=== PATIENT | male | born 1980 | race Two or more races ===

== ENCOUNTER 2020-03-31 22:53 | Emergency (ER) | payer MEDICAID, SELFPAY ==
--- NOTE | 2020-04-01 00:16 | XR_ITS ---
EXAMINATION: CHEST 1 VIEW CLINICAL INFORMATION: Concern for pneumonia. Covid. COMPARISON: 08/25/2016. TECHNIQUE: An AP view of the chest is provided. FINDINGS: The cardiac silhouette is not enlarged. The mediastinal and hilar contours are unremarkable. There are neither pleural effusions nor pneumothoraces. There are no consolidations. The osseous structures are unremarkable. IMPRESSION: No evidence for acute disease.
--- NOTE | 2020-04-01 00:21 | ED.URI ---
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 MD elicited complaint: fever, cough, sore throat, rhinorrhea and nasal congestion Onset (ago): day(s) (1) Consistency: constant Severity: moderate Exacerbating factors: nothing Relieving factors: nothing Related Data Allergies Allergy/AdvReac Type Severity Reaction Status Date / Time No Known Allergies Allergy Unverified 02/26/20 18:26 Review of Systems Review of Systems: All other systems are reviewed and are negative Constitutional: Reports as per HPI and Reports no additional constitutional complaints Eyes: Reports as per HPI and Reports no additional eye complaints Reports system reviewed and no additional complaints, except as documented Cardiovascular: Reports as per HPI and Reports no additional cardiovascular complaints Respiratory: Reports as per HPI and Reports no additional respiratory complaints Gastrointestinal: Reports as per HPI and Reports no additional gastrointestinal complaints Genitourinary: Reports no additional female genitourinary complaints Musculoskeletal: Reports no additional musculoskeletal complaints Skin/Breast: Reports system reviewed and no additional complaints, except as docu Psychiatric: Reports no additional psychiatric complaints Endocrine: Reports no additional endocrine complaints Hematologic/Lymphatic: Reports no additional hematologic/lymphatic complaints Allergic/Immunologic: Reports no additional allergic/immunologic complaints Reports system reviewed and no additional complaints, except as documented and Reports Abnormal speech present [facility] Past Medical History Medical History (Updated 04/01/20 @ 00:45 by Charley Strauss) Diabetes mellitus, type 2 Social History Social History Advance Directives: No Advance Directives Information Provided: No Physical Exam Vital Signs: Vital Signs: Vital Signs Temp Pulse Resp BP Pulse Ox 04/01/20 00:43 99.2 F 85 18 122/80 97 Body Mass Index 30.7 Appearance: Alert. Oriented X3. No acute distress. Head: Normal external exam. Normocephalic. Atraumatic. No Jeff signs noted. No raccoon eyes noted Eyes: PERRLA. EOMI. Conjunctiva and sclera normal. Eyelids normal. ENT: EAC normal. TM's Normal. Pharynx normal. Uvula midline. Moist mucous membranes. No trismus noted. No drooling noted. No muffled voice noted. Neck: Normal inspection. Neck supple. FROM. No adenopathy. Thyroid Normal. No meningeal signs. No neck mass noted. CVS: Normal heart rate and rhythm. Heart sound normal. No murmurs noted. Pulses normal throughout. Respiratory: No respiratory distress. Painless inspiration. Breath sounds normal. No wheezes/rales/rhonchi noted. Chest nontender. No accessory muscle usage noted or decreased air movement noted. Abdomen: Soft and nontender. Bowel sounds normal in all 4 quadrants. No distention noted. No organomegaly noted. No visible injury noted. Back: No CVA tenderness. Full range of motion noted. Skin: Skin warm and dry. Normal skin color. Normal skin turgor. No rashes/lesions/lacerations noted. Extremities: No lower extremity edema. Extremities exhibit normal range of motion. Extremities nontender. Neuro: Oriented X 3. No motor deficit. No sensory deficit. Reflexes normal. Course Course Course Narrative: Viral upper respiratory symptoms for 1 day, will test for COVID, check chest x-ray. MDM - URI/Sore Throat MDM Narrative Medical decision making narrative: assessment and plan. 39-year-old male history of diabetes came in with upper respiratory infection. O2 saturation on room air is 99% 1. COVID testing is pending patient was instructed to self-quarantine for the next 2 weeks. Differential Diagnosis Differential diagnosis: Likely upper respiratory infection Imaging Data Chest x-ray: Radiologist's impression: No acute pathology. Discharge Plan Discharge Clinical Impression: Acute upper respiratory infection Patient Disposition: Home, Self-Care Instructions: COVID-19 (Coronavirus Disease 2019) (ED) Additional Instructions: return to the emergency department for difficulty breathing. Referrals: Martha Lock MD [Primary Care Provider] - 2 weeks Stand Alone Forms: Work/School Release
[2020-04-01 00:43] VITALS: BP 122/80; PULSE 85; RESP 18; TEMP 37.3; O2SAT 97; BMI 30.7
[2020-04-01 04:47] LABS: SARS COV2 PCR INHOUSE POSITIVE (Negative)
== END 2020-04-01 01:48 | disposition home or self-care (01) ==
PROVIDERS: Emergency Provider Emergency Medicine; PCP Internal Medicine
DX: J06.9 Acute upper respiratory infection, unspecified (principal); Z20.828 Contact with and (suspected) exposure to other viral communicable diseases
CPT/HCPCS: 71045; 87635; 99283

== ENCOUNTER 2020-04-02 00:08 | Emergency (ER) | payer MEDICAID, SELFPAY ==
--- NOTE | 2020-04-02 01:01 | ED_ITS ---
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 Related Data Home Medications Medication Instructions Recorded Confirmed albuterol sulfate [ProAir HFA] 2 puff INHALATION Q4H PRN 04/07/20 04/07/20 glimepiride 4 mg PO BIDWM 04/07/20 04/07/20 pioglitazone 45 mg PO DAILY 04/07/20 04/07/20 sitagliptin [Januvia] 100 mg PO DAILY 04/07/20 04/07/20 Allergies Allergy/AdvReac Type Severity Reaction Status Date / Time No Known Allergies Allergy Verified 04/08/20 02:10 Review of Systems Review of Systems: Pertinent positives and negatives as stated in the HPI and 10pt ROS is otherwise negative. [facility] Past Medical History Medical History (Updated 04/08/20 @ 09:06 by Brigitte Chávez MD) Asthma Diabetes mellitus, type 2 Social History Social History Household Members: Spouse Housing: House Do you presently have visiting nurse or other home services: No Alcohol intake: never Smoking Status: Never smoker Smoked in Last 30 Days: No Second Hand Smoke Exposure: No Use of substances other than those prescribed or required for medical reasons: No Have you been hit, kicked, punched, or otherwise hurt by someone within the past year? If so, by whom?: No Do you feel safe in your current relationship?: No Is there a partner from a previous relationship who is making you feel unsafe now?: No Are you made to feel afraid or neglected: No Advance Directives: No Advance Directives Information Provided: No Do you have thoughts of harming others: None Do you have a plan to hurt others: No Plan Recently lost weight without trying: No Physical Exam Vital Signs: Vital signs reviewed Constitutional: positive Fever, positive Chills, positive fatigue, positive Malaise ENT/Mouth: positive sore throat, no runny nose Eyes: No Discharge Cardiovascular: No Chest Pain, positive SOB Respiratory: No Cough, No Sputum, No Wheezing, No Smoke Exposure, No Dyspnea Gastrointestinal: No Nausea, No Vomiting, No Diarrhea Genitourinary: no irregular bleeding, No Dysuria, No Urinary Frequency, No Hematuria, No Urinary Incontinence, No Urgency, No Flank Pain, Musculoskeletal: positive Myalgia Skin: No rash Neuro: No Headache Course Course Course Narrative: 39M with persistent viral symptoms and tested for COVID-19. Clinical exam and review of vital signs reassuring and no evidence to suggest asthma exacerbation or pneumonia at present. Will likely get lab work, although did discuss with patient increasing symptomatic treatment with over the counter medication as well as asthma medication. Patient reassured. Nursing informed me that patient eloped. Discharge Plan Discharge Clinical Impression: Acute viral syndrome Patient Disposition: Elopement Prescriptions: No Action pioglitazone 45 mg Tablet 45 mg PO DAILY RF: 0 glimepiride 4 mg Tablet 4 mg PO BIDWM RF: 0 albuterol sulfate [ProAir HFA] 90 mcg/actuation Hfa Aerosol Inhaler 2 puff INHALATION Q4H PRN (Reason: Shortness Of Breath) RF: 0 Januvia 100 mg Tablet 100 mg PO DAILY RF: 0 Discharge Date/Time: 04/02/20 01:35
--- NOTE | 2020-04-02 01:37 | PC.NURSE ---
pt was seen by dr story and staff occupational therapist. art psychotherapist states she went to the bathroom and when she came out the pt left.
== END 2020-04-02 01:35 | disposition left against medical advice (07) ==
PROVIDERS: Emergency Provider Student in an Organized Health Care Education/Training Program
DX: U07.1 COVID-19 (principal); M79.10 Myalgia, unspecified site; Z79.899 Other long term (current) drug therapy

== ENCOUNTER 2020-04-07 14:58 | Inpatient (IN) | payer MEDICAID, SELFPAY ==
[2020-04-07 15:35] VITALS: BP 111/69; BP 119/47; PULSE 77; PULSE 88; RESP 21; TEMP 37.4; O2SAT 90; O2SAT 94; BMI 30.7
--- NOTE | 2020-04-07 16:53 | XR_ITS ---
EXAMINATION: XR CHEST CLINICAL INFORMATION: Shortness of breath. Covid positive. COMPARISON: Chest x-ray 04/01/2020 TECHNIQUE: Frontal view of the chest was obtained. 4:55 PM FINDINGS: Lung volume is low. This causes prominence of the bronchovascular markings. No focal consolidation. There is no pleural effusion or pneumothorax. The heart size is normal. Cardiac and mediastinal contours are normal. XR/XR chest 1V IMPRESSION: Low inspiratory effort. No acute changes of the chest.
--- NOTE | 2020-04-07 17:13 | ED.URI ---
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 Today, he states his shortness of breath is getting worse, he has a home pulse ox and he states it reads at 82%. He states he has been using his nebulizer with some relief. He also states his fevers have gone up to 108 and 109 but come down with Tylenol. This number was confirmed multiple times with the county extension agent. He states he is not on home oxygen, he does not have an albuterol pump and that he only has an inhaler. He states he is still eating but not his normal level all and he has had 4 episodes of diarrhea over the past 2 days. Related Data Allergies Allergy/AdvReac Type Severity Reaction Status Date / Time No Known Allergies Allergy Unverified 02/26/20 18:26 Review of Systems Review of Systems: Constitutional: + f, chills, fatigue ENT/Mouth: no sore throat, +runny nose Eyes: No Discharge Cardiovascular: No Chest Pain, + SOB Respiratory: + Cough, + Sputum, No Wheezing,+Dyspnea Gastrointestinal: No Nausea, No Vomiting, + Diarrhea Genitourinary: no irregular bleeding, No Dysuria, No Urinary Frequency, No Hematuria, No Urinary Incontinence, No Urgency, No Flank Pain, Musculoskeletal: + Myalgia Skin: No rash Neuro: No Headache PMFSH Past Medical History Attestation statement: The following information was validated with the patient. Medical History (Updated 04/07/20 @ 20:51 by JARROD Hawley) Asthma Diabetes mellitus, type 2 Social History Social History Alcohol intake: never Smoked in Last 30 Days: No Use of substances other than those prescribed or required for medical reasons: No Advance Directives: No Advance Directives Information Provided: No Physical Exam Vital Signs: Vital Signs: Vital Signs Temp Pulse Resp BP Pulse Ox 04/07/20 17:36 99.3 F 79 21 H 113/72 94 04/07/20 15:35 99.3 F 77 21 H 111/69 94 Body Mass Index 30.7 Const: General: cooperative, comfortable and no acute distress Orientation/consciousness: patient oriented x3 HENMT: Head: Yes normal to inspection General nose exam: Normal external nose present Face and sinus: Yes normal facial exam Neuro: General: patient oriented x3 Course Course Course Narrative: 39-year-old male with past medical history of asthma and diabetes was diagnosed with COVID 6 days ago, reports fevers chills bodyaches coughing fatigue and worsening shortness of breath. Upon arrival he was 90% on room air, is currently 94% on 4 L, reports high fevers which resolved with Tylenol. Will get labs, cxr and reassess. Pt breathing status worsening, shallow breathing, when oxygen is removed, his O2 sat drops to 89%, counseled patient on trying to take slow deep breaths, lying on his sides and belly as often as he can. Patient states he is also getting a headache. Labs remarkable for Na 133, Ca 8, ferritin 1453, alk-phos 135, LDH 283, liver enzymes slightly elevated, Lactic acid is 1.4 procalcitonin 0.12, D-dimer 251. Will get chest CT, VBG, give Tylenol. Speak to hospitalist about admission. CT chest showed GGO with atypical pneumonia as seen an COVID-19. VBG 7.37/52/25/30 with a base excess of 3.1 Hospitalist to admit pt. MDM - URI/Sore Throat MDM Narrative Medical decision making narrative: not likely sepsis but flagging as such, will do lactic acid and BCx2 Lab Data Attestation: I reviewed the patient's lab results. Result diagrams: 04/07/20 17:55 04/07/20 20:04 Labs: Lab Results 04/07/20 04/07/20 04/07/20 Range/Units 17:55 17:55 17:55 WBC 6.3 (4.8-10.8) X10*3/uL RBC 5.00 (4.60-5.80) X10*6/uL Hgb 14.3 (14.0-18.0) g/dl Hct 41.6 L (42-52) % MCV 83.2 (80-98) fL MCH 28.6 (27.0-33.0) pg MCHC 34.4 (31.0-36.0) g/dl RDW 12.7 (11.0-16.0) % Plt Count 111 L (160-400) X10*3/uL MPV 11.8 (9.4-12.4) fL Immature Gran % (Auto) 0.2 (0.0-0.4) % Neut % (Auto) 74.0 H (45-73) % Lymph % (Auto) 22.1 (20-40) % Mcnairy % (Auto) 3.5 (2-11) % Eos % (Auto) 0.0 (0-4) % Baso % (Auto) 0.2 (0-2) % Lymph # (Auto) 1.4 (1.2-4.9) X10*3/uL Mcnairy # (Auto) 0.2 (0.1-1.2) X10*3/uL Eos # (Auto) 0.0 (0.0-0.4) X10*3/uL Baso # (Auto) 0.0 (0.0-0.2) X10*3/uL Abs Immat Gran (auto) 0.01 (0.00-0.03) X10*3/uL Absolute Neuts (auto) 4.7 (2.0-8.3) X10*3/uL Absolute Nucleated RBC 0.000 (0.0-0.012) X10*3/uL Nucleated RBC % (auto) 0.0 (0.0-0.2) /100WBC D-Dimer 251 NG/ML VBG pH (7.32-7.43) VBG pCO2 mmhg VBG Oxygen Liters/Min VBG pO2 mmhg VBG HCO3 mmol/L VBG O2 Saturation % VBG Base Excess mmol/L Sodium (135-145) mmol/L Potassium (3.3-5.1) mmol/l Chloride (96-108) mmol/L Carbon Dioxide (22-29) mmol/L Anion Gap (12-20) BUN (9-16) mg/dL Creatinine (0.5-1.4) mg/dL Estim Creat Clear Calc Estimated GFR Random Glucose (60-115) mg/dL Lactic Acid (0.5-2.0) mmol/L Calcium (8.4-10.2) mg/dL Phosphorus 3.4 (2.7-4.5) mg/dL Magnesium 1.9 (1.6-2.6) mg/dL Ferritin 1453 H (20-250) ng/mL Total Bilirubin 0.6 (0.0-1.0) mg/dL Direct Bilirubin 0.3 (0.0-0.5) mg/dL AST 54 H (5-37) U/L ALT 53 H (0-40) U/L Alkaline Phosphatase 135 H (39-117) U/L Lactate Dehydrogenase 283 H (118-273) U/L Total Creatine Kinase 42 (38-174) U/L C-Reactive Protein 5.78 H (< or = 0.50) mg/dL Total Protein 6.7 (6.5-8.0) g/dL Albumin 3.7 (3.5-5.0) g/dL Procalcitonin ng/mL 04/07/20 04/07/20 04/07/20 Range/Units 17:55 19:14 20:04 WBC (4.8-10.8) X10*3/uL RBC (4.60-5.80) X10*6/uL Hgb (14.0-18.0) g/dl Hct (42-52) % MCV (80-98) fL MCH (27.0-33.0) pg MCHC (31.0-36.0) g/dl RDW (11.0-16.0) % Plt Count (160-400) X10*3/uL MPV (9.4-12.4) fL Immature Gran % (Auto) (0.0-0.4) % Neut % (Auto) (45-73) % Lymph % (Auto) (20-40) % Mcnairy % (Auto) (2-11) % Eos % (Auto) (0-4) % Baso % (Auto) (0-2) % Lymph # (Auto) (1.2-4.9) X10*3/uL Mcnairy # (Auto) (0.1-1.2) X10*3/uL Eos # (Auto) (0.0-0.4) X10*3/uL Baso # (Auto) (0.0-0.2) X10*3/uL Abs Immat Gran (auto) (0.00-0.03) X10*3/uL Absolute Neuts (auto) (2.0-8.3) X10*3/uL Absolute Nucleated RBC (0.0-0.012) X10*3/uL Nucleated RBC % (auto) (0.0-0.2) /100WBC D-Dimer NG/ML VBG pH (7.32-7.43) VBG pCO2 mmhg VBG Oxygen Liters/Min VBG pO2 mmhg VBG HCO3 mmol/L VBG O2 Saturation % VBG Base Excess mmol/L Sodium 133 L (135-145) mmol/L Potassium 4.1 (3.3-5.1) mmol/l Chloride 95 L (96-108) mmol/L Carbon Dioxide 29 (22-29) mmol/L Anion Gap 13 (12-20) BUN 8 L (9-16) mg/dL Creatinine 0.95 (0.5-1.4) mg/dL Estim Creat Clear Calc 124.4 Estimated GFR > 60 Random Glucose 277 H (60-115) mg/dL Lactic Acid 1.4 (0.5-2.0) mmol/L Calcium 8.0 L (8.4-10.2) mg/dL Phosphorus (2.7-4.5) mg/dL Magnesium (1.6-2.6) mg/dL Ferritin (20-250) ng/mL Total Bilirubin (0.0-1.0) mg/dL Direct Bilirubin (0.0-0.5) mg/dL AST (5-37) U/L ALT (0-40) U/L Alkaline Phosphatase (39-117) U/L Lactate Dehydrogenase (118-273) U/L Total Creatine Kinase (38-174) U/L C-Reactive Protein (< or = 0.50) mg/dL Total Protein (6.5-8.0) g/dL Albumin (3.5-5.0) g/dL Procalcitonin 0.12 ng/mL 04/07/20 Range/Units 20:30 WBC (4.8-10.8) X10*3/uL RBC (4.60-5.80) X10*6/uL Hgb (14.0-18.0) g/dl Hct (42-52) % MCV (80-98) fL MCH (27.0-33.0) pg MCHC (31.0-36.0) g/dl RDW (11.0-16.0) % Plt Count (160-400) X10*3/uL MPV (9.4-12.4) fL Immature Gran % (Auto) (0.0-0.4) % Neut % (Auto) (45-73) % Lymph % (Auto) (20-40) % Mcnairy % (Auto) (2-11) % Eos % (Auto) (0-4) % Baso % (Auto) (0-2) % Lymph # (Auto) (1.2-4.9) X10*3/uL Mcnairy # (Auto) (0.1-1.2) X10*3/uL Eos # (Auto) (0.0-0.4) X10*3/uL Baso # (Auto) (0.0-0.2) X10*3/uL Abs Immat Gran (auto) (0.00-0.03) X10*3/uL Absolute Neuts (auto) (2.0-8.3) X10*3/uL Absolute Nucleated RBC (0.0-0.012) X10*3/uL Nucleated RBC % (auto) (0.0-0.2) /100WBC D-Dimer NG/ML VBG pH 7.37 (7.32-7.43) VBG pCO2 52 mmhg VBG Oxygen Liters/Min TNP VBG pO2 25 mmhg VBG HCO3 30 mmol/L VBG O2 Saturation 46.7 % VBG Base Excess 3.1 mmol/L Sodium (135-145) mmol/L Potassium (3.3-5.1) mmol/l Chloride (96-108) mmol/L Carbon Dioxide (22-29) mmol/L Anion Gap (12-20) BUN (9-16) mg/dL Creatinine (0.5-1.4) mg/dL Estim Creat Clear Calc Estimated GFR Random Glucose (60-115) mg/dL Lactic Acid (0.5-2.0) mmol/L Calcium (8.4-10.2) mg/dL Phosphorus (2.7-4.5) mg/dL Magnesium (1.6-2.6) mg/dL Ferritin (20-250) ng/mL Total Bilirubin (0.0-1.0) mg/dL Direct Bilirubin (0.0-0.5) mg/dL AST (5-37) U/L ALT (0-40) U/L Alkaline Phosphatase (39-117) U/L Lactate Dehydrogenase (118-273) U/L Total Creatine Kinase (38-174) U/L C-Reactive Protein (< or = 0.50) mg/dL Total Protein (6.5-8.0) g/dL Albumin (3.5-5.0) g/dL Procalcitonin ng/mL Imaging Data Chest x-ray: Attestation: I personally reviewed and interpreted this imaging study as follows: My impression: no acute changes Radiologist's impression: [address] [address] XRay Report Signed Patient: Vinayak HernandezMR#: [id number] : 1980Acct:[id number] Age/Sex: 39 / MADM Date: 04/07/20 Loc: HO.ED Attending Dr: Ordering Physician: JAIR HUMPHREY Date of Service: 04/07/20 Procedure(s): XR chest 1V Accession Number(s): [id number] cc: JAIR HUMPHREY~ EXAMINATION: XR CHEST CLINICAL INFORMATION: Shortness of breath. Covid positive. COMPARISON: Chest x-ray 04/01/2020 TECHNIQUE: Frontal view of the chest was obtained. 4:55 PM FINDINGS: Lung volume is low. This causes prominence of the bronchovascular markings. No focal consolidation. There is no pleural effusion or pneumothorax. The heart size is normal. Cardiac and mediastinal contours are normal. XR/XR chest 1V IMPRESSION: Low inspiratory effort. No acute changes of the chest. Dictated By:CALOS CASTAÑEDA MD Signed By:<Electronically signed by CALOS CASTAÑEDA MD in OV>04/07/20 1710 DD/ 1653 TD/TT: Customer Operations Intern: CASH CT scan - chest: Attestation: I personally reviewed and interpreted this imaging study as follows: My impression: GGO, atypical PNA 2/2 COVID-19 Radiologist's impression: Vinayak Hernandez 39 M [address] [address] [address] Scan Report Signed Patient: Vinayak HernandezMR#: [id number] : 1980Acct:[id number] Age/Sex: 39 / MADM Date: 04/07/20 Loc: HO.ED Attending Dr: Ordering Physician: JAIR HUMPHREY Date of Service: 04/07/20 Procedure(s): CT chest wo con Accession Number(s): [id number] cc: JAIR HUMPHREY~ EXAMINATION: CT CHEST WITHOUT CONTRAST CLINICAL INFORMATION: Shortness of breath. Covid positive. COMPARISON: Chest x-ray today, 04/01/2020 TECHNIQUE: Multidetector volumetric CT imaging of the chest was done. Axial MIP volume rendering provided. Sagittal and coronal reformatted images were obtained. This CT examination was performed using dose optimization techniques as appropriate, variously including the following: *Automated exposure control *Adjustment of mA and/or kV according to patient size (this includes techniques or standardized protocols for targeted exams where dose is matched to indication/reason for exam; i.e. extremities or head) *Use of iterative reconstruction technique DLP: 346 mGy-cm FINDINGS: LUNGS: There is low inspiratory effort. There is diffuse multifocal scattered groundglass opacities throughout the lungs bilateral. This is consistent with Covid positive pneumonia. No dense consolidation. Central bronchial airways are open. No bronchiectasis or interstitial changes of lung. MEDIASTINUM: There are borderline enlarged lymph nodes in the pretracheal retrovascular space, AP window and subcarina. There is no pericardial effusion. The heart size is normal. PLEURA: There is no pleural effusion. No pleural mass or thickening. AXILLA: No lymphadenopathy. UPPER ABDOMEN: Mild low-attenuation of the liver parenchyma due to fatty change. The spleen is mildly enlarged measuring 15.6 cm AP. OSSEOUS STRUCTURES: Unremarkable. CT/CT chest wo con IMPRESSION: 1. Diffuse multifocal groundglass opacities throughout the lungs consistent with atypical pneumonia related to Covid. 2. Mild diffuse fatty change of liver. 3. Mild enlargement of spleen. Discharge Plan Discharge Clinical Impression: COVID-19 determined by clinical diagnostic criteria, Acute respiratory failure with hypoxia Patient Disposition: Admitted As Inpatient
[2020-04-07 17:36] VITALS: BP 113/72; PULSE 79; RESP 21; TEMP 37.4; O2SAT 94
[2020-04-07 18:02] LABS: MANUAL DIFF FLAG NO
[2020-04-07 18:05] LABS: Basophils Percent Auto 0.2 % (0-2); Hematocrit 41.6 % (42-52); Hemoglobin 14.3 g/dl (14.0-18.0); Imm Gran Abs Auto 0.01 X10*3/uL (0.00-0.03); Imm Gran Pct Auto 0.2 % (0.0-0.4); Lymphocytes Absolute Auto 1.4 X10*3/uL (1.2-4.9); Lymphocytes Percent Auto 22.1 % (20-40); Mean Corpuscular HGB Conc 34.4 g/dl (31.0-36.0); Mean Corpuscular Hemoglobin 28.6 pg (27.0-33.0); Mean Corpuscular Volume 83.2 fL (80-98); Mean Platelet Volume 11.8 fL (9.4-12.4); Monocytes Absolute Auto 0.2 X10*3/uL (0.1-1.2); Monocytes Percent Auto 3.5 % (2-11); Neutrophils Absolute Auto 4.7 X10*3/uL (2.0-8.3); Platelet Count 111 X10*3/uL (160-400); Red Cell Distribution Width 12.7 % (11.0-16.0); White Blood Count 6.3 X10*3/uL (4.8-10.8)
[2020-04-07 18:23] LABS: D Dimer 251 NG/ML
[2020-04-07 18:39] LABS: Alanine Aminotransferase 53 U/L (0-40); Albumin Level 3.7 g/dL (3.5-5.0); Alkaline Phosphatase 135 U/L (39-117); Aspartate Amino Transferase 54 U/L (5-37); Bilirubin Direct 0.3 mg/dL (0.0-0.5); Bilirubin Total 0.6 mg/dL (0.0-1.0); C Reactive Protein 5.78 mg/dL (< or = 0.50); Lactate Dehydrogenase 283 U/L (118-273); Magnesium 1.9 mg/dL (1.6-2.6); Phosphorus 3.4 mg/dL (2.7-4.5); Total Protein 6.7 g/dL (6.5-8.0)
[2020-04-07 18:58] LABS: Ferritin 1453 ng/mL (20-250)
[2020-04-07 19:03] LABS: Procalcitonin 0.12 ng/mL
--- NOTE | 2020-04-07 19:13 | CT_ITS ---
EXAMINATION: CT CHEST WITHOUT CONTRAST CLINICAL INFORMATION: Shortness of breath. Covid positive. COMPARISON: Chest x-ray today, 04/01/2020 TECHNIQUE: Multidetector volumetric CT imaging of the chest was done. Axial MIP volume rendering provided. Sagittal and coronal reformatted images were obtained. This CT examination was performed using dose optimization techniques as appropriate, variously including the following: *Automated exposure control *Adjustment of mA and/or kV according to patient size (this includes techniques or standardized protocols for targeted exams where dose is matched to indication/reason for exam; i.e. extremities or head) *Use of iterative reconstruction technique DLP: 346 mGy-cm FINDINGS: LUNGS: There is low inspiratory effort. There is diffuse multifocal scattered groundglass opacities throughout the lungs bilateral. This is consistent with Covid positive pneumonia. No dense consolidation. Central bronchial airways are open. No bronchiectasis or interstitial changes of lung. MEDIASTINUM: There are borderline enlarged lymph nodes in the pretracheal retrovascular space, AP window and subcarina. There is no pericardial effusion. The heart size is normal. PLEURA: There is no pleural effusion. No pleural mass or thickening. AXILLA: No lymphadenopathy. UPPER ABDOMEN: Mild low-attenuation of the liver parenchyma due to fatty change. The spleen is mildly enlarged measuring 15.6 cm AP. OSSEOUS STRUCTURES: Unremarkable. CT/CT chest wo con IMPRESSION: 1. Diffuse multifocal groundglass opacities throughout the lungs consistent with atypical pneumonia related to Covid. 2. Mild diffuse fatty change of liver. 3. Mild enlargement of spleen.
[2020-04-07 19:55] LABS: Lactic Acid 1.4 mmol/L (0.5-2.0)
[2020-04-07] MEDS: Acetaminophen 325 MG TABLET 650 MG PO ×2 (20:14→23:18)
--- NOTE | 2020-04-07 20:14 | PC.NURSE ---
THIS RN WORKING FLOAT NURSE, PT MEDICATED WITH PO TYLENOL AT THIS TIME. HOSPITALIST AT BEDSIDE PT 96%
[2020-04-07 20:33] LABS: Anion Gap 13 (12-20); Blood Urea Nitrogen 8 mg/dL (9-16); Carbon Dioxide 29 mmol/L (22-29); Chloride 95 mmol/L (96-108); Creatinine Clr Calc Pharmacy 124.4; Estimated Glomerular Filt Rate > 60; Glucose Random 277 mg/dL (60-115); Potassium 4.1 mmol/l (3.3-5.1); Sodium 133 mmol/L (135-145)
--- NOTE | 2020-04-07 20:36 | PM.IMHP ---
History of Present Illness Date of Service: 04/07/20 <JARROD Hawley - Last Filed: 04/07/20 20:58> Chief Complaint: shortness of breath <JARROD Hawley Last Filed: 04/07/20 20:58> this is a 39-year-old Marshallese-speaking male who presents to the emergency department with shortness of breath. Patient was seen in the emergency department on April 01 and diagnosed with coronavirus. Since then he has had increasing shortness of breath with associated cough productive of clear phlegm, fever, body aches. Today his oxygen saturation at home was 86 % and this prompted him to come to the emergency department for further evaluation. While in the emergency department his oxygen saturation was noted to dip below 90% on room air. He was started on supplemental oxygen but his shortness of breath persisted. Chest x-ray showed no evidence of pneumonia however cat scan of the chest showed ground-glass opacities. Inflammatory markers including ferritin, CRP and LDH were somewhat elevated. given hypoxia the decision was made to admit him to the hospital for further management. <JARROD Hawley - Last Filed: 04/07/20 20:58> Review of Systems Review of Systems: Yes all other systems are reviewed and are negative <JARROD Hawley Last Filed: 04/07/20 20:58> Constitutional: Constitutional: Reports body ache(s) and Reports fever(s) <JARROD Hawley Last Filed: 04/07/20 20:58> Cardiovascular: Cardiovascular: Reports dyspnea <JARROD Hawley Last Filed: 04/07/20 20:58> Respiratory: Respiratory: Reports dyspnea <JARROD Hawley Last Filed: 04/07/20 20:58> [facility] Medical History: Medical History (Updated 04/09/20 @ 16:32 by Giulia Coburn MD) Asthma Diabetes mellitus, type 2 <JARROD Hawley Last Filed: 04/07/20 20:58> Functional capacity: independent ambulation <JARROD Hawley Last Filed: 04/07/20 20:58> Pertinent family history: significant for diabetes in both his mother and brother <JARROD Hawley - Last Filed: 04/07/20 20:58> Social History: Social History Household Members: Spouse Housing: House Do you presently have visiting nurse or other home services: No Alcohol intake: never Smoking Status: Never smoker Smoked in Last 30 Days: No Second Hand Smoke Exposure: No Use of substances other than those prescribed or required for medical reasons: No Currently Displaying Signs/Symptoms of Drug Intoxication Withdrawal: No Have you been hit, kicked, punched, or otherwise hurt by someone within the past year? If so, by whom?: No Do you feel safe in your current relationship?: No Is there a partner from a previous relationship who is making you feel unsafe now?: No Are you made to feel afraid or neglected: No Advance Directives: No Advance Directives Information Provided: No Do you have thoughts of harming others: None Do you have a plan to hurt others: No Plan Recently lost weight without trying: No service: No Current occupational status: employed <JARROD Hawley - Last Filed: 04/07/20 20:58> Meds Allergies/Adverse reactions: Allergies Allergy/AdvReac Type Severity Reaction Status Date / Time No Known Allergies Allergy Verified 04/08/20 02:10 <JARROD Hawley - Last Filed: 04/07/20 20:58> Home medications: Home Medications Medication Instructions Recorded Confirmed Type albuterol sulfate [ProAir HFA] 2 puff INHALATION Q4H PRN 04/07/20 04/07/20 History glimepiride 4 mg PO BIDWM 04/07/20 04/07/20 History pioglitazone 45 mg PO DAILY 04/07/20 04/07/20 History sitagliptin [Januvia] 100 mg PO DAILY 04/07/20 04/07/20 History <JARROD Hawley - Last Filed: 04/07/20 20:58> Physical Exam Vital Signs and Narrative: Vital Signs: Last Vital Signs Temp 99.3 F 04/07/20 17:36 Pulse 79 04/07/20 17:36 Resp 21 H 04/07/20 17:36 BP 113/72 04/07/20 17:36 Pulse Ox 94 04/07/20 17:36 Body Mass Index 30.7 <JARROD Hawley - Last Filed: 04/07/20 20:58> Const: Nutritional Appearance: well nourished <JARROD Hawley - Last Filed: 04/07/20 20:58> Orientation/consciousness: patient oriented x3 <JARROD Hawley - Last Filed: 04/07/20 20:58> HENMT: Head: Yes normocephalic and Yes atraumatic <JARROD Hawley - Last Filed: 04/07/20 20:58> Eyes: Sclerae: sclerae normal <JARROD Hawley - Last Filed: 04/07/20 20:58> Chest: Chest palpation & inspection: normal inspection of the chest <JARROD Hawley - Last Filed: 04/07/20 20:58> Resp: Effort & Inspection: able to speak in complete sentences and labored <JARROD Hawley - Last Filed: 04/07/20 20:58> Cardio: Rate: regular rate <JARROD Hawley - Last Filed: 04/07/20 20:58> Rhythm: regular rhythm <JARROD Hawley - Last Filed: 04/07/20 20:58> Skin: General skin exam: no rashes or lesions noted <JARROD Hawley Last Filed: 04/07/20 20:58> Neuro: General: patient oriented x3 <JARROD Hawley - Last Filed: 04/07/20 20:58> Cranial nerves: Yes CN's II-XII intact bilaterally and Yes Bilaterally intact EOM present <JARROD Hawley - Last Filed: 04/07/20 20:58> Extrem: General: Yes normal to inspection <JARROD Hawley - Last Filed: 04/07/20 20:58> Results Labs Labs: Laboratory Tests 04/07/20 04/07/20 04/07/20 17:55 17:55 17:55 WBC 6.3 RBC 5.00 Hgb 14.3 Hct 41.6 L MCV 83.2 MCH 28.6 MCHC 34.4 RDW 12.7 Plt Count 111 L MPV 11.8 Immature Gran % (Auto) 0.2 Neut % (Auto) 74.0 H Lymph % (Auto) 22.1 [place] % (Auto) 3.5 Eos % (Auto) 0.0 Baso % (Auto) 0.2 Lymph # (Auto) 1.4 [place] # (Auto) 0.2 Eos # (Auto) 0.0 Baso # (Auto) 0.0 Abs Immat Gran (auto) 0.01 Absolute Neuts (auto) 4.7 Absolute Nucleated RBC 0.000 Nucleated RBC % (auto) 0.0 D-Dimer 251 Sodium Potassium Chloride Carbon Dioxide Anion Gap BUN Creatinine Estim Creat Clear Calc Estimated GFR Random Glucose Lactic Acid Calcium Phosphorus 3.4 Magnesium 1.9 Ferritin 1453 H Total Bilirubin 0.6 Direct Bilirubin 0.3 AST 54 H ALT 53 H Alkaline Phosphatase 135 H Lactate Dehydrogenase 283 H Total Creatine Kinase 42 C-Reactive Protein 5.78 H Total Protein 6.7 Albumin 3.7 Procalcitonin 04/07/20 04/07/20 04/07/20 17:55 19:14 20:04 WBC RBC Hgb Hct MCV MCH MCHC RDW Plt Count MPV Immature Gran % (Auto) Neut % (Auto) Lymph % (Auto) [place] % (Auto) Eos % (Auto) Baso % (Auto) Lymph # (Auto) [place] # (Auto) Eos # (Auto) Baso # (Auto) Abs Immat Gran (auto) Absolute Neuts (auto) Absolute Nucleated RBC Nucleated RBC % (auto) D-Dimer Sodium 133 L Potassium 4.1 Chloride 95 L Carbon Dioxide 29 Anion Gap 13 BUN 8 L Creatinine 0.95 Estim Creat Clear Calc 124.4 Estimated GFR > 60 Random Glucose 277 H Lactic Acid 1.4 Calcium 8.0 L Phosphorus Magnesium Ferritin Total Bilirubin Direct Bilirubin AST ALT Alkaline Phosphatase Lactate Dehydrogenase Total Creatine Kinase C-Reactive Protein Total Protein Albumin Procalcitonin 0.12 <JARROD Hawley - Last Filed: 04/07/20 20:58> Assessment and Plan (1) Pneumonia due to COVID-19 virus: Problem details: He has still active COVID likely He has diabetes and asthma risk He is feeling better today,but still hypoxic overnight, he is day 2/5 Remdesivir and Dexamethasone <JARROD Hawley - Last Filed: 04/07/20 20:58> Status: Acute <JARROD Hawley - Last Filed: 04/07/20 20:58> This is a 39-year-old Marshallese-speaking male with history of diabetes and asthma who presents to the emergency department with shortness of breath after being diagnosed with coronavirus on April 01. COVID-19 pneumonia requiring supplemental oxygen - IV Decadron - ID consult - continue supportive care diabetes hold PO meds - SSI, POCs Elevated LFTs CT shows fatty liver dz -trend LFTs DVT ppx - lovenox Code status - full code This case was discussed with Dr. Gibson <JARROD Hawley - Last Filed: 04/07/20 20:58>
[2020-04-07 20:42] LABS: pH VBG 7.37 (7.32-7.43)
[2020-04-07 20:43] LABS: Base Excess VBG 3.1 mmol/L; HCO3 VBG 30 mmol/L; PCO2 VBG 52 mmhg; PO2 VBG 25 mmhg
[2020-04-07 20:45] LABS: Blood Gas Serial # 5396; Oxygen Saturation VBG 46.7 %
[2020-04-07 21:32] VITALS: BP 113/69; PULSE 102; RESP 22; TEMP 39.4; O2SAT 90
[2020-04-07] MEDS: dexAMETHasone sod phosphate 4 MG/ML VIAL 6 MG IVPUSH (21:41)
[2020-04-07 22:33] VITALS: BP 122/80; PULSE 98; RESP 22; TEMP 38.4; O2SAT 93
[2020-04-07 23:12] VITALS: O2SAT 88
[2020-04-07] MEDS: Enoxaparin Sodium 40 MG/0.4 ML SYRINGE SUBCUT (23:18)
[2020-04-07] MEDS: 0.9 % Sodium Chloride Flush 3 ML SYRINGE IVFLUSH (23:19)
[2020-04-07 23:29] LABS: Glucose, Whole Blood 274 mg/dL (60-115)
[2020-04-07] MEDS: Insulin Lispro 100 UNIT/ML 3 ML VIAL SUBCUT (23:39)
[2020-04-08] VITALS (8 sets, daily range): BP systolic 107–146; BP diastolic 68–80; PULSE 72–93; RESP 18–20; TEMP 36.9–38; O2SAT 90–94; BMI 31.0
[2020-04-08 06:27] LABS: MANUAL DIFF FLAG SCAN; SCAN SMEAR FLAG 1
[2020-04-08 06:30] LABS: Hematocrit 44.2 % (42-52); Hemoglobin 14.7 g/dl (14.0-18.0); Imm Gran Abs Auto 0.03 X10*3/uL (0.00-0.03); Imm Gran Pct Auto 0.4 % (0.0-0.4); Lymphocytes Absolute Auto 0.7 X10*3/uL (1.2-4.9); Lymphocytes Percent Auto 9.2 % (20-40); Mean Corpuscular HGB Conc 33.3 g/dl (31.0-36.0); Mean Corpuscular Hemoglobin 28.4 pg (27.0-33.0); Mean Corpuscular Volume 85.3 fL (80-98); Mean Platelet Volume 12.9 fL (9.4-12.4); Monocytes Absolute Auto 0.2 X10*3/uL (0.1-1.2); Neutrophils Absolute Auto 6.7 X10*3/uL (2.0-8.3); Neutrophils Percent Auto 87.4 % (45-73); Platelet Count 132 X10*3/uL (160-400); Red Blood Count 5.18 X10*6/uL (4.60-5.80); Red Cell Distribution Width 12.7 % (11.0-16.0); White Blood Count 7.6 X10*3/uL (4.8-10.8)
[2020-04-08 07:03] LABS: PLT ABN DIST 1
[2020-04-08 07:05] LABS: SLIDE REVIEW VERIFIED
[2020-04-08 07:07] LABS: Alanine Aminotransferase 71 U/L (0-40); Albumin Level 3.8 g/dL (3.5-5.0); Alkaline Phosphatase 173 U/L (39-117); Anion Gap 17 (12-20); Aspartate Amino Transferase 87 U/L (5-37); Bilirubin Direct 0.4 mg/dL (0.0-0.5); Bilirubin Total 0.9 mg/dL (0.0-1.0); Blood Urea Nitrogen 11 mg/dL (9-16); Calcium 8.3 mg/dL (8.4-10.2); Carbon Dioxide 26 mmol/L (22-29); Chloride 98 mmol/L (96-108); Creatinine Clr Calc Pharmacy 150.4; Estimated Glomerular Filt Rate > 60; Glucose Random 292 mg/dL (60-115); Potassium 4.6 mmol/l (3.3-5.1); Sodium 136 mmol/L (135-145); Total Protein 7.1 g/dL (6.5-8.0)
[2020-04-08 08:24] LABS: Glucose, Whole Blood 255 mg/dL (60-115)
[2020-04-08] MEDS: dexAMETHasone sod phosphate 4 MG/ML VIAL 6 MG IVPUSH (08:34)
[2020-04-08] MEDS: 0.9 % Sodium Chloride Flush 3 ML SYRINGE IVFLUSH ×3 (08:35→20:40)
[2020-04-08] MEDS: Insulin Lispro 100 UNIT/ML 3 ML VIAL SUBCUT ×4 (08:35→20:43)
--- NOTE | 2020-04-08 09:31 | MHC.CM.PN ---
pt lives c his life partner in their home. 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 pt's life partner is able to help c his care if he needs it. this will include a ride home at dc. pt denies the need for vna at dc. dc plan is home no svcs. cm to cont. to follow.
--- NOTE | 2020-04-08 10:17 | P.CDIC_ITS ---
CDI Concurrent Query Service Date: 04/08/20 Documentation Clarification: Please clarify if you are treating a proba ble/suspected/likely or confirmed: Consistency: Acute respiratory failure with hypoxia, poa, txt: yes Please specify if known or other Jenny chest and wanting foamy had we had done yes Provider Response: Other Other Diagnosis: Acute respiratory failure probably related to covid infection. PLEASE DO NOT DELETE/MODIFY EXISTING CONTENT Additional information is needed in order to code to the highest accuracy and appropriate Severity of Illness (SOI). Please clarify the information noted below in your progress notes and discharge summary. Risk Factors/Clinical Indicators/Treatments ED: Clinical impression - Acute respiratory failure w hypoxia. SOB, pulse ox at home 82%, Temp 108, 3 liters nc, shallow breathing. RR 22 Temp 101.1 using accessory muscles. CDS: Violet Velasquez CCS, CDIS Contact Number: [phone] Please Review the information above and exercise your independent professional judgment in responding to the query. If you concur, pleas document in the PROGRESS NOTES and DISCHARGE SUMMARY. If you do not agree with the query, please document in the query above. THIS QUERY IS PART OF THE PERMANENT MEDICAL RECORD
[2020-04-08] MEDS: Acetaminophen 325 MG TABLET 650 MG PO ×2 (10:19→20:45)
--- NOTE | 2020-04-08 11:59 | W.PM.IDCN ---
History of Present Illness Data of Consult Service Date: 04/08/20 Requesting physician: Flakito Mejía Primary Care Provider: Unknown Physician HPI Reason for consult: shortness of breath He presents with shortness of breath Rhinorrhea started about 8 days ago and seen in ER COVID positive 04/01 Now worse fevers daily at home and cough PMFSH Past Medical History Medical History (Updated 04/10/20 @ 11:02 by Evon Canela MD) Asthma Diabetes mellitus, type 2 Functional capacity: independent ambulation Social History Social History Household Members: Spouse Housing: House Do you presently have visiting nurse or other home services: No Alcohol intake: never Smoking Status: Never smoker Smoked in Last 30 Days: No Second Hand Smoke Exposure: No Use of substances other than those prescribed or required for medical reasons: No Currently Displaying Signs/Symptoms of Drug Intoxication Withdrawal: No Have you been hit, kicked, punched, or otherwise hurt by someone within the past year? If so, by whom?: No Do you feel safe in your current relationship?: No Is there a partner from a previous relationship who is making you feel unsafe now?: No Are you made to feel afraid or neglected: No Advance Directives: No Advance Directives Information Provided: No Do you have thoughts of harming others: None Do you have a plan to hurt others: No Plan Recently lost weight without trying: No service: No Current occupational status: employed Meds Allergies Allergy/AdvReac Type Severity Reaction Status Date / Time No Known Allergies Allergy Verified 04/08/20 02:10 Home Medications Medication Instructions Recorded Confirmed Type albuterol sulfate [ProAir HFA] 2 puff INHALATION Q4H PRN 04/07/20 04/07/20 History glimepiride 4 mg PO BIDWM 04/07/20 04/07/20 History pioglitazone 45 mg PO DAILY 04/07/20 04/07/20 History sitagliptin [Januvia] 100 mg PO DAILY 04/07/20 04/07/20 History Physical Exam Vital Signs: Vital Signs: Vital Signs Temp Pulse Resp BP Pulse Ox 04/08/20 08:00 99.7 F 78 18 112/78 92 04/08/20 04:23 98.4 F 79 20 123/79 94 04/08/20 01:29 99.4 F 04/08/20 00:00 100.4 F 93 20 118/80 91 L 04/07/20 23:12 88 L 04/07/20 22:33 101.1 F H 98 22 H 122/80 93 04/07/20 21:32 102.9 F H 102 H 22 H 113/69 90 L 04/07/20 17:36 99.3 F 79 21 H 113/72 94 04/07/20 15:35 99.3 F 77 21 H 111/69 94 Body Mass Index 31.0 Const: General: cooperative Orientation/consciousness: oriented to person, oriented to place and oriented to time HENMT: Head: Yes normal to inspection Resp: Effort & Inspection: able to speak in complete sentences and abnormal respiratory pattern Cardio: Rate: regular rate Rhythm: regular rhythm GI: Inspection: Yes normal to inspection Skin: General skin exam: no rashes or lesions noted Neuro: General: oriented to person, oriented to place and oriented to time Extrem: General: Yes normal to inspection Assessment and Plan (1) Pneumonia due to COVID-19 virus: Status: Acute Decadron Remdesvir Convalescent plasma consider if not improved by tomorrow (2) Asthma: Problem details: ALBUTEROL HFA 2 PUFFS Q 4-6 HRS PRN Status: Acute (3) Diabetes mellitus, type 2: Status: Acute Results Labs CBC & Chem 7: 04/09/20 05:51 04/11/20 06:24 Labs: Short CBC 04/07/20 04/08/20 Range/Units 17:55 05:47 WBC 6.3 7.6 (4.8-10.8) X10*3/uL Hgb 14.3 14.7 (14.0-18.0) g/dl Hct 41.6 L 44.2 (42-52) % Plt Count 111 L 132 L (160-400) X10*3/uL BMP 04/07/20 04/08/20 20:04 05:47 Sodium 133 L 136 Potassium 4.1 4.6 Chloride 95 L 98 Carbon Dioxide 29 26 BUN 8 L 11 Creatinine 0.95 0.79 Calcium 8.0 L 8.3 L Cardiac Enzymes 04/07/20 Range/Units 17:55 Total Creatine Kinase 42 (38-174) U/L Liver Function 04/07/20 04/08/20 Range/Units 17:55 05:47 Total Bilirubin 0.6 0.9 (0.0-1.0) mg/dL Direct Bilirubin 0.3 0.4 (0.0-0.5) mg/dL AST 54 H 87 H (5-37) U/L ALT 53 H 71 H (0-40) U/L Alkaline Phosphatase 135 H 173 H D (39-117) U/L Albumin 3.7 3.8 (3.5-5.0) g/dL
[2020-04-08 12:04] LABS: Glucose, Whole Blood 282 mg/dL (60-115)
[2020-04-08 12:57] LABS: MANUAL DIFF FLAG NO
[2020-04-08 12:58] LABS: Basophils Percent Auto 0.1 % (0-2); Hematocrit 46.6 % (42-52); Hemoglobin 15.5 g/dl (14.0-18.0); Imm Gran Abs Auto 0.03 X10*3/uL (0.00-0.03); Imm Gran Pct Auto 0.3 % (0.0-0.4); Lymphocytes Absolute Auto 0.8 X10*3/uL (1.2-4.9); Lymphocytes Percent Auto 8.4 % (20-40); Mean Corpuscular HGB Conc 33.3 g/dl (31.0-36.0); Mean Corpuscular Hemoglobin 28.2 pg (27.0-33.0); Mean Corpuscular Volume 84.7 fL (80-98); Mean Platelet Volume 12.5 fL (9.4-12.4); Monocytes Absolute Auto 0.3 X10*3/uL (0.1-1.2); Monocytes Percent Auto 3.2 % (2-11); Neutrophils Absolute Auto 7.9 X10*3/uL (2.0-8.3); Platelet Count 157 X10*3/uL (160-400); Red Cell Distribution Width 12.9 % (11.0-16.0)
[2020-04-08 13:13] LABS: INTERNATIONAL NORM RATIO 1.1 (0.9-1.1); Prothrombin Time 12.8 SEC (10.8-13.0)
[2020-04-08 13:15] LABS: Partial Thromboplastin Time 35.5 SEC (24.1-38.0)
[2020-04-08 13:31] LABS: Alanine Aminotransferase 75 U/L (0-40); Albumin Level 4.1 g/dL (3.5-5.0); Alkaline Phosphatase 187 U/L (39-117); Anion Gap 16 (12-20); Aspartate Amino Transferase 74 U/L (5-37); Bilirubin Direct 0.4 mg/dL (0.0-0.5); Bilirubin Total 0.9 mg/dL (0.0-1.0); Blood Urea Nitrogen 13 mg/dL (9-16); Carbon Dioxide 30 mmol/L (22-29); Chloride 95 mmol/L (96-108); Creatinine Clr Calc Pharmacy 117.6; Estimated Glomerular Filt Rate > 60; Potassium 4.6 mmol/l (3.3-5.1); Sodium 136 mmol/L (135-145); Total Protein 7.6 g/dL (6.5-8.0)
[2020-04-08 16:24] LABS: Glucose, Whole Blood 287 mg/dL (60-115)
--- NOTE | 2020-04-08 17:58 | P.PNIM_ITS ---
Subjective Subjective Date of Service: 04/08/20 Interval History: Acute respiratory failure hypoxemic probably secondary to COVID infection. Review of Systems Patient still short of breath but seems slightly better than yesterday as per the patient, denies any chest pain. Physical Exam Vital Signs: Vital Signs: Vital Signs Temp Pulse Resp BP Pulse Ox 04/08/20 15:52 99.5 F 82 18 130/80 94 04/08/20 12:00 99.5 F 72 18 146/80 H 93 04/08/20 08:00 99.7 F 78 18 112/78 92 04/08/20 04:23 98.4 F 79 20 123/79 94 04/08/20 01:29 99.4 F 04/08/20 00:00 100.4 F 93 20 118/80 91 L 04/07/20 23:12 88 L 04/07/20 22:33 101.1 F H 98 22 H 122/80 93 04/07/20 21:32 102.9 F H 102 H 22 H 113/69 90 L Body Mass Index 31.0 Physical exam Cvs: rrr, [id number] , no murmur res: clear to auscultation ,no rhonchii or wheezing abd: no rebound or guarding ,nt, bs present. ext pulses present , no cyanosis neuro: axo3 , nonfocal. Objective Data Current Medications Generic Name Dose Route Start Last Admin Trade Name Freq PRN Reason Stop Dose Admin Acetaminophen 650 mg 04/07/20 22:31 04/08/20 10:19 Acetaminophen 325 Mg Tablet PO 650 mg Q6H PRN Administration Pain, Mild (Pain Scale 1-3) Albuterol Sulfate 2 puff 04/07/20 22:31 Albuterol Sulfate 90 Mcg 8 Gm Inhaler INHALE Q4H PRN Shortness Of Breath Dexamethasone Sodium Phosphate 6 mg 04/07/20 20:45 04/08/20 08:34 Dexamethasone Sod Phosphate 4 Mg/Ml Vial IVPUSH 6 mg DAILY DAMIAN Administration Docusate Sodium 100 mg 04/07/20 22:31 Docusate Sodium 100 Mg Capsule PO DAILY PRN Constipation Enoxaparin Sodium 40 mg 04/07/20 23:00 04/07/20 23:18 Enoxaparin Sodium 40 Mg/0.4 Ml Syringe SUBCUT 40 mg Q24H DAMIAN Administration Insulin Human Lispro 0 unit 04/07/20 22:31 04/08/20 16:24 Insulin Lispro 100 Unit/Ml 3 Ml Vial SUBCUT 04/08/20 22:31 6 unit QIDACHS [facility] Administration Protocol Ondansetron HCl 4 mg 04/07/20 22:31 Ondansetron Hcl 4 Mg/2 Ml Vial IVPUSH Q8H PRN Nausea and Vomiting Pharmacy Consult 1 each 04/07/20 20:36 Consult Rx Perform Med Rec MISCELLANE ONCE PRN Consult order Sodium Chloride 3 ml 04/08/20 00:00 04/08/20 16:18 0.9 % Sodium Chloride Flush 3 Ml Syringe IVFLUSH 3 ml QSHIFT [facility] Administration Labs CBC & Chem 7: 04/09/20 05:51 04/09/20 05:51 Assessment and Plan (1) Pneumonia due to COVID-19 virus: Problem details: He has still active COVID likely He has diabetes and asthma risk Status: Acute (2) Asthma: Status: Acute (3) Diabetes mellitus, type 2: Status: Acute Assessment and Plan: 39-year-old Hebrew-speaking male with history of diabetes and asthma who presents to the emergency department with shortness of breath after being diagnosed with coronavirus on April 01. COVID-19 pneumonia requiring supplemental oxygen - IV Decadron, add remdesvir - ID consult - continue supportive care diabetes hold PO meds - SSI, POCs Elevated LFTs CT shows fatty liver dz -trend LFTs
[2020-04-08] MEDS: Enoxaparin Sodium 40 MG/0.4 ML SYRINGE SUBCUT (20:39)
[2020-04-08] MEDS: Remdesivir 200 MG in 0.9 % Sodium Chloride 210 ML 105 MG IV (20:39)
[2020-04-08 20:48] LABS: Glucose, Whole Blood 289 mg/dL (60-115)
[2020-04-09 03:39] VITALS: BP 111/74; PULSE 79; RESP 20; TEMP 37.2; O2SAT 91
[2020-04-09] MEDS: Acetaminophen 325 MG TABLET 650 MG PO (03:48)
[2020-04-09 06:17] LABS: MANUAL DIFF FLAG NO
[2020-04-09 06:38] LABS: Basophils Percent Auto 0.1 % (0-2); Hematocrit 43.4 % (42-52); Hemoglobin 14.4 g/dl (14.0-18.0); Imm Gran Abs Auto 0.04 X10*3/uL (0.00-0.03); Imm Gran Pct Auto 0.4 % (0.0-0.4); Lymphocytes Absolute Auto 1.3 X10*3/uL (1.2-4.9); Lymphocytes Percent Auto 12.7 % (20-40); Mean Corpuscular HGB Conc 33.2 g/dl (31.0-36.0); Mean Corpuscular Hemoglobin 28.2 pg (27.0-33.0); Mean Corpuscular Volume 85.1 fL (80-98); Mean Platelet Volume 12.4 fL (9.4-12.4); Monocytes Absolute Auto 0.6 X10*3/uL (0.1-1.2); Monocytes Percent Auto 5.4 % (2-11); Neutrophils Absolute Auto 8.4 X10*3/uL (2.0-8.3); Neutrophils Percent Auto 81.4 % (45-73); Platelet Count 148 X10*3/uL (160-400); Red Cell Distribution Width 12.7 % (11.0-16.0); White Blood Count 10.3 X10*3/uL (4.8-10.8)
[2020-04-09 06:46] LABS: Partial Thromboplastin Time 27.7 SEC (24.1-38.0); Prothrombin Time 12.1 SEC (10.8-13.0)
[2020-04-09 06:51] LABS: Alanine Aminotransferase 57 U/L (0-40); Albumin Level 3.7 g/dL (3.5-5.0); Alkaline Phosphatase 153 U/L (39-117); Anion Gap 16 (12-20); Aspartate Amino Transferase 43 U/L (5-37); Bilirubin Direct 0.3 mg/dL (0.0-0.5); Bilirubin Total 0.7 mg/dL (0.0-1.0); Blood Urea Nitrogen 16 mg/dL (9-16); Carbon Dioxide 26 mmol/L (22-29); Chloride 98 mmol/L (96-108); Creatinine Clr Calc Pharmacy 148.5; Estimated Glomerular Filt Rate > 60; Potassium 4.2 mmol/l (3.3-5.1); Sodium 136 mmol/L (135-145); Total Protein 6.9 g/dL (6.5-8.0)
[2020-04-09 06:53] LABS: Anion Gap 18 (12-20); Blood Urea Nitrogen 16 mg/dL (9-16); Calcium 8.1 mg/dL (8.4-10.2); Carbon Dioxide 25 mmol/L (22-29); Chloride 98 mmol/L (96-108); Creatinine Clr Calc Pharmacy 144.9; Estimated Glomerular Filt Rate > 60; Glucose Random 273 mg/dL (60-115); Potassium 4.2 mmol/l (3.3-5.1); Sodium 137 mmol/L (135-145)
[2020-04-09] MEDS: dexAMETHasone sod phosphate 4 MG/ML VIAL 6 MG IVPUSH (07:49)
[2020-04-09] MEDS: 0.9 % Sodium Chloride Flush 3 ML SYRINGE IVFLUSH ×2 (07:49→14:33)
[2020-04-09 08:00] VITALS: BP 115/73; PULSE 73; RESP 22; TEMP 36.6; O2SAT 93
[2020-04-09 08:27] LABS: Glucose, Whole Blood 261 mg/dL (60-115)
--- NOTE | 2020-04-09 10:02 | PC.NURSE ---
CONVALESCENT PLASMA ORDERED. MD AND RN AT BEDSIDE, ADVISED PATIENT ON BENEFITS AND RISK RELATED WITH TREATMENT. PATIENT STATES WANTS TO HOLD OFF ON PLASMA AT THIS TIME BUT IS OPEN TO FUTURE ADMINISTRATION IF HIS SX WORSEN. PATIENT REFUSED SIGNING TRANSFUSION CONSENT AT THIS TIME.
--- NOTE | 2020-04-09 10:17 | PM.EVENT ---
Event Note Event Note: I saw this gentleman , for Pulm . consult . Full note is dictated . A: Acute Covid-19 related Pneumonitis . H/o Br. Asthma, stable . Ac Resp. distress /Hypoxemia , modertae , P; O2 by NC , 8 L/mt , adjust the fio2 as needed Albuterol MDI 2 puffs q 4 hrs PRN . Dexamethasone 6 mg IV daily Remsedvir 100 mg IV daily . May need Convalescent Plasma if gets any worse . control DM . Famotidine 40 mg podaily
--- NOTE | 2020-04-09 11:47 | CONS_ITS ---
DATE OF SERVICE: 04/09/2020 REFERRING PHYSICIAN: Flakito Mejía MD HISTORY OF PRESENT ILLNESS: This 39-year-old gentleman has been sick for the last 10 days or so, earlier seen on 04/01 in the emergency room with nonspecific respiratory symptoms such as cough and some shortness of breath. He did have COVID test on 04/01, which was reported to be positive. The patient was initially sent home to continue quarantine at home and supportive care. He presented to the emergency room on 04/07 with increased shortness of breath with continued mild intermittent cough, just borderline low-grade fever, and body aches. The patient was noted to be hypoxemic and required oxygen supplementation, so admitted to the [facility]. He continues to have increased shortness of breath and is requiring oxygen currently at 8 L/minute. PAST MEDICAL HISTORY: Does not have any chronic obstructive pulmonary disease, but has history of mild intermittent bronchial asthma. Diabetes mellitus type 2. REVIEW OF SYSTEMS: Mainly, he has cough and shortness of breath. Denies any nausea, vomiting, or abdominal pain. Denies any urinary symptoms. Has generalized body aches and general weakness. The patient reports to be nonsmoker. PHYSICAL EXAMINATION: GENERAL: 39-year-old gentleman, is alert and orientated and conversing well. He claims to be feeling fairly well. He is currently on oxygen 8 L/minute and does not seem to be in distress. EAR, NOSE, THROAT: No acute pharyngitis. Nose is clear. NECK: No JVD. Trachea midline. No lymphadenopathy. CHEST: Chest wall is somewhat obese. Percussion note is resonant. Breath sounds are equal on both sides, however, seem to be decreased over the bases. No wheezes or crepitations are heard. CARDIAC: PMI not palpable. Heart sounds are distant. Rhythm regular. No murmurs. ABDOMEN: Moderately obese, but soft and nontender. EXTREMITIES: No edema or varicosities. Peripheral pulses faintly palpable. DIAGNOSTIC DATA: Chest x-ray shows cardiomegaly with small lung volumes and haziness on both sides. CT scan shows extensive ground-glass opacification of multifocal opacification of both lungs. Current O2 saturation is 93% on 8 L/minute. COVID test as of 04/01 reported positive. CLINICAL IMPRESSION: 1. The patient has baseline diagnosis of bronchial asthma, which seems to be under control. 2. Acute COVID pneumonitis. 3. Respiratory distress with hypoxemia secondary to above. 4. Diabetes mellitus. RECOMMENDATIONS: I think at this point, he is fairly stable and can be managed on IMC. Oxygen 8 L/minute by nasal cannula and if he has increasing amount of respiratory distress, he may require or high-flow oxygen. Start on remdesivir 100 mg IV daily. Dexamethasone 6 mg IV daily. Albuterol sulfate by 2 puffs q.4 hours p.r.n., not the nebulizer. Continue DVT prevention with Lovenox. Thank you very much for asking me to see this patient. MD HERMILA Parson/LAMONT / [phone]
[2020-04-09 11:57] LABS: Glucose, Whole Blood 408 mg/dL (60-115)
[2020-04-09 12:00] VITALS: BP 136/88; PULSE 86; RESP 22; TEMP 36.2; O2SAT 93
[2020-04-09] MEDS: Insulin Lispro 100 UNIT/ML 3 ML VIAL SUBCUT ×3 (12:08→21:37)
--- NOTE | 2020-04-09 14:37 | P.PNIM_ITS ---
Subjective Subjective Date of Service: 04/09/20 Interval History: Probable COVID pneumonia Review of Systems Still has shortness of breath says it is little bit better than last night, we could able to put him back on nasal cannula 4-5 L. Physical Exam Vital Signs: Vital Signs: Vital Signs Temp Pulse Resp BP Pulse Ox 04/09/20 12:00 97.2 F 86 22 H 136/88 93 04/09/20 08:00 97.9 F 73 22 H 115/73 93 04/09/20 03:39 99.0 F 79 20 111/74 91 L 04/08/20 23:34 98.9 F 79 20 107/68 94 04/08/20 20:00 98.5 F 78 20 118/77 90 L 04/08/20 15:52 99.5 F 82 18 130/80 94 Body Mass Index 31.0 Physical exam: Cvs: rrr, [id number] , no murmur res: fair air entry , diminshed at bases. abd: no rebound or guarding ,nt, bs present. ext pulses present , no cyanosis neuro: axo3 , nonfocal. Objective Data Current Medications Generic Name Dose Route Start Last Admin Trade Name Freq PRN Reason Stop Dose Admin Acetaminophen 650 mg 04/07/20 22:31 04/09/20 03:48 Acetaminophen 325 Mg Tablet PO 650 mg Q6H PRN Administration Pain, Mild (Pain Scale 1-3) Albuterol Sulfate 2 puff 04/07/20 22:31 Albuterol Sulfate 90 Mcg 8 Gm Inhaler INHALE Q4H PRN Shortness Of Breath Dexamethasone Sodium Phosphate 6 mg 04/07/20 20:45 04/09/20 07:49 Dexamethasone Sod Phosphate 4 Mg/Ml Vial IVPUSH 6 mg DAILY DAMIAN Administration Docusate Sodium 100 mg 04/07/20 22:31 Docusate Sodium 100 Mg Capsule PO DAILY PRN Constipation Enoxaparin Sodium 40 mg 04/07/20 23:00 04/08/20 20:39 Enoxaparin Sodium 40 Mg/0.4 Ml Syringe SUBCUT 40 mg Q24H DAMIAN Administration Famotidine 20 mg 04/09/20 21:00 Famotidine 20 Mg Tablet PO BID DAMIAN Remdesivir 100 mg/ Sodium 250 mls @ 125 mls/hr 04/09/20 19:00 Chloride IV 04/12/20 20:59 Q24H [facility] Insulin Human Lispro 0 unit 04/09/20 11:30 04/09/20 12:08 Insulin Lispro 100 Unit/Ml 3 Ml Vial SUBCUT 14 unit QIDACHS [facility] Administration Protocol Ondansetron HCl 4 mg 04/07/20 22:31 Ondansetron Hcl 4 Mg/2 Ml Vial IVPUSH Q8H PRN Nausea and Vomiting Pharmacy Consult 1 each 04/07/20 20:36 Consult Rx Perform Med Rec MISCELLANE ONCE PRN Consult order Sodium Chloride 3 ml 04/08/20 00:00 04/09/20 14:33 0.9 % Sodium Chloride Flush 3 Ml Syringe IVFLUSH 3 ml QSHIFT [facility] Administration Labs CBC & Chem 7: 04/09/20 05:51 04/09/20 05:51 Microbiology Microbiology Results: Microbiology 04/07/20 19:14 Blood - Venous Blood Culture - Preliminary No growth after 24 hours. 04/07/20 19:06 Blood - Venous Blood Culture - Preliminary No growth after 24 hours. Assessment and Plan (1) Pneumonia due to COVID-19 virus: Problem details: He has still active COVID likely He has diabetes and asthma risk Status: Acute (2) Asthma: Status: Acute (3) Diabetes mellitus, type 2: Status: Acute Assessment and Plan: 39-year-old Croatian-speaking male with history of diabetes and asthma who presents to the emergency department with shortness of breath after being diagnosed with coronavirus on April 01. COVID-19 pneumonia requiring supplemental oxygen continue IV Decadron, add remdesvir, patient currently is not considering for conversant plasma he said if condition worsen he will think about it. Discussed with ID about above, pulmonary evaluation if needed. diabetes hold PO meds - SSI, POCs Elevated LFTs CT shows fatty liver dz -trend LFTs
[2020-04-09 16:00] VITALS: BP 106/71; PULSE 67; RESP 18; TEMP 36.3; O2SAT 94
--- NOTE | 2020-04-09 16:29 | PM.IDPN ---
Subjective Subjective Date of Service: 04/09/20 Interval History: He is doing well on 2 l this am and sat over 94% However he had 45% oxygen needs overnight He has no complaints and feels better Objective Data Labs CBC & Chem 7: 04/09/20 05:51 04/09/20 05:51 Labs: Laboratory Results - last 24 hr 04/08/20 04/09/20 04/09/20 20:42 05:51 05:51 WBC 10.3 RBC 5.10 Hgb 14.4 Hct 43.4 MCV 85.1 MCH 28.2 MCHC 33.2 RDW 12.7 Plt Count 148 L MPV 12.4 Immature Gran % (Auto) 0.4 Neut % (Auto) 81.4 H Lymph % (Auto) 12.7 L [place] % (Auto) 5.4 Eos % (Auto) 0.0 Baso % (Auto) 0.1 Lymph # (Auto) 1.3 [place] # (Auto) 0.6 Eos # (Auto) 0.0 Baso # (Auto) 0.0 Abs Immat Gran (auto) 0.04 H Absolute Neuts (auto) 8.4 H Absolute Nucleated RBC 0.000 Nucleated RBC % (auto) 0.0 PT 12.1 INR 1.0 APTT 27.7 D Sodium Potassium Chloride Carbon Dioxide Anion Gap BUN Creatinine Estim Creat Clear Calc Estimated GFR POC Glucose 289 H Random Glucose Calcium Total Bilirubin Direct Bilirubin AST ALT Alkaline Phosphatase Total Protein Albumin Blood Type Antibody Screen 04/09/20 04/09/20 04/09/20 05:51 05:51 07:48 WBC RBC Hgb Hct MCV MCH MCHC RDW Plt Count MPV Immature Gran % (Auto) Neut % (Auto) Lymph % (Auto) [place] % (Auto) Eos % (Auto) Baso % (Auto) Lymph # (Auto) [place] # (Auto) Eos # (Auto) Baso # (Auto) Abs Immat Gran (auto) Absolute Neuts (auto) Absolute Nucleated RBC Nucleated RBC % (auto) PT INR APTT Sodium 136 137 Potassium 4.2 4.2 Chloride 98 98 Carbon Dioxide 26 25 Anion Gap 16 18 BUN 16 16 Creatinine 0.80 0.82 Estim Creat Clear Calc 148.5 144.9 Estimated GFR > 60 > 60 POC Glucose 261 H Random Glucose 273 H Calcium 8.1 L Total Bilirubin 0.7 Direct Bilirubin 0.3 AST 43 H D ALT 57 H Alkaline Phosphatase 153 H Total Protein 6.9 Albumin 3.7 Blood Type Antibody Screen 04/09/20 04/09/20 08:32 11:49 WBC RBC Hgb Hct MCV MCH MCHC RDW Plt Count MPV Immature Gran % (Auto) Neut % (Auto) Lymph % (Auto) [place] % (Auto) Eos % (Auto) Baso % (Auto) Lymph # (Auto) [place] # (Auto) Eos # (Auto) Baso # (Auto) Abs Immat Gran (auto) Absolute Neuts (auto) Absolute Nucleated RBC Nucleated RBC % (auto) PT INR APTT Sodium Potassium Chloride Carbon Dioxide Anion Gap BUN Creatinine Estim Creat Clear Calc Estimated GFR POC Glucose 408 H* Random Glucose Calcium Total Bilirubin Direct Bilirubin AST ALT Alkaline Phosphatase Total Protein Albumin Blood Type O Positive Antibody Screen NEGATIVE Microbiology Microbiology Results: Microbiology 04/07/20 19:14 Blood - Venous Blood Culture - Preliminary No growth after 24 hours. 04/07/20 19:06 Blood - Venous Blood Culture - Preliminary No growth after 24 hours. Physical Exam Vital Signs: Vital Signs: Vital Signs Temp Pulse Resp BP Pulse Ox 04/09/20 16:00 97.3 F 67 18 106/71 94 04/09/20 12:00 97.2 F 86 22 H 136/88 93 04/09/20 08:00 97.9 F 73 22 H 115/73 93 04/09/20 03:39 99.0 F 79 20 111/74 91 L 04/08/20 23:34 98.9 F 79 20 107/68 94 04/08/20 20:00 98.5 F 78 20 118/77 90 L Body Mass Index 31.0 Const: General: cooperative, comfortable and no acute distress Eyes: General: appearance normal, both eyes and all related structures Resp: Effort & Inspection: normal respiratory effort Cardio: Rate: regular rate Rhythm: regular rhythm GI: Palpation (GI): nontender Extrem: General: Yes normal to inspection Assessment and Plan Assessment and plan (1) Pneumonia due to COVID-19 virus: Problem details: He has still active COVID likely He has diabetes and asthma risk He is feeling better today,but still hypoxic overnight, he is day 2/5 Remdesivir and Dexamethasone Status: Acute Assessment and Plan: Finish meds,10 d total Dexamethasone (2) Asthma: Status: Acute (3) Diabetes mellitus, type 2: Status: Acute Time Spent With Patient Time: Total time spent is greater than 50% in coordination of care (as documented) at patient's floor/unit and/or counseling patient: Time with patient: less than 15 minutes
[2020-04-09 16:48] LABS: Glucose, Whole Blood 319 mg/dL (60-115)
[2020-04-09] MEDS: Remdesivir 100 MG in 0.9 % Sodium Chloride 230 ML 125 MG IV (18:28)
[2020-04-09 19:57] VITALS: BP 114/70; PULSE 73; RESP 16; TEMP 35.9; O2SAT 94
[2020-04-09 20:58] LABS: Glucose, Whole Blood 379 mg/dL (60-115)
[2020-04-09] MEDS: Enoxaparin Sodium 40 MG/0.4 ML SYRINGE SUBCUT (21:36)
[2020-04-09] MEDS: Famotidine 20 MG TABLET PO (21:37)
[2020-04-09 23:49] VITALS: BP 120/83; PULSE 75; RESP 18; TEMP 36.9; O2SAT 90
[2020-04-10] VITALS (7 sets, daily range): BP systolic 104–124; BP diastolic 73–85; PULSE 61–79; RESP 18–98; TEMP 36–37.1; O2SAT 93–98
[2020-04-10] MEDS: 0.9 % Sodium Chloride Flush 3 ML SYRINGE IVFLUSH ×3 (00:31→12:23)
[2020-04-10 07:44] LABS: Glucose, Whole Blood 257 mg/dL (60-115)
[2020-04-10] MEDS: Famotidine 20 MG TABLET PO ×2 (09:13→20:41)
[2020-04-10] MEDS: glipiZIDE 5 MG TABLET PO (09:13)
[2020-04-10] MEDS: dexAMETHasone sod phosphate 4 MG/ML VIAL 6 MG IVPUSH (09:13)
[2020-04-10] MEDS: Insulin Lispro 100 UNIT/ML 3 ML VIAL SUBCUT ×4 (09:14→20:41)
--- NOTE | 2020-04-10 10:54 | PM.PNPUL ---
Subjective Subjective Interval history: He is doing well without much distress. Has been afebrile. His oxygenation requirement is still little high, 8 L/minute with Oxymizer. denies any chest pain or respiratory distress. denies cough or expectoration. Objective Data Labs CBC & Chem 7: 04/09/20 05:51 04/09/20 05:51 Labs: Laboratory Results - last 24 hr 04/09/20 04/09/20 04/09/20 08:32 11:49 16:38 POC Glucose 408 H* 319 H Blood Type O Positive Antibody Screen NEGATIVE 04/09/20 04/10/20 20:49 07:37 POC Glucose 379 H* 257 H Blood Type Antibody Screen Microbiology Microbiology Results: Microbiology 04/07/20 19:14 Blood - Venous Blood Culture - Preliminary No growth after 48 hours. 04/07/20 19:06 Blood - Venous Blood Culture - Preliminary No growth after 48 hours. Review of Systems Constitutional: Denies body ache(s), Denies chills, Reports fatigue, Denies fever(s) and Denies headache(s) Eyes: Denies blurry vision, Denies irritation, Denies itchy eyes and Denies loss of vision Denies dysphagia, Denies vertigo, Denies headache(s), Denies epistaxis, Denies nasal congestion, Denies nasal discharge, Denies nasal obstruction and Denies sinus pain Cardiovascular: Denies chest pain, Denies rapid heart rate, Denies irregular heart rhythm, Reports dyspnea on exertion and Denies slow heart rate Respiratory: Reports as per HPI and Reports dyspnea on exertion Gastrointestinal: Denies bloating, Denies change in bowel habits, Denies change in stool character, Denies dysphagia, Denies heartburn, Denies nausea and Denies vomiting Genitourinary: Denies urinary frequency and Denies urinary incontinence Musculoskeletal: Denies abnormal gait, Denies back pain, Denies myalgias, Denies arthralgias, Denies muscle weakness and Denies stiffness Denies abnormal gait, Denies vertigo, Denies headache(s), Denies loss of vision, Denies restless legs and Denies tremor(s) Psychiatric: Denies anxiety, Denies depression, Denies difficulty concentrating, Denies irritability and Denies mood swings Endocrine: Reports no additional endocrine complaints and Reports fatigue Hematologic/Lymphatic: Reports no additional hematologic/lymphatic complaints Allergic/Immunologic: Reports no additional allergic/immunologic complaints and Denies itchy eyes Physical Exam Vital Signs: Vital Signs: Vital Signs Temp Pulse Resp BP Pulse Ox 04/10/20 10:31 93 04/10/20 08:00 97.1 F 63 18 104/73 95 04/10/20 03:31 98.8 F 79 18 115/73 93 04/09/20 23:49 98.4 F 75 18 120/83 90 L 04/09/20 19:57 96.7 F L 73 16 114/70 94 04/09/20 16:00 97.3 F 67 18 106/71 94 04/09/20 12:00 97.2 F 86 22 H 136/88 93 Body Mass Index 31.0 Const: General: cooperative, comfortable, no acute distress, alert and awake Orientation/consciousness: patient oriented x3 HENMT: Head: Yes normal to inspection General nose exam: No nasal polyps present and No nasal discharge present Face and sinus: Yes sinuses nontender Mouth: oropharynx normal Throat: Yes posterior oropharynx normal Eyes: General: appearance normal, both eyes and all related structures Neck: Neck: Yes normal visual inspection, Yes no lymphadenopathy, Yes trachea midline and Yes no JVD Thyroid: Thyroid normal Chest: Chest palpation & inspection: normal inspection of the chest Resp: Other: breath sounds are distant but equal on both sides, no wheezes or rhonchi are heard, , no crepitation. Cardio: Palpation: normal PMI Rate: regular rate Rhythm: regular rhythm Heart sounds: Gallop heart sound present and Murmur heart sound present Peripheral pulses: Peripheral pulses 2+ throughout GI: Palpation (GI): Soft to palpation, nontender, No hepatosplenomegaly present and no masses Auscultation: normal bowel sounds Back/Spine/Pelvis: Thoracic/Lumbar Spine: thoracic and lumbar spine normal to inspection Skin: General skin exam: no rashes or lesions noted Neuro: General: patient oriented x3 and no focal motor deficits Cranial nerves: Yes CN's II-XII intact bilaterally Extrem: General: Yes normal to inspection, Yes no clubbing, cyanosis or edema, Yes no calf tenderness and No venous stasis dermatitis Psych: Appearance: grossly normal Speech and movement: Normal speech and movement present Assessment and Plan Assessment and plan (1) Pneumonia due to COVID-19 virus: Status: Acute Assessment and Plan: HAS ACTIVE COVID PNEUMONITIS. BUT STABLE, STILL REQUIRING O2 AT 8 L/MT . CONT. THE CURRENT T/X WITH DEXAMETHASONE AND REMDESVIR , FAMOTIDINE 02 MG BID (2) Asthma: Problem details: ALBUTEROL HFA 2 PUFFS Q 4-6 HRS PRN Status: Acute (3) Diabetes mellitus, type 2: Status: Acute Time Spent With Patient Time: Total time spent is greater than 50% in coordination of care (as documented) at patient's floor/unit and/or counseling patient: Time with patient: 15 - 24 minutes
[2020-04-10 11:02] LABS: Glucose, Whole Blood 292 mg/dL (60-115)
--- NOTE | 2020-04-10 13:36 | P.PNIM_ITS ---
Subjective Subjective Date of Service: 04/10/20 Interval History: covid Review of Systems And still has shortness of breath but slightly better than yesterday., denies any chest pain or abdominal pain or fever or chills. Physical Exam Vital Signs: Vital Signs: Vital Signs Temp Pulse Resp BP Pulse Ox 04/10/20 11:17 98.6 F 68 98 H 124/83 98 04/10/20 10:31 93 04/10/20 08:00 97.1 F 63 18 104/73 95 04/10/20 03:31 98.8 F 79 18 115/73 93 04/09/20 23:49 98.4 F 75 18 120/83 90 L 04/09/20 19:57 96.7 F L 73 16 114/70 94 04/09/20 16:00 97.3 F 67 18 106/71 94 Body Mass Index 31.0 Physical exam: Constitutional: Average built male, short of breath. HEENT: Eyes anicteric, no neck pain Cvs: rrr, [id number] , no murmur res: Fair air entry, slightly diminished at bases. abd: no rebound or guarding ,nt, bs present. ext pulses present , no cyanosis neuro: axo3 , nonfocal. Objective Data Current Medications Generic Name Dose Route Start Last Admin Trade Name Irwniq PRN Reason Stop Dose Admin Acetaminophen 650 mg 04/07/20 22:31 04/09/20 03:48 Acetaminophen 325 Mg Tablet PO 650 mg Q6H PRN Administration Pain, Mild (Pain Scale 1-3) Albuterol Sulfate 2 puff 04/07/20 22:31 Albuterol Sulfate 90 Mcg 8 Gm Inhaler INHALE Q4H PRN Shortness Of Breath Dexamethasone Sodium Phosphate 6 mg 04/07/20 20:45 04/10/20 09:13 Dexamethasone Sod Phosphate 4 Mg/Ml Vial IVPUSH 6 mg DAILY DAMIAN Administration Docusate Sodium 100 mg 04/07/20 22:31 Docusate Sodium 100 Mg Capsule PO DAILY PRN Constipation Enoxaparin Sodium 40 mg 04/07/20 23:00 04/09/20 21:36 Enoxaparin Sodium 40 Mg/0.4 Ml Syringe SUBCUT 40 mg Q24H DAMIAN Administration Famotidine 20 mg 04/09/20 21:00 04/10/20 09:13 Famotidine 20 Mg Tablet PO 20 mg BID DAMIAN Administration Glipizide 5 mg 04/10/20 08:00 04/10/20 09:13 Glipizide 5 Mg Tablet PO 5 mg BIDWM DAMIAN Administration Remdesivir 100 mg/ Sodium 250 mls @ 125 mls/hr 04/09/20 19:00 04/09/20 21:32 Chloride IV 04/12/20 20:59 Infused Q24H DAMIAN Infusion Insulin Human Lispro 0 unit 04/09/20 11:30 04/10/20 12:17 Insulin Lispro 100 Unit/Ml 3 Ml Vial SUBCUT 6 unit QIDACHS DAMIAN Administration Protocol Ondansetron HCl 4 mg 04/07/20 22:31 Ondansetron Hcl 4 Mg/2 Ml Vial IVPUSH Q8H PRN Nausea and Vomiting Pharmacy Consult 1 each 04/07/20 20:36 Consult Rx Perform Med Rec MISCELLANE ONCE PRN Consult order Sodium Chloride 3 ml 04/08/20 00:00 04/10/20 12:23 0.9 % Sodium Chloride Flush 3 Ml Syringe IVFLUSH 3 ml QSHIFT [facility] Administration Labs CBC & Chem 7: 04/09/20 05:51 04/09/20 05:51 Microbiology Microbiology Results: Microbiology 04/07/20 19:14 Blood - Venous Blood Culture - Preliminary No growth after 48 hours. 04/07/20 19:06 Blood - Venous Blood Culture - Preliminary No growth after 48 hours. Assessment and Plan (1) Pneumonia due to COVID-19 virus: Status: Acute (2) Asthma: Problem details: ALBUTEROL HFA 2 PUFFS Q 4-6 HRS PRN Status: Acute (3) Diabetes mellitus, type 2: Status: Acute Assessment and Plan: 39-year-old Thai-speaking male with history of diabetes and asthma who presents to the emergency department with shortness of breath after being diagnosed with coronavirus on April 01. 1. COVID-19 pneumonia requiring supplemental oxygen continue IV Decadron, add remdesvir, patient currently is not considering for conversant plasma he said if condition worsen he will think about it. Discussed with ID about above, pulmonary evaluation if needed. 2. diabetes hold PO meds - SSI, POCs 3.Elevated LFTs: LFTs improving CT shows fatty liver dz -trend LFTs
[2020-04-10 14:37] LABS: Alanine Aminotransferase 66 U/L (0-40); Albumin Level 3.7 g/dL (3.5-5.0); Alkaline Phosphatase 149 U/L (39-117); Aspartate Amino Transferase 49 U/L (5-37); Bilirubin Direct 0.3 mg/dL (0.0-0.5); Bilirubin Total 0.6 mg/dL (0.0-1.0); Total Protein 7.2 g/dL (6.5-8.0)
[2020-04-10 16:20] LABS: Glucose, Whole Blood 260 mg/dL (60-115)
[2020-04-10] MEDS: glipiZIDE 5 MG TABLET 10 MG PO (17:40)
[2020-04-10] MEDS: Remdesivir 100 MG in 0.9 % Sodium Chloride 230 ML 125 MG IV (17:46)
[2020-04-10 20:42] LABS: Glucose, Whole Blood 292 mg/dL (60-115)
[2020-04-10] MEDS: Enoxaparin Sodium 40 MG/0.4 ML SYRINGE SUBCUT (22:00)
[2020-04-11] MEDS: 0.9 % Sodium Chloride Flush 3 ML SYRINGE IVFLUSH ×3 (00:11→12:41)
[2020-04-11 04:00] VITALS: BP 118/76; PULSE 94; RESP 18; TEMP 35.6; O2SAT 95
[2020-04-11 07:23] LABS: Anion Gap 12 (12-20); Blood Urea Nitrogen 18 mg/dL (9-16); Calcium 7.9 mg/dL (8.4-10.2); Carbon Dioxide 31 mmol/L (22-29); Chloride 100 mmol/L (96-108); Creatinine Clr Calc Pharmacy 144.9; Estimated Glomerular Filt Rate > 60; Glucose Random 284 mg/dL (60-115); Potassium 4.7 mmol/l (3.3-5.1); Sodium 138 mmol/L (135-145)
[2020-04-11 08:00] VITALS: BP 120/82; PULSE 86; RESP 20; TEMP 37.2; O2SAT 94
[2020-04-11 08:07] LABS: Alanine Aminotransferase 64 U/L (0-40); Albumin Level 3.7 g/dL (3.5-5.0); Alkaline Phosphatase 132 U/L (39-117); Aspartate Amino Transferase 42 U/L (5-37); Bilirubin Direct 0.2 mg/dL (0.0-0.5); Bilirubin Total 0.2 mg/dL (0.0-1.0); Total Protein 6.9 g/dL (6.5-8.0)
[2020-04-11] MEDS: dexAMETHasone sod phosphate 4 MG/ML VIAL 6 MG IVPUSH (08:39)
[2020-04-11] MEDS: Famotidine 20 MG TABLET PO ×2 (08:40→20:57)
[2020-04-11] MEDS: glipiZIDE 5 MG TABLET 10 MG PO ×2 (08:40→17:50)
[2020-04-11] MEDS: Insulin Lispro 100 UNIT/ML 3 ML VIAL SUBCUT ×4 (08:42→20:57)
[2020-04-11 08:46] LABS: Glucose, Whole Blood 268 mg/dL (60-115)
[2020-04-11 11:08] VITALS: BP 110/68; PULSE 70; RESP 18; TEMP 36.4; O2SAT 93
[2020-04-11 11:24] LABS: Glucose, Whole Blood 325 mg/dL (60-115)
--- NOTE | 2020-04-11 12:39 | P.PNIM_ITS ---
Subjective Subjective Date of Service: 04/11/20 Interval History: covid pneumonia Review of Systems Dose of breath improving slowly. Denies any chest pain or abdominal pain or fever chills Physical Exam Vital Signs: Vital Signs: Vital Signs Temp Pulse Resp BP Pulse Ox 04/11/20 11:08 97.6 F 70 18 110/68 93 04/11/20 08:00 98.9 F 86 20 120/82 94 04/11/20 04:00 96.1 F L 94 18 118/76 95 04/10/20 23:36 96.8 F 66 18 119/85 95 04/10/20 19:11 97.7 F 63 18 118/80 96 04/10/20 15:26 98.0 F 61 20 116/75 96 Body Mass Index 31.0 Physical exam: Objective Data Current Medications Generic Name Dose Route Start Last Admin Trade Name Freq PRN Reason Stop Dose Admin Acetaminophen 650 mg 04/07/20 22:31 04/09/20 03:48 Acetaminophen 325 Mg Tablet PO 650 mg Q6H PRN Administration Pain, Mild (Pain Scale 1-3) Albuterol Sulfate 2 puff 04/07/20 22:31 Albuterol Sulfate 90 Mcg 8 Gm Inhaler INHALE Q4H PRN Shortness Of Breath Dexamethasone Sodium Phosphate 6 mg 04/07/20 20:45 04/11/20 08:39 Dexamethasone Sod Phosphate 4 Mg/Ml Vial IVPUSH 6 mg DAILY DAMIAN Administration Docusate Sodium 100 mg 04/07/20 22:31 Docusate Sodium 100 Mg Capsule PO DAILY PRN Constipation Enoxaparin Sodium 40 mg 04/07/20 23:00 04/10/20 22:00 Enoxaparin Sodium 40 Mg/0.4 Ml Syringe SUBCUT 40 mg Q24H DAMIAN Administration Famotidine 20 mg 04/09/20 21:00 04/11/20 08:40 Famotidine 20 Mg Tablet PO 20 mg BID DAMIAN Administration Glipizide 10 mg 04/10/20 17:00 04/11/20 08:40 Glipizide 5 Mg Tablet PO 10 mg BIDWM DAMIAN Administration Remdesivir 100 mg/ Sodium 250 mls @ 125 mls/hr 04/09/20 19:00 04/10/20 19:50 Chloride IV 04/12/20 20:59 Infused Q24H DAMIAN Infusion Insulin Human Lispro 0 unit 04/09/20 11:30 04/11/20 08:42 Insulin Lispro 100 Unit/Ml 3 Ml Vial SUBCUT 6 unit QIDACHS [facility] Administration Protocol Ondansetron HCl 4 mg 04/07/20 22:31 Ondansetron Hcl 4 Mg/2 Ml Vial IVPUSH Q8H PRN Nausea and Vomiting Pharmacy Consult 1 each 04/07/20 20:36 Consult Rx Perform Med Rec MISCELLANE ONCE PRN Consult order Sodium Chloride 3 ml 04/08/20 00:00 04/11/20 08:40 0.9 % Sodium Chloride Flush 3 Ml Syringe IVFLUSH 3 ml QSHIFT [facility] Administration Labs CBC & Chem 7: 04/09/20 05:51 04/11/20 06:24 Microbiology Microbiology Results: Microbiology 04/07/20 19:14 Blood - Venous Blood Culture - Preliminary No growth after 48 hours. 04/07/20 19:06 Blood - Venous Blood Culture - Preliminary No growth after 48 hours. Assessment and Plan (1) Pneumonia due to COVID-19 virus: Status: Acute (2) Asthma: Problem details: ALBUTEROL HFA 2 PUFFS Q 4-6 HRS PRN Status: Acute (3) Diabetes mellitus, type 2: Status: Acute Assessment and Plan: 39-year-old Vietnamese-speaking male with history of diabetes and asthma who presents to the emergency department with shortness of breath after being diagnosed with coronavirus on April 01. 1. COVID-19 pneumonia requiring supplemental oxygen continue IV Decadron, add remdesvir, patient currently is not considering for conversant plasma he said if condition worsen he will think about it. Seen by ID and pulmonary: Will continue above management. Shortness of breath slowly improving. 2. diabetes: Hyperglycemia elizondo uncontrolled Diabetic diet, Will add small dose of Lantus Adjusted fingerstick with coverage, continue glipizide. 3.Elevated LFTs: LFTs improving, seems similar to yesterday CT shows fatty liver dz -trend LFTs
[2020-04-11] MEDS: Insulin Glargine,Hum.rec.anlog 100 UNIT/ML 10 ML VIAL 8 UNIT SUBCUT (13:33)
[2020-04-11 15:26] VITALS: BP 117/81; PULSE 66; RESP 18; TEMP 36.9; O2SAT 94
[2020-04-11 16:21] LABS: Glucose, Whole Blood 317 mg/dL (60-115)
[2020-04-11] MEDS: Remdesivir 100 MG in 0.9 % Sodium Chloride 230 ML 125 MG IV (17:50)
[2020-04-11 19:31] VITALS: BP 119/68; PULSE 62; RESP 20; TEMP 36.7; O2SAT 94
[2020-04-11 20:50] LABS: Glucose, Whole Blood 291 mg/dL (60-115)
[2020-04-11] MEDS: Enoxaparin Sodium 40 MG/0.4 ML SYRINGE SUBCUT (20:56)
[2020-04-11] MEDS: guaiFENesin 100 MG/5 ML LIQUID PO (22:51)
[2020-04-11 23:38] VITALS: BP 135/70; PULSE 61; RESP 20; TEMP 37; O2SAT 96
[2020-04-12 03:24] VITALS: BP 115/71; PULSE 52; RESP 18; TEMP 37; O2SAT 98
[2020-04-12 07:00] LABS: Alanine Aminotransferase 61 U/L (0-40); Albumin Level 3.5 g/dL (3.5-5.0); Alkaline Phosphatase 115 U/L (39-117); Aspartate Amino Transferase 29 U/L (5-37); Bilirubin Direct 0.3 mg/dL (0.0-0.5); Bilirubin Total 0.5 mg/dL (0.0-1.0); Total Protein 6.7 g/dL (6.5-8.0)
[2020-04-12 08:00] VITALS: BP 116/58; PULSE 50; RESP 19; TEMP 36.6; O2SAT 95
[2020-04-12 08:40] LABS: Glucose, Whole Blood 176 mg/dL (60-115)
--- NOTE | 2020-04-12 08:45 | MHC.CM.PN ---
dc plan is home no svcs at this time. cm to cont to follow patient for changes and dc planning needs.
[2020-04-12] MEDS: 0.9 % Sodium Chloride Flush 3 ML SYRINGE IVFLUSH ×3 (08:52→20:26)
[2020-04-12] MEDS: Famotidine 20 MG TABLET PO ×2 (08:52→20:25)
[2020-04-12] MEDS: glipiZIDE 5 MG TABLET 10 MG PO ×2 (08:52→16:23)
[2020-04-12] MEDS: dexAMETHasone sod phosphate 4 MG/ML VIAL 6 MG IVPUSH (08:52)
[2020-04-12] MEDS: Insulin Lispro 100 UNIT/ML 3 ML VIAL SUBCUT ×4 (08:52→20:25)
[2020-04-12 11:26] LABS: Glucose, Whole Blood 389 mg/dL (60-115)
[2020-04-12 12:00] VITALS: BP 98/56; PULSE 69; RESP 18; TEMP 36.4; O2SAT 92
--- NOTE | 2020-04-12 13:35 | HO.PM.IMPN ---
Subjective Subjective Date of Service: 04/12/20 Interval History: covid pneumonia Review of Systems Patient shortness of breath seems similar as yesterday, denies any chest pain or abdominal pain or fever or chills or any urinary complaints. Denies any weakness or numbness. Physical Exam Vital Signs: Vital Signs: Vital Signs Temp Pulse Resp BP Pulse Ox 04/12/20 12:00 97.5 F 69 18 98/56 L 92 04/12/20 08:00 97.8 F 50 19 116/58 L 95 04/12/20 03:24 98.6 F 52 18 115/71 98 04/11/20 23:38 98.6 F 61 20 135/70 96 04/11/20 19:31 98.1 F 62 20 119/68 94 04/11/20 15:26 98.4 F 66 18 117/81 94 Body Mass Index 31.0 Physical exam: Cvs: rrr, [id number] , no murmur res: grossly fair air entry ,diminshed at bases. abd: no rebound or guarding ,nt, bs present. ext pulses present , no cyanosis neuro: axo3 , nonfocal. Objective Data Current Medications Generic Name Dose Route Start Last Admin Trade Name Freq PRN Reason Stop Dose Admin Acetaminophen 650 mg 04/07/20 22:31 04/09/20 03:48 Acetaminophen 325 Mg Tablet PO 650 mg Q6H PRN Administration Pain, Mild (Pain Scale 1-3) Albuterol Sulfate 2 puff 04/07/20 22:31 Albuterol Sulfate 90 Mcg 8 Gm Inhaler INHALE Q4H PRN Shortness Of Breath Dexamethasone Sodium Phosphate 6 mg 04/07/20 20:45 04/12/20 08:52 Dexamethasone Sod Phosphate 4 Mg/Ml Vial IVPUSH 6 mg DAILY DAMIAN Administration Docusate Sodium 100 mg 04/07/20 22:31 Docusate Sodium 100 Mg Capsule PO DAILY PRN Constipation Enoxaparin Sodium 40 mg 04/07/20 23:00 04/11/20 20:56 Enoxaparin Sodium 40 Mg/0.4 Ml Syringe SUBCUT 40 mg Q24H DAMIAN Administration Famotidine 20 mg 04/09/20 21:00 04/12/20 08:52 Famotidine 20 Mg Tablet PO 20 mg BID DAMIAN Administration Glipizide 10 mg 04/10/20 17:00 04/12/20 08:52 Glipizide 5 Mg Tablet PO 10 mg BIDWM DAMIAN Administration Remdesivir 100 mg/ Sodium 250 mls @ 125 mls/hr 04/09/20 19:00 04/11/20 20:50 Chloride IV 04/12/20 20:59 Infused Q24H DAMIAN Infusion Insulin Human Lispro 0 unit 04/09/20 11:30 04/12/20 12:22 Insulin Lispro 100 Unit/Ml 3 Ml Vial SUBCUT 14 unit QIDACHS DAMIAN Administration Protocol Ondansetron HCl 4 mg 04/07/20 22:31 Ondansetron Hcl 4 Mg/2 Ml Vial IVPUSH Q8H PRN Nausea and Vomiting Pharmacy Consult 1 each 04/07/20 20:36 Consult Rx Perform Med Rec MISCELLANE ONCE PRN Consult order Sodium Chloride 3 ml 04/08/20 00:00 04/12/20 08:52 0.9 % Sodium Chloride Flush 3 Ml Syringe IVFLUSH 3 ml QSHIFT DAMIAN Administration Labs CBC & Chem 7: 04/09/20 05:51 04/13/20 05:29 Microbiology Microbiology Results: Microbiology 04/07/20 19:14 Blood - Venous Blood Culture - Preliminary No growth after 48 hours. 04/07/20 19:06 Blood - Venous Blood Culture - Preliminary No growth after 48 hours. Assessment and Plan (1) Pneumonia due to COVID-19 virus: Status: Acute (2) Asthma: Problem details: ALBUTEROL HFA 2 PUFFS Q 4-6 HRS PRN Status: Acute (3) Diabetes mellitus, type 2: Status: Acute Assessment and Plan: 39-year-old Croatian-speaking male with history of diabetes and asthma who presents to the emergency department with shortness of breath after being diagnosed with coronavirus on April 01. 1. COVID-19 pneumonia requiring supplemental oxygen continue IV Decadron, add remdesvir, patient currently is not considering for conversant plasma he said if condition worsen he will think about it. Seen by ID and pulmonary: Will continue above management. Shortness of breath slowly improving. 2. diabetes: Hyperglycemia elizondo uncontrolled Diabetic diet, Will add small dose of Lantus Adjusted fingerstick with coverage, continue glipizide. 3.Elevated LFTs: LFTs improving CT shows fatty liver dz -trend LFTs
[2020-04-12] MEDS: Insulin Glargine,Hum.rec.anlog 100 UNIT/ML 10 ML VIAL 8 UNIT SUBCUT (14:02)
[2020-04-12 15:30] VITALS: BP 103/67; PULSE 62; RESP 18; TEMP 36.9; O2SAT 95
[2020-04-12 16:12] LABS: Glucose, Whole Blood 338 mg/dL (60-115)
[2020-04-12] MEDS: Remdesivir 100 MG in 0.9 % Sodium Chloride 230 ML 125 MG IV (19:27)
[2020-04-12 19:29] VITALS: BP 103/66; PULSE 59; RESP 18; TEMP 36.6; O2SAT 95
[2020-04-12 20:22] LABS: Glucose, Whole Blood 377 mg/dL (60-115)
[2020-04-12] MEDS: Enoxaparin Sodium 40 MG/0.4 ML SYRINGE SUBCUT (20:26)
[2020-04-12 21:03] LABS: Glucose, Whole Blood 364 mg/dL (60-115)
[2020-04-12] MEDS: Insulin Lispro 100 UNIT/ML 3 ML VIAL 6 UNIT SUBCUT (21:18)
[2020-04-12 23:22] VITALS: BP 109/73; PULSE 55; RESP 19; TEMP 35.9; O2SAT 97
[2020-04-12 23:27] LABS: Glucose, Whole Blood 265 mg/dL (60-115)
--- NOTE | 2020-04-13 | XR_ITS ---
EXAMINATION: XR CHEST CLINICAL INFORMATION: Hypoxia COMPARISON: Previous chest x-ray most recent 04/07/[address] 04/07/2020 TECHNIQUE: Frontal view of the chest was obtained. FINDINGS: The lung volumes are low. The cardiac and mediastinal contours are stable. There are patchy parenchymal opacities seen throughout the lungs. This does not appear appreciably changed from previous exams. There is no pleural effusion or pneumothorax. Bony structures are unremarkable. XR/XR chest 1V IMPRESSION: Low lung volumes and bilateral parenchymal opacities similar to 04/07/2020 exam.
[2020-04-13 03:10] VITALS: BP 100/63; PULSE 59; RESP 19; TEMP 36.2; O2SAT 97
[2020-04-13 07:00] LABS: Alanine Aminotransferase 59 U/L (0-40); Albumin Level 3.6 g/dL (3.5-5.0); Alkaline Phosphatase 107 U/L (39-117); Anion Gap 13 (12-20); Aspartate Amino Transferase 23 U/L (5-37); Bilirubin Direct 0.2 mg/dL (0.0-0.5); Bilirubin Total 0.4 mg/dL (0.0-1.0); Blood Urea Nitrogen 16 mg/dL (9-16); Carbon Dioxide 27 mmol/L (22-29); Chloride 102 mmol/L (96-108); Creatinine Clr Calc Pharmacy 158.4; Estimated Glomerular Filt Rate > 60; Glucose Random 186 mg/dL (60-115); Potassium 3.8 mmol/l (3.3-5.1); Sodium 138 mmol/L (135-145); Total Protein 6.6 g/dL (6.5-8.0)
[2020-04-13 07:41] VITALS: BP 108/72; PULSE 63; RESP 18; TEMP 36.4; O2SAT 97
[2020-04-13 07:47] LABS: Glucose, Whole Blood 150 mg/dL (60-115)
[2020-04-13] MEDS: glipiZIDE 5 MG TABLET 10 MG PO ×2 (08:00→16:29)
[2020-04-13] MEDS: 0.9 % Sodium Chloride Flush 3 ML SYRINGE IVFLUSH ×2 (08:00→16:29)
[2020-04-13] MEDS: Famotidine 20 MG TABLET PO ×2 (08:00→21:35)
[2020-04-13] MEDS: dexAMETHasone sod phosphate 4 MG/ML VIAL 6 MG IVPUSH (08:01)
--- NOTE | 2020-04-13 10:45 | PM.PNPUL ---
Subjective Subjective Interval history: The patient was seen on exam. Still on 4 L oxygen. Desaturated very quickly on room air to the 70s. He does have some pleuritic pain when he takes a deep breath in. Primarily on the left side. On examination he is very diminished primarily on the left side. Objective Data Labs CBC & Chem 7: 04/09/20 05:51 04/13/20 05:29 Labs: Laboratory Results - last 24 hr 04/12/20 04/12/20 04/12/20 11:13 16:06 20:18 Sodium Potassium Chloride Carbon Dioxide Anion Gap BUN Creatinine Estim Creat Clear Calc Estimated GFR POC Glucose 389 H* 338 H 377 H* Random Glucose Calcium Total Bilirubin Direct Bilirubin AST ALT Alkaline Phosphatase Total Protein Albumin 04/12/20 04/12/20 04/13/20 20:58 23:21 05:29 Sodium 138 Potassium 3.8 Chloride 102 Carbon Dioxide 27 Anion Gap 13 BUN 16 Creatinine 0.75 Estim Creat Clear Calc 158.4 Estimated GFR > 60 POC Glucose 364 H* 265 H Random Glucose 186 H Calcium 8.0 L Total Bilirubin 0.4 Direct Bilirubin 0.2 AST 23 ALT 59 H Alkaline Phosphatase 107 Total Protein 6.6 Albumin 3.6 04/13/20 07:43 Sodium Potassium Chloride Carbon Dioxide Anion Gap BUN Creatinine Estim Creat Clear Calc Estimated GFR POC Glucose 150 H Random Glucose Calcium Total Bilirubin Direct Bilirubin AST ALT Alkaline Phosphatase Total Protein Albumin Microbiology Microbiology Results: Microbiology 04/07/20 19:14 Blood - Venous Blood Culture - Final No growth after 5 days. 04/07/20 19:06 Blood - Venous Blood Culture - Final No growth after 5 days. Review of Systems Constitutional: Denies headache(s) Eyes: Denies loss of vision Denies vertigo and Denies headache(s) Respiratory: Reports cough and Reports pain on inspiration Musculoskeletal: Denies abnormal gait Denies abnormal gait, Denies vertigo, Denies headache(s), Denies loss of vision, Denies restless legs and Denies tremor(s) Physical Exam Vital Signs: Vital Signs: Vital Signs Temp Pulse Resp BP Pulse Ox 04/13/20 07:41 97.6 F 63 18 108/72 97 04/13/20 03:10 97.2 F 59 19 100/63 97 04/12/20 23:22 96.6 F L 55 19 109/73 97 04/12/20 19:29 98 F 59 18 103/66 95 04/12/20 15:30 98.5 F 62 18 103/67 95 04/12/20 12:00 97.5 F 69 18 98/56 L 92 Body Mass Index 31.0 Const: General: alert HENMT: General nose exam: Abnormal external nose present and Nasal discharge present Eyes: Pupils: Equal, round and reactive pupils present Neck: Neck: Yes normal visual inspection, Yes full ROM and Yes no lymphadenopathy Chest: Chest palpation & inspection: normal inspection of the chest Resp: Auscultation: breath sounds absent on th left (base) and diminished lung sounds Cardio: Rate: regular rate Rhythm: regular rhythm Heart sounds: S1 normal heart sound present and S2 normal heart sound present GI: Palpation (GI): Soft to palpation and nontender Auscultation: normal bowel sounds : General: Yes no CVA tenderness Back/Spine/Pelvis: Back: no CVA tenderness Skin: General skin exam: rashes and/or lesions noted Neuro: Cranial nerves: Yes Equal, round and reactive pupils present Assessment and Plan Assessment and plan (1) Pneumonia due to COVID-19 virus: Status: Acute (2) Asthma: Problem details: ALBUTEROL HFA 2 PUFFS Q 4-6 HRS PRN Status: Acute (3) Acute respiratory failure: Status: Acute Assessment and Plan: continue oxygen 4 L to keep pox>90% (4) Pleuritic chest pain: Status: Acute Assessment and Plan: check ddimer CXR Time Spent With Patient Time: Total time spent is greater than 50% in coordination of care (as documented) at patient's floor/unit and/or counseling patient: Time with patient: 15 - 24 minutes
[2020-04-13 11:43] VITALS: BP 95/65; PULSE 68; RESP 18; TEMP 36.1; O2SAT 95
[2020-04-13 11:43] LABS: D Dimer 235 NG/ML
[2020-04-13 11:53] LABS: Glucose, Whole Blood 368 mg/dL (60-115)
--- NOTE | 2020-04-13 11:57 | P.PNIM_ITS ---
Subjective Subjective Date of Service: 04/13/20 Interval History: Acute hypoxemic respiratory failure, COVID pneumonia. Review of Systems Shortness of breath slowly improving but still hypoxic Denies any chest pain or abdominal pain or nausea or vomiting or for fever or chills Physical Exam Vital Signs: Vital Signs: Vital Signs Temp Pulse Resp BP Pulse Ox 04/13/20 11:43 97.0 F 68 18 95/65 95 04/13/20 07:41 97.6 F 63 18 108/72 97 04/13/20 03:10 97.2 F 59 19 100/63 97 04/12/20 23:22 96.6 F L 55 19 109/73 97 04/12/20 19:29 98 F 59 18 103/66 95 04/12/20 15:30 98.5 F 62 18 103/67 95 04/12/20 12:00 97.5 F 69 18 98/56 L 92 Body Mass Index 31.0 Physical exam: Constitutional: Average built Turkish obese male, says she seems comfortable shortness of breath elizondo. HEENT: Anicteric, more rinnorrhae. Cvs: rrr, [id number] , no murmur res: clear to auscultation ,no rhonchii or wheezing abd: no rebound or guarding ,nt, bs present. ext pulses present , no cyanosis neuro: axo3 , nonfocal. Objective Data Current Medications Generic Name Dose Route Start Last Admin Trade Name Freq PRN Reason Stop Dose Admin Acetaminophen 650 mg 04/07/20 22:31 04/09/20 03:48 Acetaminophen 325 Mg Tablet PO 650 mg Q6H PRN Administration Pain, Mild (Pain Scale 1-3) Albuterol Sulfate 2 puff 04/07/20 22:31 Albuterol Sulfate 90 Mcg 8 Gm Inhaler INHALE Q4H PRN Shortness Of Breath Dexamethasone Sodium Phosphate 6 mg 04/07/20 20:45 04/13/20 08:01 Dexamethasone Sod Phosphate 4 Mg/Ml Vial IVPUSH 6 mg DAILY DAMIAN Administration Docusate Sodium 100 mg 04/07/20 22:31 Docusate Sodium 100 Mg Capsule PO DAILY PRN Constipation Enoxaparin Sodium 40 mg 04/07/20 23:00 04/12/20 20:26 Enoxaparin Sodium 40 Mg/0.4 Ml Syringe SUBCUT 40 mg Q24H DAMIAN Administration Famotidine 20 mg 04/09/20 21:00 04/13/20 08:00 Famotidine 20 Mg Tablet PO 20 mg BID DAMIAN Administration Glipizide 10 mg 04/10/20 17:00 04/13/20 08:00 Glipizide 5 Mg Tablet PO 10 mg BIDWM DAMIAN Administration Insulin Human Lispro 0 unit 04/09/20 11:30 04/13/20 08:00 Insulin Lispro 100 Unit/Ml 3 Ml Vial SUBCUT Not Given QIDACHS [facility] Protocol Ondansetron HCl 4 mg 04/07/20 22:31 Ondansetron Hcl 4 Mg/2 Ml Vial IVPUSH Q8H PRN Nausea and Vomiting Pharmacy Consult 1 each 04/07/20 20:36 Consult Rx Perform Med Rec MISCELLANE ONCE PRN Consult order Sodium Chloride 3 ml 04/08/20 00:00 04/13/20 08:00 0.9 % Sodium Chloride Flush 3 Ml Syringe IVFLUSH 3 ml QSHIFT DAMIAN Administration Labs CBC & Chem 7: 04/09/20 05:51 04/13/20 05:29 Microbiology Microbiology Results: Microbiology 04/07/20 19:14 Blood - Venous Blood Culture - Final No growth after 5 days. 04/07/20 19:06 Blood - Venous Blood Culture - Final No growth after 5 days. Assessment and Plan (1) Pneumonia due to COVID-19 virus: Status: Acute (2) Acute respiratory failure: Status: Acute (3) Asthma: Problem details: ALBUTEROL HFA 2 PUFFS Q 4-6 HRS PRN Status: Acute (4) Diabetes mellitus, type 2: Status: Acute Assessment and Plan: 39-year-old Turkish-speaking male with history of diabetes and asthma who presents to the emergency department with shortness of breath after being diagnosed with coronavirus on April 01. 1. COVID-19 pneumonia requiring supplemental oxygen continue IV Decadron, received remdesvir, patient currently is not considering for conversant plasma he said if condition worsen he will think about it. Seen by ID and pulmonary: Will continue above management. Shortness of breath slowly improving. Will repeat chest x-ray 2. diabetes: Hyperglycemia elizondo uncontrolled, steroid use might be contributing. Diabetic diet,Hba1c mostly fs 150-260 since yesterday , we will add metformin Adjusted fingerstick with coverage, continue glipizide. Depending upon hemoglobin A1c we may need to add at this 3.Elevated LFTs: LFTs improving CT shows fatty liver dz -trend LFTs
[2020-04-13] MEDS: Insulin Lispro 100 UNIT/ML 3 ML VIAL SUBCUT ×3 (12:16→21:35)
[2020-04-13 12:26] LABS: Estimated Average Glucose 249 mg/dL; Hemoglobin A1c % 10.3 %
[2020-04-13] MEDS: metFORMIN HCl ER 750 MG TAB.ER.24H PO (13:32)
[2020-04-13 15:12] VITALS: BP 106/76; PULSE 67; RESP 18; TEMP 36.8; O2SAT 97
[2020-04-13 16:23] LABS: Glucose, Whole Blood 283 mg/dL (60-115)
--- NOTE | 2020-04-13 19:05 | P.EN_ITS ---
Event Note Event Note: Called to see patient because he is upset that his linen hasn't been changed in 7 days and it took 2 hours to get his dinner. He had taken off his oxygen and monitor and threatened to leave if not trated right. While i was there with telephone instrument supervisor with oxygen off for more that half hour, oxygen level was 94% on room air. He is alert oriented to self place and time and stated he is in hospital because of covid. risk of leaving ama explained including possibility of getting worse and even dying for now he's agreable to stay. Certified Neurodiagnostic Technologist was used. Film Reproducer was present
--- NOTE | 2020-04-13 19:19 | PC.NURSE ---
1814: PT UPSET, RIPPED MONITOR OFF. SPOKE WITH WANTING TO GO HOME. PRIMARY COUNSELOR IN ROOM TO TRANSLATE. UPSET OVER LINENS NOT CHANGED ON BED AND DINNER NOT HE REQUESTED. STATING HE DOESNT CARE ANYMORE, HE JUST WANTS TO GO HOME. DR GUZMÁN NOTIFIED, NURSING SUPERVISER NOTIFIED PT ROOM AIR SAT EARLIER TODAY 76% ON ROOM AIR. BOTH SPOKE WITH HIM. ROOM AIR SAT RECHECKED AT THIS TIME AND IS 93-94%. BED LINENS CHANGED, FOOD PER PT LIKING. WILL AGREE TO STAY AT THIS MOMENT.
[2020-04-13 19:29] VITALS: PULSE 118; O2SAT 94
[2020-04-13 21:33] LABS: Glucose, Whole Blood 310 mg/dL (60-115)
[2020-04-13] MEDS: Enoxaparin Sodium 40 MG/0.4 ML SYRINGE SUBCUT (22:54)
[2020-04-13 23:29] VITALS: BP 118/70; PULSE 83; RESP 22; TEMP 37; O2SAT 95
[2020-04-14] MEDS: 0.9 % Sodium Chloride Flush 3 ML SYRINGE IVFLUSH ×2 (00:30→08:06)
[2020-04-14 03:23] VITALS: BP 110/70; PULSE 65; RESP 20; TEMP 37; O2SAT 96
[2020-04-14 07:02] LABS: Hematocrit 41.6 % (42-52); Mean Corpuscular HGB Conc 33.7 g/dl (31.0-36.0); Mean Corpuscular Hemoglobin 28.3 pg (27.0-33.0); Mean Corpuscular Volume 84.2 fL (80-98); Mean Platelet Volume 11.7 fL (9.4-12.4); Platelet Count 294 X10*3/uL (160-400); Red Blood Count 4.94 X10*6/uL (4.60-5.80); Red Cell Distribution Width 12.3 % (11.0-16.0); White Blood Count 10.9 X10*3/uL (4.8-10.8)
[2020-04-14 07:11] LABS: Anion Gap 12 (12-20); Blood Urea Nitrogen 17 mg/dL (9-16); Calcium 7.8 mg/dL (8.4-10.2); Carbon Dioxide 27 mmol/L (22-29); Chloride 100 mmol/L (96-108); Creatinine Clr Calc Pharmacy 144.9; Estimated Glomerular Filt Rate > 60; Glucose Random 305 mg/dL (60-115); Potassium 4.2 mmol/l (3.3-5.1); Sodium 135 mmol/L (135-145)
[2020-04-14 07:36] VITALS: BP 101/68; PULSE 67; RESP 18; TEMP 36.5; O2SAT 95
[2020-04-14 07:39] LABS: Glucose, Whole Blood 296 mg/dL (60-115)
[2020-04-14] MEDS: Famotidine 20 MG TABLET PO (08:05)
[2020-04-14] MEDS: Insulin Lispro 100 UNIT/ML 3 ML VIAL SUBCUT (08:05)
[2020-04-14] MEDS: glipiZIDE 5 MG TABLET 10 MG PO (08:05)
[2020-04-14] MEDS: dexAMETHasone sod phosphate 4 MG/ML VIAL 6 MG IVPUSH (08:06)
--- NOTE | 2020-04-14 10:17 | MHC.CM.PN ---
Patient has been medically cleared for dc to home today, no services.Patient is aware of and in agreement with the dc plan.
--- NOTE | 2020-04-14 10:20 | P.DS_ITS ---
DS: Providers Provider Date of admission: 04/07/20 20:35 Primary care physician: Unknown Physician Consults: 04/07/20 22:31 Consult to Physician Routine Consulting Provider: Giulia Coburn Reason for consultation: covid+ Has provider been notified: No 04/09/20 08:21 Consult to Pulmonology Routine Consulting Provider: Evon Canela Reason for consultation: Acute respirtory failure /covid pneumonia Has provider been notified: Yes DS: Diagnosis Discharge Diagnosis (1) Pneumonia due to COVID-19 virus: Status: Acute (2) Asthma: Status: Acute Problem details: ALBUTEROL HFA 2 PUFFS Q 4-6 HRS PRN (3) Diabetes mellitus, type 2: Status: Acute (4) Acute respiratory failure with hypoxia: Status: Acute DS: Summary Hospital Course Hospital Course: HPI from the admission H&P: This is a 39-year-old Macanese-speaking male who presents to the emergency department with shortness of breath. Patient was seen in the emergency department on April 01 and diagnosed with coronavirus. Since then he has had increasing shortness of breath with associated cough productive of clear phlegm, fever, body aches. Today his oxygen saturation at home was 86 % and this prompted him to come to the emergency department for further eval uation. While in the emergency department his oxygen saturation was noted to dip below 90% on room air. He was started on supplemental oxygen but his shortness of breath persisted. Chest x-ray showed no evidence of pneumonia however cat scan of the chest showed ground-glass opacities. Inflammatory markers including ferritin, CRP and LDH were somewhat elevated. given hypoxia the decision was made to admit him to the hospital for further management Hospital Course: Patient was started on supplemental oxygen and both Infectious Disease as well as Pulmonary consultations were sought. He was initiated on IV Decadron as well as remdesivir. He completed his course of remdesivir and fortunately over the course of 7 days in the hospital he was able to be weaned down to room air. He will be discharged home with 2 more days of oral dexamethasone. He has been advised to maintain self isolation per CDC guidelines. Time Spent with Patient Time attestation: Total time spent providing and/or coordinating discharge services: Physical Exam Vital Signs: Vital Signs: Vital Signs Temp Pulse Resp BP Pulse Ox 04/14/20 07:36 97.7 F 67 18 101/68 95 04/14/20 03:23 98.6 F 65 20 110/70 96 04/13/20 23:29 98.6 F 83 22 H 118/70 95 04/13/20 19:29 118 H 94 04/13/20 15:12 98.2 F 67 18 106/76 97 04/13/20 11:43 97.0 F 68 18 95/65 95 Body Mass Index 31.0 General - no acute distress, appears comfortable Cardiovascular - regular rate and rhythm, S1-S2 Lungs - normal respiratory effort, clear to auscultation bilaterally, no wheezing Abdomen - soft, nontender, no rebound regarding Extremities - no edema bilaterally Neuro - awake and alert, no focal deficits DS: Data Data Completed and Pending Labs on day of discharge: Labs from last 24 hours 04/14/20 04/14/20 04/14/20 07:33 05:39 05:39 WBC 10.9 H RBC 4.94 Hgb 14.0 Hct 41.6 L MCV 84.2 MCH 28.3 MCHC 33.7 RDW 12.3 Plt Count 294 D MPV 11.7 Absolute Nucleated RBC 0.000 Nucleated RBC % (auto) 0.0 D-Dimer Sodium 135 Potassium 4.2 Chloride 100 Carbon Dioxide 27 Anion Gap 12 BUN 17 H Creatinine 0.82 Estim Creat Clear Calc 144.9 Estimated GFR > 60 POC Glucose 296 H Random Glucose 305 H D Estimat Average Glucose Hemoglobin A1c % Calcium 7.8 L 04/13/20 04/13/20 04/13/20 21:16 16:13 11:46 WBC RBC Hgb Hct MCV MCH MCHC RDW Plt Count MPV Absolute Nucleated RBC Nucleated RBC % (auto) D-Dimer Sodium Potassium Chloride Carbon Dioxide Anion Gap BUN Creatinine Estim Creat Clear Calc Estimated GFR POC Glucose 310 H 283 H 368 H* Random Glucose Estimat Average Glucose Hemoglobin A1c % Calcium 04/13/20 04/13/20 11:01 05:29 WBC RBC Hgb Hct MCV MCH MCHC RDW Plt Count MPV Absolute Nucleated RBC Nucleated RBC % (auto) D-Dimer 235 Sodium Potassium Chloride Carbon Dioxide Anion Gap BUN Creatinine Estim Creat Clear Calc Estimated GFR POC Glucose Random Glucose Estimat Average Glucose 249 Hemoglobin A1c % 10.3 Calcium Discharge Plan Discharge Patient Disposition: Home, Self-Care Referrals: Physician,Unknown [Primary Care Provider] - Discharge Medications: New dexamethasone [Decadron] 4 mg tablet 8 mg PO DAILY 2 Days Qty: 4 RF: 0 Continued pioglitazone 45 mg Tablet 45 mg PO DAILY RF: 0 glimepiride 4 mg Tablet 4 mg PO BIDWM RF: 0 albuterol sulfate [ProAir HFA] 90 mcg/actuation Hfa Aerosol Inhaler 2 puff INHALATION Q4H PRN (Reason: Shortness Of Breath) RF: 0 Januvia 100 mg Tablet 100 mg PO DAILY RF: 0 Discharge Orders: Discharge Order (Routine); Ordered 04/14/20 Ordered By: William Moser Diet: advance to your usual diet Activity on Discharge: As tolerated Visit Report Forms: Patient Portal Discharge page Care Plan Goals: To recover from COVID 19 pneumonia. Health Concerns: COVID 19 pneumonia. Plan of Treatment: Please complete 2 more days of dexamethasone 8mg daily. If you have fevers or worsening of cough / shortness of breath -- please return to the emergency room. Maintain isolate per CDC guidelines.
== END 2020-04-14 12:22 | disposition home or self-care (01) | DRG 137 ==
LOC: HO.ED 20:52 → HO.IMC 20:57
PROVIDERS: Hospitalist; Internal Medicine; Physician Assistant; Admitting Provider Physician Assistant Medical; Emergency Provider Emergency Medicine; Visit Provider Family Medicine
DX: U07.1 COVID-19 (principal); J96.01 Acute respiratory failure with hypoxia; E11.65 Type 2 diabetes mellitus with hyperglycemia; J12.89 Other viral pneumonia; Z79.84 Long term (current) use of oral hypoglycemic drugs; Z79.899 Other long term (current) drug therapy
CPT/HCPCS: 36415; 71045; 71250; 80048; 80051; 80076; 82550; 82565; 82728; 82803; 82947; 83036; 83605; 83615; 83735; 84100; 84145; 84520; 85025; 85027; 85379; 85610; 85730; 86140; 86850; 86900; 86901; 87040; 99285; J1100; J1650; J3490

== ENCOUNTER 2020-09-16 13:56 | Outpatient (REF) | payer MEDICAID, SELFPAY ==
[2020-09-16 14:25] LABS: COVID-19 Test Negative (Negative); IDNOW Serial# 55D5AD1C
== END 2020-09-16 13:57 | disposition home or self-care (01) ==
LOC: HO.LAB 13:56
PROVIDERS: Visit Provider Internal Medicine
DX: Z20.822 Contact with and (suspected) exposure to COVID-19 (principal)
CPT/HCPCS: 36415; 87635; C9803

== ENCOUNTER 2021-03-14 18:00 | Emergency (ER) | payer MEDICAID, SELFPAY ==
[2021-03-14 20:30] VITALS: BP 128/80; PULSE 72; RESP 18; TEMP 36.4; O2SAT 98; BMI 32.1
--- NOTE | 2021-03-14 21:58 | ED_ITS ---
HPI - Eye Problem General Chief complaint: Eye Problems Stated complaint: eye pain Time Seen by Provider: 03/14/21 20:41 Source: patient Mode of arrival: ambulatory History of Present Illness HPI Narrative: 40-year-old male who comes in with history of diabetes and planes of waking up approximately 5 days ago with pain to the upper, medial corner of the right eye without fevers, chills, pain on eye movement, blurry vision and denies being a contact lens user. Related Data Home Medications Medication Instructions Recorded Confirmed albuterol sulfate 90 mcg/actuation 2 puff INHALATION Q4H PRN 04/07/20 04/07/20 aerosol inhaler (ProAir HFA) glimepiride 4 mg tablet 4 mg PO BIDWM 04/07/20 04/07/20 pioglitazone 45 mg tablet 45 mg PO DAILY 04/07/20 04/07/20 sitagliptin 100 mg tablet (Januvia) 100 mg PO DAILY 04/07/20 04/07/20 Previous Rx's Medication Instructions Recorded dexamethasone 4 mg tablet 8 mg PO DAILY 2 Days #4 tab 04/14/20 (Decadron) amoxicillin 875 mg-potassium 1 tab PO Q12H 5 Days #10 tab 03/14/21 clavulanate 125 mg tablet (Augmentin) Allergies Allergy/AdvReac Type Severity Reaction Status Date / Time No Known Allergies Allergy Verified 04/08/20 02:10 Review of Systems Review of Systems: And negatives as stated in HPI and 10 point review of systems is otherwise negative. PMFSH Past Medical History Source: nursing notes reviewed Medical History Asthma Diabetes mellitus, type 2 Social History Social History Household Members: Spouse Housing: House Do you presently have visiting nurse or other home services: No Alcohol intake: never Second Hand Smoke Exposure: No Advance Directives: No Advance Directives Information Provided: No service: No Current occupational status: employed Physical Exam Vital Signs: Vital Signs: Last Vital Signs Temp 97.5 F 03/14/21 20:30 Pulse 72 03/14/21 20:30 Resp 18 03/14/21 20:30 BP 128/80 03/14/21 20:30 Pulse Ox 98 03/14/21 20:30 Body Mass Index 32.1 VITAL SIGNS: Reviewed. GENERAL: Well developed, well nourished, in no acute distress. HEAD: Normocephalic/atraumatic EYES: PERRLA, EOMI without conjunctival injection, minimal erythema/swelling at the upper right medial canthus without purulence drainage, visual acuity 20/40 bilaterally NOSE: Nares patent bilateraly LUNGS: Normal breath sounds. No adventitious sounds or accessory muscle use. SpO2<98> CARDIOVASCULAR: Regular rate and rhythm without noted murmurs ABDOMEN: Soft, non-tender, non-distended with bowel sounds. SKIN: Inspection of the skin reveals no rashes NEUROLOGIC: Alert and oriented x 4. Course Course Course Narrative: 40-year-old male with history and clinical presentation consistent with minimal right upper lid cellulitis possibly secondary to blocked tear duct as there is no evidence to suggest stye, calcium own and not consistent with conjunctivitis or corneal abrasion. Given the fact that patient has been dealing with this for 5 days and is a diabetic I will place him on oral antibiotics and he has been instructed to follow-up with his primary care provider as well as an email production specialist. Discharge Plan Discharge Clinical Impression: Diabetes, Infection of eyelid Patient Disposition: Home, Self-Care Instructions: Blepharitis (ED), Warm Compress or Soak (ED) Additional Instructions: 1. Recomiende compresas h?medas y tibias para los ojos, de 3 a 4 veces al d?a. 2. Complete todo el ciclo de antibi?ticos. 3. Llame a dc proveedor de atenci?n primaria por la ma?martha para programar viviana tai para la reevaluaci?n y el manejo ambulatorio adicional. 4. Recomendar viviana evaluaci?n por parte de un oculista. Regrese a la abi de emergencias por un empeoramiento mary de los s?ntomas. Prescriptions: New amoxicillin-pot clavulanate [Augmentin] 875-125 mg tablet 1 tab PO Q12H 5 Days Qty: 10 RF: 0 No Action pioglitazone 45 mg Tablet 45 mg PO DAILY RF: 0 glimepiride 4 mg Tablet 4 mg PO BIDWM RF: 0 albuterol sulfate [ProAir HFA] 90 mcg/actuation Hfa Aerosol Inhaler 2 puff INHALATION Q4H PRN (Reason: Shortness Of Breath) RF: 0 Januvia 100 mg Tablet 100 mg PO DAILY RF: 0 dexamethasone [Decadron] 4 mg tablet 8 mg PO DAILY 2 Days Qty: 4 RF: 0 Referrals: Martha Lock MD [Primary Care Provider] - 2 days Derrick Salas [Physician] - 2 days (40-year-old male, diabetic, right medial blepharitis without pain on extraocular movement, no history consistent with corneal abrasion, no visual abnormality, but started on oral antibiotics due to diabetes and ongoing condition for 5 days.)
[2021-03-14] MEDS: Amoxicillin/Potassium Clav 875 MG TABLET PO (22:24)
== END 2021-03-14 22:28 | disposition home or self-care (01) ==
PROVIDERS: Emergency Provider Student in an Organized Health Care Education/Training Program; PCP Internal Medicine
DX: H01.001 Unspecified blepharitis right upper eyelid (principal); E11.9 Type 2 diabetes mellitus without complications; Z79.899 Other long term (current) drug therapy
CPT/HCPCS: 99283

== ENCOUNTER 2021-09-17 12:36 | Emergency (ER) | payer MEDICAID, SELFPAY ==
--- NOTE | ~2021-09-17 | XR_ITS ---
EXAMINATION: CHEST 2 VIEWS CLINICAL INFORMATION: SOB . COMPARISON: No recent pertinent prior studies are available for comparison. TECHNIQUE: PA and lateral views of the chest obtained. FINDINGS: The lungs are mildly hypoexpanded. No focal infiltrate, effusion, edema, or pneumothorax. Cardiac and mediastinal silhouettes are within normal limits for technique. No acute bony abnormality seen XR/XR chest 2V IMPRESSION: No evidence of acute disease
[2021-09-17 12:55] VITALS: BP 113/74; PULSE 95; RESP 18; TEMP 36.5; O2SAT 96; BMI 32.1
--- NOTE | 2021-09-17 13:04 | ED_ITS ---
HPI - General Adult General Chief complaint: General Medical Stated complaint: SOB Time Seen by Provider: 09/17/21 13:04 Source: patient Mode of arrival: ambulatory Limitations: no limitations History of Present Illness HPI narrative: Patient is a 41 year old male presenting to the emergency department today with a cough and feeling generally unwell. Patient states that he has a headache and cough starting yesterday. Patient denies any current dizziness, lightheadedness, abdominal pain, nausea, vomiting, fever, chills, blurry vision, double vision, loss of vision, chest pain, difficulty breathing, shortness of breath, back pain, night sweats, pain with urination, increased urinary frequency, increased urinary urgency, blood in his urine or stool, syncope or a near syncopal episode, recent trauma or falls, bowel incontinence, bladder incontinence, bowel retention, bladder retention, or any other complaints at this time. Onset (ago): day(s) Relieving factors: none Exacerbating factors: none Treatments prior to arrival: none Related Data Home Medications Medication Instructions Recorded Confirmed albuterol sulfate 90 mcg/actuation 2 puff INHALATION Q4H PRN 04/07/20 04/07/20 aerosol inhaler (ProAir HFA) glimepiride 4 mg tablet 4 mg PO BIDWM 04/07/20 04/07/20 pioglitazone 45 mg tablet 45 mg PO DAILY 04/07/20 04/07/20 sitagliptin 100 mg tablet (Januvia) 100 mg PO DAILY 04/07/20 04/07/20 Previous Rx's Medication Instructions Recorded dexamethasone 4 mg tablet 8 mg PO DAILY 2 Days #4 tab 04/14/20 (Decadron) amoxicillin 875 mg-potassium 1 tab PO Q12H 5 Days #10 tab 03/14/21 clavulanate 125 mg tablet (Augmentin) Allergies Allergy/AdvReac Type Severity Reaction Status Date / Time No Known Allergies Allergy Verified 04/08/20 02:10 Review of Systems Constitutional: Constitutional: Reports no additional constitutional complaint s, Denies chills, Denies fever(s), Reports headache(s) and Denies night sweats Eyes: Eyes: Reports no additional eye complaints, Denies blurry vision, Denies change in vision, Denies diplopia, Denies eye discharge, Denies loss of vision and Denies eye pain ENT: Denies dizziness and Reports headache(s) Cardiovascular: Cardiovascular: Reports no additional cardiovascular complaints, Denies chest pain, Denies lightheadedness, Denies Loss of Consciousness and Denies dyspnea Respiratory: Respiratory: Reports no additional respiratory complaints, Reports cough and Denies dyspnea Gastrointestinal: Gastrointestinal: Reports no additional gastrointestinal complaints, Denies abdominal pain, Denies melena, Denies hematochezia, Denies change in bowel habits and Denies change in stool character Genitourinary: Genitourinary: Reports no additional male genitourinary complaints, Denies hematuria, Denies oliguria, Denies difficulty urinating, Denies dysuria, Denies urinary frequency, Denies urinary hesitancy, Denies urinary incontinence and Denies urinary urgency Musculoskeletal: Musculoskeletal: Reports no additional musculoskeletal complaints, Denies numbness and Denies tingling Neurologic: Denies dizziness, Reports headache(s), Denies loss of vision, Denies numbness and Denies tingling Psychiatric: Psychiatric: Reports no additional psychiatric complaints Endocrine: Endocrine: Reports no additional endocrine complaints Hematologic/Lymphatic: Hematologic/Lymphatic: Reports no additional hematologic/lymphatic complaints Allergic/Immunologic: Allergic/Immunologic: Reports no additional cesar rgic/immunologic complaints [facility] Past Medical History Attestation statement: The following information was validated with the patient. Source: old records reviewed Medical History Asthma Diabetes mellitus, type 2 Social History Social History Household Members: Spouse Housing: House Do you presently have visiting nurse or other home services: No Alcohol intake: never Second Hand Smoke Exposure: No Advance Directives: No Advance Directives Information Provided: No service: No Current occupational status: employed Physical Exam ED Vital Signs: Vital Signs - 24 hr 09/17/21 12:55 Temperature 97.7 F Pulse Rate 95 Respiratory Rate 18 Blood Pressure 113/74 Pulse Oximetry 96 BMI result Body Mass Index 32.1 Const General: cooperative, no acute distress, alert and awake Nutritional Appearance: well nourished Orientation/consciousness: patient oriented x3 Limitations: no limitations HENMT Head: Yes normal to inspection and Yes atraumatic Ears: hearing grossly normal bilaterally and external ears normal General nose exam: Normal external nose present, no nasal discharge noted and no epistaxis Face and sinus: Yes normal facial exam, No abrasion and No laceration Mouth: Normal oral and palatal mucosa present, no drooling and no muffled voice Eyes General: appearance normal, both eyes and all related structures Periorbital: periorbital findings normal Eyelids: Yes eyelids normal Conjunctivae: conjunctivae normal Pupils: Equal, round and reactive pupils present EOM: EOMs intact bilaterally Neck Neck: Yes normal visual inspection, Yes full ROM and Yes no lymphadenopathy Chest Chest palpation & inspection: normal inspection of the chest Resp Effort & Inspection: normal respiratory effort and able to speak in complete sentences Auscultation: clear to auscultation bilaterally Cardio Rate: regular rate Rhythm: regular rhythm GI Inspection: Yes normal to inspection Neuro General: patient oriented x3 and moves all extremities Cranial nerves: Yes Equal, round and reactive pupils present Cognition (Neuro): normal cognition Motor exam (neuro): 5/5 motor strength present throughout Sensory Exam: Normal double simultaneous stimulation for sensation Coordination: [id number] test normal Extrem General: Yes normal to inspection, Yes full ROM and Yes capillary refill normal Psych Appearance: grossly normal Mental Status: mental status grossly normal Affect: normal affect Attitude: cooperative Thought process: Normal thought process present Thought content: Normal thought content present Insight: Good insight present (Psych) Medical Decision Making MDM Narrative Medical decision making narrative: Patient is a 41 year old male presenting to the emergency department today with a cough and a headache. Patient's physical exam was unremarkable. Patient's rapid COVID-19 test was negative however his rapid influenza was positive. Patient's chest x-ray showed no acute process. I explained my physical exam findings as well as all test results to the patient. I answered all questions asked by the patient. I stressed the importance of the patient taking his medication as prescribed. I stressed the importance of the patient following up with his primary care provider. I stressed the importance of the patient returning to the emergency department immediately if his symptoms were to worsen or if he were to develop any dizziness, shortness of breath, difficulty breathing, chest pain, blurry vision, loss of vision, nausea, vomiting, abdominal pain, fever, chills, back pain, or any other complaints. Patient verbalized agreement and understanding with this treatment plan and discharge. Differential Diagnosis Differential Diagnosis: COVID-19, influenza, URI Medical Records Medical records reviewed: Yes I reviewed the patient's medical records. Lab Data Lab results reviewed: Yes I reviewed the patient's lab results. Labs: Lab Results 09/17/21 09/17/21 Range/Units 13:10 13:10 COVID-19 (JUNIOR) Negative (Negative) COVID-19 Clin Com See Note Influenza Type A (TOMASA) Positive A (Negative) Influenza Type B (TOMASA) Negative (Negative) Influenza A & B Note See Note Imaging Data Chest x-ray: Attestation: I personally reviewed and interpreted this imaging study as follows: My impression: No acute process. Radiologist's impression: EXAMINATION: CHEST 2 VIEWS CLINICAL INFORMATION: SOB COMPARISON: No recent pertinent prior studies are available for comparison. TECHNIQUE: PA and lateral views of the chest obtained.? FINDINGS: The lungs are mildly hypoexpanded. No focal infiltrate, effusion, edema, or pneumothorax. Cardiac and mediastinal silhouettes are within normal limits for technique. No acute bony abnormality seen XR/XR chest 2V IMPRESSION: No evidence of acute disease Dictated By: Deven Stephen MD Signed By: Electronically signed by Deven Stephen MD 09/17/21 1332 Discharge Plan Discharge Clinical Impression: Influenza Patient Disposition: Home, Self-Care Instructions: Influenza (DC) Additional Instructions: Follow up with your primary care provider. Return to the emergency department immediately if your symptoms worsen or if you develop any dizziness, shortness of breath, difficulty breathing, chest pain, blurry vision, loss of vision, nausea, vomiting, abdominal pain, fever, chills, back pain, or any other complaints. Prescriptions: No Action pioglitazone 45 mg Tablet 45 mg PO DAILY 0RF glimepiride 4 mg Tablet 4 mg PO BIDWM 0RF albuterol sulfate [ProAir HFA] 90 mcg/actuation Hfa Aerosol Inhaler 2 puff INHALATION Q4H PRN (Reason: Shortness Of Breath) 0RF Januvia 100 mg Tablet 100 mg PO DAILY 0RF dexamethasone [Decadron] 4 mg tablet 8 mg PO DAILY 2 Days Qty: 4 0RF amoxicillin-pot clavulanate [Augmentin] 875-125 mg tablet 1 tab PO Q12H 5 Days Qty: 10 0RF Referrals: Martha Lock MD [Primary Care Provider] - (Follow up with your PCP as needed. ) Interventions: ED Discharge Assessment Last Done: 09/17/21 13:53 Discharge Date/Time: 09/17/21 13:54 Print Language: Bolivian
[2021-09-17 13:32] LABS: COVID-19 Test Negative (Negative)
[2021-09-17 13:40] LABS: IDNOW Serial# 16C4AD1C; Influenza A Positive (Negative); Influenza B2 Negative (Negative)
== END 2021-09-17 13:54 | disposition home or self-care (01) ==
PROVIDERS: Physician Assistant Medical; Emergency Provider Emergency Medicine; PCP Internal Medicine
DX: J11.1 Influenza due to unidentified influenza virus with other respiratory manifestations (principal); Z20.822 Contact with and (suspected) exposure to COVID-19
CPT/HCPCS: 71046; 87502; 87635; 99283

== ENCOUNTER 2021-10-11 16:21 | Emergency (ER) | payer MEDICAID, SELFPAY ==
--- NOTE | 2021-10-11 | ECG_ITS ---
Test Reason : ches pain Blood Pressure : / mmHG Vent. Rate : 077 BPM Atrial Rate : 077 BPM P-R Int : 156 ms QRS Dur : 098 ms QT Int : 382 ms P-R-T Axes : 051 052 039 degrees QTc Int : 432 ms Normal sinus rhythm Lateral infarct (cited on or before 25-AUG-2016) Possible Inferior infarct (cited on or before 25-AUG-2016) Abnormal ECG When compared with ECG of 19-APR-2019 22:52, Vent. rate has decreased BY 48 BPM Referred By: Generic ED Physician Electronically Signed By:Silvio Dueñas
[2021-10-11 17:08] VITALS: BP 122/70; PULSE 81; RESP 18; TEMP 36.9; O2SAT 97; BMI 30.7
[2021-10-11 17:29] LABS: Mean Corpuscular Hemoglobin 28.3 pg (27.0-33.0); SCAN SMEAR FLAG 1
[2021-10-11 17:31] LABS: Basophils Percent Auto 0.3 % (0-2); Eosinophils Absolute Auto 0.1 X10*3/uL (0.0-0.4); Eosinophils Percent Auto 1.9 % (0-4); Hematocrit 45.6 % (42.0-52.0); Hemoglobin 15.6 g/dl (14.0-18.0); Imm Gran Abs Auto 0.01 X10*3/uL (0.00-0.03); Imm Gran Pct Auto 0.1 % (0.0-0.4); Lymphocytes Absolute Auto 3.1 X10*3/uL (1.2-4.9); Lymphocytes Percent Auto 40.7 % (20-40); Mean Corpuscular HGB Conc 34.2 g/dl (31.0-36.0); Mean Corpuscular Volume 82.6 fL (80.0-98.0); Mean Platelet Volume 13.3 fL (9.4-12.4); Monocytes Absolute Auto 0.5 X10*3/uL (0.1-1.2); Monocytes Percent Auto 6.1 % (2-11); Neutrophils Absolute Auto 3.9 x10*3/uL (2.0-8.3); Neutrophils Percent Auto 50.9 % (45-73); Platelet Count 190 X10*3/uL (160-400); Red Blood Count 5.52 X10*6/uL (4.60-5.80); White Blood Count 7.6 X10*3/uL (4.8-10.8)
[2021-10-11 17:42] LABS: PLT ABN DIST 1
[2021-10-11 17:43] LABS: MANUAL DIFF FLAG NO
[2021-10-11 17:46] LABS: Anion Gap 17 (12-20); Blood Urea Nitrogen 17 mg/dL (9-16); Calcium 9.8 mg/dL (8.4-10.2); Carbon Dioxide 25 mmol/L (22-29); Chloride 97 mmol/L (96-108); Estimated Glomerular Filt Rate > 60; Glucose Random 424 mg/dL (60-115); Sodium 135 mmol/L (135-145)
[2021-10-11 17:48] LABS: Troponin-I High Sensitivity < 3.5 ng/L (<3.5-35.0)
[2021-10-11 23:49] LABS: Acetone, serum QL Negative (Negative)
[2021-10-11] MEDS: 0.9 % Sodium Chloride 2,000 ML 999 ML IV (23:52)
--- NOTE | 2021-10-12 00:17 | ED_ITS ---
HPI - Chest Pain General Chief Complaint: Chest Pain Stated Complaint: neck pain Time Seen by Provider: 10/11/21 23:42 Source: patient, family and personal loan specialist Mode of arrival: ambulatory History of Present Illness HPI narrative: This is a 41-year-old male with history of asthma, diabetes, and uses cocaine daily for approximately 2 years and presents for evaluation of 2 week of sharp left-sided chest pain that radiates down into the left abdomen as well as up into the left side of his neck. Patient states that he feels that ?pretty much all the time? and that the pain seems to improve minimally with the use of cocaine. He denies any other drug use and states that he has not been drinking any alcohol. Patient denies any unexplained weight loss and states that when he does experience this pain maximally he feels short of breath and feels tingling into his left arm. Otherwise, he is eating and drinking without difficulty. Patient states that the pain becomes maximal with physical exertion. Related Data Home Medications Medication Instructions Recorded Confirmed albuterol sulfate 90 mcg/actuation 2 puff INHALATION Q4H PRN 04/07/20 04/07/20 aerosol inhaler (ProAir HFA) glimepiride 4 mg tablet 4 mg PO BIDWM 04/07/20 04/07/20 pioglitazone 45 mg tablet 45 mg PO DAILY 04/07/20 04/07/20 sitagliptin 100 mg tablet (Januvia) 100 mg PO DAILY 04/07/20 04/07/20 Previous Rx's Medication Instructions Recorded dexamethasone 4 mg tablet 8 mg PO DAILY 2 Days #4 tab 04/14/20 (Decadron) amoxicillin 875 mg-potassium 1 tab PO Q12H 5 Days #10 tab 03/14/21 clavulanate 125 mg tablet (Augmentin) omeprazole 20 mg capsule,delayed 20 mg PO DAILY 30 Days #30 cap 10/12/21 release Allergies Allergy/AdvReac Type Severity Reaction Status Date / Time No Known Allergies Allergy Verified 10/11/21 17:08 Review of Systems Review of Systems: Pertinent positives and negatives as stated in HPI 10 point review of systems is otherwise negative. PMFSH Past Medical History Source: nursing notes reviewed Medical History Asthma Diabetes mellitus, type 2 Social History Social History Household Members: Spouse Housing: House Do you presently have visiting nurse or other home services: No Alcohol intake: never Second Hand Smoke Exposure: No Advance Directives: No Advance Directives Information Provided: Yes service: No Current occupational status: employed Physical Exam Vital Signs: Vital Signs: Last Vital Signs Temp 98.5 F 10/11/21 17:08 Pulse 91 10/12/21 00:18 Resp 14 10/12/21 00:18 BP 150/76 H 10/12/21 00:18 Pulse Ox 97 10/12/21 00:18 BMI result Body Mass Index 30.7 VITAL SIGNS: Reviewed. GENERAL: Well developed, well nourished, in no acute distress. HEAD: Normocephalic/atraumatic EYES: PERRLA, EOMI EARS: Ext canals without abnormality OROPHARYNX: no oral lesions noted, posterior pharynx clear and non-erythematous without noted tonsillar enlargement/erythema/exudates NECK: Supple, no adenopathy LUNGS: Normal breath sounds. No adventitious sounds or accessory muscle use. SpO2<97> CARDIOVASCULAR: Regular rate and rhythm without noted murmurs, no JVD or lower extremity edema, no carotid bruits appreciated, symmetrical pulses throughout ABDOMEN: Soft, non-tender, non-distended with bowel sounds, no palpable mass MUSCULOSKELETAL: No tenderness, deformities, or effusions noted on gross inspection. EXTREMITIES: No cyanosis, clubbing or edema. SKIN: Inspection of the skin reveals no rashes NEUROLOGIC: Alert and oriented x 4. Strength and sensation to light touch were grossly intact x 4. Course Course Course Narrative: 41-year-old male with history and clinical presentation after review of all investigations somewhat concerning gastritis, ulcer, pancreatitis, dissection given the distribution of pain as well as association with exertion and his chronic use of cocaine. He is otherwise hemodynamically stable and is currently receiving IV fluids for hyperglycemia without evidence to demonstrate DKA or HHS. Will obtain a D-dimer and on re-evaluation of all investigations there are no acute findings in the D-dimer is negative and patient is feeling much better after the GI cocktail. I discussed all results with him at bedside in strongly encouraged him to stop using cocaine and at this time he will be empirically treated for gastritis and the possibility of an ulcer. MDM - Chest Pain Lab Data Result diagrams: 10/11/21 17:23 10/11/21 17:23 Labs: Lab Results 10/11/21 10/11/21 10/11/21 Range/Units 17:23 17:23 17:23 WBC 7.6 (4.8-10.8) X10*3/uL RBC 5.52 (4.60-5.80) X10*6/uL Hgb 15.6 (14.0-18.0) g/dl Hct 45.6 (42.0-52.0) % MCV 82.6 (80.0-98.0) fL MCH 28.3 (27.0-33.0) pg MCHC 34.2 (31.0-36.0) g/dl RDW 12.0 (11.0-16.0) % Plt Count 190 (160-400) X10*3/uL MPV 13.3 H (9.4-12.4) fL Immature Gran % (Auto) 0.1 (0.0-0.4) % Neut % (Auto) 50.9 (45-73) % Lymph % (Auto) 40.7 H (20-40) % [place] % (Auto) 6.1 (2-11) % Eos % (Auto) 1.9 (0-4) % Baso % (Auto) 0.3 (0-2) % Lymph # (Auto) 3.1 (1.2-4.9) X10*3/uL [place] # (Auto) 0.5 (0.1-1.2) X10*3/uL Eos # (Auto) 0.1 (0.0-0.4) X10*3/uL Baso # (Auto) 0.0 (0.0-0.2) X10*3/uL Abs Immat Gran (auto) 0.01 (0.00-0.03) X10*3/uL Absolute Neuts (auto) 3.9 (2.0-8.3) x10*3/uL Absolute Nucleated RBC 0.000 (0.0-0.012) X10*3/uL Nucleated RBC % (auto) 0.0 (0.0-0.2) /100WBC D-Dimer High Sensitivty NG/ML Sodium 135 (135-145) mmol/L Potassium 4.0 (3.3-5.1) mmol/L Chloride 97 (96-108) mmol/L Carbon Dioxide 25 (22-29) mmol/L Anion Gap 17 (12-20) BUN 17 H (9-16) mg/dL Creatinine 1.30 (0.5-1.4) mg/dL Estim Creat Clear Calc 89.0 Estimated GFR > 60 Random Glucose 424 H* (60-115) mg/dL Calcium 9.8 D (8.4-10.2) mg/dL Troponin I High Sens < 3.5 (<3.5-35.0) ng/L Lipase 39 (8-78) U/L Acetone, Qual Negative (Negative) 10/12/21 Range/Units 00:32 WBC (4.8-10.8) X10*3/uL RBC (4.60-5.80) X10*6/uL Hgb (14.0-18.0) g/dl Hct (42.0-52.0) % MCV (80.0-98.0) fL MCH (27.0-33.0) pg MCHC (31.0-36.0) g/dl RDW (11.0-16.0) % Plt Count (160-400) X10*3/uL MPV (9.4-12.4) fL Immature Gran % (Auto) (0.0-0.4) % Neut % (Auto) (45-73) % Lymph % (Auto) (20-40) % [place] % (Auto) (2-11) % Eos % (Auto) (0-4) % Baso % (Auto) (0-2) % Lymph # (Auto) (1.2-4.9) X10*3/uL [place] # (Auto) (0.1-1.2) X10*3/uL Eos # (Auto) (0.0-0.4) X10*3/uL Baso # (Auto) (0.0-0.2) X10*3/uL Abs Immat Gran (auto) (0.00-0.03) X10*3/uL Absolute Neuts (auto) (2.0-8.3) x10*3/uL Absolute Nucleated RBC (0.0-0.012) X10*3/uL Nucleated RBC % (auto) (0.0-0.2) /100WBC D-Dimer High Sensitivty < 150 NG/ML Sodium (135-145) mmol/L Potassium (3.3-5.1) mmol/L Chloride (96-108) mmol/L Carbon Dioxide (22-29) mmol/L Anion Gap (12-20) BUN (9-16) mg/dL Creatinine (0.5-1.4) mg/dL Estim Creat Clear Calc Estimated GFR Random Glucose (60-115) mg/dL Calcium (8.4-10.2) mg/dL Troponin I High Sens (<3.5-35.0) ng/L Lipase (8-78) U/L Acetone, Qual (Negative) ECG Data ECG #1: Attestation: I personally reviewed and interpreted this ECG as follows: Interpretation: NSR, HR-77, no STEMI, [place]/QRS/QTC are within normal limits. Discharge Plan Discharge Clinical Impression: Gastritis, Asthma, Hyperglycemia due to diabetes mellitus Patient Disposition: Home, Self-Care Instructions: Gastritis (ED), Diet for Stomach Ulcers and Gastritis (ED) Additional Instructions: 1. Reanudar todos los medicamentos caseros seg?n lo prescrito. 2. Comenzar? con un medicamento para ayudar a controlar el ?cido en el est?tello. 3. Emperatriz un seguimiento con dc proveedor de atenci?n primaria en los pr?ximos 1 a 2 d?as para volver a evaluar arlen s?ntomas. Regrese a la abi de emergencias si los s?ntomas empeoran. Prescriptions: New omeprazole 20 mg capsule,delayed release(DR/EC) 20 mg PO DAILY 30 Days Qty: 30 0RF No Action pioglitazone 45 mg Tablet 45 mg PO DAILY 0RF glimepiride 4 mg Tablet 4 mg PO BIDWM 0RF albuterol sulfate [ProAir HFA] 90 mcg/actuation Hfa Aerosol Inhaler 2 puff INHALATION Q4H PRN (Reason: Shortness Of Breath) 0RF Januvia 100 mg Tablet 100 mg PO DAILY 0RF dexamethasone [Decadron] 4 mg tablet 8 mg PO DAILY 2 Days Qty: 4 0RF amoxicillin-pot clavulanate [Augmentin] 875-125 mg tablet 1 tab PO Q12H 5 Days Qty: 10 0RF Referrals: Martha Lock MD [Primary Care Provider] - Print Language: German
[2021-10-12 00:18] VITALS: BP 150/76; PULSE 91; RESP 14; O2SAT 97
[2021-10-12] MEDS: Magnesium Hydrox/Alum Hydrox 30 ML ORAL.SUSP PO (00:20)
[2021-10-12] MEDS: Lidocaine HCl Viscous 2 % 15 ML SOLUTION 10 ML MUCOUS MEM (00:20)
[2021-10-12 00:37] LABS: Lipase 39 U/L (8-78)
[2021-10-12 00:51] LABS: D Dimer High Sensitivity < 150 NG/ML
== END 2021-10-12 02:15 | disposition home or self-care (01) ==
PROVIDERS: Emergency Provider Student in an Organized Health Care Education/Training Program; PCP Internal Medicine
DX: K29.70 Gastritis, unspecified, without bleeding (principal); R07.89 Other chest pain; E11.65 Type 2 diabetes mellitus with hyperglycemia; M54.2 Cervicalgia; J45.909 Unspecified asthma, uncomplicated; Z79.899 Other long term (current) drug therapy
CPT/HCPCS: 36415; 80048; 82009; 83690; 84484; 85025; 85379; 93005; 96360; 96361; 99283; 99284

== ENCOUNTER 2022-06-12 13:53 | Emergency (ER) | payer MEDICAID, SELFPAY ==
--- NOTE | ~2022-06-12 | XR_ITS ---
EXAMINATION: XR chest 1V CLINICAL INFORMATION: Reason for Exam High blood sugar dizziness/chest pain COMPARISON: None TECHNIQUE: XR chest 1V Tubes and lines: None Lungs and pleura: Both lungs are clear. Heart and mediastinum: The mediastinum is within normal limits.. Bones/soft tissue: Skeletal structures included are normal for patient's age. XR/XR chest 1V IMPRESSION: No radiographic evidence of acute cardiopulmonary disease.
--- NOTE | 2022-06-12 14:04 | ED.GENADULT ---
HPI - General Adult General Chief complaint: General Medical <JARROD Downs - Last Filed: 06/12/22 14:06> Stated complaint: high bs no medication <JARROD Downs - Last Filed: 06/12/22 14:06> Time Seen by Provider: 06/12/22 15:23 <JARROD Downs - Last Filed: 06/12/22 14:06> Source: patient <Brigitte Chávez MD - Last Filed: 06/12/22 17:34> Mode of arrival: ambulatory <Brigitte Chávez MD - Last Filed: 06/12/22 17:34> History of Present Illness HPI narrative: 41-year-old male who is a known diabetic presents to the ED with complaints of being out of insulin for 2 months and noticed that his blood glucose levels are increasing over the last few days. He denies any nausea, vomiting, fever, chills but has reported polyuria and polydipsia. <Brigitte Chávez MD - Last Filed: 06/12/22 17:34> Related Data Home medications: Home Medications Medication Instructions Recorded Confirmed albuterol sulfate 90 mcg/actuation 2 puff inhalation Q4H PRN 04/07/20 04/07/20 aerosol inhaler (ProAir HFA) Shortness Of Breath glimepiride 4 mg tablet 4 mg PO BIDWM 04/07/20 04/07/20 pioglitazone 45 mg tablet 45 mg PO DAILY 04/07/20 04/07/20 sitagliptin phosphate 100 mg 100 mg PO DAILY 04/07/20 04/07/20 tablet (Januvia) Previous Rx's Medication Instructions Recorded dexamethasone 4 mg tablet 8 mg PO DAILY 2 days #4 tabs 04/14/20 (Decadron) amoxicillin 875 mg-potassium 1 tab PO Q12H 5 days #10 tabs 03/14/21 clavulanate 125 mg tablet (Augmentin) omeprazole 20 mg capsule,delayed 20 mg PO DAILY 30 days #30 caps 10/12/21 release <JARROD Downs - Last Filed: 06/12/22 14:06> Allergies/adverse reactions: Allergies Allergy/AdvReac Type Severity Reaction Status Date / Time No Known Allergies Allergy Verified 10/11/21 17:08 <JARROD Downs - Last Filed: 06/12/22 14:06> Review of Systems Review of Systems: Pertinent positives and negatives as stated in HPI <Brigitte Chávez MD - Last Filed: 06/12/22 17:34> PMFSH Past Medical History Source: nursing notes reviewed <Brigitte Chávez MD - Last Filed: 06/12/22 17:34> Medical History: Medical History Asthma Diabetes mellitus, type 2 <JARROD Downs - Last Filed: 06/12/22 14:06> Social History Social History: Social History Household Members: Spouse Housing: House Do you presently have visiting nurse or other home services: No Alcohol intake: former Smoked in Last 30 Days: No Second Hand Smoke Exposure: No Advance Directives: No Advance Directives Information Provided: No service: No Current occupational status: employed <JARROD Downs - Last Filed: 06/12/22 14:06> Physical Exam ED Vital Signs: Vital Signs - 24 hr 06/12/22 14:19 06/12/22 16:30 Temperature 98.3 F 98.2 F Pulse Rate 87 74 Respiratory Rate 16 14 Blood Pressure 124/77 115/62 Pulse Oximetry 97 98 Oxygen Delivery Method Room Air Room Air BMI result Body Mass Index 28.8 <JARROD Downs - Last Filed: 06/12/22 14:06> Vital Signs - 24 hr 06/12/22 14:19 06/12/22 16:30 Temperature 98.3 F 98.2 F Pulse Rate 87 74 Respiratory Rate 16 14 Blood Pressure 124/77 115/62 Pulse Oximetry 97 98 Oxygen Delivery Method Room Air Room Air BMI result Body Mass Index 28.8 VITAL SIGNS: Reviewed. GENERAL: Well developed, well nourished, in no acute distress. HEAD: Normocephalic/atraumatic EYES: PERRLA, EOMI EARS: Ext canals without abnormality OROPHARYNX: no oral lesions noted, posterior pharynx clear NECK: Supple, no adenopathy LUNGS: Normal breath sounds. No adventitious sounds or accessory muscle use. SpO2<98> CARDIOVASCULAR: Regular rate and rhythm without noted murmurs ABDOMEN: Soft, non-tender, non-distended with bowel sounds. MUSCULOSKELETAL: No tenderness, deformities, or effusions noted on gross inspection. EXTREMITIES: No cyanosis, clubbing or edema. SKIN: Inspection of the skin reveals no rashes NEUROLOGIC: Alert and oriented x 4. Strength and sensation to light touch were grossly intact x 4. <Brigitte Chávez MD - Last Filed: 06/12/22 17:34> Course Course Course Narrative: RME-14PM - 41yoF c PMHx of insulin-dependent diabetes presenting to the ED with complaints of elevated blood glucose level since yesterday worse today. They reported they did up point of care at home and read 600. He took his metformin. He is possibly on insulin although he has tried to call his primary care provider and she has not sent the prescription for 2 months. They have even tried to pick it up themselves and they keep getting told that the prescription was not ordered. He reports dizziness, change in vision, chest pain and body aches. Plan: Patient blood sugar read high in triage therefore he went straight to the ER for further evaluation treatment. Labs including acetone, chest x-ray, EKG and COVID/RSV/flu swab ordered. <JARROD Downs - Last Filed: 06/12/22 14:06> Medications Administered Discontinued Medications Generic Name Dose Route Start Last Admin Trade Name Freq PRN Reason Stop Dose Admin Sodium Chloride 1,000 mls @ 999 mls/hr 06/12/22 14:15 06/12/22 15:35 Ns IVCONT 06/12/22 15:15 Infused .Q1H1M DAMIAN Infusion Sodium Chloride 2,000 mls @ 999 mls/hr 06/12/22 15:30 06/12/22 15:29 Ns IV 06/12/22 17:30 999 mls/hr .Q2H1M DAMIAN Administration Insulin Human Lispro 5 unit 06/12/22 15:26 06/12/22 15:35 Insulin Lispro 100 Unit/Ml 3 Ml Vial SUBCUT 06/12/22 15:27 5 unit ONCE ONE Administration <JARROD Downs - Last Filed: 06/12/22 14:06> Medications Administered Discontinued Medications Generic Name Dose Route Start Last Admin Trade Name Freq PRN Reason Stop Dose Admin Sodium Chloride 1,000 mls @ 999 mls/hr 06/12/22 14:15 06/12/22 15:35 Ns IVCONT 06/12/22 15:15 Infused .Q1H1M DAMIAN Infusion Sodium Chloride 2,000 mls @ 999 mls/hr 06/12/22 15:30 06/12/22 15:29 Ns IV 06/12/22 17:30 999 mls/hr .Q2H1M DAMIAN Administration Insulin Human Lispro 5 unit 06/12/22 15:26 06/12/22 15:35 Insulin Lispro 100 Unit/Ml 3 Ml Vial SUBCUT 06/12/22 15:27 5 unit ONCE ONE Administration <Brigitte Chávez MD - Last Filed: 06/12/22 17:34> Medical Decision Making Medical Decision Making MDM Narrative: 41-year-old male who presents with hyperglycemia. 1718: On in initial arrival patient noted to be hyperglycemic no clinical evidence of DKA, has received 3 L of IV fluids as well as 8 units subcutaneous Lispro for glucose levels greater than 600. There is no evidence of DKA on laboratory studies and no evidence of acute infection or anemia, bicarb is within normal limits and there is no electrolyte or renal dysfunction noted other than a pseudohyponatremia from the hyperglycemia. On re-evaluation patient is feeling much better and on review of patient's medications there is no evidence that patient is being prescribed insulin. He is otherwise discharged home in stable condition with instructions to follow-up with his primary care provider. Viral testing is negative. <Brigitte Chávez MD - Last Filed: 06/12/22 17:34> Differential Diagnosis Differential Diagnoses: The differential diagnosis associated with the presentation includes <Brigitte Chávez MD - Last Filed: 06/12/22 17:34> I will rule out DKA, HHS, infection <Brigitte Chávez MD - Last Filed: 06/12/22 17:34> Lab Data [facility] Lab Attestation statement: I reviewed the patient's lab results. <Brigitte Chávez MD - Last Filed: 06/12/22 17:34> Please see the discussion above <Brigitte Chávez MD - Last Filed: 06/12/22 17:34> Result Diagrams: : 06/12/22 14:37 06/12/22 14:37 <JARROD Downs - Last Filed: 06/12/22 14:06> Labs: Lab Results 06/12/22 06/12/2206/12/23 Range/Units 13:59 14:17 14:26 WBC (4.8-10.8) X10*3/uL RBC (4.60-5.80) X10*6/uL Hgb (14.0-18.0) g/dl Hct (42.0-52.0) % MCV (80.0-98.0) fL MCH (27.0-33.0) pg MCHC (31.0-36.0) g/dl RDW (11.0-16.0) % Plt Count (160-400) X10*3/uL MPV (9.4-12.4) fL Immature Gran % (Auto) (0.0-0.4) % Neut % (Auto) (45-73) % Lymph % (Auto) (20-40) % [place] % (Auto) (2-11) % Eos % (Auto) (0-4) % Baso % (Auto) (0-2) % Lymph # (Auto) (1.2-4.9) X10*3/uL [place] # (Auto) (0.1-1.2) X10*3/uL Eos # (Auto) (0.0-0.4) X10*3/uL Baso # (Auto) (0.0-0.2) X10*3/uL Abs Immat Gran (auto) (0.00-0.03) X10*3/uL Absolute Neuts (auto) (2.0-8.3) x10*3/uL Absolute Nucleated RBC (0.0-0.012) X10*3/uL Nucleated RBC % (auto) (0.0-0.2) /100WBC PT (10.0-13.1) SEC INR (0.9-1.1) Sodium (135-145) mmol/L Potassium (3.3-5.1) mmol/L Chloride (96-108) mmol/L Carbon Dioxide (22-29) mmol/L Anion Gap (12-20) BUN (9-16) mg/dL Creatinine (0.5-1.4) mg/dL Estim Creat Clear Calc Estimated GFR POC Glucose > 600 H* > 600 H* (60-115) mg/dL Random Glucose (60-115) mg/dL Calcium (8.4-10.2) mg/dL Magnesium (1.6-2.6) mg/dL Total Bilirubin (0.0-1.0) mg/dL AST (5-37) U/L ALT (0-40) U/L Alkaline Phosphatase (39-117) U/L Troponin I High Sens (<3.5-35.0) ng/L Total Protein (6.5-8.0) g/dL Albumin (3.5-5.0) g/dL Urine Color Yellow Urine Appearance Clear Urine pH 5.5 (5.0-9.0) Ur Specific [place] >= 1.030 H (1.005-1.025) Urine Protein Negative (Neg-Trace) mg/dL Urine Glucose (UA) >=1000 H (Negative) mg/dL Urine Ketones Negative (Negative) mg/dL Urine Blood Negative (Negative) Urine Nitrite Negative (Negative) Ur Leukocyte Esterase Negative (Negative) Urine RBC 0-2 (0-2) /HPF Urine WBC 0-5 (0-5) /HPF Ur Squamous Epith Cells 0-2 (0-2) /HPF Urine Bacteria None Seen (None Seen) Hyaline Casts 0-2 (0-2) /LPF Acetone, Qual (Negative) Influenza Type A (PCR) (Negative) Influenza Type B (PCR) (Negative) RSV RNA Qual (PCR) (Negative) SARS-CoV-2 RNA (RT-PCR) (Negative) 06/12/22 06/12/22 06/12/22 Range/Units 14:37 14:37 14:37 WBC 7.6 (4.8-10.8) X10*3/uL RBC 5.36 (4.60-5.80) X10*6/uL Hgb 14.9 (14.0-18.0) g/dl Hct 44.0 (42.0-52.0) % MCV 82.1 (80.0-98.0) fL MCH 27.8 (27.0-33.0) pg MCHC 33.9 (31.0-36.0) g/dl RDW 12.1 (11.0-16.0) % Plt Count 148 L (160-400) X10*3/uL MPV 13.6 H (9.4-12.4) fL Immature Gran % (Auto) 0.5 H (0.0-0.4) % Neut % (Auto) 54.8 (45-73) % Lymph % (Auto) 36.1 (20-40) % [place] % (Auto) 6.6 (2-11) % Eos % (Auto) 1.6 (0-4) % Baso % (Auto) 0.4 (0-2) % Lymph # (Auto) 2.7 (1.2-4.9) X10*3/uL [place] # (Auto) 0.5 (0.1-1.2) X10*3/uL Eos # (Auto) 0.1 (0.0-0.4) X10*3/uL Baso # (Auto) 0.0 (0.0-0.2) X10*3/uL Abs Immat Gran (auto) 0.04 H (0.00-0.03) X10*3/uL Absolute Neuts (auto) 4.2 (2.0-8.3) x10*3/uL Absolute Nucleated RBC 0.000 (0.0-0.012) X10*3/uL Nucleated RBC % (auto) 0.0 (0.0-0.2) /100WBC PT 9.6 L (10.0-13.1) SEC INR 0.8 L (0.9-1.1) Sodium 131 L (135-145) mmol/L Potassium 4.4 (3.3-5.1) mmol/L Chloride 96 (96-108) mmol/L Carbon Dioxide 26 (22-29) mmol/L Anion Gap 13 (12-20) BUN 16 (9-16) mg/dL Creatinine 1.29 (0.5-1.4) mg/dL Estim Creat Clear Calc 84.6 Estimated GFR > 60 POC Glucose (60-115) mg/dL Random Glucose 667 H* (60-115) mg/dL Calcium 9.3 (8.4-10.2) mg/dL Magnesium 1.9 (1.6-2.6) mg/dL Total Bilirubin 0.5 (0.0-1.0) mg/dL AST 8 (5-37) U/L ALT 17 (0-40) U/L Alkaline Phosphatase 175 H (39-117) U/L Troponin I High Sens (<3.5-35.0) ng/L Total Protein 7.2 (6.5-8.0) g/dL Albumin 4.2 (3.5-5.0) g/dL Urine Color Urine Appearance Urine pH (5.0-9.0) Ur Specific [place] (1.005-1.025) Urine Protein (Neg-Trace) mg/dL Urine Glucose (UA) (Negative) mg/dL Urine Ketones (Negative) mg/dL Urine Blood (Negative) Urine Nitrite (Negative) Ur Leukocyte Esterase (Negative) Urine RBC (0-2) /HPF Urine WBC (0-5) /HPF Ur Squamous Epith Cells (0-2) /HPF Urine Bacteria (None Seen) Hyaline Casts (0-2) /LPF Acetone, Qual Negative (Negative) Influenza Type A (PCR) (Negative) Influenza Type B (PCR) (Negative) RSV RNA Qual (PCR) (Negative) SARS-CoV-2 RNA (RT-PCR) (Negative) 06/12/22 06/12/22 06/12/22 Range/Units 14:37 14:37 16:40 WBC (4.8-10.8) X10*3/uL RBC (4.60-5.80) X10*6/uL Hgb (14.0-18.0) g/dl Hct (42.0-52.0) % MCV (80.0-98.0) fL MCH (27.0-33.0) pg MCHC (31.0-36.0) g/dl RDW (11.0-16.0) % Plt Count (160-400) X10*3/uL MPV (9.4-12.4) fL Immature Gran % (Auto) (0.0-0.4) % Neut % (Auto) (45-73) % Lymph % (Auto) (20-40) % [place] % (Auto) (2-11) % Eos % (Auto) (0-4) % Baso % (Auto) (0-2) % Lymph # (Auto) (1.2-4.9) X10*3/uL [place] # (Auto) (0.1-1.2) X10*3/uL Eos # (Auto) (0.0-0.4) X10*3/uL Baso # (Auto) (0.0-0.2) X10*3/uL Abs Immat Gran (auto) (0.00-0.03) X10*3/uL Absolute Neuts (auto) (2.0-8.3) x10*3/uL Absolute Nucleated RBC (0.0-0.012) X10*3/uL Nucleated RBC % (auto) (0.0-0.2) /100WBC PT (10.0-13.1) SEC INR (0.9-1.1) Sodium (135-145) mmol/L Potassium (3.3-5.1) mmol/L Chloride (96-108) mmol/L Carbon Dioxide (22-29) mmol/L Anion Gap (12-20) BUN (9-16) mg/dL Creatinine (0.5-1.4) mg/dL Estim Creat Clear Calc Estimated GFR POC Glucose 421 H* (60-115) mg/dL Random Glucose (60-115) mg/dL Calcium (8.4-10.2) mg/dL Magnesium (1.6-2.6) mg/dL Total Bilirubin (0.0-1.0) mg/dL AST (5-37) U/L ALT (0-40) U/L Alkaline Phosphatase (39-117) U/L Troponin I High Sens < 3.5 (<3.5-35.0) ng/L Total Protein (6.5-8.0) g/dL Albumin (3.5-5.0) g/dL Urine Color Urine Appearance Urine pH (5.0-9.0) Ur Specific [place] (1.005-1.025) Urine Protein (Neg-Trace) mg/dL Urine Glucose (UA) (Negative) mg/dL Urine Ketones (Negative) mg/dL Urine Blood (Negative) Urine Nitrite (Negative) Ur Leukocyte Esterase (Negative) Urine RBC (0-2) /HPF Urine WBC (0-5) /HPF Ur Squamous Epith Cells (0-2) /HPF Urine Bacteria (None Seen) Hyaline Casts (0-2) /LPF Acetone, Qual (Negative) Influenza Type A (PCR) NEGATIVE (Negative) Influenza Type B (PCR) NEGATIVE (Negative) RSV RNA Qual (PCR) NEGATIVE (Negative) SARS-CoV-2 RNA (RT-PCR) NEGATIVE (Negative) <JARROD Downs - Last Filed: 06/12/22 14:06> Lab Results 06/12/22 06/12/22 06/12/22 Range/Units 13:59 14:17 14:26 WBC (4.8-10.8) X10*3/uL RBC (4.60-5.80) X10*6/uL Hgb (14.0-18.0) g/dl Hct (42.0-52.0) % MCV (80.0-98.0) fL MCH (27.0-33.0) pg MCHC (31.0-36.0) g/dl RDW (11.0-16.0) % Plt Count (160-400) X10*3/uL MPV (9.4-12.4) fL Immature Gran % (Auto) (0.0-0.4) % Neut % (Auto) (45-73) % Lymph % (Auto) (20-40) % [place] % (Auto) (2-11) % Eos % (Auto) (0-4) % Baso % (Auto) (0-2) % Lymph # (Auto) (1.2-4.9) X10*3/uL [place] # (Auto) (0.1-1.2) X10*3/uL Eos # (Auto) (0.0-0.4) X10*3/uL Baso # (Auto) (0.0-0.2) X10*3/uL Abs Immat Gran (auto) (0.00-0.03) X10*3/uL Absolute Neuts (auto) (2.0-8.3) x10*3/uL Absolute Nucleated RBC (0.0-0.012) X10*3/uL Nucleated RBC % (auto) (0.0-0.2) /100WBC PT (10.0-13.1) SEC INR (0.9-1.1) Sodium (135-145) mmol/L Potassium (3.3-5.1) mmol/L Chloride (96-108) mmol/L Carbon Dioxide (22-29) mmol/L Anion Gap (12-20) BUN (9-16) mg/dL Creatinine (0.5-1.4) mg/dL Estim Creat Clear Calc Estimated GFR POC Glucose > 600 H* > 600 H* (60-115) mg/dL Random Glucose (60-115) mg/dL Calcium (8.4-10.2) mg/dL Magnesium (1.6-2.6) mg/dL Total Bilirubin (0.0-1.0) mg/dL AST (5-37) U/L ALT (0-40) U/L Alkaline Phosphatase (39-117) U/L Troponin I High Sens (<3.5-35.0) ng/L Total Protein (6.5-8.0) g/dL Albumin (3.5-5.0) g/dL Urine Color Yellow Urine Appearance Clear Urine pH 5.5 (5.0-9.0) Ur Specific [place] >= 1.030 H (1.005-1.025) Urine Protein Negative (Neg-Trace) mg/dL Urine Glucose (UA) >=1000 H (Negative) mg/dL Urine Ketones Negative (Negative) mg/dL Urine Blood Negative (Negative) Urine Nitrite Negative (Negative) Ur Leukocyte Esterase Negative (Negative) Urine RBC 0-2 (0-2) /HPF Urine WBC 0-5 (0-5) /HPF Ur Squamous Epith Cells 0-2 (0-2) /HPF Urine Bacteria None Seen (None Seen) Hyaline Casts 0-2 (0-2) /LPF Acetone, Qual (Negative) Influenza Type A (PCR) (Negative) Influenza Type B (PCR) (Negative) RSV RNA Qual (PCR) (Negative) SARS-CoV-2 RNA (RT-PCR) (Negative) 06/12/22 06/12/22 06/12/22 Range/Units 14:37 14:37 14:37 WBC 7.6 (4.8-10.8) X10*3/uL RBC 5.36 (4.60-5.80) X10*6/uL Hgb 14.9 (14.0-18.0) g/dl Hct 44.0 (42.0-52.0) % MCV 82.1 (80.0-98.0) fL MCH 27.8 (27.0-33.0) pg MCHC 33.9 (31.0-36.0) g/dl RDW 12.1 (11.0-16.0) % Plt Count 148 L (160-400) X10*3/uL MPV 13.6 H (9.4-12.4) fL Immature Gran % (Auto) 0.5 H (0.0-0.4) % Neut % (Auto) 54.8 (45-73) % Lymph % (Auto) 36.1 (20-40) % [place] % (Auto) 6.6 (2-11) % Eos % (Auto) 1.6 (0-4) % Baso % (Auto) 0.4 (0-2) % Lymph # (Auto) 2.7 (1.2-4.9) X10*3/uL [place] # (Auto) 0.5 (0.1-1.2) X10*3/uL Eos # (Auto) 0.1 (0.0-0.4) X10*3/uL Baso # (Auto) 0.0 (0.0-0.2) X10*3/uL Abs Immat Gran (auto) 0.04 H (0.00-0.03) X10*3/uL Absolute Neuts (auto) 4.2 (2.0-8.3) x10*3/uL Absolute Nucleated RBC 0.000 (0.0-0.012) X10*3/uL Nucleated RBC % (auto) 0.0 (0.0-0.2) /100WBC PT 9.6 L (10.0-13.1) SEC INR 0.8 L (0.9-1.1) Sodium 131 L (135-145) mmol/L Potassium 4.4 (3.3-5.1) mmol/L Chloride 96 (96-108) mmol/L Carbon Dioxide 26 (22-29) mmol/L Anion Gap 13 (12-20) BUN 16 (9-16) mg/dL Creatinine 1.29 (0.5-1.4) mg/dL Estim Creat Clear Calc 84.6 Estimated GFR > 60 POC Glucose (60-115) mg/dL Random Glucose 667 H* (60-115) mg/dL Calcium 9.3 (8.4-10.2) mg/dL Magnesium 1.9 (1.6-2.6) mg/dL Total Bilirubin 0.5 (0.0-1.0) mg/dL AST 8 (5-37) U/L ALT 17 (0-40) U/L Alkaline Phosphatase 175 H (39-117) U/L Troponin I High Sens (<3.5-35.0) ng/L Total Protein 7.2 (6.5-8.0) g/dL Albumin 4.2 (3.5-5.0) g/dL Urine Color Urine Appearance Urine pH (5.0-9.0) Ur Specific [place] (1.005-1.025) Urine Protein (Neg-Trace) mg/dL Urine Glucose (UA) (Negative) mg/dL Urine Ketones (Negative) mg/dL Urine Blood (Negative) Urine Nitrite (Negative) Ur Leukocyte Esterase (Negative) Urine RBC (0-2) /HPF Urine WBC (0-5) /HPF Ur Squamous Epith Cells (0-2) /HPF Urine Bacteria (None Seen) Hyaline Casts (0-2) /LPF Acetone, Qual Negative (Negative) Influenza Type A (PCR) (Negative) Influenza Type B (PCR) (Negative) RSV RNA Qual (PCR) (Negative) SARS-CoV-2 RNA (RT-PCR) (Negative) 06/12/22 06/12/22 06/12/22 Range/Units 14:37 14:37 16:40 WBC (4.8-10.8) X10*3/uL RBC (4.60-5.80) X10*6/uL Hgb (14.0-18.0) g/dl Hct (42.0-52.0) % MCV (80.0-98.0) fL MCH (27.0-33.0) pg MCHC (31.0-36.0) g/dl RDW (11.0-16.0) % Plt Count (160-400) X10*3/uL MPV (9.4-12.4) fL Immature Gran % (Auto) (0.0-0.4) % Neut % (Auto) (45-73) % Lymph % (Auto) (20-40) % [place] % (Auto) (2-11) % Eos % (Auto) (0-4) % Baso % (Auto) (0-2) % Lymph # (Auto) (1.2-4.9) X10*3/uL [place] # (Auto) (0.1-1.2) X10*3/uL Eos # (Auto) (0.0-0.4) X10*3/uL Baso # (Auto) (0.0-0.2) X10*3/uL Abs Immat Gran (auto) (0.00-0.03) X10*3/uL Absolute Neuts (auto) (2.0-8.3) x10*3/uL Absolute Nucleated RBC (0.0-0.012) X10*3/uL Nucleated RBC % (auto) (0.0-0.2) /100WBC PT (10.0-13.1) SEC INR (0.9-1.1) Sodium (135-145) mmol/L Potassium (3.3-5.1) mmol/L Chloride (96-108) mmol/L Carbon Dioxide (22-29) mmol/L Anion Gap (12-20) BUN (9-16) mg/dL Creatinine (0.5-1.4) mg/dL Estim Creat Clear Calc Estimated GFR POC Glucose 421 H* (60-115) mg/dL Random Glucose (60-115) mg/dL Calcium (8.4-10.2) mg/dL Magnesium (1.6-2.6) mg/dL Total Bilirubin (0.0-1.0) mg/dL AST (5-37) U/L ALT (0-40) U/L Alkaline Phosphatase (39-117) U/L Troponin I High Sens < 3.5 (<3.5-35.0) ng/L Total Protein (6.5-8.0) g/dL Albumin (3.5-5.0) g/dL Urine Color Urine Appearance Urine pH (5.0-9.0) Ur Specific [place] (1.005-1.025) Urine Protein (Neg-Trace) mg/dL Urine Glucose (UA) (Negative) mg/dL Urine Ketones (Negative) mg/dL Urine Blood (Negative) Urine Nitrite (Negative) Ur Leukocyte Esterase (Negative) Urine RBC (0-2) /HPF Urine WBC (0-5) /HPF Ur Squamous Epith Cells (0-2) /HPF Urine Bacteria (None Seen) Hyaline Casts (0-2) /LPF Acetone, Qual (Negative) Influenza Type A (PCR) NEGATIVE (Negative) Influenza Type B (PCR) NEGATIVE (Negative) RSV RNA Qual (PCR) NEGATIVE (Negative) SARS-CoV-2 RNA (RT-PCR) NEGATIVE (Negative) <Brigitte Chávez MD - Last Filed: 06/12/22 17:34> Radiology Impression Discussion of test interpretation with radiology: I discussed test interpretation with the radiologist <Brigitte Chávez MD - Last Filed: 06/12/22 17:34> Radiologist Impression: My interpretation is in agreement with radiology's impression of imaging study. <Brigitte Chávez MD - Last Filed: 06/12/22 17:34> External Record Review External record reviewed: Outpatient record and Prior outpatient labs <Brigitte Chávez MD - Last Filed: 06/12/22 17:34> Chronic Conditions Patient?s care impacted by: Diabetes <Brigitte Chávez MD - Last Filed: 06/12/22 17:34> Critical Care Time Critical Care Time Critical Care Time: Yes <Brigitte Chávez MD - Last Filed: 06/12/22 17:34> Total Critical Care Time: 45 <Brigitte Chávez MD - Last Filed: 06/12/22 17:34> Attestation: I personally attest to this time spent taking care of the patient. <Brigitte Chávez MD - Last Filed: 06/12/22 17:34> Discharge Plan Discharge Clinical Impression: Hyperglycemia, Dehydration <JARROD Downs - Last Filed: 06/12/22 14:06> Patient Disposition: Home, Self-Care <JARROD Downs - Last Filed: 06/12/22 14:06> Instructions: Dehydration (ED), Diabetic Hyperglycemia (ED) <JARROD Downs - Last Filed: 06/12/22 14:06> Additional Instructions: 1. Reanudar todos los medicamentos caseros. 2. Debe hacer un seguimiento con dc proveedor de atenci?n primaria ma?martha para abordar arlen medicamentos. Regrese a la abi de emergencias si los s?ntomas empeoran. 1. Resume all home medications. 2. You need to follow-up with your primary care provider tomorrow to address your medications. Return to the ER for any worsening symptoms. <JARROD Downs - Last Filed: 06/12/22 14:06> Prescriptions: No Action pioglitazone 45 mg Tablet 45 mg PO DAILY glimepiride 4 mg Tablet 4 mg PO BIDWM albuterol sulfate [ProAir HFA] 90 mcg/actuation Hfa Aerosol Inhaler 2 puff INHALATION Q4H PRN (Reason: Shortness Of Breath) Januvia 100 mg Tablet 100 mg PO DAILY dexamethasone [Decadron] 4 mg tablet 8 mg PO DAILY 2 Days Qty: 4 0RF amoxicillin-pot clavulanate [Augmentin] 875-125 mg tablet 1 tab PO Q12H 5 Days Qty: 10 0RF omeprazole 20 mg capsule,delayed release(DR/EC) 20 mg PO DAILY 30 Days Qty: 30 0RF <JARROD Downs - Last Filed: 06/12/22 14:06> Referrals: Martha Lock MD [Primary Care Provider] - (Patient really needs his prescription for Trulicity that you discussed with him 2 months ago (as per the patient).) <JARROD Downs - Last Filed: 06/12/22 14:06> Print Language: Indonesian <JARROD Downs - Last Filed: 06/12/22 14:06>
[2022-06-12 14:10] LABS: Glucose, Whole Blood > 600 mg/dL (60-115)
[2022-06-12 14:19] VITALS: BP 124/77; PULSE 87; RESP 16; TEMP 36.8; O2SAT 97; BMI 28.8
[2022-06-12 14:21] LABS: Glucose, Whole Blood > 600 mg/dL (60-115)
[2022-06-12] MEDS: 0.9 % Sodium Chloride 1,000 ML 999 ML IVCONT (14:24)
[2022-06-12 14:40] LABS: Appearance Urine Clear; Color Urine Yellow; Glucose Urine UA >=1000 mg/dL (Negative); Leukocyte Esterase Urine Negative (Negative); Nitrite Urine Negative (Negative); PH 5.5 (5.0-9.0); Specific Gravity - Urine >= 1.030 (1.005-1.025); UMIC TRIGGER UACC YES; Urine Blood Negative (Negative); Urine Ketones Negative (Negative); Urine Protein Negative (Neg-Trace)
[2022-06-12 14:43] LABS: MANUAL DIFF FLAG NO
[2022-06-12 14:44] LABS: Bacteria Urine None Seen (None Seen); Hyaline Casts Urine 0-2 /LPF (0-2); RBC Urine 0-2 /HPF (0-2); Squamous Epithelial Cell Urine 0-2 /HPF (0-2); WBC Urine 0-5 /HPF (0-5)
[2022-06-12 14:46] LABS: Basophils Percent Auto 0.4 % (0-2); Eosinophils Absolute Auto 0.1 X10*3/uL (0.0-0.4); Eosinophils Percent Auto 1.6 % (0-4); Hemoglobin 14.9 g/dl (14.0-18.0); Imm Gran Abs Auto 0.04 X10*3/uL (0.00-0.03); Imm Gran Pct Auto 0.5 % (0.0-0.4); Lymphocytes Absolute Auto 2.7 X10*3/uL (1.2-4.9); Lymphocytes Percent Auto 36.1 % (20-40); Mean Corpuscular HGB Conc 33.9 g/dl (31.0-36.0); Mean Corpuscular Hemoglobin 27.8 pg (27.0-33.0); Mean Corpuscular Volume 82.1 fL (80.0-98.0); Mean Platelet Volume 13.6 fL (9.4-12.4); Monocytes Absolute Auto 0.5 X10*3/uL (0.1-1.2); Monocytes Percent Auto 6.6 % (2-11); Neutrophils Absolute Auto 4.2 x10*3/uL (2.0-8.3); Neutrophils Percent Auto 54.8 % (45-73); Platelet Count 148 X10*3/uL (160-400); Red Blood Count 5.36 X10*6/uL (4.60-5.80); Red Cell Distribution Width 12.1 % (11.0-16.0); White Blood Count 7.6 X10*3/uL (4.8-10.8)
[2022-06-12 14:50] LABS: INTERNATIONAL NORM RATIO 0.8 (0.9-1.1); Prothrombin Time 9.6 SEC (10.0-13.1)
[2022-06-12 14:52] LABS: Acetone, serum QL Negative (Negative)
--- NOTE | 2022-06-12 14:53 | PC.NURSE ---
Patient primary language Kazakh . A/Ox4 . Sherita . heart rate regular at 75 beats per minute . breathing even and unlabored . lungs clear throughout . skin pink warm and dry . abdomen soft , positive bowel sounds in all four quadrants . patient reports being out of insulin for two months and a POC reading of 600 today for presenting to ED also he has had increased thirst and urination in the last few weeks . POC obtained when patient presented to ED read HI . IV placed in left A.C . labs obtained and sent . Normal Saline started as ordered . at bedside both aware of plan of care .
[2022-06-12 15:06] LABS: Alanine Aminotransferase 17 U/L (0-40); Albumin Level 4.2 g/dL (3.5-5.0); Alkaline Phosphatase 175 U/L (39-117); Anion Gap 13 (12-20); Aspartate Amino Transferase 8 U/L (5-37); Bilirubin Total 0.5 mg/dL (0.0-1.0); Blood Urea Nitrogen 16 mg/dL (9-16); Calcium 9.3 mg/dL (8.4-10.2); Carbon Dioxide 26 mmol/L (22-29); Chloride 96 mmol/L (96-108); Creatinine Clr Calc Pharmacy 84.6; Estimated Glomerular Filt Rate > 60; Magnesium 1.9 mg/dL (1.6-2.6); Potassium 4.4 mmol/L (3.3-5.1); Sodium 131 mmol/L (135-145); Total Protein 7.2 g/dL (6.5-8.0)
[2022-06-12 15:12] LABS: Troponin-I High Sensitivity < 3.5 ng/L (<3.5-35.0)
[2022-06-12 15:21] LABS: Glucose Random 667 mg/dL (60-115)
[2022-06-12] MEDS: 0.9 % Sodium Chloride 2,000 ML 999 ML IV (15:29)
[2022-06-12] MEDS: Insulin Lispro 100 UNIT/ML 3 ML VIAL SUBCUT (15:35)
[2022-06-12 15:36] LABS: Influenza A PCR NEGATIVE (Negative); Influenza B PCR NEGATIVE (Negative); Resp Syncy Virus RNA Qual PCR NEGATIVE (Negative); SARS COV2 PCR INHOUSE NEGATIVE (Negative)
[2022-06-12 16:30] VITALS: BP 115/62; PULSE 74; RESP 14; TEMP 36.8; O2SAT 98
[2022-06-12 16:44] LABS: Glucose, Whole Blood 421 mg/dL (60-115)
--- NOTE | 2022-06-12 17:37 | PC.NURSE ---
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 A/Ox4 VSS . Went over discharge instructions as ordered by provider . patient to follow up with primary care . patient to return to ED if symptoms . no questions at that time .
[2022-06-13 07:15] LABS: Glucose, Whole Blood > 600 mg/dL (60-115)
== END 2022-06-12 17:43 | disposition home or self-care (01) ==
PROVIDERS: Physician Assistant Medical; Emergency Provider Student in an Organized Health Care Education/Training Program; PCP Internal Medicine
DX: E11.65 Type 2 diabetes mellitus with hyperglycemia (principal); E86.0 Dehydration; Z91.14 Patient's other noncompliance with medication regimen; Z20.828 Contact with and (suspected) exposure to other viral communicable diseases
CPT/HCPCS: 0241U; 36415; 71045; 80053; 81001; 82009; 82947; 83735; 84484; 85025; 85610; 96360; 96361; 99284

== ENCOUNTER 2022-07-06 14:46 | Outpatient (REF) | payer MEDICAID, SELFPAY ==
--- NOTE | ~2022-07-06 | XR_ITS ---
EXAMINATION: XR SACRUM AND LUMBAR SPINE CLINICAL INFORMATION: Low back pain. COMPARISON: None. TECHNIQUE: Three-view sacroiliac joints and 7 view lumbar sacral spine. FINDINGS: There is partial sacralization at the right side of L5. No fusion or widening of the sacroiliac joints is appreciated. No sacral or coccygeal fracture is seen. Visualized portions of the hip joints appear maintained. No destructive bony lesions are identified. Views of the lumbar spine again demonstrate partial sacralization at the right side of L5. No significant disc space narrowing is appreciated. There is a grade 1 spondylolisthesis at L3-L4. There is some increased sclerosis consistent with some degree of facet arthropathy noted at the L4-L5 and L5-S1 levels. No acute fractures appreciated. Pedicles appear intact. There is some anterior spurring seen at the L3-L4 level. No instability is appreciated on flexion-extension views. There appears to be a right-sided pars defect involving L3. XR/XR sacrum coccyx min 2V IMPRESSION: 1. Partial sacralization at the right side of L5. 2. Facet arthropathy at L4-L5 and L5-S1 levels. 3. Grade 1 spondylolisthesis at L3-L4. 4. Apparent right-sided L3 pars defect. 5. No instability identified on flexion-extension views.
--- NOTE | ~2022-07-06 | XR_ITS ---
EXAMINATION: XR SACRUM AND LUMBAR SPINE CLINICAL INFORMATION: Low back pain. COMPARISON: None. TECHNIQUE: Three-view sacroiliac joints and 7 view lumbar sacral spine. FINDINGS: There is partial sacralization at the right side of L5. No fusion or widening of the sacroiliac joints is appreciated. No sacral or coccygeal fracture is seen. Visualized portions of the hip joints appear maintained. No destructive bony lesions are identified. Views of the lumbar spine again demonstrate partial sacralization at the right side of L5. No significant disc space narrowing is appreciated. There is a grade 1 spondylolisthesis at L3-L4. There is some increased sclerosis consistent with some degree of facet arthropathy noted at the L4-L5 and L5-S1 levels. No acute fractures appreciated. Pedicles appear intact. There is some anterior spurring seen at the L3-L4 level. No instability is appreciated on flexion-extension views. There appears to be a right-sided pars defect involving L3. XR/XR lumbar spine 6V w bending IMPRESSION: 1. Partial sacralization at the right side of L5. 2. Facet arthropathy at L4-L5 and L5-S1 levels. 3. Grade 1 spondylolisthesis at L3-L4. 4. Apparent right-sided L3 pars defect. 5. No instability identified on flexion-extension views.
== END 2022-07-06 14:47 | disposition home or self-care (01) ==
LOC: HO.XRAY 14:46
PROVIDERS: PCP Internal Medicine; Visit Provider Internal Medicine
DX: M54.50 Low back pain, unspecified (principal)
CPT/HCPCS: 72114; 72220

== ENCOUNTER 2022-07-13 15:43 | Outpatient (REF) | payer MEDICAID, SELFPAY ==
--- NOTE | 2022-07-13 | PFT_ITS ---
FLOWS: FEV1 85% of predicted at 3.56 L. FVC 78% of predicted at 4.07 L FEV1 to FVC ratio 0.88. No bronchodilator response except small to medium airways. LUNG VOLUMES: Total lung capacity 88% of predicted at 6.16 L. Residual volume 103% of predicted at 1.95 L. Slow vital capacity 83% of predicted at 4.21 L. Expiratory reserve volume 54% of predicted at 0.86 L. Diffusion capacity is normal. IMPRESSION: No obstructive or restrictive ventilatory defect. No bronchodilator response except small to medium airways. This test results can be consistent with underlying clinical diagnosis of asthma. Clinical correlation is advised. MD ALFRED Nicole/MODL / [id number]
== END 2022-07-13 15:44 | disposition home or self-care (01) ==
LOC: HO.RESP 15:43
PROVIDERS: PCP Internal Medicine; Visit Provider Internal Medicine
DX: J45.20 Mild intermittent asthma, uncomplicated (principal)
CPT/HCPCS: 94060; 94727; 94729

== ENCOUNTER 2024-07-02 06:23 | Emergency (ER) | payer MEDICAID, SELFPAY ==
--- NOTE | ~2024-07-02 | XR_ITS ---
EXAMINATION: XR CHEST CLINICAL INFORMATION: left sided chest pain COMPARISON: 06/12/2022, 09/17/2021. TECHNIQUE: 2 views of the chest were obtained. FINDINGS: The cardiac, hilar, and mediastinal contours are normal. Lungs demonstrate subtle patchy opacity in the left base, only seen on the PA projection. Lungs otherwise clear. There is no pneumothorax or pleural effusion. There is no focal osseous or soft tissue abnormality. XR/XR chest 2V IMPRESSION: 1. Patchy opacity left base only seen on the PA projection. A subtle pneumonia not excluded in the appropriate clinical context. 2. Otherwise normal exam. Electronically signed by: Robin Goldstein MD 07/02/2024 08:21 AM [facility]
[2024-07-02 06:54] VITALS: BP 141/84; PULSE 82; RESP 16; O2SAT 98
--- NOTE | 2024-07-02 06:57 | ECG_ITS ---
Test Reason : cp Blood Pressure : */* mmHG Vent. Rate : 95 BPM Atrial Rate : 95 BPM P-R Int : 154 ms QRS Dur : 102 ms QT Int : 368 ms P-R-T Axes : 62 61 46 degrees QTcB Int : 462 ms Normal sinus rhythm Possible Lateral infarct (cited on or before 25-Aug-2016) Abnormal ECG When compared with ECG of 11-Oct-2021 17:12, No significant change was found Referred By: Sharron Julio Electronically Signed By: NIYAH ADAMS MD
[2024-07-02 06:58] VITALS: BP 180/82; PULSE 97; O2SAT 95
[2024-07-02 07:04] VITALS: BP 141/84; PULSE 82; RESP 16; TEMP 36.6; O2SAT 98; BMI 23.7
--- NOTE | 2024-07-02 07:14 | ED_ITS ---
HPI - General Adult General Chief complaint: Psychiatric Symptoms Stated complaint: Chest pain Time Seen by Provider: 07/02/24 06:58 Source: patient, EMS and certified medical transcriptionist (paraguayan) Mode of arrival: EMS Limitations: language barrier (paraguayan) History of Present Illness ED Provider: YUMI PANCHAL PA-C HPI narrative: 43 year old Trinidadian speaking male with pmhx significant for T2DM and asthma presents to the ED this morning via EMS from [facility] for evaluation of intermittent chest pain x2 weeks. Reports chest pain is localized to his left chest without radiation. Describes it as a sharp/ stabbing sensation. He states the pain lasts for about 6 hours at a time before completely resolving. Pain is not exertional. Denies history of similar. He admits to daily cocaine use. States he uses about 18 grams of cocaine a day. Last used yesterday. He is seeking detox. Reports consuming 6 nips 4 days ago. This is the last time he consumed etoh. Denies daily etoh consumption. Denies history of etoh withdrawal or withdrawal seizures. Denies SI/HI. Denies AH/TH. He reports concern that the fed are following him and believes someone may have implanted something in him that is causing his chest pain. Related Data Home Medications ?Medication ?Instructions ?Recorded ?Confirmed albuterol sulfate 90 mcg/actuation 2 puff inhalation Q4H PRN 04/07/20 04/07/20 aerosol inhaler (ProAir HFA) Shortness Of Breath glimepiride 4 mg tablet 4 mg PO BIDWM 04/07/20 04/07/20 pioglitazone 45 mg tablet 45 mg PO DAILY 04/07/20 04/07/20 sitagliptin phosphate 100 mg 100 mg PO DAILY 04/07/20 04/07/20 tablet (Januvia) Previous Rx's ?Medication ?Instructions ?Recorded dexamethasone 4 mg tablet 8 mg (2 x 4 mg) PO DAILY 2 days #4 04/14/20 (Decadron) tabs amoxicillin 875 mg-potassium 1 tab PO Q12H 5 days #10 tabs 03/14/21 clavulanate 125 mg tablet (Augmentin) omeprazole 20 mg capsule,delayed 20 mg PO DAILY 30 days #30 caps 10/12/21 release azithromycin 250 mg tablet 250 mg PO DAILY 4 days #4 tabs 07/02/24 doxycycline monohydrate 100 mg 100 mg PO BID 7 days #14 tabs 07/02/24 tablet Allergies Allergy/AdvReac Type Severity Reaction Status Date / Time No Known Allergies Allergy Verified 07/02/24 07:12 Review of Systems 2 Review of Systems: Constitutional: No fever, chills, fatigue, night sweats, weight changes ENT/Mouth: No ear pain, hearing loss, nasal congestion, sinus pain, rhinorrhea, sore throat Eyes: No eye pain, swelling, redness, vision changes, discharge Cardio: No palpitations, BARBA, orthopnea, peripheral edema, +chest pain Pulm: No SOB, cough, sputum, wheezing, dyspnea, hemoptysis GI: No nausea, vomiting, hematemesis, abdominal pain, diarrhea, constipation, hematochezia, melena : No irregular bleeding, dysuria, frequency, urgency, hesitancy, hematuria, flank pain, urinary flow changes, urinary incontinence or retention MSK: No back pain, neck pain, joint pain, myalgias Skin: No lesions, rashes Neuro: No weakness, numbness, paresthesias, LOC, dizziness, headache Psych: No anxiety/panic, depression, SI/HI, AH/VH All other systems reviewed and are negative. [facility] Past Medical History Attestation statement: The following information was validated with the patient. Source: old records reviewed and nursing notes reviewed Medical History Asthma Diabetes mellitus, type 2 Social History Social History Household Members: Spouse Housing: House Do you presently have visiting nurse or other home services: No Alcohol intake: former Smoked in Last 30 Days: Yes Second Hand Smoke Exposure: No Use of substances other than those prescribed or required for medical reasons: Yes Substance Use Type: Crack/Cocaine Advance Directives: No Advance Directives Information Provided: Yes service: No Current occupational status: employed Physical Exam ED Vital Signs: Vital Signs - 24 hr 07/02/24 06:54 07/02/24 07:04 07/02/24 11:25 Temperature 97.8 F 97.8 F Pulse Rate 82 82 74 Respiratory Rate 16 16 16 Blood Pressure 141/84 H 141/84 H 141/78 H Pulse Oximetry 98 98 99 Oxygen Delivery Method Room Air Room Air Room Air 07/02/24 11:27 Temperature 97.8 F Pulse Rate 74 Respiratory Rate 16 Blood Pressure 141/78 H Pulse Oximetry 99 Oxygen Delivery Method Room Air BMI result Body Mass Index 23.7 hypertensive. General: Well appearing, in no acute distress. Skin: Warm, dry, intact. No rashes or lesions. Head: Normocephalic, atraumatic. EENT: Hearing is intact b/l. Conjunctiva clear. PERRLA. EOM intact. Moist mucous membranes.? Neck: Supple without LAD Cardiac: Chest wall symmetric. RRR. +reproducible tenderness w/ palpation of left anterior chest wall w/o deformity or crepitus. Lungs: Normal respiratory effort without accessory muscle use. CTA bilaterally. No rales, rhonchi, or wheezes.? Abdomen: Soft, non-tender, non-distended. No rebound tenderness or guarding Back: No midline spinous or paraspinal tenderness. No step off deformity. Ext: Upper and lower extremities atraumatic, without tenderness, deformity, swelling or erythema. no peripheral edema. no calf tenderness b/l. Neuro: AOx3. Normal speech. CN 2-12 grossly intact. Ambulating with steady gait. Psych: Appropriate mood and affect. Responds appropriately to questions. Course Course Course Narrative: 905 -- you without leukocytosis or left shift. No anemia. H&H stable. Chemistry without acute electrolyte abnormality requiring intervention. No MAHIN. Random glucose 322. No anion gap. Patient currently on Trulicity for type 2 diabetes. Fluids ordered. Will re-evaluate. Undetectable. ACS unlikely. EKG showing normal sinus rhythm with a rate of 95 beats per minute, QT 368, QTC 462, no acute ischemic changes or ST elevations. negative covid/ flu/ rsv. CXR showing patchy opacity to the left lung base, only visualized on PA film. Given this is the area of patient's discomfort, will treat for pneumonia. discussed w/ patient. Azithromycin and doxycycline ordered. Urinalysis without infection. Urine toxicology positive for cocaine, otherwise negative. Ethanol undetectable. Acetaminophen and salicylates undetectable. > patient medically cleared for care team silvana 1130 -- Dary from care team has evaluated patient and has been cleared from care team standpoint. paranoia likely secondary to regular cocaine use. continues to deny si/hi. he does not pose a threat to himself/ others. there are no detox beds available and he does not meet criteria for inpatient treatment. after discussion, patient has opted to follow up at [facility]. Dary has provided him with the appropriate resources and the shuttle will be transporting patient to [facility] from our ED. patient is agreeable. i informed patien that I will be providing him with written scripts for azithro and doxy for treatment of pneumonia. he verbalizes understanding. 1200 -- Patient left the ED without his written prescriptions > rx sent to pharmacy. Medications Administered Discontinued Medications Generic Name Dose Route Start Last Admin Trade Name Freq PRN Reason Stop Dose Admin Doxycycline Monohydrate 100 mg 07/02/24 09:16 07/02/24 09:32 Doxycycline Monohydrate 100 Mg Capsule PO 07/02/24 09:17 100 mg ONCE ONE Administration Sodium Chloride 1,000 mls @ 999 mls/hr 07/02/24 08:30 07/02/24 09:38 Ns IV 07/02/24 09:30 Infused .Q1H1M DAMIAN Infusion Azithromycin 500 mg/ Sodium 250 mls @ 125 mls/hr 07/02/24 09:16 07/02/24 11:33 Chloride IV 07/02/24 11:15 Infused ONCE ONE Infusion Medical Decision Making Medical Decision Making MDM Narrative: 43 year old Trinidadian speaking male with pmhx significant for T2DM and asthma presents to the ED this morning via EMS from [facility] for evaluation of intermittent chest pain x2 weeks. He is hypertensive, vitals are otherwise wnl. He is nontoxic appearing and in NAD. exam significant for rrr. there is reproducible tenderness w/ palpation of left anterior chest wall w/o deformity or crepitus. lungs are cta b/l. no respiratory distress. no peripheral edema, jvd, or calf tenderness. History without high risk features (not substernal, no exertional component, not relieved with rest).? Minimal CAD risk factors (including age). Exam without evidence of volume overload. EKG without signs of active ischemia. Given the timing of pain to ED presentation, plan to send single troponin to evaluate for NSTEMI. Differential diagnosis includes polysubstance use, cocaine abuse, anemia, electrolyte abnormality, psychosis, drug induced delirium, anxiety, paronoia, UTI, pneumonia Presentation not consistent with acute PE (PERC negative), pneumothorax, thoracic aortic dissection, cardiac effusion or tamponade. Plan: labs, troponin, EKG, CXR, medical clearance for care team. Differential Diagnosis Differential Diagnoses: The differential diagnosis associated with the presentation includes as above. Admission/Observation Consideration of admission/observation: Escalation of care including admission/observation considered admisison considered. Lab Data MDM Lab Attestation statement: I reviewed the patient's lab results. as above. 07/02/24 07:40 07/02/24 07:41 Labs: Lab Results 07/02/24 07/02/24 07/02/24 Range/Units 07:40 07:41 07:53 WBC 9.0 (4.8-10.8) X10*3/uL RBC 6.09 H (4.60-5.80) X10*6/uL Hgb 17.4 (14.0-18.0) g/dl Hct 48.8 (42.0-52.0) % MCV 80.1 (80.0-98.0) fL MCH 28.6 (27.0-33.0) pg MCHC 35.7 (31.0-36.0) g/dl RDW 12.0 (11.0-16.0) % Plt Count 157 L (160-400) X10*3/uL MPV 12.9 H (9.4-12.4) fL Immature Gran % (Auto) 0.1 (0.0-0.4) % Neut % (Auto) 47.2 (45-73) % Lymph % (Auto) 45.2 H (20-40) % [place] % (Auto) 6.5 (2-11) % Eos % (Auto) 0.6 (0-4) % Baso % (Auto) 0.4 (0-2) % Lymph # (Auto) 4.1 (1.2-4.9) X10*3/uL [place] # (Auto) 0.6 (0.1-1.2) X10*3/uL Eos # (Auto) 0.1 (0.0-0.4) X10*3/uL Baso # (Auto) 0.0 (0.0-0.2) X10*3/uL Abs Immat Gran (auto) 0.01 (0.00-0.03) X10*3/uL Absolute Neuts (auto) 4.3 (2.0-8.3) x10*3/uL Absolute Nucleated RBC 0.000 (0.0-0.012) X10*3/uL Nucleated RBC % (auto) 0.0 (0.0-0.2) /100WBC Sodium 140 (135-145) mmol/L Potassium 3.8 (3.3-5.1) mmol/L Chloride 101 (96-108) mmol/L Carbon Dioxide 26 (22-29) mmol/L Anion Gap 17 (12-20) BUN 14 (9-16) mg/dL Creatinine 1.05 (0.5-1.4) mg/dL Estim Creat Clear Calc 95.6 Estimated GFR > 60 POC Glucose (60-115) mg/dL Random Glucose 322 H (60-115) mg/dL Calcium 10.1 D (8.4-10.2) mg/dL Total Bilirubin 0.4 (0.0-1.0) mg/dL AST 17 (5-37) U/L ALT 19 (0-40) U/L Alkaline Phosphatase 98 (39-117) U/L Troponin I High Sens < 2.7 (<3.5-35.0) ng/L Total Protein 8.7 H (6.5-8.0) g/dL Albumin 4.8 (3.5-5.0) g/dL Urine Color Yellow Urine Appearance Clear Urine pH 6.5 (5.0-9.0) Ur Specific Outlook >= 1.030 H (1.005-1.025) Urine Protein Negative (Neg-Trace) mg/dL Urine Glucose (UA) >=1000 H (Negative) mg/dL Urine Ketones Trace (Negative) mg/dL Urine Blood Negative (Negative) Urine Nitrite Negative (Negative) Ur Leukocyte Esterase Negative (Negative) Urine RBC 0-2 (0-2) /HPF Urine WBC 0-5 (0-5) /HPF Ur Squamous Epith Cells 0-2 (0-2) /HPF Urine Bacteria None Seen (None Seen) Hyaline Casts 0-2 (0-2) /LPF Salicylates < 5.0 L (15-30) mg/dL Urine Opiates Screen Not Detected (Not Detect) Ur Buprenorphine Scrn Not Detected (Not Detect) ng/mL Ur Oxycodone Screen Not Detected (Not Detect) ng/mL Urine Methadone Screen Not Detected (Not Detect) ng/mL Urine Fentanyl Screen Not Detected (Not Detect) Acetaminophen < 3 (<30) mcg/mL Ur Barbiturates Screen Not Detected (Not Detect) Ur Phencyclidine Scrn Not Detected (Not Detect) Ur Amphetamines Screen Not Detected (Not Detect) U Benzodiazepines Scrn Not Detected (Not Detect) Urine Cocaine Screen POSITIVE H (Not Detect) U Marijuana (THC) Screen Not Detected (Not Detect) Ethyl Alcohol < 10 mg/dL Influenza Type A (PCR) (Negative) Influenza Type B (PCR) (Negative) RSV RNA Qual (PCR) (Negative) SARS-CoV-2 RNA (RT-PCR) (Negative) 07/02/24 07/02/24 Range/Units 09:48 11:15 WBC (4.8-10.8) X10*3/uL RBC (4.60-5.80) X10*6/uL Hgb (14.0-18.0) g/dl Hct (42.0-52.0) % MCV (80.0-98.0) fL MCH (27.0-33.0) pg MCHC (31.0-36.0) g/dl RDW (11.0-16.0) % Plt Count (160-400) X10*3/uL MPV (9.4-12.4) fL Immature Gran % (Auto) (0.0-0.4) % Neut % (Auto) (45-73) % Lymph % (Auto) (20-40) % [place] % (Auto) (2-11) % Eos % (Auto) (0-4) % Baso % (Auto) (0-2) % Lymph # (Auto) (1.2-4.9) X10*3/uL [place] # (Auto) (0.1-1.2) X10*3/uL Eos # (Auto) (0.0-0.4) X10*3/uL Baso # (Auto) (0.0-0.2) X10*3/uL Abs Immat Gran (auto) (0.00-0.03) X10*3/uL Absolute Neuts (auto) (2.0-8.3) x10*3/uL Absolute Nucleated RBC (0.0-0.012) X10*3/uL Nucleated RBC % (auto) (0.0-0.2) /100WBC Sodium (135-145) mmol/L Potassium (3.3-5.1) mmol/L Chloride (96-108) mmol/L Carbon Dioxide (22-29) mmol/L Anion Gap (12-20) BUN (9-16) mg/dL Creatinine (0.5-1.4) mg/dL Estim Creat Clear Calc Estimated GFR POC Glucose 205 H (60-115) mg/dL Random Glucose (60-115) mg/dL Calcium (8.4-10.2) mg/dL Total Bilirubin (0.0-1.0) mg/dL AST (5-37) U/L ALT (0-40) U/L Alkaline Phosphatase (39-117) U/L Troponin I High Sens (<3.5-35.0) ng/L Total Protein (6.5-8.0) g/dL Albumin (3.5-5.0) g/dL Urine Color Urine Appearance Urine pH (5.0-9.0) Ur Specific Outlook (1.005-1.025) Urine Protein (Neg-Trace) mg/dL Urine Glucose (UA) (Negative) mg/dL Urine Ketones (Negative) mg/dL Urine Blood (Negative) Urine Nitrite (Negative) Ur Leukocyte Esterase (Negative) Urine RBC (0-2) /HPF Urine WBC (0-5) /HPF Ur Squamous Epith Cells (0-2) /HPF Urine Bacteria (None Seen) Hyaline Casts (0-2) /LPF Salicylates (15-30) mg/dL Urine Opiates Screen (Not Detect) Ur Buprenorphine Scrn (Not Detect) ng/mL Ur Oxycodone Screen (Not Detect) ng/mL Urine Methadone Screen (Not Detect) ng/mL Urine Fentanyl Screen (Not Detect) Acetaminophen (<30) mcg/mL Ur Barbiturates Screen (Not Detect) Ur Phencyclidine Scrn (Not Detect) Ur Amphetamines Screen (Not Detect) U Benzodiazepines Scrn (Not Detect) Urine Cocaine Screen (Not Detect) U Marijuana (THC) Screen (Not Detect) Ethyl Alcohol mg/dL Influenza Type A (PCR) NEGATIVE (Negative) Influenza Type B (PCR) NEGATIVE (Negative) RSV RNA Qual (PCR) NEGATIVE (Negative) SARS-CoV-2 RNA (RT-PCR) NEGATIVE (Negative) Independent Interpretation I performed an independent interpretation of an: EKG and Plain X-Ray Interpretation: CXR showing opacity to left lung base ekg showing normal sinus rhythm with a rate of 95 beats per minute, QT 368, QTC 462, no acute ischemic changes or ST elevations Radiology Impression Discussion of test interpretation with radiology: I have reviewed the radiologist's reading. Radiologist Impression: EXAMINATION: XR CHEST CLINICAL INFORMATION: left sided chest pain COMPARISON: 06/12/2022, 09/17/2021. TECHNIQUE: 2 views of the chest were obtained. FINDINGS: The cardiac, hilar, and mediastinal contours are normal. Lungs demonstrate subtle patchy opacity in the left base, only seen on the PA projection. Lungs otherwise clear. There is no pneumothorax or pleural effusion. There is no focal osseous or soft tissue abnormality. XR/XR chest 2V IMPRESSION: 1. Patchy opacity left base only seen on the PA projection. A subtle pneumonia not excluded in the appropriate clinical context. 2. Otherwise normal exam. Electronically signed by: Robin Goldstein MD 07/02/2024 08:21 AM [facility] Independent Historian Clinical information obtained from an independent historian. History obtained from or confirmed by: EMS External Record Review External record reviewed: Inpatient record, Office record, Outpatient record, Prior outpatient labs, Prior outpatient radiology, Primary care record and Outside ED record Prescription Management I considered prescription management with: Pain Medication Chronic Conditions Patient?s care impacted by: Other (cocaine abuse) Social Determinants Patient?s care significantly limited by Social Determinants of Health including: Other Social Determinant of Health Critical Care Time Critical Care Time Critical Care Time: No Discharge Plan Discharge Clinical Impression: Cocaine abuse, Community acquired pneumonia Patient Disposition: Home, Self-Care Instructions: Cocaine Abuse (ED), Community Acquired Pneumonia (ED) Additional Instructions: Your blood work today is reassuring. Your EKG is normal. You tested negative for covid, flu, rsv. Your chest xray demonstrates pneumonia within your left lung. Treatment for this is with antibiotics. You were given your first dose in ED today. You have been provided with a physical prescription. Take your next dose of azithromycin tomorrow. Take your next dose of doxycycline tonight. Your spoke with our care team and you were provided with outpatient resources for your cocaine abuse. You will be following up with Dona Briceno. You may also call or walk into our outpatient Addiction Treatment office anytime: [facility] (M-F 9am-5p) [address], [address] [phone] You may have been provided with safer injection?items, please take time to take care of YOU and your health. Use new supplies whenever possible to lessen the chances of infections and other illnesses.? ?If you need more supplies, please go [facility],? [address], [place] you can call or text to coordinate delivery of safer supplies. You were also provided a list of several treatment providers in the area.? If you experience any worsening symptoms you cannot control please return to the ED or call 911. Please follow up at your next appointment. Things to look out for are fevers, chest pain, shortness of breath, severe pain, dizziness, fainting or any other concerns. Prescriptions: New azithromycin 250 mg tablet 250 mg PO DAILY 4 Days Qty: 4 0RF Rx Instructions: start on day 2 of therapy doxycycline monohydrate 100 mg tablet 100 mg PO BID 7 Days Qty: 14 0RF No Action pioglitazone 45 mg Tablet 45 mg PO DAILY glimepiride 4 mg Tablet 4 mg PO BIDWM albuterol sulfate [ProAir HFA] 90 mcg/actuation Hfa Aerosol Inhaler 2 puff INHALATION Q4H PRN (Reason: Shortness Of Breath) Januvia 100 mg Tablet 100 mg PO DAILY dexamethasone [Decadron] 4 mg tablet 8 mg PO DAILY 2 Days Qty: 4 0RF amoxicillin-pot clavulanate [Augmentin] 875-125 mg tablet 1 tab PO Q12H 5 Days Qty: 10 0RF omeprazole 20 mg capsule,delayed release(DR/EC) 20 mg PO DAILY 30 Days Qty: 30 0RF Interventions: [place]-Suicide Risk Severity Scale Last Done: 07/02/24 07:14 ED Discharge Assessment Last Done: 07/02/24 11:27 Discharge Date/Time: 07/02/24 11:33 Print Language: Trinidadian
--- NOTE | 2024-07-02 07:38 | PC.NURSE ---
Pt presents to ED via EMS from [place] [facility] lobby, requesting psych eval at hospital. Also reporting 8/10 left sided sharp CP X2 weeks. Reports he uses cocaine daily, last used yesterday, wants help getting clean/ want detox. Also reporting feeling paranoid, went to PD due to believing thew FEDs are following him. Denies SI or HI adamantly. No alcohol use daily, no hx of withdrawals. Alert and oriented, breathing even and unlabored, skin warm and dry. Ambulating w. steady gait. Pt changed over into safety clothing and belongings secured in [employer] shelf 1
[2024-07-02 07:44] LABS: MANUAL DIFF FLAG NO
--- OUTSIDE RECORDS SUMMARY | 2024-07-02 07:47 | XMS_ITS | Clinical Summary ---
Author Organization [employer] Address [address] [facility] [address] [place] [address] Care Team Providers Care Solar Consultant Name Role Phone Martha Lock MD Primary Care Provider + Allergies No known active allergies Medications * This document contains information received from the source organization and may not represent a complete record from that organization. albuterol 108 (90 Base) MCG/ACT inhaler Inhale 2 puffs every 4 (four) hours. inhale 2 puff by inhalation route every 4 - 6 hours as needed 06/21/19 Active Diclofenac Sodium 1 % gel apply (2G) by topical route 3 times every day to the affected area(s) 01/27/20 22 Active atorvastatin (Lipitor) 40 MG tabletIndications :Hyperlipidemia, unspecified hyperlipidemia type TAKE 1 TABLET BY MOUTH EVERY DAY 90 tablet 1 12/01/19 23 Active Dulaglutide 0.75 MG/0.5ML solution auto-injectorIndi cations:Type 2 diabetes mellitus without complication, without long-term current use of insulin (CMS/HCC) Inject 0.75 mg under the skin 1 (one) time per week. 2 mL 3 04/07/20 24 2024 Active sertraline (Zoloft) 50 MG tabletIndications :Depressive disorder Take 1 tablet by mouth every day 90 tablet 1 04/07/20 24 Active topiramate (Topamax) 50 MG tabletIndications :Recurrent mild major depressive disorder with anxiety (CMS/HCC) Take 50 mg by mouth at bedtime. 180 tablet 04/07/20 24 2024 Active naproxen (Naprosyn) 500 MG tabletIndications :Numbness of hand TAKE 1 TABLET BY MOUTH TWICE A DAY WITH FOOD 60 tablet 10/28/20 24 Active Jardiance 10 MG TAKE 1 TABLET (10 MG) BY MOUTH ONCE PER DAY. 90 tablet 06/12/19 25 Active Jardiance 10 MG TAKE 1 TABLET (10 MG) BY MOUTH ONCE PER DAY. 30 tablet 05/12/20 24 2024 Discontinued Active Problems Problem Noted Date Diagnosed Date Encounter for preventive health examination 03/12 Assessment & Plan (06/13/2024 4:07 PM EST): Discussed with patient re increase fresh fruit and vegetable intake. Counseled re moderate exercise as tolerated, up to 20min/d Patient feels safe at home. Eye exam overdue, will refer. CRC screen: Not due yet, fu on 2026 Lipids/FBS: UTD, will order next set of labs/lipids/STD screen Vaccinations: Agreed to PCV 20 + flu vax, declined covid vax. Dental visit: Overdue, advised to make an appt at our dental clinic. Weight loss 04/07/2024 Assessment & Plan (06/13/2024 3:51 PM EST): It could be related to chronic ETOH and drug use +uncontrolled DM within the past year + depression.. However it is important to ro other conditions, malignancy? Order labs, he agreed to referral to treat depression and will continue to stress the importance of ETOH/drug sobriety. Will fu weight at next appt, will do further fu if he continues to loose weight despite nl labs and better controlled DM. Alcohol abuse 04/10/2023 Assessment & Plan (06/13/2024 3:52 PM EST): Advised to quit ETOH, declined AUD referral (never went last year) but agreed to evaluation. 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 Sent to pulmonary on 01/2022 Assessment & Plan (06/22/2022 11:04 AM EST): Most likely related to bronchiectasis, CT scan done on 03/2022. He missed appt with pulmonary last year. Copy of the referral given today so he can rs appt. No recent episodes of bronchitis or hemoptysis. Continue albuterol prn, Influenza vax today, counseled r e Covid booster. Influenza due to influenza A virus 05/18/2022 Numbness of hand 05/18/2022 Assessment & Plan (06/13/2024 3:47 PM EST): Has known DDD spine + uncontrolled DM Advised re stretching exercises fro c-spine, better control of DM, declined OT referral Pneumonia due to 2019 novel coronavirus 05/18/20 22 Primary insomnia 05/18/2022 Recurrent major depression in full remission 01/2022 Family disruption 05/18/2022 Infrapatellar bursitis of left knee 05/18/2022 Mixed hyperlipidemia 02/27/2018 Erectile dysfunction due to diseases classified elsewhere 01/01/2018 Gastroesophageal reflux disease 07/03/2017 Knee pain 03/22/2017 Chronic low back pain 09/26/2016 Assessment & Plan (06/22/2022 10:56 AM EST): Order for Xrays from last year given again today , he needs to get it done at hospital, no appt needed. Continue Naproxen, avoid heavy lifting,bending Refr to pT Mild intermittent asthma 09/26/2016 Assessment & Plan (04/07/2024 6:14 PM EDT): Controlled Continue albuterol prn only Influenza IZ today. Assessment & Plan (04/10/2023 3:11 PM EDT): No recent exacerbation Cont Flovent BID + albuterol PRN Received Flu IZ today Recurrent mild major depressive disorder with an xiety 09/26/2016 Assessment & Plan (04/07/2024 6:11 PM EDT): >>ASSESSMENT AND PLAN FOR RECURRENT MILD MAJOR DEPRESSIVE DISORDER WITH ANXIETY (CMS/HCC) WRITTEN ON 04/07/2024 6:11 PM BY MARTHA LOCK MD RO bipolar disorder? Will refer to for addtl evaluation/psychopharmacology referral. Continue sertraline for now Restart Topamax as he had tolerated and helps with sleep issues. Advised to quit drugs, agreed to be referred to recovery coaches. >>ASSESSMENT AND PLAN FOR DEPRESSIVE DISORDER WRITTEN ON 04/07/2024 6:09 PM BY MARTHA LOCK MD PHQ9 is 17, refer to for psychotherapy and counseling. He will restart Topamax as he tolerated it in the past, fu in 4-6w Continue Sertraline 50mg. He will be referred to [facility] for support with housing due to safety concerns, he is been followed with legal services and court and has a current restriction order against a neighbor. He's able to reach out ofr safety. Assessment & Plan (04/10/2023 3:24 PM EDT): Pt has Hx of divorce within the past 3 yrs, coping with alcohol and drugs Agreed to referral to team Start Topamax, r/o bipolar disorder due to compulsive use of drugs He feels safe at home and able to reach out for safety Assessment & Plan (06/22/2022 9:42 PM EST): Taking sertraline, doing better. Not seeing therapist, fu prn Type 2 diabetes mellitus without complication Assessment & Plan (04/07/2024 6:13 PM EDT): Not seen since 03/2023. DM is uncontrolled due ot non compliance with meds. Restart Trulicity only + Jardiance, will adjust dose once we have GFR. Humalog 10u today Go to ED or Walk In Center if BS is above 400 Influenza IZ today Assessment & Plan (04/10/2023 3:16 PM EDT): Uncontrolled, most likely due to noncompliance of Rx Restart Trulicity 1.5 mg/0.5 mL + Amaryl 4 mg BID + Actos 45 mg /daily FU 6 wks with me Order labs Encounters * This document contains information received from the source organization and may not represent a complete record from that organization. Date Type Department Care Team Description 06/11/2024 Refill [facility] [address] [place] [phone] Martha Lock MD 06/09/2024 Telephone [facility] [address] [place] [phone] Martha Lock MD No Show 05/08/2024 Refill [facility] [address] [place] [address] Martha Lock MD 05/05/2024 Travel 04/08/2024 Patient Outreach [address] [phone] Martha Lock MD Care Coordination ([facility] outreach for [facility] housing search-referral completed ) 04/07/2024 1:30 PM EDT Office Visit [facility] [address] [place] [address] Martha Lock MD Encounter for preventive health examination (Primary Dx); Type 2 diabetes mellitus without complication, without long-term current use of insulin ([facility]); Weight loss; Alcohol abuse; Mild intermittent asthma, unspecified whether complicated; Recurrent mild major depressive disorder with anxiety ([facility]); Encounter for immunization; Numbness of hand; Depressive disorder 04/07/2024 Travel from Last 3 Months Immunizations Name Administration Dates Next Due Influenza injectable quadriv alent IIV4 with preservative 02/27/2018,03/22/2017 Influenza injectable quadrivalent preservative f ree 04/10/2023,06/22/2022 Influenza, intradermal, quad rivalent, preservative free 03/14/2011 Influenza, seasonal, injectable, preservative fr ee 04/07/2024 Pfizer Covid-19 Vaccine 12+ 06/22/2022 Pneumococcal Conjugate PCV 20 04/07/2024 Pneumococcal Polysaccharide PPSV23 06/05/2017 Tdap 06/05/2017,03/14/2011 Social History Tobacco Use Types Packs/Day Years Used Date Smoking Tobacco: Every Day Cigarettes 0.3 0.6 Started: 12/2023 Smokeless Tobacco: Never Tobacco Cessation:Ready to Q uit: No; Counseling Given: Yes Alcohol Use Standard Drinks/Week Comments Not Currently 0 (1 standard drink = 0.6 oz pur e alcohol) weekends Alcohol Answer Date Recorded How often do you have a drink containing alcohol ? 1 04/07/2024 How many drinks containing a lcohol do you have on a typical day when you are drinking? 1 04/07/2024 How often do you have six or more drinks on one occasion? 1 04/07/2024 Depression Answer Date Recorded Patient Health Questionnaire-9 Score 17 04/07/2024 Patient Health Questionnaire-9 Score 17 04/07/2024 Last PHQ-9: Questionnaire Data Not on file 1 Housing Stability Answer Date Recorded What is your housing situation today? I have saul holly 04/03/[address] you li ve. Do you have problems with any of the following? None of the above 04/03/2023 Food Insecurity Answer Date Recorded Within the past 12 months, y ou worried that your food would run out before you got money to buy more: Never True 04/03/2023 Within the past 12 months,th e food you bought just didn't last and you didn't have enough money to get more: Never True Transportation Answer Date Recorded In the past 12 months, has l ack of transportation kept you from medical appts, meetings, work or from getting things needed for daily living? Yes, it has kept me from medical appointments or getting medications. 03/19/2023 Utilities Answer Date Recorded In the past 12 months, has t he [employer] gas, oil or water company threatened to shut off services in your home? No 04/03/2023 Depression Answer Date Recorded Patient Health Questionnaire-2 Score 6 04/07/2024 Sex and Gender Information Value Date Recorded Sex Assigned at Male 04/10/2022 10:31 AM EDT Legal Sex Male 10:31 AM EDT Gender Identity Male 04/10/2022 10:31 AM EDT Sexual Orientation Don't know 04/10/2022 10 :31 AM EDT Last Filed Vital Signs Vital Sign Reading Time Taken Comments Blood Pressure 113/75 04/07/2024 1:25 PM EDT Pulse 80 04/07/2024 1:25 PM EDT Temperature 36.4 ??C (97.6 ??F) 04/07/2024 1:25 PM ED T Respiratory Rate 20 04/10/2023 2:15 PM EDT Oxygen Saturation 99% 04/07/2024 1:25 PM EDT Inhaled Oxygen Concentration - - Weight 77.6 kg (171 lb) 04/07/2024 1:25 PM EDT Height 177.8 cm (5' 10 ) 04/10/2023 2:15 PM EDT Body Mass Index 24.54 04/10/2023 2:15 PM EDT Plan of Treatment Upcoming Encounters Date Type Department Care Team (Late st Contact Info) Description 09/11/2024 1:30 PM EDT Office Visit [facility] [address] [place], [place] [phone] Ac, Cristy, OD [address] [place] [address] Health Maintenance Due Date Last Done Comments HIV Screening 1980 Diabetes: Foot Exam 09/17/1989 Eye Exam 09/17/1989 Hepatitis C Screening 09/17/1997 Hepatitis A Vaccines (1 of 2 - Risk 2-dose series) 09/17/1998 Hepatitis B Vaccines (1 of 3 - 19+ 3-dose series) 09/17/1998 Lipid Panel 03/18/2022 03/18/2021 Diabetes: Urine Protein Screening 11/03/2022 11/03/2021 SDOH Screening 06/22/2023 06/22/2022 COVID-19 Vaccine ( season) 2024 06/22/2022 Diabetes: Hemoglobin A1C 07/08/2024 024, 04/10/2023, 06/22/2022, Additional history exists Depression Monitoring (PHQ-9) 10/06/2024 04/07/2024, 04/07/2024 Alcohol/Substance Use Screening 04/07/2025 04/07/2024 Depression Screening 04/07/2025 04/07/2024, 04/07/20 24 Tobacco Screening 04/07/2025 04/07/2024 DTaP/Tdap/Td Vaccines (3 - Td or Tdap) 06/05/2027 06/05/2017, 03/14/2011 Zoster Vaccines (1 of 2) 09/17/2029 RSV Patients and Patients Aged 60 years or older (1 - 1-dose 75+ series) 09/17/2054 Influenza Vaccine Completed 04/07/2024, , 06/22/2022, Additional history exists Pneumococcal Vaccine: Pediatrics (0 to 5 Years) and At-Risk Patients (6 to 64 Years) Completed 04/07/2024, 06/05/2017 HIB Vaccines Aged Out No longer eligi ble based on patient's age to complete this topic HPV Vaccines Aged Out No longer eligi ble based on patient's age to complete this topic IPV Vaccines Aged Out No longer eligi ble based on patient's age to complete this topic Meningococcal Vaccine Aged Out No katie abdifatah eligible based on patient's age to complete this topic RSV under 20 months Aged Out No longe r eligible based on patient's age to complete this topic Rotavirus Vaccines Aged Out No longer eligible based on patient's age to complete this topic Procedures Procedure Name Priority Date/Time Associated Diagnosis Comments POCT GLUCOSE Routine 04/07/2024 2:12 PM EDT Type 2 diabetes mellitus without complication, without long-term current use of insulin ([facility]) POCT GLYCATED HEMOGLOBIN, TOTAL Routine 04/07/2024 2:11 PM EDT Type 2 diabetes mellitus without complication, without long-term current use of insulin ([facility]) ALBUMIN, RANDOM URINE W/CREATININE Routine 11/03/2021 10:50 AM EDT LIPID PANEL, STANDARD Routine 03/18/2021 2:00 PM EDT from Last 3 Months or Most Recently Relevant to Health Maintenance Results * (ABNORMAL) POCT Glucose (04/07/2024 2:12 PM EDT) [facility] Glucose Blood, POC 500(A) 60 - 200 mg/dL Comment:[facility] QC Media Lot # [id number] Lot# Expiration Date 5751,[id number] Blood Capillary blood specimen / Unknown 04/07/2024 2:12 PM EDT Martha Lock MD POINT OF CARE TEST ENTER /EDIT ORDERABLES Final Result * (ABNORMAL) POCT HGB A1C (04/07/2024 2:11 PM EDT) Hemoglobin A1C 13.8(A) 4.0 - 6.0 % QC Media Lot # [id number] Lot# Expiration Date 7889,[id number] Blood 04/07/2024 2:11 PM EDT Martha Lock MD POINT OF CARE TEST ENTER /EDIT ORDERABLES Final Result * ALBUMIN, RANDOM URINE W/CREATININE (11/03/2021 10:50 AM EDT) Pathologist [facility] Microalbumin Urine <0.2 See Note: mg/dL [facility] Comment: Reference Range: ?? Reference Range Not established Microalb/Creat Ratio NOTE <30 mcg/mg creat [facility] Comment: NOTE: The urine albumin value is less than ?? 0.2 mg/dL therefore we are unable to calculate ?? excretion and/or creatinine ratio. ?? The ADA defines abnormalities in albumin excretion as follows: ?? Albuminuria Category ?Result (mcg/mg creatinine) ?? Normal to Mildly increased ?? <30 Moderately increased ? 30-299 ?? Severely increased ? > OR = 300 ?? The ADA recommends that at least two of three specimens collected within a 3-6 month period be abnormal before considering a patient to be within a diagnostic category. Creatinine, Urine 38 20 - 320 mg/dL [facility] 11/03/2021 10:5 0 AM EDT Result [facility] Martha Lock MD LAB URINE ORDERABLES Fin al Result [facility] [address] * (ABNORMAL) LIPID PANEL, STANDARD (03/18/2021 2:00 PM EDT) Chol/HDLC Ratio 5.2(H) <5.0 (calc) [facility] Cholesterol, Total 187 <200 mg/dL [facility] HDL Cholesterol 36(L) > OR = 40 mg/dL [facility] LDL Cholesterol 115(H) mg/dL (calc) [facility] Comment: Reference range: <100 ?? Desirable range <100 mg/dL for primary prevention; ?? <70 mg/dL for patients with CHD or diabetic patients ?? with > or = 2 CHD risk factors. ?? LDL-C is now calculated using the Joe ?? calculation, which is a validated novel method providing ?? better accuracy than the Friedewald equation in the ?? estimation of LDL-C. ?? Tk BARAHONA et al. BRIAN. 2013;310(19): 0214-3333 ?? (http://[employer].Tinselvision/faq/TOF330) Non-HDL Cholesterol 151(H) <130 mg/dL (calc) [facility] Comment: For patients with diabetes plus 1 major ASCVD risk ?? factor, treating to a non-HDL-C goal of <100 mg/dL ?? (LDL-C of <70 mg/dL) is considered a therapeutic ?? option. Triglycerides 238(H) <150 mg/dL [facility] Comment: ?? If a non-fasting specimen was collected, consider repeat triglyceride testing on a fasting specimen if clinically indicated. ?? Virgie et al. J. of Clin. Lipidol. 2015;9:129-169. ?? 03/18/2021 2:00 PM EDT us Martha Lock MD LAB BLOOD ORDERABLES Fin al Result [facility] [address] from Last 3 Months or Most Recently Relevant to Health Maintenance Insurance * Guarantor: Vinayak Hernandez Account Type Relation to Patient Date of Phone Billing Address Personal/Family Self [address] [place] Care Teams Solar Consultant Relationship Specialty Start Date End Date Martha Lock MD [address] [place] [address] [place] [address] PCP - General Family Medicine 09/26/16
--- OUTSIDE RECORDS SUMMARY | 2024-07-02 07:47 | XMS_ITS | Encounter Summary ---
Author Organization [employer] Address [address] [facility] [address] [place] [address] Care Team Providers Care Energy Conservation Engineer Name Role Phone Martha Lock MD Primary Care Provider + Reason for Visit * Reason Onset Date Comments No Show 06/09/2024 Encounter Details Date Type Department Care Team ([facility] Contact Info) Description 06/09/2024 Telephone [facility] [address] [place], [place] [phone] Martha Lock MD [address] [place], [place] [phone] No Show Social History Tobacco Use Types Packs/Day Years Used Date Smoking Tobacco: Every Day Cigarettes 0.3 0.6 Started: 12/2023 Smokeless Tobacco: Never Alcohol Use Standard Drinks/Week Comments Not Currently [...] your housing situation today? I have saul barrera 04/03/[address] you li [...] the past 12 months, has t he electric, gas, oil or water company threatened to shut off services in your home? No 04/03/2023 Depression Answer Date Recorded Patient Health Questionnaire-2 Score 6 04/07/2024 Sex and Gender Information Value Date Recorded Sex Assigned at Male 04/10/2022 10:31 AM EDT Legal Sex Male 10:31 AM EDT Gender Identity Male 04/10/2022 10:31 AM EDT Sexual Orientation Don't know 04/10/2022 10 :31 AM EDT documented as of this encounter Miscellaneous Notes * Telephone Encounter - Loretta Andrew - 06/09/2024 2:32 PM EST Pt no showed to appt on 06/09/24 documented in this encounter Plan of Treatment Upcoming Encounters Date Type Department Care Team (Late st Contact Info) Description 09/11/2024 1:30 PM EDT Office Visit [facility] [address] [place] [address] Ac, Cristy, OD [address] [place] [address] documented as of this encounter Visit Diagnoses Not on filedocumented in this encounter Additional Health Concerns Assessment Noted Time PHQ-9 Depression Total Score: 17 024 6:04 PM EDT documented as of this encounter Care Teams Energy Conservation Engineer Relationship Specialty Start Date End Date Martha Lock MD [address] [place] [address] PCP - General Family Medicine 09/26/16 documented as of this encounter
--- OUTSIDE RECORDS SUMMARY | 2024-07-02 07:47 | XMS_ITS | Encounter Summary ---
Author Organization [employer] Address [address] [facility] [address] [place] [address] Care Team Providers Care Boat Master Name Role Phone Martha Lock MD Primary Care Provider + Reason for Visit * Reason Comments Med Refill Encounter Details Date Type Department Care Team ([facility] Contact Info) Description 06/11/2024 Refill [facility] [address] [place], [place] [phone] Martha Lock MD [address] [place], [place] [phone] Social History Tobacco Use Types Packs/Day Years [...] AM EDT documented as of this encounter Plan of Treatment Upcoming Encounters Date Type Department Care Team (Late st Contact Info) Description 09/11/2024 1:30 PM EDT Office Visit [facility] [address] [place] [address] Cristy Shen, OD [address] [place] [address] documented as of this encounter Visit Diagnoses Not on filedocumented in this encounter Additional Health Concerns Assessment Noted Time PHQ-9 Depression Total Score: 17 024 6:04 PM EDT documented as of this encounter Care Teams Boat Master Relationship Specialty Start Date End Date Martha Lock MD [address] [place] [address] PCP - General Family Medicine 09/26/16 documented as of this encounter
[2024-07-02 07:51] LABS: Basophils Percent Auto 0.4 % (0-2); Eosinophils Absolute Auto 0.1 X10*3/uL (0.0-0.4); Eosinophils Percent Auto 0.6 % (0-4); Hematocrit 48.8 % (42.0-52.0); Hemoglobin 17.4 g/dl (14.0-18.0); Imm Gran Abs Auto 0.01 X10*3/uL (0.00-0.03); Imm Gran Pct Auto 0.1 % (0.0-0.4); Lymphocytes Absolute Auto 4.1 X10*3/uL (1.2-4.9); Lymphocytes Percent Auto 45.2 % (20-40); Mean Corpuscular HGB Conc 35.7 g/dl (31.0-36.0); Mean Corpuscular Hemoglobin 28.6 pg (27.0-33.0); Mean Corpuscular Volume 80.1 fL (80.0-98.0); Mean Platelet Volume 12.9 fL (9.4-12.4); Monocytes Absolute Auto 0.6 X10*3/uL (0.1-1.2); Monocytes Percent Auto 6.5 % (2-11); Neutrophils Absolute Auto 4.3 x10*3/uL (2.0-8.3); Neutrophils Percent Auto 47.2 % (45-73); Platelet Count 157 X10*3/uL (160-400); Red Blood Count 6.09 X10*6/uL (4.60-5.80)
[2024-07-02 07:59] LABS: Acetaminophen LAB < 3 mcg/mL (<30); Salicylate < 5.0 mg/dL (15-30)
[2024-07-02 08:02] LABS: Appearance Urine Clear; Color Urine Yellow; Glucose Urine UA >=1000 mg/dL (Negative); Leukocyte Esterase Urine Negative (Negative); Nitrite Urine Negative (Negative); PH 6.5 (5.0-9.0); Specific Gravity - Urine >= 1.030 (1.005-1.025); UMIC TRIGGER UACC YES; Urine Blood Negative (Negative); Urine Ketones Trace mg/dL (Negative); Urine Protein Negative (Neg-Trace)
[2024-07-02 08:05] LABS: Bacteria Urine None Seen (None Seen); Hyaline Casts Urine 0-2 /LPF (0-2); RBC Urine 0-2 /HPF (0-2); Squamous Epithelial Cell Urine 0-2 /HPF (0-2); WBC Urine 0-5 /HPF (0-5)
[2024-07-02 08:07] LABS: Alanine Aminotransferase 19 U/L (0-40); Albumin Level 4.8 g/dL (3.5-5.0); Alkaline Phosphatase 98 U/L (39-117); Anion Gap 17 (12-20); Aspartate Amino Transferase 17 U/L (5-37); Bilirubin Total 0.4 mg/dL (0.0-1.0); Blood Urea Nitrogen 14 mg/dL (9-16); Calcium 10.1 mg/dL (8.4-10.2); Carbon Dioxide 26 mmol/L (22-29); Chloride 101 mmol/L (96-108); Creatinine Clr Calc Pharmacy 95.6; Estimated Glomerular Filt Rate > 60; Ethanol < 10 mg/dL; Glucose Random 322 mg/dL (60-115); Potassium 3.8 mmol/L (3.3-5.1); Sodium 140 mmol/L (135-145); Total Protein 8.7 g/dL (6.5-8.0); Troponin-I High Sensitivity < 2.7 ng/L (<3.5-35.0)
[2024-07-02 08:13] LABS: Amphetamine Screen Urine Not Detected (Not Detect); Barbiturates, Urine Not Detected (Not Detect); Benzodiazepines Screen Urine Not Detected (Not Detect); Buprenorphine Scr Not Detected (Not Detect); Cannabinoid Screen Urine Not Detected (Not Detect); Cocaine Screen Urine POSITIVE (Not Detect); Fentanyl, urine Not Detected (Not Detect); Methadone Screen, Urine Not Detected (Not Detect); Opiate Screen Urine Not Detected (Not Detect); Oxycodone Screen Urine Not Detected (Not Detect); Phencyclidine Screen Urine Not Detected (Not Detect)
[2024-07-02] MEDS: 0.9 % Sodium Chloride 1,000 ML 999 ML IV (08:40)
[2024-07-02] MEDS: Doxycycline Monohydrate 100 MG CAPSULE PO (09:32)
[2024-07-02] MEDS: Azithromycin 500 MG in 0.9 % Sodium Chloride 250 ML 125 MG IV (09:32)
--- NOTE | 2024-07-02 09:38 | PC.NURSE ---
NO BLOOD CULTURES NEEDED PER PROVIDER
[2024-07-02 10:32] LABS: Influenza A PCR NEGATIVE (Negative); Influenza B PCR NEGATIVE (Negative); Resp Syncy Virus RNA Qual PCR NEGATIVE (Negative); SARS COV2 PCR INHOUSE NEGATIVE (Negative)
--- NOTE | 2024-07-02 10:32 | MHC.CARE ---
Pt did not present as requiring a care team evaluation. He was requesting detox only. Pt was SSO so an blast furnace auxiliaries supervisor was utilized to facilitate the interview. Pt did present as slightly paranoid as he thinks black vans are following him however this appears to be in the context of his daily cocaine use. Pt denies SI, HI, and A/V/H. He has never been to a detox or any substance use facility. Recovery team support was not available today. Pt was given a patient resource booklet, information on [facility] and other brochures. He will be transported by hospital transport to [facility] at 11:30am. They will be able to assist him in calling detox facilities and have Amharic speaking peers available. Pt also lives close to [facility] so he is able to make his way home if a detox bed is not secured. Provider in agreement.
[2024-07-02 11:19] LABS: Glucose, Whole Blood 205 mg/dL (60-115)
[2024-07-02 11:25] VITALS: BP 141/78; PULSE 74; RESP 16; TEMP 36.6; O2SAT 99
[2024-07-02 11:27] VITALS: BP 141/78; PULSE 74; RESP 16; TEMP 36.6; O2SAT 99
--- NOTE | 2024-07-02 15:56 | MHC.CM.ED ---
Received telephone call from Nichol of [facility]. Patient is currently at [facility] for detox. Requesting clinical info be faxed to [phone]. Faxed as requested.
== END 2024-07-02 11:33 | disposition home or self-care (01) ==
PROVIDERS: Physician Assistant Medical; Emergency Provider Emergency Medicine; PCP Internal Medicine
DX: J18.9 Pneumonia, unspecified organism (principal); F14.10 Cocaine abuse, uncomplicated; R07.89 Other chest pain; R94.31 Abnormal electrocardiogram [ECG] [EKG]; E11.9 Type 2 diabetes mellitus without complications; Z03.818 Encounter for observation for suspected exposure to other biological agents ruled out; Z79.899 Other long term (current) drug therapy; Z51.81 Encounter for therapeutic drug level monitoring; Z79.85 Long-term (current) use of injectable non-insulin antidiabetic drugs; Z71.51 Drug abuse counseling and surveillance of drug abuser
CPT/HCPCS: 0241U; 36415; 71046; 80053; 80143; 80179; 80307; 81001; 81003; 82947; 84484; 85025; 93005; 96361; 96365; 96366; 99285; J0456

== ENCOUNTER → 2024-07-02 06:57 | Outpatient (BNV) | payer MEDICAID, SELFPAY | PROVIDERS: Emergency Provider Emergency Medicine; PCP Internal Medicine; Visit Provider Internal Medicine Cardiovascular Disease | DX: R94.31 Abnormal electrocardiogram [ECG] [EKG] (principal) | CPT/HCPCS: 93010 ==

== ENCOUNTER → 2024-07-02 07:27 | Outpatient (BNV) | payer MEDICAID, SELFPAY | PROVIDERS: Emergency Provider Emergency Medicine; PCP Internal Medicine; Visit Provider Radiology Diagnostic Radiology | DX: R91.8 Other nonspecific abnormal finding of lung field (principal) | CPT/HCPCS: 71046 ==

== ENCOUNTER 2024-10-21 14:05 | Emergency (ER) | payer MEDICAID, SELFPAY ==
--- NOTE | 2024-10-21 14:11 | ECG_ITS ---
Test Reason : CHEST PAIN Blood Pressure : */* mmHG Vent. Rate : 81 BPM Atrial Rate : 81 BPM P-R Int : 150 ms QRS Dur : 100 ms QT Int : 384 ms P-R-T Axes : 61 63 59 degrees QTcB Int : 446 ms Normal sinus rhythm Normal ECG When compared with ECG of 02-Jul-2024 07:16, No significant change was found Referred By: Generic ED Physician Electronically Signed By: NIYAH ADAMS MD
--- NOTE | 2024-10-21 14:23 | ED.GENADULT ---
HPI - General Adult General Chief complaint: General Medical Stated complaint: Chest pain, back pain, sore throat Time Seen by Provider: 10/21/24 17:02 Source: patient Mode of arrival: ambulatory Limitations: no limitations History of Present Illness ED Provider: Dr. Rodrigez HPI narrative: 44 year old male PMH: DM, HTN, Asthma who presents to [facility] ER with one day of chest pain back pain and sweating. He was seen and had labs sent in triage noted to have a blood sugar of 800. patient states he is very noncompliant with his diabetes he has had repeat blood sugar is 700 handedness lives like this he denies chest pain cough or fever Related Data Home Medications ?Medication ?Instructions ?Recorded ?Confirmed albuterol sulfate 90 mcg/actuation 2 puff inhalation Q4H PRN 04/07/20 04/07/20 aerosol inhaler (ProAir HFA) Shortness Of Breath glimepiride 4 mg tablet 4 mg PO BIDWM 04/07/20 04/07/20 pioglitazone 45 mg tablet 45 mg PO DAILY 04/07/20 04/07/20 sitagliptin phosphate 100 mg 100 mg PO DAILY 04/07/20 04/07/20 tablet (Januvia) Previous Rx's ?Medication ?Instructions ?Recorded dexamethasone 4 mg tablet 8 mg (2 x 4 mg) PO DAILY 2 days #4 04/14/20 (Decadron) tabs amoxicillin 875 mg-potassium 1 tab PO Q12H 5 days #10 tabs 03/14/21 clavulanate 125 mg tablet (Augmentin) omeprazole 20 mg capsule,delayed 20 mg PO DAILY 30 days #30 caps 10/12/21 release azithromycin 250 mg tablet 250 mg PO DAILY 4 days #4 tabs 07/02/24 doxycycline monohydrate 100 mg 100 mg PO BID 7 days #14 tabs 07/02/24 tablet acetaminophen 325 mg tablet 325 mg PO QID PRN pain #90 tabs 10/21/24 (Tylenol) cyclobenzaprine 5 mg tablet 5 mg PO BEDTIME PRN muscle spasm 10/21/24 #20 tabs ibuprofen 400 mg tablet 400 mg PO Q6H PRN Pain #60 tabs 10/21/24 lidocaine 5 % topical patch 1 patch topical DAILY back pain 10/21/24 #30 ea Allergies Allergy/AdvReac Type Severity Reaction Status Date / Time No Known Allergies Allergy Verified 10/21/24 14:26 Review of Systems Review of Systems: Review of systems: General: Patient denies any fever chills recent illness or falls Musculoskeletal: back pain no body aches or other injuries HEENT: denies headache, runny nose, ear pain Respiratory: denies shortness of breath, cough Cardiovascular: no chest pain or palpitations : denies dysuria, frequency Abdomen: no nausea vomiting denies abdominal pain Extremities: no swelling, no pain Skin: no diaphoresis Yes all other systems are reviewed and are negative PMFSH Past Medical History Medical History Asthma Diabetes mellitus, type 2 Social History Social History Household Members: Spouse Housing: House Do you presently have visiting nurse or other home services: No Alcohol intake: former Second Hand Smoke Exposure: No Substance Use Type: Crack/Cocaine Advance Directives: No Advance Directives Information Provided: No service: No Current occupational status: employed Physical Exam ED Vital Signs: Vital Signs - 24 hr 10/21/24 14:24 Temperature 97.8 F Pulse Rate 83 Respiratory Rate 18 Blood Pressure 104/67 Pulse Oximetry 98 Oxygen Delivery Method Room Air BMI result Body Mass Index 24.0 General: Well-appearing well-nourished in no signs of distress HEENT: Normocephalic atraumatic Neck: No signs of JVD, no masses no tenderness or lymphadenopathy Cardiovascular: Regular rate and rhythm Respiratory: Clear to auscultation bilaterally Abdomen: Soft nontender no masses Extremities: Normal pedal pulses no signs of edema Skin: Dry warm no rashes Back: No tenderness full ROM Course Course Course Narrative: This is a rapid medical exam performed by Scott Melendrez NP: Additional HPI, ROS, PE not included below will be deferred to primary provider. Patient is a 44-year-old male with history of asthma, T2DM presenting with complaint of left sided chest pain, back pain radiating down both legs, sore throat since this am. Plan: EGK, viral panel, labs Reevaluation(s) Reevaluation #1: patient has no signs of DKA patient looks otherwise well his main complaint is back pain I will repeat a BMP sent home with medications for his back pain Medications Administered Discontinued Medications Generic Name Dose Route Start Last Admin Trade Name Zaheer PRN Reason Stop Dose Admin Sodium Chloride 1,000 mls @ 999 mls/hr 10/21/24 17:15 10/21/24 18:06 Ns IV 10/21/24 18:15 Infused .Q1H1M DAMIAN Infusion Insulin Human Lispro 10 unit 10/21/24 17:05 10/21/24 17:19 Insulin Lispro 100 Unit/Ml 3 Ml Vial SUBCUT 10/21/24 17:06 10 unit ONCE ONE Administration Medical Decision Making Medical Decision Making [facility] Narrative: concern for back pain but mainly for his blood sugar of 100 patient is very noncompliant I did spend extra time educating him on falling off the concerned this could have with his eyesight as well as his legs and back pain Differential Diagnosis Differential Diagnoses: The differential diagnosis associated with the presentation includes noncompliant diabetic hyperglycemia diabetic ketoacidosis Admission/Observation Consideration of admission/observation: Escalation of care including admission/observation considered Lab Data [facility] Lab Attestation statement: I reviewed the patient's lab results. 10/21/24 14:42 10/21/24 14:42 Labs: Lab Results 10/21/24 10/21/24 Range/Units 14:42 18:26 WBC 5.5 (4.8-10.8) X10*3/uL RBC 4.98 (4.60-5.80) X10*6/uL Hgb 14.3 (14.0-18.0) g/dl Hct 40.9 L (42.0-52.0) % MCV 82.1 (80.0-98.0) fL MCH 28.7 (27.0-33.0) pg MCHC 35.0 (31.0-36.0) g/dl RDW 11.9 (11.0-16.0) % Plt Count 162 (160-400) X10*3/uL MPV 13.3 H (9.4-12.4) fL Immature Gran % (Auto) 0.4 (0.0-0.4) % Neut % (Auto) 61.0 (45-73) % Lymph % (Auto) 29.2 (20-40) % [place] % (Auto) 7.5 (2-11) % Eos % (Auto) 1.3 (0-4) % Baso % (Auto) 0.6 (0-2) % Lymph # (Auto) 1.6 (1.2-4.9) X10*3/uL [place] # (Auto) 0.4 (0.1-1.2) X10*3/uL Eos # (Auto) 0.1 (0.0-0.4) X10*3/uL Baso # (Auto) 0.0 (0.0-0.2) X10*3/uL Abs Immat Gran (auto) 0.02 (0.00-0.03) X10*3/uL Absolute Neuts (auto) 3.3 (2.0-8.3) x10*3/uL Absolute Nucleated RBC 0.000 (0.0-0.012) X10*3/uL Nucleated RBC % (auto) 0.0 (0.0-0.2) /100WBC Sodium 126 L (135-145) mmol/L Potassium 4.8 D (3.3-5.1) mmol/L Chloride 94 L (96-108) mmol/L Carbon Dioxide 24 (22-29) mmol/L Anion Gap 13 (12-20) BUN 13 (9-16) mg/dL Creatinine 1.17 (0.5-1.4) mg/dL Estim Creat Clear Calc 82.3 Estimated GFR > 60 POC Glucose 457 H* (60-115) mg/dL Random Glucose 856 H* (60-115) mg/dL Calcium 8.9 D (8.4-10.2) mg/dL Total Bilirubin 0.4 (0.0-1.0) mg/dL AST 30 (5-37) U/L ALT 23 (0-40) U/L Alkaline Phosphatase 173 H (39-117) U/L Troponin I High Sens < 2.7 (<3.5-35.0) ng/L Total Protein 6.9 (6.5-8.0) g/dL Albumin 3.8 (3.5-5.0) g/dL Beta-Hydroxybutyrate 0.09 (0.02-0.27) mmol/L Influenza Type A (PCR) NEGATIVE (Negative) Influenza Type B (PCR) NEGATIVE (Negative) RSV RNA Qual (PCR) NEGATIVE (Negative) SARS-CoV-2 RNA (RT-PCR) NEGATIVE (Negative) Independent Interpretation I performed an independent interpretation of an: EKG and Plain X-Ray Radiology Impression Discussion of test interpretation with radiology: I have reviewed the radiologist's reading. Independent Historian Clinical information obtained from an independent historian. History obtained from or confirmed by: Spouse External Record Review External record reviewed: Inpatient record Discharge Plan Discharge Clinical Impression: Diabetes mellitus, type 2, Acute hyperglycemia, Back pain Patient Disposition: Home, Self-Care Instructions: Diabetic Hyperglycemia (ED), Acute Low Back Pain (ED) Additional Instructions: you were seen today in the emergency department for back pain as well as L very elevated blood sugar. If you continue to not treat her diabetes this will lead to renal failure blindness inability to have an erection and neuropathy of your legs As far as her back pain is concerned I did start you on some Tylenol ibuprofen as well as a lidocaine patch they can use as needed. If you still pain or trouble sleeping he can use the cyclobenzaprine at night do not mix it with alcohol I do not drive while you are taking cyclobenzaprine Please call follow up with your doctor if you need to start an insulin you were given insulin twice here if you have any other concerns please return to the ER. Prescriptions: New acetaminophen [Tylenol] 325 mg tablet 325 mg PO QID PRN (Reason: pain) Qty: 90 0RF lidocaine 5 % adhesive patch,medicated 1 patch topical DAILY Qty: 30 0RF Rx Instructions: leave on most painful area for up to 12 hrs cyclobenzaprine 5 mg tablet 5 mg PO BEDTIME PRN (Reason: muscle spasm) Qty: 20 0RF ibuprofen 400 mg tablet 400 mg PO Q6H PRN (Reason: Pain) Qty: 60 0RF No Action pioglitazone 45 mg Tablet 45 mg PO DAILY glimepiride 4 mg Tablet 4 mg PO BIDWM albuterol sulfate [ProAir HFA] 90 mcg/actuation Hfa Aerosol Inhaler 2 puff INHALATION Q4H PRN (Reason: Shortness Of Breath) Januvia 100 mg Tablet 100 mg PO DAILY dexamethasone [Decadron] 4 mg tablet 8 mg PO DAILY 2 Days Qty: 4 0RF amoxicillin-pot clavulanate [Augmentin] 875-125 mg tablet 1 tab PO Q12H 5 Days Qty: 10 0RF omeprazole 20 mg capsule,delayed release(DR/EC) 20 mg PO DAILY 30 Days Qty: 30 0RF azithromycin 250 mg tablet 250 mg PO DAILY 4 Days Qty: 4 0RF Rx Instructions: start on day 2 of therapy doxycycline monohydrate 100 mg tablet 100 mg PO BID 7 Days Qty: 14 0RF Print Language: Colombian
[2024-10-21 14:24] VITALS: BP 104/67; PULSE 83; RESP 18; TEMP 36.6; O2SAT 98; BMI 24.0
[2024-10-21 14:46] LABS: MANUAL DIFF FLAG NO
[2024-10-21 14:53] LABS: Basophils Percent Auto 0.6 % (0-2); Eosinophils Absolute Auto 0.1 X10*3/uL (0.0-0.4); Eosinophils Percent Auto 1.3 % (0-4); Hematocrit 40.9 % (42.0-52.0); Hemoglobin 14.3 g/dl (14.0-18.0); Imm Gran Abs Auto 0.02 X10*3/uL (0.00-0.03); Imm Gran Pct Auto 0.4 % (0.0-0.4); Lymphocytes Absolute Auto 1.6 X10*3/uL (1.2-4.9); Lymphocytes Percent Auto 29.2 % (20-40); Mean Corpuscular Hemoglobin 28.7 pg (27.0-33.0); Mean Corpuscular Volume 82.1 fL (80.0-98.0); Mean Platelet Volume 13.3 fL (9.4-12.4); Monocytes Absolute Auto 0.4 X10*3/uL (0.1-1.2); Monocytes Percent Auto 7.5 % (2-11); Neutrophils Absolute Auto 3.3 x10*3/uL (2.0-8.3); Platelet Count 162 X10*3/uL (160-400); Red Blood Count 4.98 X10*6/uL (4.60-5.80); Red Cell Distribution Width 11.9 % (11.0-16.0); White Blood Count 5.5 X10*3/uL (4.8-10.8)
[2024-10-21 15:29] LABS: Influenza A PCR NEGATIVE (Negative); Influenza B PCR NEGATIVE (Negative); Resp Syncy Virus RNA Qual PCR NEGATIVE (Negative); SARS COV2 PCR INHOUSE NEGATIVE (Negative)
[2024-10-21 15:36] LABS: Alanine Aminotransferase 23 U/L (0-40); Albumin Level 3.8 g/dL (3.5-5.0); Alkaline Phosphatase 173 U/L (39-117); Aspartate Amino Transferase 30 U/L (5-37); Total Protein 6.9 g/dL (6.5-8.0)
[2024-10-21 15:37] LABS: Anion Gap 13 (12-20); Bilirubin Total 0.4 mg/dL (0.0-1.0); Blood Urea Nitrogen 13 mg/dL (9-16); Calcium 8.9 mg/dL (8.4-10.2); Carbon Dioxide 24 mmol/L (22-29); Chloride 94 mmol/L (96-108); Creatinine Clr Calc Pharmacy 82.3; Estimated Glomerular Filt Rate > 60; Potassium 4.8 mmol/L (3.3-5.1); Sodium 126 mmol/L (135-145); Troponin-I High Sensitivity < 2.7 ng/L (<3.5-35.0)
[2024-10-21 16:29] LABS: Glucose Random 856 mg/dL (60-115)
[2024-10-21] MEDS: 0.9 % Sodium Chloride 1,000 ML 999 ML IV ×2 (17:17→19:14)
[2024-10-21] MEDS: Insulin Lispro 100 UNIT/ML 3 ML VIAL 10 UNIT SUBCUT (17:19)
[2024-10-21 18:06] LABS: Beta-Hydroxybutyrate 0.09 mmol/L (0.02-0.27)
[2024-10-21 18:30] LABS: Glucose, Whole Blood 457 mg/dL (60-115)
[2024-10-21] MEDS: Acetaminophen 325 MG TABLET 650 MG PO (19:13)
[2024-10-21] MEDS: Ibuprofen 400 MG TABLET PO (19:13)
[2024-10-21] MEDS: Insulin Lispro 100 UNIT/ML 3 ML VIAL SUBCUT (19:14)
[2024-10-21] MEDS: Lidocaine 4 % Patch ADH..PATCH 1 PATCH TRANSDERMA (19:14)
[2024-10-21 19:18] VITALS: BP 113/77; PULSE 72; RESP 18; TEMP 36.5; O2SAT 99
--- NOTE | 2024-10-21 19:27 | PC.NURSE ---
Pt sitting up comfortably on the side of the bed. Administered insulin per MAR and reviewed with pt his blood suger. Callbell within reach.
[2024-10-21 20:26] LABS: Glucose, Whole Blood 118 mg/dL (60-115)
[2024-10-21 20:47] VITALS: BP 113/77; PULSE 72; RESP 18; TEMP 36.5; O2SAT 99
== END 2024-10-21 20:48 | disposition home or self-care (01) ==
PROVIDERS: Registered Nurse Emergency; Emergency Provider Student in an Organized Health Care Education/Training Program; PCP Internal Medicine
DX: E11.65 Type 2 diabetes mellitus with hyperglycemia (principal); M54.50 Low back pain, unspecified; R07.9 Chest pain, unspecified; Z91.148 Patient's other noncompliance with medication regimen for other reason; J45.909 Unspecified asthma, uncomplicated; Z03.818 Encounter for observation for suspected exposure to other biological agents ruled out
CPT/HCPCS: 0241U; 80053; 82010; 82947; 84484; 85025; 93005; 96360; 96361; 99284; 99285

== ENCOUNTER → 2024-10-21 14:11 | Outpatient (BNV) | payer MEDICAID, SELFPAY | PROVIDERS: Emergency Provider Student in an Organized Health Care Education/Training Program; PCP Internal Medicine; Visit Provider Internal Medicine Cardiovascular Disease | DX: R07.9 Chest pain, unspecified (principal) | CPT/HCPCS: 93010 ==

== ENCOUNTER 2024-12-09 14:22 | Emergency (ER) | payer MEDICAID, SELFPAY ==
--- NOTE | 2024-12-09 14:52 | ED.GENADULT ---
HPI - General Adult General Chief complaint: Skin/Abscess/Foreign Body Stated complaint: Amaro on L Arm from cutting Branches Time Seen by Provider: 12/09/24 16:43 History of Present Illness ED Provider: Brandon Pack MD HPI narrative: 44-year-old diabetic comes in for evaluation of abrasions and erythema that is itchy on the lower legs feels he might have had exposure during yd work. Also diabetic been off his meds inadvertently or secondary to insurance issues it is difficult to tell. No fever no respiratory symptoms Related Data Home Medications ?Medication ?Instructions ?Recorded ?Confirmed albuterol sulfate 90 mcg/actuation 2 puff inhalation Q4H PRN 04/07/20 04/07/20 aerosol inhaler (ProAir HFA) Shortness Of Breath glimepiride 4 mg tablet 4 mg PO BIDWM 04/07/20 04/07/20 pioglitazone 45 mg tablet 45 mg PO DAILY 04/07/20 04/07/20 sitagliptin phosphate 100 mg 100 mg PO DAILY 04/07/20 04/07/20 tablet (Januvia) Previous Rx's ?Medication ?Instructions ?Recorded dexamethasone 4 mg tablet 8 mg (2 x 4 mg) PO DAILY 2 days #4 04/14/20 (Decadron) tabs amoxicillin 875 mg-potassium 1 tab PO Q12H 5 days #10 tabs 03/14/21 clavulanate 125 mg tablet (Augmentin) omeprazole 20 mg capsule,delayed 20 mg PO DAILY 30 days #30 caps 10/12/21 release azithromycin 250 mg tablet 250 mg PO DAILY 4 days #4 tabs 07/02/24 doxycycline monohydrate 100 mg 100 mg PO BID 7 days #14 tabs 07/02/24 tablet acetaminophen 325 mg tablet 325 mg PO QID PRN pain #90 tabs 10/21/24 (Tylenol) cyclobenzaprine 5 mg tablet 5 mg PO BEDTIME PRN muscle spasm 10/21/24 #20 tabs ibuprofen 400 mg tablet 400 mg PO Q6H PRN Pain #60 tabs 10/21/24 lidocaine 5 % topical patch 1 patch topical DAILY back pain 10/21/24 #30 ea glimepiride 4 mg tablet 4 mg PO BID 4 days #8 tabs 12/09/24 pioglitazone 45 mg tablet 45 mg PO DAILY 4 days #4 tabs 12/09/24 sitagliptin phosphate 100 mg 100 mg PO DAILY 4 days #4 tabs 12/09/24 tablet (Januvia) Allergies Allergy/AdvReac Type Severity Reaction Status Date / Time No Known Allergies Allergy Verified 12/09/24 14:58 [facility] Past Medical History Medical History Asthma Diabetes mellitus, type 2 Social History Social History Household Members: Spouse Housing: House Do you presently have visiting nurse or other home services: No Unable to assess alcohol history related to: Unknown Alcohol intake: former Second Hand Smoke Exposure: No Use of substances other than those prescribed or required for medical reasons: Unknown Substance Use Type: Marijuana Advance Directives: No Advance Directives Information Provided: No Do you have a plan to hurt others: No Plan service: No Current occupational status: employed Physical Exam ED Vital Signs: Vital Signs - 24 hr 12/09/24 14:54 12/09/24 16:44 Temperature 97.2 F 98.3 F Pulse Rate 93 80 Respiratory Rate 18 15 Blood Pressure 124/77 108/70 Pulse Oximetry 97 99 Oxygen Delivery Method Room Air Room Air BMI result Body Mass Index 24.4 Const Other: EXAM: Gen: Alert, awake, well appearing, well hydrated. Head: Atraumatic Eyes: Anicteric, Normal conjunctiva. ENT: Moist mucosa, no pallor. ? Neck: Supple. Skin: ?Lower legs with abrasions and scattered patchy erythema that is blanching. No swelling. The compartments are soft in his well-perfused distally. No streaking up the legs no warmth Respiratory: Breathing comfortably, No distress.Clear to auscultation bilaterally, symmetric chest expansion, No wheeze, rales, ronchi. Cardiovascular: Regular rate and rhythm. No murmurs or rub. Well perfused periphery, warm extremities. No edema. ? Abdominal: No focal tenderness. Soft, no objective distension. No palpable masses or obvious organomegaly. ?No guarding, no rebound tenderness or other peritoneal findings. : No flank tenderness. Neuro: Alert. Gross movement of all extremities intact. ? Psych: Calm. Cooperative. MSK: No grossly visible deformity. Vital signs: See flowsheet Course Course Course Narrative: This is an RME performed by Denise Ríos CNP: Additional HPI, ROS, PE not included below will be deferred to primary provider. patient is a 44-year-old male who presents emergency department for evaluation. A few days ago he was cutting some branches /bushes and he developed a red itchy rash to the bilateral lower legs and his forearms that were exposed. Initially there was blisters to some but they have since popped. It is very itchy and uncomfortable. I discussed with him course of treatment with prednisone, he reports being a diabetic. When asked, and states that his blood sugars lately has been 800. Upon further clarification it seems he was recently hospitalized 3 weeks ago due to hyperglycemia. He states that with the past 2 weeks he has not been taking his insulin nor has he been checking his blood sugar levels. Evidently his brother due to a diabetic complication 2 weeks ago, he has been sad about this. States he has been sad and distracted, has not picked up his insulin from the pharmacy. Adamantly denies any suicidal ideations, states that he has not adhering to treatment plan as a means to harm himself in any way. Medications Administered Discontinued Medications Generic Name Dose Route Start Last Admin Trade Name Freq PRN Reason Stop Dose Admin Diphenhydramine HCl 50 mg 12/09/24 16:43 12/09/24 17:05 Diphenhydramine Hcl 50 Mg/Ml Vial IVPUSH 12/09/24 16:44 50 mg ONCE ONE Administration Hydrocortisone 1 appl 12/09/24 16:43 12/09/24 17:26 Hydrocortisone 1 % Cream 28.35 Gm Tube TOPICAL 12/09/24 16:44 1 appl ONCE ONE Administration Protocol Sodium Chloride 1,000 mls @ 999 mls/hr 12/09/24 16:45 12/09/24 18:25 Ns IV 12/09/24 17:45 Infused .Q1H1M DAMIAN Infusion Insulin Human Regular 10 unit 12/09/24 17:44 12/09/24 17:56 Insulin Regular, Human 100 Unit/Ml 10 Ml Vial IVPUSH 12/09/24 17:45 10 unit ONCE ONE Administration Prednisone 20 mg 12/09/24 16:43 12/09/24 17:01 Prednisone 20 Mg Tablet PO 12/09/24 16:44 20 mg ONCE ONE Administration Medical Decision Making Medical Decision Making MDM Narrative: 44-year-old male who presents mainly to address itching and rash in the anterior lower bilateral pretibial region. Given the fact that he has multiple abrasions and scratches and reports that he was doing yd work at the time this is likely topical dermatitis possibly poison caitlin. The patient unfortunately also has poorly controlled diabetes. For this reason we wanted to avoid aggressive steroid use however I did think he needed at least some. Low-dose prednisone, IV Benadryl, IV fluids insulin. No DKA present. Patient is awake alert oriented no suggestion of superinfection on the clinical exam. The patient is tells me he does not currently have insulin prescribed but he is supposed to be taking insulin and metformin. I have cc this note to his PCP who is in our health system in order to try to expedite close follow up for better glycemic control. Diet, hydration counseling. Lab Data 12/09/24 16:53 12/09/24 16:53 Labs: Lab Results 12/09/24 12/09/24 12/09/24 Range/Units 15:44 15:47 16:53 WBC 7.1 (4.8-10.8) X10*3/uL RBC 5.30 (4.60-5.80) X10*6/uL Hgb 15.1 (14.0-18.0) g/dl Hct 44.0 (42.0-52.0) % MCV 83.0 (80.0-98.0) fL MCH 28.5 (27.0-33.0) pg MCHC 34.3 (31.0-36.0) g/dl RDW 12.1 (11.0-16.0) % Plt Count 161 (160-400) X10*3/uL MPV 13.2 H (9.4-12.4) fL Immature Gran % (Auto) 0.3 (0.0-0.4) % Neut % (Auto) 59.7 (45-73) % Lymph % (Auto) 26.6 (20-40) % [place] % (Auto) 6.9 (2-11) % Eos % (Auto) 6.2 H (0-4) % Baso % (Auto) 0.3 (0-2) % Lymph # (Auto) 1.9 (1.2-4.9) X10*3/uL [place] # (Auto) 0.5 (0.1-1.2) X10*3/uL Eos # (Auto) 0.4 (0.0-0.4) X10*3/uL Baso # (Auto) 0.0 (0.0-0.2) X10*3/uL Abs Immat Gran (auto) 0.02 (0.00-0.03) X10*3/uL Absolute Neuts (auto) 4.2 (2.0-8.3) x10*3/uL Absolute Nucleated RBC 0.000 (0.0-0.012) X10*3/uL Nucleated RBC % (auto) 0.0 (0.0-0.2) /100WBC VBG pH (7.32-7.43) VBG pCO2 mmHg VBG pO2 mmHg VBG HCO3 (22-26) mmol/L VBG O2 Saturation % VBG Base Excess mmol/L Sodium 131 L (135-145) mmol/L Potassium 4.4 (3.3-5.1) mmol/L Chloride 97 (96-108) mmol/L Carbon Dioxide 27 (22-29) mmol/L Anion Gap 11 L (12-20) BUN 11 (9-16) mg/dL Creatinine 0.94 (0.5-1.4) mg/dL Estim Creat Clear Calc 102.4 Estimated GFR > 60 POC Glucose > 600 H* > 600 H* (60-115) mg/dL Random Glucose 589 H* (60-115) mg/dL Calcium 8.8 (8.4-10.2) mg/dL Total Bilirubin 0.6 (0.0-1.0) mg/dL AST 17 (5-37) U/L ALT 20 (0-40) U/L Alkaline Phosphatase 95 (39-117) U/L Total Protein 6.9 (6.5-8.0) g/dL Albumin 4.2 (3.5-5.0) g/dL Beta-Hydroxybutyrate 0.07 (0.02-0.27) mmol/L 12/09/24 12/09/24 12/09/24 Range/Units 17:04 17:08 18:36 WBC (4.8-10.8) X10*3/uL RBC (4.60-5.80) X10*6/uL Hgb (14.0-18.0) g/dl Hct (42.0-52.0) % MCV (80.0-98.0) fL MCH (27.0-33.0) pg MCHC (31.0-36.0) g/dl RDW (11.0-16.0) % Plt Count (160-400) X10*3/uL MPV (9.4-12.4) fL Immature Gran % (Auto) (0.0-0.4) % Neut % (Auto) (45-73) % Lymph % (Auto) (20-40) % [place] % (Auto) (2-11) % Eos % (Auto) (0-4) % Baso % (Auto) (0-2) % Lymph # (Auto) (1.2-4.9) X10*3/uL [place] # (Auto) (0.1-1.2) X10*3/uL Eos # (Auto) (0.0-0.4) X10*3/uL Baso # (Auto) (0.0-0.2) X10*3/uL Abs Immat Gran (auto) (0.00-0.03) X10*3/uL Absolute Neuts (auto) (2.0-8.3) x10*3/uL Absolute Nucleated RBC (0.0-0.012) X10*3/uL Nucleated RBC % (auto) (0.0-0.2) /100WBC VBG pH 7.37 (7.32-7.43) VBG pCO2 48 mmHg VBG pO2 45 mmHg VBG HCO3 28 H (22-26) mmol/L VBG O2 Saturation 74.0 % VBG Base Excess 2.1 mmol/L Sodium (135-145) mmol/L Potassium (3.3-5.1) mmol/L Chloride (96-108) mmol/L Carbon Dioxide (22-29) mmol/L Anion Gap (12-20) BUN (9-16) mg/dL Creatinine (0.5-1.4) mg/dL Estim Creat Clear Calc Estimated GFR POC Glucose 542 H* 221 H (60-115) mg/dL Random Glucose (60-115) mg/dL Calcium (8.4-10.2) mg/dL Total Bilirubin (0.0-1.0) mg/dL AST (5-37) U/L ALT (0-40) U/L Alkaline Phosphatase (39-117) U/L Total Protein (6.5-8.0) g/dL Albumin (3.5-5.0) g/dL Beta-Hydroxybutyrate (0.02-0.27) mmol/L Discharge Plan Discharge Clinical Impression: Hyperglycemia Patient Disposition: Home, Self-Care Instructions: Contact Dermatitis (DC), Diabetic Hyperglycemia (ED) Additional Instructions: We feel that you have moderate to severe contact dermatitis likely an allergic reaction to exposure of some plant while doing work 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 In the emergency department you were given Benadryl IV fluid insulin and a low-dose of prednisone to decrease the blood glucose and control your itching and rash. We recommend topical and oral allergy medicine as described below. We have also prescribed your diabetes oral medications for 4 more days and sent a copy of our no to your primary doctor to try to expedite follow up. Please call her office to schedule follow up tomorrow morning 1st thing. While here in the pharmacy get Benadryl take 25 mg 3 times a day for itching also get 1% hydrocortisone cream put this on twice per day in the itchy aspect of the lower legs. Prescriptions: New glimepiride 4 mg tablet 4 mg PO BID 4 Days Qty: 8 0RF Januvia 100 mg tablet 100 mg PO DAILY 4 Days Qty: 4 0RF pioglitazone 45 mg tablet 45 mg PO DAILY 4 Days Qty: 4 0RF No Action pioglitazone 45 mg Tablet 45 mg PO DAILY glimepiride 4 mg Tablet 4 mg PO BIDWM albuterol sulfate [ProAir HFA] 90 mcg/actuation Hfa Aerosol Inhaler 2 puff INHALATION Q4H PRN (Reason: Shortness Of Breath) Januvia 100 mg Tablet 100 mg PO DAILY dexamethasone [Decadron] 4 mg tablet 8 mg PO DAILY 2 Days Qty: 4 0RF amoxicillin-pot clavulanate [Augmentin] 875-125 mg tablet 1 tab PO Q12H 5 Days Qty: 10 0RF omeprazole 20 mg capsule,delayed release(DR/EC) 20 mg PO DAILY 30 Days Qty: 30 0RF azithromycin 250 mg tablet 250 mg PO DAILY 4 Days Qty: 4 0RF Rx Instructions: start on day 2 of therapy doxycycline monohydrate 100 mg tablet 100 mg PO BID 7 Days Qty: 14 0RF acetaminophen [Tylenol] 325 mg tablet 325 mg PO QID PRN (Reason: pain) Qty: 90 0RF lidocaine 5 % adhesive patch,medicated 1 patch topical DAILY Qty: 30 0RF Rx Instructions: leave on most painful area for up to 12 hrs cyclobenzaprine 5 mg tablet 5 mg PO BEDTIME PRN (Reason: muscle spasm) Qty: 20 0RF ibuprofen 400 mg tablet 400 mg PO Q6H PRN (Reason: Pain) Qty: 60 0RF Interventions: ED Discharge Assessment Last Done: 12/09/24 18:45 Discharge Date/Time: 12/09/24 18:50 Print Language: Cook Islander
[2024-12-09 14:54] VITALS: BP 124/77; PULSE 93; RESP 18; TEMP 36.2; O2SAT 97; BMI 24.4
[2024-12-09 15:50] LABS: Glucose, Whole Blood > 600 mg/dL (60-115)
[2024-12-09 15:51] LABS: Glucose, Whole Blood > 600 mg/dL (60-115)
[2024-12-09 16:44] VITALS: BP 108/70; PULSE 80; RESP 15; TEMP 36.8; O2SAT 99
--- NOTE | 2024-12-09 17:00 | PC.NURSE ---
This Nurse obtained 20G IV access in Left AC pt medicated per Aug. POC obtained provider notified of POC.
[2024-12-09 17:03] LABS: MANUAL DIFF FLAG NO
[2024-12-09 17:07] LABS: VBG HCO3 28 mmol/L (22-26); VBG O2 % Saturation 74.0 %
--- OUTSIDE RECORDS SUMMARY | 2024-12-09 17:07 | XMS_ITS | Clinical Summary ---
Author Organization [employer] Address [address] [place] [address] [address] [place] [address] Care Team Providers Care Tobacco Stemmer Name Role Phone Martha Lock MD Primary Care Provider + Allergies No known active allergies Medications * This document contains information received from the source organization and may not represent a complete record from that organization. albuterol 108 (90 Base) MCG/ACT inhaler Inhale 2 puffs every 4 (four) hours. inhale 2 puff by inhalation route every 4 - 6 hours as needed 2 Active Diclofenac Sodium 1 % gel apply (2G) by topical route 3 times every day to the affected area(s) 2 Active atorvastatin (Lipitor) 40 MG tabletIndications: Hyperlipidemia, unspecified hyperlipidemia type TAKE 1 TABLET BY MOUTH EVERY DAY 90 tablet 1 3 Active Dulaglutide 0.75 MG/0.5ML solution auto-injectorIndic ations:Type 2 diabetes mellitus without complication, without long-term current use of insulin (CMS/HCC) Inject 0.75 mg under the skin 1 (one) time per week. 2 mL 3 4 025 Active sertraline (Zoloft) 50 MG tabletIndications: Depressive disorder Take 1 tablet by mouth every day 90 tablet 1 4 Active topiramate (Topamax) 50 MG tabletIndications: Recurrent mild major depressive disorder with anxiety (CMS/HCC) Take 50 mg by mouth at bedtime. 180 tablet 4 025 Active naproxen (Naprosyn) 500 MG tabletIndications: Numbness of hand TAKE 1 TABLET BY MOUTH TWICE A DAY WITH FOOD 60 tablet 4 Active Jardiance 10 MG TAKE 1 TABLET (10 MG) BY MOUTH ONCE PER DAY. 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 He will be referred to [facility] for support with housing due [...] 6 wks with me Order labs Encounters Date Type Department Care Team Description 09/11/2024 Telephone [facility] [address] [place] [address] Cristy Shen OD from Last 3 Months Immunizations Immunization Administration Dates Next Due Influenza injectable quadriv [...] Date Smoking Tobacco: Every Day Cigarettes 0.3 1 Started: 12/2023 Smokeless Tobacco: Never Tobacco Cessation:Ready [...] 80 04/07/2024 1:25 PM EDT Temperature 36.4 C (97.6 F) 04/07/2024 1:25 PM EDT Respiratory Rate 20 04/10/2023 2:15 PM EDT Oxygen Saturation 99% 04/07/2024 1:25 PM EDT Inhaled Oxygen Concentration - - Weight 77.6 kg (171 lb) 04/07/2024 1:25 PM EDT Height 177.8 cm (5' 10 ) 04/10/2023 2:15 PM EDT Body Mass Index 24.54 04/10/2023 2:15 PM EDT Plan of Treatment Upcoming Encounters Date Type Department Care Team (Late st Contact Info) Description 01/14/2025 10:15 AM EDT Office Visit [facility] [address] [place] [phone] Martha Lock MD [address] [place] [address] Health Maintenance Due Date Last Done Comments CT Colonography 1979 Colonoscopy 1979 Colorectal Cancer Screening 1979 FIT DNA/Cologuard 1979 FIT 1979 FOBT 1979 HIV Screening 1979 Sigmoidoscopy 1979 Disability Screening 1979 Diabetes: Foot Exam 09/17/1989 Eye Exam 09/17/1989 Family Planning (PISQ) 09/17/1994 Hepatitis C Screening 09/17/1997 Hepatitis B Vaccines (1 of 3 - 19+ 3-dose series) 09/17/1998 Lipid Panel 03/18/2022 03/18/2021 Diabetes: Urine Protein Screening 11/03/2022 11/03/2021 SDOH Screening 06/22/2023 06/22/2022 COVID-19 Vaccine ( season) 2024 06/22/2022 Diabetes: Hemoglobin A1C 07/08/2024 024, 04/10/2023, 06/22/2022, Additional history exists Depression Monitoring 10/06/2024 04/07/2024, 024 Influenza Vaccine (#1) 2025 , 04/10/2023, 06/22/2022, Additional history exists Alcohol/Substance Use Screening 04/07/2025 04/07/2024 Tobacco Screening 04/07/2025 04/07/2024 DTaP/Tdap/Td Vaccines (3 - Td or Tdap) 06/05/2027 06/05/2017, 03/14/2011 Zoster Vaccines (1 of 2) 09/17/2029 RSV Patients and Patients Aged 60 years or older (1 - 1-dose 75+ series) 09/17/2054 Pneumococcal Vaccine: Pediatrics (0 to 5 Years) and At-Risk Patients (6 to 49) Years Completed 04/07/2024, 06/05/2017 HIB Vaccines Aged Out No longer eligi ble based on patient's age to complete this topic HPV Vaccines Aged Out No longer eligi ble based on patient's age to complete this topic Hepatitis A Vaccines Aged Out No long er eligible based on patient's age to complete this topic IPV Vaccines Aged Out No longer eligi ble based on patient's age to complete this topic Meningococcal B Vaccine Aged Out No l onger eligible based on patient's age to complete [...] Procedure Name Priority Date/Time Associated Diagnosis Comments HOLD GREEN GEL Routine 12/09/2024 4:57 PM EDT GLUCOSE, WHOLE BLOOD Routine 12/09/2024 3:47 PM EDT GLUCOSE, WHOLE BLOOD Routine 12/09/2024 3:44 PM EDT GLUCOSE, WHOLE BLOOD Routine 10/21/2024 8:23 PM EDT GLUCOSE, WHOLE BLOOD Routine 10/21/2024 6:26 PM EDT BETA-HYDROXYBUTYRATE Routine 10/21/2024 2:42 PM EDT HIGH SENSITIVITY TROPONIN I Routine 10/21/2024 2:42 PM EDT COMPREHENSIVE METABOLIC PANEL Routine 10/21/2024 2:42 PM EDT CBC WITH AUTO DIFFERENTIAL Routine 10/21/2024 2:42 PM EDT SARS COV2/INFLUENZA A/B AND RSV RNA QL NAAT Routine 10/21/2024 2:42 PM EDT POCT GLYCATED HEMOGLOBIN, TOTAL Routine 04/07/2024 2:11 PM EDT Type 2 diabetes mellitus without complication, without long-term current use of insulin ([facility]) ALBUMIN, RANDOM URINE W/CREATININE Routine 11/03/2021 10:50 AM EDT LIPID PANEL, STANDARD Routine 03/18/2021 2:00 PM EDT from Last 3 Months or Most Recently Relevant to Health Maintenance Results * Hold Green Gel (12/09/2024 4:57 PM EDT) Hold Green Gel See Note [facility] Comment:Specimen held untest ed for 24 hours; Call to requestChemistry testing. 12/09/2024 4:57 PM EDT 12/09/2024 5:02 PM EDT Generic External Data Provider HISTORICAL/NON OR DERABLE LABS Final Result Performing Organization Address [facility]/ZIP Co de Phone Number [facility] [address] [place] [phone] * (ABNORMAL) Glucose, Whole Blood (12/09/2024 3:47 PM EDT) Only the most recent of4 resultswithin the time period is included. Glucose, Whole Blood >600(HH) 60 - 115 mg/dL [facility] Comment:METER #: [id number] 12/09/2024 3:47 PM EDT 12/09/2024 3:50 PM EDT Generic External Data Provider LAB BLOOD ORDERAB LES Final Result Performing Organization Address [facility] Co de Phone Number [facility] [address] [place] [phone] * High Sensitivity Troponin I (10/21/2024 2:42 PM EDT) TROPONIN I HIGH SENSITIVITY <2.7 <3.5 - 35.0 ng/L [facility] Comment:The Allison high sens itivity Troponin-I results should beused in conjunction with other diagnostic information suchas ECG, clinical observations and information, and patientsymptoms to aid in the diagnosis of ND. 10/21/2024 2:42 PM EDT 10/21/2024 2:45 PM EDT Generic External Data Provider LAB BLOOD ORDERAB LES Final Result Performing Organization Address [facility] Co de Phone Number [facility] [address] [place] [phone] [phone] * SARS-CoV-2 RNA, Influenza A/B, and RSV RNA, Ql NAAT (10/21/2024 2:42 PM EDT) Influenza A PCR NEGATIVE Negative [facility] Influenza B PCR NEGATIVE Negative [facility] Resp Syncy Virus RNA Qual PCR NEGATIVE Negative [facility] SARS COV2 PCR NEGATIVE Negative [facility] Comment:All test results mus t be correlated with clinical findings.Negative results do not preclude SARS-CoV2, influenza Avirus, influenza B virus and/or RSV infectionand should not be used as the sole basis for treatment orother patient management decisions. Negative results must becombined with clinical observations, patient history, andepidemiological information.This test has not been evaluated for monitoring treatment ofinfection.This test has been authorized by the FDA under an EmergencyUse Authorization (EUA) for use by authorized laboratories.Testing performed on the [employer] GeneXpert utilizingreal-time RT-PCR.All SARS CoV2 and positive influenza A/B results arereported to [facility]. 10/21/2024 2:42 PM EDT 10/21/2024 2:45 PM EDT Generic External Data Provider LAB MICROBIOLOGY - GENERAL ORDERABLES Final Result Performing Organization Address [facility] Co de Phone Number [facility] [address] [place] [phone] * Beta-Hydroxybutyrate (10/21/2024 2:42 PM EDT) Beta-Hydroxybut yrate 0.09 0.02 - 0.27 mmol/L [facility] 10/21/2024 2:42 PM EDT 10/21/2024 2:45 PM EDT Generic External Data Provider LAB BLOOD ORDERAB LES Final Result Performing Organization Address [facility] Co de Phone Number [facility] [address] [place] [phone] * (ABNORMAL) CBC auto differential (10/21/2024 2:42 PM EDT) White Blood Count 5.5 4.8 - 10.8 X10*3/uL [facility] Red Blood Count 4.98 4.60 - 5.80 X10*6/uL [facility] Hemoglobin 14.3 14.0 - 18.0 g/dl [facility] Hematocrit 40.9(L) 42.0 - 52.0 % [facility] Mean Corpuscular Volume 82.1 80.0 - 98.0 fL [facility] Mean Corpuscular Hemoglobin 28.7 27.0 - 33.0 pg [facility] Mean Corpuscular HGB Conc 35.0 31.0 - 36.0 g/dl [facility] Red Cell Distribution Width 11.9 11.0 - 16.0 % [facility] Platelet Count 162 160 - 400 X10*3/uL [facility] Mean Platelet Volume 13.3(H) 9.4 - 12.4 fL [facility] Neutrophils Percent Auto 61.0 45 - 73 % [facility] Imm Gran Pct Auto 0.4 0.0 - 0.4 % [facility] Lymphocytes Percent Auto 29.2 20 - 40 % [facility] Monocytes Percent Auto 7.5 2 - 11 % [facility] Eosinophils Percent Auto 1.3 0 - 4 % [facility] Basophils Percent Auto 0.6 0 - 2 % [facility] NRBC Pct Auto 0.0 0.0 - 0.2 /100WBC [facility] Neutrophils Absolute Auto 3.3 2.0 - 8.3 x10*3/uL [facility] Imm Gran Abs Auto 0.02 0.00 - 0.03 X10*3/uL [facility] Lymphocytes Absolute Auto 1.6 1.2 - 4.9 X10*3/uL [facility] Monocytes Absolute Auto 0.4 0.1 - 1.2 X10*3/uL [facility] Eosinophils Absolute Auto 0.1 0.0 - 0.4 X10*3/uL [facility] Basophils Absolute Auto 0.0 0.0 - 0.2 X10*3/uL [facility] NRBC Abs Auto 0.000 0.0 - 0.012 X10*3/uL [facility] 10/21/2024 2:42 PM EDT 10/21/2024 2:45 PM EDT us Generic External Data Provider LAB BLOOD ORDERAB LES Final Result [facility] [address] [place] [phone] * (ABNORMAL) Comprehensive Metabolic Panel (10/21/2024 2:42 PM EDT) Sodium 126(L) 135 - 145 mmol/L [facility] Potassium 4.8 3.3 - 5.1 mmol/L [facility] Chloride 94(L) 96 - 108 mmol/L [facility] Carbon Dioxide 24 22 - 29 mmol/L [facility] Anion Gap 13 12 - 20 [facility] Urea Nitrogen (BUN) 13 9 - 16 mg/dL [facility] Creatinine, Serum 1.17 0.5 - 1.4 mg/dL [facility] Creatinine Clr Calc Pharmacy 82.3 [facility] Comment:eGFR (calculated fro m the MDRD study equation) and eCrCl(calculated from the Cockcroft-Gault equation) are based ondifferent parameters and may not yield comparable results.If eCrCl result is absurd, please check patient'sheight/weight. Estimated Glomerular Filt Rate >60 [facility] Comment:Chronic Kidney Disea se: Estimated GFR < 60 mL/min/[id number] Kidney Disease: Estimated GFR < 15 mL/min/1.73m2 Glucose 856(HH) 60 - 115 mg/dL [facility] Comment:Critical value for t est(s): GLUR Results called to and readback by: JENARO Person calling: JACK Date: 10/21/24 Time:1629 Calcium 8.9 8.4 - 10.2 mg/dL [facility] Bilirubin, Total 0.4 0.0 - 1.0 mg/dL [facility] Aspartate Amino Transferase 30 5 - 37 U/L [facility] Alanine Aminotransferase 23 0 - 40 U/L [facility] Total Protein 6.9 6.5 - 8.0 g/dL [facility] Albumin Level 3.8 3.5 - 5.0 g/dL [facility] Alkaline Phosphatase 173(H) 39 - 117 U/L [facility] 10/21/2024 2:42 PM EDT 10/21/2024 2:45 PM EDT us Generic External Data Provider LAB BLOOD ORDERAB LES Final Result [facility] [address] [place] [phone] * (ABNORMAL) POCT HGB A1C (04/07/2024 2:11 PM EDT) Hemoglobin A1C 13.8(A) 4.0 - 6.0 % QC Media Lot # [id number] Lot# Expiration Date 463 Blood 04/07/2024 2:11 PM EDT Martha Lock MD POINT OF CARE TEST ENTER /EDIT ORDERABLES Final Result * ALBUMIN, RANDOM URINE W/CREATININE (11/03/2021 10:50 AM EDT) Microalbumin Urine <0.2 See Note: mg/dL [facility] Comment: Reference Range: Reference Range Not established Microalb/Creat Ratio NOTE <30 mcg/mg creat [facility] Comment: NOTE: The urine albumin value is less than 0.2 mg/dL therefore we are unable to calculate excretion and/or creatinine ratio. The ADA defines abnormalities in albumin excretion as follows: Albuminuria Category Result (mcg/mg creatinine) Normal to Mildly increased <30 Moderately increased 30-299 Severely increased > OR = 300 The ADA recommends that at least two of three specimens collected within a 3-6 month period be abnormal before considering a patient to be within a diagnostic category. Creatinine, Urine 38 20 - 320 mg/dL [facility] 11/03/2021 10:5 0 AM EDT us Martha Lock MD LAB URINE ORDERABLES Fin al Result [facility] [address] * (ABNORMAL) LIPID PANEL, STANDARD (03/18/2021 2:00 PM EDT) Chol/HDLC Ratio 5.2(H) <5.0 (calc) [facility] Cholesterol, Total 187 <200 mg/dL [facility] HDL Cholesterol 36(L) > OR = 40 mg/dL [facility] LDL Cholesterol 115(H) mg/dL (calc) [facility] Comment: Reference range: <100 Desirable range <100 mg/dL for primary prevention; <70 mg/dL for patients with CHD or diabetic patients with > or = 2 CHD risk factors. LDL-C is now calculated using the Tk-Morrison calculation, which is a validated novel method providing better accuracy than the Friedewald equation in the estimation of LDL-C. Tk SS et al. BRIAN. 2013;310(19): 7977-5515 (http://education.[employer]/faq/JXE332) Non-HDL Cholesterol 151(H) <130 mg/dL (calc) [facility] Comment: For patients with diabetes plus 1 major ASCVD risk factor, treating to a non-HDL-C goal of <100 mg/dL (LDL-C of <70 mg/dL) is considered a therapeutic option. Triglycerides 238(H) <150 mg/dL [facility] Comment: If a non-fasting specimen was collected, consider repeat triglyceride testing on a fasting specimen if clinically indicated. Virgie et al. J. of Clin. Lipidol. 2015;9:129-169. 03/18/2021 2:00 PM EDT Martha Lock MD LAB BLOOD ORDERABLES Fin al Result [facility] [address] from Last 3 Months or Most Recently Relevant to Health Maintenance Insurance [facility] C3 Care Teams Tobacco Stemmer Relationship Specialty Start Date End Date Martha Lock MD [address] [place] [address] PCP - General Family Medicine 09/26/16
[2024-12-09 17:08] LABS: Venous Blood Gas Refer to POC result
[2024-12-09 17:08] LABS: Hematocrit 44.0 % (42.0-52.0); Hemoglobin 15.1 g/dl (14.0-18.0); Imm Gran Abs Auto 0.02 X10*3/uL (0.00-0.03); Imm Gran Pct Auto 0.3 % (0.0-0.4); Lymphocytes Absolute Auto 1.9 X10*3/uL (1.2-4.9); Mean Corpuscular HGB Conc 34.3 g/dl (31.0-36.0); Mean Corpuscular Hemoglobin 28.5 pg (27.0-33.0); Mean Corpuscular Volume 83.0 fL (80.0-98.0); NRBC Abs Auto 0.000 X10*3/uL (0.0-0.012); NRBC Pct Auto 0.0 /100WBC (0.0-0.2); Platelet Count 161 X10*3/uL (160-400); Red Blood Count 5.30 X10*6/uL (4.60-5.80); White Blood Count 7.1 X10*3/uL (4.8-10.8)
[2024-12-09 17:14] LABS: Glucose, Whole Blood 542 mg/dL (60-115)
[2024-12-09] MEDS: Hydrocortisone 1 % Cream 28.35 GM TUBE 1 APPL TOPICAL (17:26)
[2024-12-09 17:41] LABS: Alanine Aminotransferase 20 U/L (0-40); Albumin Level 4.2 g/dL (3.5-5.0); Alkaline Phosphatase 95 U/L (39-117); Anion Gap 11 (12-20); Aspartate Amino Transferase 17 U/L (5-37); Blood Urea Nitrogen 11 mg/dL (9-16); Calcium 8.8 mg/dL (8.4-10.2); Carbon Dioxide 27 mmol/L (22-29); Chloride 97 mmol/L (96-108); Creatinine Clr Calc Pharmacy 102.4; Estimated Glomerular Filt Rate > 60; Potassium 4.4 mmol/L (3.3-5.1); Sodium 131 mmol/L (135-145); Total Protein 6.9 g/dL (6.5-8.0)
[2024-12-09 18:34] VITALS: BP 103/68; PULSE 71; RESP 13; TEMP 36.7; O2SAT 99
[2024-12-09 18:41] LABS: Glucose, Whole Blood 221 mg/dL (60-115)
[2024-12-09 18:45] VITALS: BP 103/68; PULSE 71; RESP 13; TEMP 36.7; O2SAT 99
== END 2024-12-09 18:50 | disposition home or self-care (01) ==
PROVIDERS: Nurse Practitioner Family; Emergency Provider Emergency Medicine; PCP Internal Medicine
DX: S80.812A Abrasion, left lower leg, initial encounter (principal); S80.811A Abrasion, right lower leg, initial encounter; S40.812A Abrasion of left upper arm, initial encounter; S40.811A Abrasion of right upper arm, initial encounter; L29.9 Pruritus, unspecified; E11.65 Type 2 diabetes mellitus with hyperglycemia; X58.XXXA Exposure to other specified factors, initial encounter; Y93.9 Activity, unspecified; Y92.9 Unspecified place or not applicable; Y99.8 Other external cause status; Z79.899 Other long term (current) drug therapy; Z91.148 Patient's other noncompliance with medication regimen for other reason
CPT/HCPCS: 36415; 80053; 82010; 82803; 82947; 85025; 96361; 96374; 96375; 99284; J1200

== ENCOUNTER 2025-02-09 06:26 | Inpatient (IN) | payer MEDICAID, OTHER, SELFPAY ==
[2025-02-09 06:33] VITALS: BP 136/96; PULSE 101; RESP 20; TEMP 36.8; O2SAT 99; BMI 25.3
[2025-02-09 06:39] LABS: Glucose, Whole Blood 143 mg/dL (60-115)
--- NOTE | 2025-02-09 06:55 | ECG_ITS ---
Test Reason : ?OD Blood Pressure : */* mmHG Vent. Rate : 95 BPM Atrial Rate : 95 BPM P-R Int : 150 ms QRS Dur : 106 ms QT Int : 364 ms P-R-T Axes : 61 66 35 degrees QTcB Int : 457 ms Normal sinus rhythm Cannot rule out Inferior infarct , age undetermined Abnormal ECG When compared with ECG of 21-Oct-2024 14:07, No significant change was found Referred By: Elier Núñez Electronically Signed By: NIYAH ADAMS MD
--- NOTE | 2025-02-09 06:55 | ED_ITS ---
HPI - Psych General Chief Complaint: Psychiatric Symptoms Stated Complaint: Unknown Time Seen by Provider: 02/09/25 06:46 Source: patient Mode of arrival: ambulatory Limitations: other (Psychotic but alert oriented conversational) History of Present Illness ED Provider: HPI Narrative: Patient is presenting with reports of paranoia of persecution stating that Federal on police know about his case, he endorses using cocaine last night and in the morning, also smokes marijuana, I am going to note that during triage she is took all his medications but I believe you had to really [place] on what he was saying and he states that he took 2 of his medications for back pain he has cyclobenzaprine and he developed back pain last night, and he took his regular diabetic medication, he states he did not take any medications to hurt himself, used an overnight stocker and really make sure he did not overdose on multiple meds. Related Data Home Medications ?Medication ?Instructions ?Recorded ?Confirmed albuterol sulfate 90 mcg/actuation 2 puff inhalation Q 4H PRN 04/07/20 02/09/25 aerosol inhaler (ProAir HFA) Shortness Of Breath acetaminophen 500 mg tablet 500 mg PO Q8H PRN mild nupur n 02/09/25 02/09/25 albuterol sulfate 90 mcg/actuation 2 puff inhalation Q 4-6H PRN 02/09/25 02/09/25 aerosol inhaler (Ventolin HFA) Shortness Of Breath Or Wheezing sertraline 50 mg tablet 50 mg PO DAILY 02/09/2507/05 topiramate 50 mg tablet 50 mg PO BEDTIME 02/09/25 Previous Rx's ?Medication ?Instructions ?Recorded acetaminophen 325 mg tablet 325 mg PO QID PRN pain #90 tabs 10/21/24 (Tylenol) cyclobenzaprine 5 mg tablet 5 mg PO BEDTIME PRN muscle spasm 10/21/24 #20 tabs ibuprofen 400 mg tablet 400 mg PO Q6H PRN Pain #60 t abs 10/21/24 Allergies Allergy/AdvReac Type Severity Reaction Status Date / Time No Known Allergies Allergy Verified 02/09/25 06:40 Review of Systems 2 Constitutional: Constitutional: Reports as per [facility] Past Medical History Medical History Asthma Diabetes mellitus, type 2 Social History Social History Household Members: Spouse Housing: Apartment Do you presently have visiting nurse or other home services: No Unable to assess alcohol history related to: Unknown Alcohol intake: former Patient Tobacco Use Status: Never used Tobacco e-Cigarette/Vaping Use: Never Used Second Hand Smoke Exposure: No Use of substances other than those prescribed or required for medical reasons: Yes Substance Use Type: Crack/Cocaine Currently Displaying Signs/Symptoms of Drug Intoxication Withdrawal: No Have you been hit, kicked, punched, or otherwise hurt by someone within the past year? If so, by whom?: No Do you feel safe in your current relationship?: Yes Is there a partner from a previous relationship who is making you feel unsafe now?: No Are you made to feel afraid or neglected: No Advance Directives: No Advance Directives Information Provided: No Do you have thoughts of harming others: None Do you have a plan to hurt others: No Plan Recently lost weight without trying: No Eating poorly because of decreased appetite: No Nutrition Risks: No Nutritional Risk Poor oral hygiene: No service: No Current occupational status: employed Sexual orientation: Straight/Heterosexual Physical Exam 2 Vital Signs: Vital Signs: Last Vital Signs Temp 97.6 F 02/12/25 20:00 Pulse 76 02/12/25 20:00 Resp 16 02/12/25 20:00 BP 104/68 02/12/25 20:00 Pulse Ox 98 02/12/25 20:00 O2 Del Method Room Air 02/12/25 20:00 BMI result Body Mass Index 25.3 Const: Other: * Gen: ?Overall well-appearing patient, cooperative, examined on the [facility] * HEENT: PERRLA, EOMI, MMM, * Neck: Supple, no LAD * CV: RRR, no obvious murmurs appreciated * Resp: ?No wheezing rales rhonchi no stridor moving air well * Abd: ?Bowel sounds are present, no tenderness no rebound no rigidity * MSK: FROM, strength 5/5 all extremities * Skin: Warm, dry, intact, * Neuro: ?Alert and oriented with delusional remarks, moving upper and lower extremities symmetrically, no obvious facial asymmetry noted * Psych: Paranoid delusional. Non pressured speech, Course Course Course Narrative: Time: 06:25 Date: 02/10/25 Provider: Elida Gottlieb, DO Patient in physician observation for psychiatric evaluation.? No acute events reported overnight. No current complaints. VS stable.? Pending CARE team evaluation for final dispo. Will continue to monitor. Time: 04:36 Date: 02/11/25 Provider: Hema Beaulieu MD Patient in physician observation for psychiatric evaluation. Patient has been in the emergency department for about 46 hours.Patient was evaluated by the care team and he needs inpatient level of care secondary to his current psychiatric presentation, he requires a more secure sending for treatment. therefore he will remain in the emergency department Behavioral Health Unit until an appropriate disposition can be determined. Care team also recommended recovery evaluation since he may benefit from medication assisted treatment and outpatient provider referral. Therefore I ordered a recovery team consult.No acute events reported overnight. No current complaints. VS stable.? Will continue to monitor. Reevaluation(s) Reevaluation #1: 02/11/25 Reynaldo GOTTLIEB physician observation ended admitted inpatient Medications Administered Generic Name Dose Route Start Last Admin Trade Name Freq PRN Reason Stop Dose Admin Cyclobenzaprine HCl 5 mg 02/09/25 22:01 02/09/25 22:32 Cyclobenzaprine Hcl 5 Mg Tablet PO 5 mg BEDTIME PRN Administration Muscle Spasm Metformin HCl 500 mg 02/12/25 17:00 02/12/25 17:10 Metformin Hcl 500 Mg Tablet PO 500 mg BIDWM DAMIAN Administration Sertraline HCl 50 mg 02/10/25 09:00 02/12/25 08:42 Sertraline Hcl 50 Mg Tablet PO 50 mg DAILY DAMIAN Administration Topiramate 50 mg 02/09/25 22:15 02/12/25 21:51 Topiramate 25 Mg Tablet PO 50 mg BEDTIME DAMIAN Administration Discontinued Medications Generic Name Dose Route Start Last Admin Trade Name Freq PRN Reason Stop Dose Admin Acetaminophen 650 mg 02/09/25 22:05 02/09/25 22:32 Acetaminophen 325 Mg Tablet PO 650 mg Q8H PRN Administration mild pain Melatonin 6 mg 02/11/25 00:59 02/11/25 01:03 Melatonin 3 Mg Tablet PO 02/11/25 01:00 6 mg ONCE ONE Administration Medical Decision Making Medical Decision Making [facility] Narrative: Patient is presenting with paranoid delusions likely exacerbated by a cocaine use, he is diabetic, see my HPI regarding whether he took multiple of his medications for SI he denied that and I will continue to monitor that, we will obtain ECG, full blood work, drug screen panel, I offered him oral Valium for anxiety he states he did not want any medications to be poisoned, we will offer again, other considerations for workup as below, unless there is some underlying medical finding I anticipate medical clearance for care team evaluation and likely psychiatric hospital admission 09:40Time: 09:42 Date: 02/09/25 Provider: Elier Núñez, DO Patient in physician observation for psychiatric evaluation.? .? Patient is in bed search status. Differential Diagnosis Differential Diagnoses: The differential diagnosis associated with the presentation includes (Polysubstance use disorder, cocaine induced psychosis, overdose, DKA) Admission/Observation Consideration of admission/observation: Escalation of care including admission/observation considered Consult Healthcare Provider Management of the patient was discussed with: Behavioral Health Provider Lab Data [facility] Lab Attestation statement: I reviewed the patient's lab results. 02/09/25 07:21 02/09/25 07:21 Labs: Lab Results 02/09/25 02/09/25 02/09/25 Range/Units 06:36 07:21 08:40 WBC 6.3 (4.8-10.8) X10*3/uL RBC 5.44 (4.60-5.80) X10*6/uL Hgb 15.6 (14.0-18.0) g/dl Hct 44.1 (42.0-52.0) % MCV 81.1 (80.0-98.0) fL MCH 28.7 (27.0-33.0) pg MCHC 35.4 (31.0-36.0) g/dl RDW 12.1 (11.0-16.0) % Plt Count 134 L (160-400) X10*3/uL MPV 12.5 H (9.4-12.4) fL Immature Gran % (Auto) 0.2 (0.0-0.4) % Neut % (Auto) 50.4 (45-73) % Lymph % (Auto) 41.0 H (20-40) % Dickens % (Auto) 7.6 (2-11) % Eos % (Auto) 0.3 (0-4) % Baso % (Auto) 0.5 (0-2) % Lymph # (Auto) 2.6 (1.2-4.9) X10*3/uL Dickens # (Auto) 0.5 (0.1-1.2) X10*3/uL Eos # (Auto) 0.0 (0.0-0.4) X10*3/uL Baso # (Auto) 0.0 (0.0-0.2) X10*3/uL Abs Immat Gran (auto) 0.01 (0.00-0.03) X10*3/uL Absolute Neuts (auto) 3.2 (2.0-8.3) x10*3/uL Absolute Nucleated RBC 0.000 (0.0-0.012) X10*3/uL Nucleated RBC % (auto) 0.0 (0.0-0.2) /100WBC Sodium 141 (135-145) mmol/L Potassium 3.4 D (3.3-5.1) mmol/L Chloride 108 (96-108) mmol/L Carbon Dioxide 21 L (22-29) mmol/L Anion Gap 15 (12-20) BUN 14 (9-16) mg/dL Creatinine 0.80 (0.5-1.4) mg/dL Estim Creat Clear Calc 120.3 Estimated GFR > 60 POC Glucose 143 H (60-115) mg/dL Random Glucose 143 H (60-115) mg/dL Calcium 9.2 (8.4-10.2) mg/dL Total Bilirubin 0.7 (0.0-1.0) mg/dL AST 26 (5-37) U/L ALT 18 (0-40) U/L Alkaline Phosphatase 58 (39-117) U/L Total Protein 7.2 (6.5-8.0) g/dL Albumin 4.6 (3.5-5.0) g/dL Urine Color Yellow Urine Appearance Clear Urine pH 6.0 (5.0-9.0) Ur Specific [place] >= 1.030 H (1.005-1.025) Urine Protein Negative (Neg-Trace) mg/dL Urine Glucose (UA) >=1000 H (Negative) mg/dL Urine Ketones 15 (Negative) mg/dL Urine Blood Negative (Negative) Urine Nitrite Negative (Negative) Ur Leukocyte Esterase Negative (Negative) Urine RBC 0-2 (0-2) /HPF Urine WBC 0-5 (0-5) /HPF Ur Squamous Epith Cells 0-2 (0-2) /HPF Urine Bacteria None Seen (None Seen) Hyaline Casts 0-2 (0-2) /LPF Salicylates < 5.0 L (15-30) mg/dL Urine Opiates Screen Not Detected (Not Detect) Ur Buprenorphine Scrn Not Detected (Not Detect) ng/mL Ur Oxycodone Screen Not Detected (Not Detect) ng/mL Urine Methadone Screen Not Detected (Not Detect) ng/mL Urine Fentanyl Screen Not Detected (Not Detect) Acetaminophen < 3 (<30) mcg/mL Ur Barbiturates Screen Not Detected (Not Detect) Ur Phencyclidine Scrn Not Detected (Not Detect) Ur Amphetamines Screen Not Detected (Not Detect) U Benzodiazepines Scrn Not Detected (Not Detect) Urine Cocaine Screen POSITIVE H (Not Detect) U Marijuana (THC) Screen POSITIVE H (Not Detect) Ethyl Alcohol < 10 mg/dL 02/09/25 Range/Units 09:01 WBC (4.8-10.8) X10*3/uL RBC (4.60-5.80) X10*6/uL Hgb (14.0-18.0) g/dl Hct (42.0-52.0) % MCV (80.0-98.0) fL MCH (27.0-33.0) pg MCHC (31.0-36.0) g/dl RDW (11.0-16.0) % Plt Count (160-400) X10*3/uL MPV (9.4-12.4) fL Immature Gran % (Auto) (0.0-0.4) % Neut % (Auto) (45-73) % Lymph % (Auto) (20-40) % Dickens % (Auto) (2-11) % Eos % (Auto) (0-4) % Baso % (Auto) (0-2) % Lymph # (Auto) (1.2-4.9) X10*3/uL Dickens # (Auto) (0.1-1.2) X10*3/uL Eos # (Auto) (0.0-0.4) X10*3/uL Baso # (Auto) (0.0-0.2) X10*3/uL Abs Immat Gran (auto) (0.00-0.03) X10*3/uL Absolute Neuts (auto) (2.0-8.3) x10*3/uL Absolute Nucleated RBC (0.0-0.012) X10*3/uL Nucleated RBC % (auto) (0.0-0.2) /100WBC Sodium (135-145) mmol/L Potassium (3.3-5.1) mmol/L Chloride (96-108) mmol/L Carbon Dioxide (22-29) mmol/L Anion Gap (12-20) BUN (9-16) mg/dL Creatinine (0.5-1.4) mg/dL Estim Creat Clear Calc Estimated GFR POC Glucose 126 H (60-115) mg/dL Random Glucose (60-115) mg/dL Calcium (8.4-10.2) mg/dL Total Bilirubin (0.0-1.0) mg/dL AST (5-37) U/L ALT (0-40) U/L Alkaline Phosphatase (39-117) U/L Total Protein (6.5-8.0) g/dL Albumin (3.5-5.0) g/dL Urine Color Urine Appearance Urine pH (5.0-9.0) Ur Specific [place] (1.005-1.025) Urine Protein (Neg-Trace) mg/dL Urine Glucose (UA) (Negative) mg/dL Urine Ketones (Negative) mg/dL Urine Blood (Negative) Urine Nitrite (Negative) Ur Leukocyte Esterase (Negative) Urine RBC (0-2) /HPF Urine WBC (0-5) /HPF Ur Squamous Epith Cells (0-2) /HPF Urine Bacteria (None Seen) Hyaline Casts (0-2) /LPF Salicylates (15-30) mg/dL Urine Opiates Screen (Not Detect) Ur Buprenorphine Scrn (Not Detect) ng/mL Ur Oxycodone Screen (Not Detect) ng/mL Urine Methadone Screen (Not Detect) ng/mL Urine Fentanyl Screen (Not Detect) Acetaminophen (<30) mcg/mL Ur Barbiturates Screen (Not Detect) Ur Phencyclidine Scrn (Not Detect) Ur Amphetamines Screen (Not Detect) U Benzodiazepines Scrn (Not Detect) Urine Cocaine Screen (Not Detect) U Marijuana (THC) Screen (Not Detect) Ethyl Alcohol mg/dL Independent Interpretation I performed an independent interpretation of an: EKG (95 beats per minute, no QTC prolongation, no underlying dysrhythmia) Chronic Conditions Patient?s care impacted by: Diabetes Social Determinants Patient?s care significantly limited by Social Determinants of Health including: Inadequate housing, Low income and Unemployment Discharge Plan Discharge Clinical Impression: Drug-induced psychotic disorder, Diabetes mellitus, type 2 Patient Disposition: Admitted As Inpatient Interventions: Admission Worksheet (ED) Last Done: 02/11/25 16:03 Discharge Date/Time: 02/11/25 16:00
--- NOTE | 2025-02-09 07:15 | PC.NURSE ---
pt changed over with this RN. pt calm and cooperative. belongings given to security. vital of cocaine discharged by security. pt agreeable to labs, EKG and REDMAN. MD at bedside. pt very paranoid of staff. sitter at bedside vague SI. reports taking extra rx meds 1 hr PR MANAGER. cocaine used last night. pt feels unsafe for himself and children there is a varela for my life
--- OUTSIDE RECORDS SUMMARY | 2025-02-09 07:18 | XMS_ITS | Clinical Summary ---
Author Organization [facility] Address [address] [place] [address] Phone Care Team Providers Care Tool/Die Maker Name Role Phone Jose Siu MD Primary Care Provide r Allergies No known active allergies Medications oxyCODONE 5 MG immediate release tablet Take 1 tablet by mouth every 6-8 hours as needed for pain. Patient may request partial fill. 7 tablet 9 Active Additional Information Patient not taking.Reported on 12/30/2019 Social History Tobacco Use Types Packs/Day Years Used Date Smoking Tobacco: Former Smokeless Tobacco: Never Alcohol Use Standard Drinks/Week Comments Yes 0 (1 standard drink = 0.6 oz pur e alcohol) Education Answer Date Recorded Are you interested in more education? Not on mono e 10/06/2022 Are you concerned about learning? Not on file 10/06/2022 No 10/06/2022 No 10/06/2022 Digital Access Answer Date Recorded No 11/07/2022 No 11/07/2022 No 11/07/2022 Reliable internet access at home? Not on file 11/07/2022 Device with a working camera? Not on file Sex and Gender Information Value Date Recorded Sex Assigned at Not on file Legal Sex Male 7:05 PM EDT Gender Identity Not on file Sexual Orientation Not on file Last Filed Vital Signs Vital Sign Reading Time Taken Comments Blood Pressure - - Pulse - - Temperature - - Respiratory Rate - - Oxygen Saturation - - Inhaled Oxygen Concentration - - Weight 90.9 kg (200 lb 4.8 oz) 09/20/2018 2:06 P M EDT Height 177.8 cm (5' 10 ) 09/20/2018 2:06 PM EDT Body Mass Index 28.74 09/20/2018 2:06 PM EDT Plan of Treatment Health Maintenance Due Date Last Done Comments LIPID PANEL 1979 DEPRESSION SCREENING 1991 SMOKING Hx and SMOKELESS TOBACCO SCREENING 09/17/1992 HEPATITIS C SCREENING 09/17/1997 HIV ONE-TIME SCREENING (18-6 5 YEARS) 09/17/1997 COVID-19 VACCINE (2023-2 5 season) 2024 06/22/2022 COLOGUARD 09/17/2024 COLONOSCOPY 09/17/2024 COLORECTAL CANCER SCREENING 09/17/2024 FIT TEST 09/17/2024 FOBT 09/17/2024 SIGMOIDOSCOPY 09/17/2024 VIRTUAL COLONOSCOPY 09/17/2024 Adult Td,Tdap Booster 06/05/2027 06/05/2017 , 03/14/2011 PNEUMOCOCCAL VACCINES (0-49 years) Aged Out 06/05/2017 No longer eligible b ased on patient's age to complete this topic HEPATITIS A VACCINES Aged Out No long er eligible based on patient's age to complete this topic HIB VACCINES Aged Out No longer eligi ble based on patient's age to complete this topic MENINGOCOCCAL VACCINES (ACWY) Aged Out No longer eligible based on patient's age to complete this topic MENINGOCOCCAL VACCINES (B) Aged Out N o longer eligible based on patient's age to complete this topic Medical Devices Not on file Insurance [employer] Care Teams Tool/Die Maker Relationship Specialty Start Date End Date Jose Siu MD [address] [id number] PCP - General General Surgery 12/30/19 Additional Source Comments The information contained in this document represents components of the legal health record. It is not the complete legal health record.[facility]
--- OUTSIDE RECORDS SUMMARY | 2025-02-09 07:18 | XMS_ITS | Encounter Summary ---
Author Organization [facility] Address [address] [place] [address] Phone Care Team Providers Care Program Management Analyst Name Role Phone Unknown, Unknown Primary Care Provider Jose Stern MD Primary Care Provide r Encounter Details Date Type Department Care Team (Late st Contact Info) Description 09/19/2018 Ancillary Orders Main [facility] at [address] [address] Romina Tyson PA-C [address], [address] [place] [address] [email or web address] Pain Social History Tobacco Use Types Packs/Day Years Used Date Smoking Tobacco: Never Assessed Sex and Gender Information Value Date Recorded Sex Assigned at Not on file Legal Sex Male 7:05 PM EDT Gender Identity Not on file Sexual Orientation Not on file documented as of this encounter Plan of Treatment Not on file documented as of this encounter Results * XR FINGER 3RD DIGIT (LEFT) (09/19/2018 7:20 PM EDT) Anatomical Region Laterality Modality Hand Left Radiographic Kacy ging 09/19/2018 7:52 PM EDT Impressions 09/19/2018 7:53 PM EDT Comminuted fracture of the tuft of the 3rd distal phalanx. POS - [id number] Narrative 09/19/2018 7:53 PM EDT EXAM: XR FINGER 3RD DIGIT (LEFT), four views COMPARISON: None FINDINGS: Comminuted fracture of the tuft of the 3rd distal phalanx. No additional fractures identified. Joint spaces are preserved. Soft tissue swelling of the 3rd digit. Procedure Note Olivia Rowland MD - 09/19/2018 EXAM: XR FINGER 3RD DIGIT (LEFT), four views COMPARISON: None FINDINGS: Comminuted fracture of the tuft of the 3rd distal phalanx. No additionalfractures identified. Joint spaces are preserved. Soft tissue swelling ofthe 3rd digit. IMPRESSION: Comminuted fracture of the tuft of the 3rd distal phalanx. POS - [id number] Romina Tyson PA-C IMG XR UPPER EXTREMITY Final Result documented in this encounter Visit Diagnoses Diagnosis Pain Generalized pain Pain Generalized pain documented in this encounter Care Teams Program Management Analyst Relationship Specialty Start Date End Date Unknown, Unknown, MD PCP - General 09/19/18 12/29/19 Jose Siu MD [address] [id number] PCP - [facility] General Surgery 12/30/19 documented as of this encounter Additional Source Comments The information contained in this document represents components of the legal health record. It is not the complete legal health record.[facility]
--- NOTE | 2025-02-09 07:23 | PC.NURSE ---
[facility] 2
[2025-02-09 07:25] LABS: MANUAL DIFF FLAG NO
[2025-02-09 07:28] LABS: Hematocrit 44.1 % (42.0-52.0); Hemoglobin 15.6 g/dl (14.0-18.0); Imm Gran Abs Auto 0.01 X10*3/uL (0.00-0.03); Imm Gran Pct Auto 0.2 % (0.0-0.4); Lymphocytes Absolute Auto 2.6 X10*3/uL (1.2-4.9); Mean Corpuscular HGB Conc 35.4 g/dl (31.0-36.0); Mean Corpuscular Hemoglobin 28.7 pg (27.0-33.0); Mean Corpuscular Volume 81.1 fL (80.0-98.0); NRBC Abs Auto 0.000 X10*3/uL (0.0-0.012); NRBC Pct Auto 0.0 /100WBC (0.0-0.2); Platelet Count 134 X10*3/uL (160-400); Red Blood Count 5.44 X10*6/uL (4.60-5.80); White Blood Count 6.3 X10*3/uL (4.8-10.8)
[2025-02-09 07:52] LABS: Acetaminophen LAB < 3 mcg/mL (<30); Alanine Aminotransferase 18 U/L (0-40); Albumin Level 4.6 g/dL (3.5-5.0); Alkaline Phosphatase 58 U/L (39-117); Anion Gap 15 (12-20); Aspartate Amino Transferase 26 U/L (5-37); Blood Urea Nitrogen 14 mg/dL (9-16); Calcium 9.2 mg/dL (8.4-10.2); Carbon Dioxide 21 mmol/L (22-29); Chloride 108 mmol/L (96-108); Creatinine Clr Calc Pharmacy 120.3; Estimated Glomerular Filt Rate > 60; Potassium 3.4 mmol/L (3.3-5.1); Salicylate < 5.0 mg/dL (15-30); Sodium 141 mmol/L (135-145); Total Protein 7.2 g/dL (6.5-8.0)
--- NOTE | 2025-02-09 08:01 | PC.NURSE ---
patient remains tearful in room, patient observer at bedside for patient safety
[2025-02-09 08:37] VITALS: BP 132/89; PULSE 88; RESP 16; O2SAT 100
[2025-02-09 09:00] LABS: Appearance Urine Clear; Glucose Urine UA >=1000 mg/dL (Negative); PH 6.0 (5.0-9.0); Specific Gravity - Urine >= 1.030 (1.005-1.025); UMIC TRIGGER UA YES
[2025-02-09 09:06] LABS: Glucose, Whole Blood 126 mg/dL (60-115)
[2025-02-09 09:11] LABS: Cannabinoid Screen Urine POSITIVE (Not Detect)
--- NOTE | 2025-02-09 09:12 | PC.NURSE ---
calm and cooperative, 1:1 at bedside, coffee provided per patient request
--- NOTE | 2025-02-09 14:48 | PC.NURSE ---
Calm and cooperative, denies pain or discomfort. 1;[address] for safety
[2025-02-09 16:39] VITALS: BP 122/84; PULSE 84; RESP 13; TEMP 36.8; O2SAT 98
[2025-02-09 19:44] VITALS: BP 110/71; PULSE 79; TEMP 36.9; O2SAT 98
[2025-02-09 23:28] VITALS: BP 108/65; PULSE 74; RESP 16; TEMP 36.5; O2SAT 98
[2025-02-10 07:38] VITALS: BP 109/71; PULSE 90; RESP 16; TEMP 36.6; O2SAT 100
--- NOTE | 2025-02-10 12:01 | PHA.MEDREC ---
Pharmacy Consult ? Medication Reconciliation Pharmacy has completed the medication reconciliation. Reviewed med rec done by nursing overnight, removed old medications which had not been filled for >1 year and 4 day supply of meds prescribed in December 2024 which did not have a claim from [facility] either.
--- NOTE | 2025-02-10 14:59 | PC.NURSE ---
Pt transferred from Main ED to pod. Pt is calm and cooperative and is currently resting in his room.
--- NOTE | 2025-02-10 18:25 | PC.NURSE ---
Pt has remained calm and cooperative since transfer from the Main ED. Pt ate dinner and has talked to his brother on the phone. He currently denies SI and states he feels safe bieng here.
--- NOTE | 2025-02-10 19:45 | PC.NURSE ---
Pt calm and cooperative, resting in bed at this time, respirations even and unlabored, no apparent distress is noted. Continue plan of care for inpatient bedsearch
[2025-02-10 19:49] VITALS: BP 99/69; PULSE 87; RESP 18; TEMP 37.2; O2SAT 99
[2025-02-11 00:55] VITALS: BP 101/66; PULSE 72; RESP 16; TEMP 37.2; O2SAT 99
--- NOTE | 2025-02-11 01:03 | PC.NURSE ---
Pt requesting medication for sleep. Medicated per MAR with melatonin at this time.
[2025-02-11 19:44] VITALS: BP 112/70; PULSE 88; RESP 18; TEMP 37.1; O2SAT 98
--- NOTE | 2025-02-12 00:49 | PC.ADMIT ---
Vinayak was admitted from pod in the ED to M5 room 511-1 at 1800 hours for paranoid delusions, suicidal ideation, Polysubstance use disorder (Tox screen was positive for cocaine and Marijuana). He was admitted on a Section 12A and declined to sign in and is now here on a 12B. Per report from pod, he presented to ED on 02/09/25 after calling EMT and reporting that he had taken Flexerill for back pain and another medication for diabetes. He specified that he did not want to hurt himself. Patient is paranoid about medications, questioning every pill and wanting to know what he is being given and why. He is denying [id number]. In the pod he refused Valium that was offered to help reduce anxiety. Other medical diagnoses include Type 2 Diabetes Mellitus. He was oriented to the unit and has been placed on safety checks q 15 minutes.
[2025-02-12 07:00] VITALS: BMI 23.8
[2025-02-12 08:00] VITALS: BP 113/74; PULSE 66; RESP 16; TEMP 37.1; O2SAT 98
[2025-02-12 08:25] LABS: Hemoglobin A1C 378.1187 umol/L; Total Hemoglobin (HGBA1C) 4180.0525 umol/L
[2025-02-12 08:37] LABS: Cholesterol 166 mg/dL (<200); HDL Cholesterol 46 mg/dL (>40); Triglycerides 151 mg/dL (<150)
[2025-02-12 08:56] LABS: Thyroid Stimulating Hormone 1.15 uIU/mL (0.32-4.0)
--- NOTE | 2025-02-12 09:21 | HO.PSYADMNOT ---
HPI Date of Service: 02/12/25 Chief Complaint: Paranoid delusion Sources of Information: patient interviewed, chart reviewed and crisis/core team assessment reviewed HPI Subjective Notes: Akins Warning and Section 12B Healthcare Proxy: No Guardianship: No Medical Problems Affecting Mental Status: No Narrative: 44-year-old Mongolian-speaking male with history of the patient and type 2 diabetes presents to [facility] for paranoid delusions and suicidal ideation. 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 Last Sunday night, showed up outside of the trailer that he lived. They showed up again on Sunday and Sunday night. On Sunday night, they threatened to kill him. They could see him through the windows of his trailer. Therefore, he took his medications as prescribed, in an attempt to trick them that he had poisoned himself. They immediately left. On 02/09/2025, he rode his bicycle to [facility] for safety. He did not go to the police because the hospital is closer from his trailer. He notes that the police is aware about his situation and that they already have a few individuals in custody. He feels sad about what is going on because the leader of those involved is like a brother to him. He states that for the past 6 months, he was under significant stress the progressively worsened. His ex- ensuring that their children are not connected with him. He mentioned that he was a great provider for his family. Three months ago, he had to return to [place] after relocating to the [place] 15 years ago, to bury his older brother. Before those stressors, he was doing well mentally, although he was homeless for a year. He notes that he has not been consistent with taking his prescription medications. He takes his medications every other day, instead of daily as prescribed. He smokes 1 blunt of cannabis daily and has been smoking for the past 2 months. His last cannabis use was on Sunday. He uses 4 g of cocaine intranasally on Fridays, Saturdays, and Sundays, and has been using cocaine for the past 4 years. He drinks 3 beers once weekly; his last drink was on Sunday. UTox is positive for cocaine and THC, BAL is less than 10. He notes mild depression at this time. He denies anxiety. He denies SI/HI/AH/VH. He signed a CV with this provider this morning. Per collateral from CARE team, patient's son states that patient has no history psychosis or mental illness. Interpretation by professional insurance claims analyst who was present in the room. 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 Uses 4 g of cocaine intranasally on Fridays, Saturdays, and Sundays, has been using x 4 years. Drinks 3 beers once weekly, last use was Sunday. UTox is positive for cocaine and THC. BAL less than 10. Smokes 2 cigarettes daily for the past 8 months Trauma History: Denies Diagnostics Vital Signs (24Hr): Vital Signs - 24 hr 02/11/25 19:44 02/12/25 08:00 Temperature 98.7 F 98.7 F Pulse Rate 88 66 Respiratory Rate 18 16 Blood Pressure 112/70 113/74 Pulse Oximetry 98 98 Oxygen Delivery Method Room Air Room Air BMI result Body Mass Index 23.8 Labs 02/09/25 07:21 02/09/25 07:21 Labs: Laboratory Results - last 48 hr 02/12/25 07:58 Estimat Average Glucose 252 Hemoglobin A1c % 10.4 H Triglycerides 151 H Cholesterol 166 LDL Cholesterol, Calc 90 HDL Cholesterol 46 TSH 1.15 Meds/Allergies Meds Home Medications ?Medication ?Instructions ?Recorded ?Confirmed ?Type albuterol sulfate 90 mcg/actuation 2 puff inhalation Q4H PRN 04/07/20 02/09/25 History aerosol inhaler (ProAir HFA) Shortness Of Breath acetaminophen 500 mg tablet 500 mg PO Q8H PRN mild pain 02/09/25 02/09/25 History albuterol sulfate 90 mcg/actuation 2 puff inhalation Q4-6H PRN 02/09/25 02/09/25 History aerosol inhaler (Ventolin HFA) Shortness Of Breath Or Wheezing sertraline 50 mg tablet 50 mg PO DAILY 02/09/25 02/09/25 History topiramate 50 mg tablet 50 mg PO BEDTIME 02/09/25 02/09/25 History Allergies Allergies Allergy/AdvReac Type Severity Reaction Status Date / Time No Known Allergies Allergy Verified 02/09/25 06:40 Mental Status Exam Mental Status Exam Narrative: Appearance: Casually dressed, adequate hygiene Behavior: Calm and cooperative throughout the interview. Eye contact is appropriate, and there are no signs of psychomotor agitation or retardation Speech: Normal volume and prosody Thought process: Paranoia Thought content: Paranoid delusion Mood: Euthymic Affect: Full, mood-congruent SI:denies HI:denies VH/AH:none Delusions: Paranoia Insight/judgment: Impaired insight and judgment Memory/cog: Alert, oriented x 3. grossly intact to conversational testing Assessment & Plan Assessment & Plan (1) Drug-induced psychotic disorder: Status: Acute Code(s): F19.959 - Other psychoactive substance use, unspecified with psychoactive substance-induced psychotic disorder, unspecified (2) Depression: Status: Acute Code(s): F32.A - Depression, unspecified (3) Diabetes mellitus, type 2: Status: Acute Code(s): E11.9 - Type 2 diabetes mellitus without complications Plan 44-year-old Mongolian-speaking male with history of the patient and type 2 diabetes presents to [facility] on 02/09/2025 for paranoid delusions and suicidal ideation. 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 Last Sunday night, showed up outside of the trailer that he lived. They showed up again on Sunday and Sunday night. On Sunday night, they threatened to kill him. They could see him through the windows of his trailer. Therefore, he took his medications as prescribed, in an attempt to trick them that he had poisoned himself. They immediately left. On 02/09/2025, he rode his bicycle to [facility] for safety. He did not go to the police because the hospital is closer from his trailer. He notes that the police is aware about his situation and that they already have a few individuals in custody. He feels sad about what is going on because the leader of those involved is like a brother to him. He states that for the past 6 months, he was under significant stress the progressively worsened. His ex- ensuring that their children are not connected with him. He mentioned that he was a great provider for his family. Three months ago, he had to return to [place] after relocating to the [facility] 15 years ago, to bury his older brother. Before those stressors, he was doing well mentally, although he was homeless for a year. He notes that he has not been consistent with taking his prescription medications. He takes his medications every other day, instead of daily as prescribed. He smokes 1 blunt of cannabis daily and has been smoking for the past 2 months. His last cannabis use was on Sunday. He uses 4 g of cocaine intranasally on Fridays, Saturdays, and Sundays, and has been using cocaine for the past 4 years. He drinks 3 beers once weekly; his last drink was on Sunday. UTox is positive for cocaine and THC, BAL is less than 10. He notes mild depression at this time. He denies anxiety. He denies SI/HI/AH/VH. He signed a CV with this provider this morning. Per collateral from CARE team, patient's son states that patient has no history psychosis or mental illness. Formulation/clinical reasoning: Depression, drug-induced psychosis: Worsening depressive and likely due to psychosocial stressors, cannabis and cocaine use, and medication noncompliance. Continue current treatment regimen. Regarding his diabetes medications, nursing verified Amelia seen a those increased to 1.5 mg on 01/28/2025 but never picked up and 4 days supply of Januvia 100 mg daily on 01/23/2025. His A1c is 10.4% today, above goal of less than 7.0%. Will start metformin 500 mg twice daily and Trulicity 1.5 mg weekly. ADA diet and routine exercise encouraged. Continue current treatment regimen. Instructed on the risks, benefits, and potential adverse reactions of his medications. Verbalized understanding agreed with the plan. Plan Admit to M5. CV 15 minutes check. Diagnostics as needed. Collateral contact. Continue remainder of regime. Encouraged full milieu. Discharge planning. Meds: Sertraline 50 mg daily, topiramate 50 mg at bedtime. Patient educated on: diagnosis, medication risk/benefits and therapeutic strategies Reason for continued inpatient stay Substantial Risk for: rapid decompensation Statement Statement: I have reviewed the history and physical and performed a pertinent examination on my patient. No changes have occurred unless specified. If the History and Physical was not performed prior to admission, the Hospitalist's service will be consulted for completing the admission physical. Time Spent With Patient Time: Total time managing care of this patient today ____ minutes.
[2025-02-12 20:00] VITALS: BP 104/68; PULSE 76; RESP 16; TEMP 36.4; O2SAT 98
[2025-02-13 09:12] VITALS: BP 129/58; PULSE 75; RESP 16; TEMP 36.4; O2SAT 98
--- NOTE | 2025-02-13 10:34 | HO.PSYCHPN ---
Subjective Subjective Date of Service: 02/13/25 Reason For Visit: Paranoid delusion Interim History: Met with pt and team who interpreted as our research project coordinator was working with other patients at that time. He reports feeling improved. He hopes to discharge on 02/16. Team report paranoia, fear- that others are following him and that others will kill him. One interpretation of this fear is that since admitting for treatment he is behind at work and this may be his expression of this concern. Today, pt denies issues of concern, denies fear, denies worry. He plans to continue out pt care. Denies SI,HI, AH,VH. Denies current concerns. Medication Compliance: Yes Side effects from medications: No Attending Groups: Yes Review of Systems Acute medical concerns: No Medical Review of Systems: unchanged Review of Systems Review of Systems Denies Mental Status Exam Mental Status Exam Patient Appearance: Appropriate Patient Orientation: Person, Place, Time and Situation Level of Consciousness: Alert Patient Behavior: Talkative and Good Eye Contact Mood Description: Apprehensive Affect Description: Constricted Patient Cognition Impaired: No Ability to Follow Directions: Good Speech Pattern: Spontaneous Speech Memory Description: Intact Hallucinations: None Delusions: Not Present Thought Process: Goal Oriented Thought Content: positive for Goal Oriented Judgement: Fair Diagnostics Vital Signs (24Hr): Vital Signs - 24 hr 02/12/25 20:00 02/13/25 09:12 Temperature 97.6 F 97.6 F Pulse Rate 76 75 Respiratory Rate 16 16 Blood Pressure 104/68 129/58 L Pulse Oximetry 98 98 Oxygen Delivery Method Room Air Room Air BMI result Body Mass Index 23.8 Labs 02/09/25 07:21 02/09/25 07:21 Labs: Laboratory Results - last 48 hr 02/12/25 07:58 Estimat Average Glucose 252 Hemoglobin A1c % 10.4 H Triglycerides 151 H Cholesterol 166 LDL Cholesterol, Calc 90 HDL Cholesterol 46 TSH 1.15 Medications Medications Current Medications Acetaminophen (Acetaminophen 325 Mg Tablet) 650 mg PO Q6H PRN PRN Reason: Headache/Pain, Scale 1-10 Al Hydroxide/Mg Hydroxide (Magnesium Hydrox/Alum Hydrox 30 Ml Oral.Susp) 30 ml PO Q6H PRN PRN Reason: Heartburn/Nausea Albuterol Sulfate (Albuterol Sulfate 90 Mcg 8 Gm Inhaler) 2 puff INHALE Q4H PRN PRN Reason: Shortness of Breath Cyclobenzaprine HCl (Cyclobenzaprine Hcl 5 Mg Tablet) 5 mg PO BEDTIME PRN PRN Reason: Muscle Spasm Last Admin: 02/09/25 22:32 Dose: 5 mg Hydroxyzine HCl (Hydroxyzine Hcl 25 Mg Tablet) 25 mg PO Q6H PRN PRN Reason: mild anxiety Magnesium Hydroxide (Milk Of Magnesia 30 Ml Oral.Susp) 30 ml PO DAILY PRN PRN Reason: Constipation Metformin HCl (Metformin Hcl 500 Mg Tablet) 500 mg PO BIDWM [facility] Last Admin: 02/13/25 09:14 Dose: 500 mg Nicotine Polacrilex (Nicotine Polacrilex 2 Mg Gum) 4 mg BUCCAL Q2H PRN PRN Reason: Nicotine Cravings Sertraline HCl (Sertraline Hcl 50 Mg Tablet) 50 mg PO DAILY [facility] Last Admin: 02/13/25 09:14 Dose: 50 mg Topiramate (Topiramate 25 Mg Tablet) 50 mg PO BEDTIME [facility] Last Admin: 02/12/25 21:51 Dose: 50 mg Trazodone HCl (Trazodone Hcl 50 Mg Tablet) 50 mg PO BEDTIME MRX1 PRN PRN Reason: Insomnia Allergies Allergies Allergy/AdvReac Type Severity Reaction Status Date / Time No Known Allergies Allergy Verified 02/09/25 06:40 Assessment & Plan Assessment & Plan (1) Drug-induced psychotic disorder: Status: Acute Code(s): F19.959 - Other psychoactive substance use, unspecified with psychoactive substance-induced psychotic disorder, unspecified (2) Depression: Status: Acute Code(s): F32.A - Depression, unspecified (3) Diabetes mellitus, type 2: Status: Acute Code(s): E11.9 - Type 2 diabetes mellitus without complications Plan 44-year-old Northern Irish-speaking male with history of the patient and type 2 diabetes presents to [facility] on 02/09/2025 for paranoid delusions and suicidal ideation. 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 Last Sunday night, showed up outside of the trailer that he lived. They showed up again on Sunday and Sunday night. On Sunday night, they threatened to kill him. They could see him through the windows of his trailer. Therefore, he took his medications as prescribed, in an attempt to trick them that he had poisoned himself. They immediately left. On 02/09/2025, he rode his bicycle to [facility] for safety. He did not go to the police because the hospital is closer from his trailer. He notes that the police is aware about his situation and that they already have a few individuals in custody. He feels sad about what is going on because the leader of those involved is like a brother to him. He states that for the past 6 months, he was under significant stress the progressively worsened. His ex- ensuring that their children are not connected with him. He mentioned that he was a great provider for his family. Three months ago, he had to return to [place] after relocating to the [place] 15 years ago, to bury his older brother. Before those stressors, he was doing well mentally, although he was homeless for a year. He notes that he has not been consistent with taking his prescription medications. He takes his medications every other day, instead of daily as prescribed. He smokes 1 blunt of cannabis daily and has been smoking for the past 2 months. His last cannabis use was on Sunday. He uses 4 g of cocaine intranasally on Fridays, Saturdays, and Sundays, and has been using cocaine for the past 4 years. He drinks 3 beers once weekly; his last drink was on Sunday. UTox is positive for cocaine and THC, BAL is less than 10. He notes mild depression at this time. He denies anxiety. He denies SI/HI/AH/VH. He signed a CV with this provider this morning. Per collateral from CARE team, patient's son states that patient has no history psychosis or mental illness. Formulation/clinical reasoning: Depression, drug-induced psychosis: Worsening depressive and likely due to psychosocial stressors, cannabis and cocaine use, and medication noncompliance. Continue current treatment regimen. Regarding his diabetes medications, nursing verified Amelia seen a those increased to 1.5 mg on 01/28/2025 but never picked up and 4 days supply of Januvia 100 mg daily on 01/23/2025. His A1c is 10.4% today, above goal of less than 7.0%. Will start metformin 500 mg twice daily and Trulicity 1.5 mg weekly. ADA diet and routine exercise encouraged. Continue current treatment regimen. Instructed on the risks, benefits, and potential adverse reactions of his medications. Verbalized understanding agreed with the plan. 02/13: Denies paranoia today. Continue to monitor as pt may need medication adjustments if sx persist. Plan Admit to M5. CV 15 minutes check. Diagnostics as needed. Collateral contact. Continue remainder of regime. Encouraged full milieu. Discharge planning. Meds: Sertraline 50 mg daily, topiramate 50 mg at bedtime. Reason for continued inpatient stay Substantial Risk for: rapid decompensation Time Spent With Patient Time: Total time managing care of this patient today ____ minutes.
[2025-02-13 20:00] VITALS: BP 114/60; PULSE 90; RESP 16; TEMP 36.7; O2SAT 97
[2025-02-14 08:00] VITALS: BP 108/66; PULSE 67; RESP 14; TEMP 37.2; O2SAT 99
--- NOTE | 2025-02-14 08:30 | HO.PSYCHPN ---
Subjective Subjective Date of Service: 02/14/25 Reason For Visit: Paranoid delusion Interim History: Met With patient; discussed with team; reviewed chart; seen with Gucci Perry Duy Did not explained to mortgage or loan underwriter why he came to the hospital, that people said they wanted to kill him because he was supposed to paint their cars... Patient said he came to the hospital instead of the police because the hospitalist closer and could offer him protection. Mental Status Exam Mental Status Exam Narrative: Pt is alert and oriented; behavior is cooperative, friendly and calm; patient is not in distress; dressed in casual attire with adequate hygiene and grooming; mood is described as good and affect congruent, though incongruent with situation (expresses fear that he is going to be attacked); eye contact appropriate; Speech is normal rate, volume and prosody and not pressured; no psychomotor agitation/retardation present; thought process is organized and goal directed; Thought content is on people who are planning to kill him; denies any SI/HI. Denies AVH Patients insight and judgment impaired. Diagnostics Vital Signs (24Hr): Vital Signs - 24 hr 02/13/25 09:12 02/13/25 20:00 02/14/25 08:00 Temperature 97.6 F 98.1 F 98.9 F Pulse Rate 75 90 67 Respiratory Rate 16 16 14 Blood Pressure 129/58 L 114/60 108/66 Pulse Oximetry 98 97 99 Oxygen Delivery Method Room Air Room Air Room Air BMI result Body Mass Index 23.8 Labs 02/09/25 07:21 02/09/25 07:21 Labs: Laboratory Results - last 48 hr 02/12/25 07:58 Triglycerides 151 H Cholesterol 166 LDL Cholesterol, Calc 90 HDL Cholesterol 46 TSH 1.15 Medications Medications Current Medications Acetaminophen (Acetaminophen 325 Mg Tablet) 650 mg PO Q6H PRN PRN Reason: Headache/Pain, Scale 1-10 Al Hydroxide/Mg Hydroxide (Magnesium Hydrox/Alum Hydrox 30 Ml Oral.Susp) 30 ml PO Q6H PRN PRN Reason: Heartburn/Nausea Albuterol Sulfate (Albuterol Sulfate 90 Mcg 8 Gm Inhaler) 2 puff INHALE Q4H PRN PRN Reason: Shortness of Breath Cyclobenzaprine HCl (Cyclobenzaprine Hcl 5 Mg Tablet) 5 mg PO BEDTIME PRN PRN Reason: Muscle Spasm Last Admin: 02/09/25 22:32 Dose: 5 mg Hydroxyzine HCl (Hydroxyzine Hcl 25 Mg Tablet) 25 mg PO Q6H PRN PRN Reason: mild anxiety Magnesium Hydroxide (Milk Of Magnesia 30 Ml Oral.Susp) 30 ml PO DAILY PRN PRN Reason: Constipation Metformin HCl (Metformin Hcl 500 Mg Tablet) 500 mg PO BIDWM [facility] Last Admin: 02/13/25 17:46 Dose: 500 mg Nicotine Polacrilex (Nicotine Polacrilex 2 Mg Gum) 4 mg BUCCAL Q2H PRN PRN Reason: Nicotine Cravings Sertraline HCl (Sertraline Hcl 50 Mg Tablet) 50 mg PO DAILY [facility] Last Admin: 02/13/25 09:14 Dose: 50 mg Topiramate (Topiramate 25 Mg Tablet) 50 mg PO BEDTIME [facility] Last Admin: 02/13/25 20:47 Dose: 50 mg Trazodone HCl (Trazodone Hcl 50 Mg Tablet) 50 mg PO BEDTIME MRX1 PRN PRN Reason: Insomnia Last Admin: 02/13/25 21:06 Dose: 50 mg Allergies Allergies Allergy/AdvReac Type Severity Reaction Status Date / Time No Known Allergies Allergy Verified 02/09/25 06:40 Assessment & Plan Assessment & Plan (1) Drug-induced psychotic disorder: Status: Acute Code(s): F19.959 - Other psychoactive substance use, unspecified with psychoactive substance-induced psychotic disorder, unspecified (2) Depression: Status: Acute Code(s): F32.A - Depression, unspecified (3) Diabetes mellitus, type 2: Status: Acute Code(s): E11.9 - Type 2 diabetes mellitus without complications Plan 44-year-old Cameroonian-speaking male with history of the patient and type 2 diabetes presents to [facility] on 02/09/2025 for paranoid delusions and suicidal ideation. 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 Last Sunday night, showed up outside of the trailer that he lived. They showed up again on Sunday and Sunday night. On Sunday night, they threatened to kill him. They could see him through the windows of his trailer. Therefore, he took his medications as prescribed, in an attempt to trick them that he had poisoned himself. They immediately left. On 02/09/2025, he rode his bicycle to [facility] for safety. He did not go to the police because the hospital is closer from his trailer. He notes that the police is aware about his situation and that they already have a few individuals in custody. He feels sad about what is going on because the leader of those involved is like a brother to him. He states that for the past 6 months, he was under significant stress the progressively worsened. His ex- ensuring that their children are not connected with him. He mentioned that he was a great provider for his family. Three months ago, he had to return to [place] after relocating to [place] 15 years ago, to bury his older brother. Before those stressors, he was doing well mentally, although he was homeless for a year. He notes that he has not been consistent with taking his prescription medications. He takes his medications every other day, instead of daily as prescribed. He smokes 1 blunt of cannabis daily and has been smoking for the past 2 months. His last cannabis use was on Sunday. He uses 4 g of cocaine intranasally on Fridays, Saturdays, and Sundays, and has been using cocaine for the past 4 years. He drinks 3 beers once weekly; his last drink was on Sunday. UTox is positive for cocaine and THC, BAL is less than 10. He notes mild depression at this time. He denies anxiety. He denies SI/HI/AH/VH. He signed a CV with this provider this morning. Per collateral from CARE team, patient's son states that patient has no history psychosis or mental illness. Formulation/clinical reasoning: Depression, drug-induced psychosis: Worsening depressive and likely due to psychosocial stressors, cannabis and cocaine use, and medication noncompliance. Continue current treatment regimen. Regarding his diabetes medications, nursing verified Amelia seen a those increased to 1.5 mg on 01/28/2025 but never picked up and 4 days supply of Januvia 100 mg daily on 01/23/2025. His A1c is 10.4% today, above goal of less than 7.0%. Will start metformin 500 mg twice daily and Trulicity 1.5 mg weekly. ADA diet and routine exercise encouraged. Continue current treatment regimen. Instructed on the risks, benefits, and potential adverse reactions of his medications. Verbalized understanding agreed with the plan. Hospital course: 02/14 Did not explained to mortgage or loan underwriter why he came to the hospital, that people said they wanted to kill him because he was supposed to paint their cars... Patient said he came to the hospital instead of the police because the hospitalist closer and could offer him protection. Impression: -difficult to discern what is actual and what his paranoid ideations. Possibly drug-induced however intoxication/withdrawal has resolved and patient remains paranoid. Looking at HPI, there are some very odd aspects patient's story, such as saying that he took his medications so that the people spying on him would think he poison himself... Patient talks about worrying that they are outside the building now and wanting to make sure that he safe on the unit that they can not come up here. Also affect is incongruent as patient says he is fearful that people are coming to attack him however he presents as calm, smiling. -Will consider antipsychotic medication Plan Admit to M5. CV 15 minutes check. Diagnostics as needed. Collateral contact. Continue remainder of regime. Encouraged full milieu. Discharge planning. Meds: Sertraline 50 mg daily, topiramate 50 mg at bedtime. Patient educated on: diagnosis Informed Consent: understands, does not understand and further education needed Reason for continued inpatient stay Substantial Risk for: rapid decompensation Time Spent With Patient Time: Total time managing care of this patient today ____ minutes.
[2025-02-14 20:00] VITALS: BP 113/70; PULSE 78; RESP 16; TEMP 37.2; O2SAT 98
--- NOTE | 2025-02-15 | ECG_ITS ---
Test Reason : chest pain Blood Pressure : */* mmHG Vent. Rate : 78 BPM Atrial Rate : 78 BPM P-R Int : 166 ms QRS Dur : 96 ms QT Int : 382 ms P-R-T Axes : 63 77 46 degrees QTcB Int : 435 ms Normal sinus rhythm Normal ECG When compared with ECG of 09-Feb-2025 07:08, No significant change was found Referred By: Marin Omalley Electronically Signed By: NIYAH ADAMS MD
[2025-02-15 07:55] VITALS: BP 112/71; PULSE 76; TEMP 36.3; O2SAT 100
--- NOTE | 2025-02-15 14:29 | HO.PSYCHPN ---
Subjective Subjective Date of Service: 02/15/25 Reason For Visit: Paranoid delusion Interim History: Met with patient; discussed with team; seen with lobby attendant Duy Patient expressing paranoid ideations that there are people outside the building waiting to kill him. Patient said that he saw a car from the window that he recognized and is convinced that it is someone he knows who is waiting to kill him; he said it was driving around in circles in a weird way so he knew that was unusual and therefore it must be people stalking him. Patient showed business writer an extensive sketch of the parking lot and they route the car was driving. Electroneurodiagnostic Technician discussed the possibility of this being paranoia patient does not think so but he agrees that he is very fearful about it and agreed to try risperidone; business writer offered to discuss the risks/side effects however patient said did not want to know at this time. Diagnostics Vital Signs (24Hr): Vital Signs - 24 hr 02/14/25 20:00 02/15/25 07:55 Temperature 98.9 F 97.3 F Pulse Rate 78 76 Respiratory Rate 16 Blood Pressure 113/70 112/71 Pulse Oximetry 98 100 Oxygen Delivery Method Room Air Room Air BMI result Body Mass Index 23.8 Labs 02/09/25 07:21 02/09/25 07:21 Medications Medications Current Medications Acetaminophen (Acetaminophen 325 Mg Tablet) 650 mg PO Q6H PRN PRN Reason: Headache/Pain, Scale 1-10 Al Hydroxide/Mg Hydroxide (Magnesium Hydrox/Alum Hydrox 30 Ml Oral.Susp) 30 ml PO Q6H PRN PRN Reason: Heartburn/Nausea Albuterol Sulfate (Albuterol Sulfate 90 Mcg 8 Gm Inhaler) 2 puff INHALE Q4H PRN PRN Reason: Shortness of Breath Cyclobenzaprine HCl (Cyclobenzaprine Hcl 5 Mg Tablet) 5 mg PO BEDTIME PRN PRN Reason: Muscle Spasm Last Admin: 02/09/25 22:32 Dose: 5 mg Hydroxyzine HCl (Hydroxyzine Hcl 25 Mg Tablet) 25 mg PO Q6H PRN PRN Reason: mild anxiety Magnesium Hydroxide (Milk Of Magnesia 30 Ml Oral.Susp) 30 ml PO DAILY PRN PRN Reason: Constipation Metformin HCl (Metformin Hcl 500 Mg Tablet) 500 mg PO BIDWM [facility] Last Admin: 02/15/25 08:42 Dose: 500 mg Nicotine Polacrilex (Nicotine Polacrilex 2 Mg Gum) 4 mg BUCCAL Q2H PRN PRN Reason: Nicotine Cravings Risperidone (Risperidone 0.5 Mg Tablet) 0.5 mg PO BID [facility] Sertraline HCl (Sertraline Hcl 50 Mg Tablet) 50 mg PO DAILY [facility] Last Admin: 02/15/25 08:42 Dose: 50 mg Topiramate (Topiramate 25 Mg Tablet) 50 mg PO BEDTIME [facility] Last Admin: 02/14/25 20:06 Dose: 50 mg Trazodone HCl (Trazodone Hcl 50 Mg Tablet) 50 mg PO BEDTIME MRX1 PRN PRN Reason: Insomnia Last Admin: 02/13/25 21:06 Dose: 50 mg Allergies Allergies Allergy/AdvReac Type Severity Reaction Status Date / Time No Known Allergies Allergy Verified 02/09/25 06:40 Assessment & Plan Assessment & Plan (1) Drug-induced psychotic disorder: Status: Acute Code(s): F19.959 - Other psychoactive substance use, unspecified with psychoactive substance-induced psychotic disorder, unspecified (2) Depression: Status: Acute Code(s): F32.A - Depression, unspecified (3) Diabetes mellitus, type 2: Status: Acute Code(s): E11.9 - Type 2 diabetes mellitus without complications Plan 44-year-old Burkinan-speaking male with history of the patient and type 2 diabetes presents to [facility] on 02/09/2025 for paranoid delusions and suicidal ideation. 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 Last Sunday night, showed up outside of the trailer that he lived. They showed up again on Sunday and Sunday night. On Sunday night, they threatened to kill him. They could see him through the windows of his trailer. Therefore, he took his medications as prescribed, in an attempt to trick them that he had poisoned himself. They immediately left. On 02/09/2025, he rode his bicycle to [facility] for safety. He did not go to the police because the hospital is closer from his trailer. He notes that the police is aware about his situation and that they already have a few individuals in custody. He feels sad about what is going on because the leader of those involved is like a brother to him. He states that for the past 6 months, he was under significant stress the progressively worsened. His ex- ensuring that their children are not connected with him. He mentioned that he was a great provider for his family. Three months ago, he had to return to [place] after relocating to the [facility] 15 years ago, to bury his older brother. Before those stressors, he was doing well mentally, although he was homeless for a year. He notes that he has not been consistent with taking his prescription medications. He takes his medications every other day, instead of daily as prescribed. He smokes 1 blunt of cannabis daily and has been smoking for the past 2 months. His last cannabis use was on Sunday. He uses 4 g of cocaine intranasally on Fridays, Saturdays, and Sundays, and has been using cocaine for the past 4 years. He drinks 3 beers once weekly; his last drink was on Sunday. UTox is positive for cocaine and THC, BAL is less than 10. He notes mild depression at this time. He denies anxiety. He denies SI/HI/AH/VH. He signed a CV with this provider this morning. Per collateral from CARE team, patient's son states that patient has no history psychosis or mental illness. Formulation/clinical reasoning: Depression, drug-induced psychosis: Worsening depressive and likely due to psychosocial stressors, cannabis and cocaine use, and medication noncompliance. Continue current treatment regimen. Regarding his diabetes medications, nursing verified Trulicity seen a those increased to 1.5 mg on 01/28/2025 but never picked up and 4 days supply of Januvia 100 mg daily on 01/23/2025. His A1c is 10.4% today, above goal of less than 7.0%. Will start metformin 500 mg twice daily and Trulicity 1.5 mg weekly. ADA diet and routine exercise encouraged. Continue current treatment regimen. Instructed on the risks, benefits, and potential adverse reactions of his medications. Verbalized understanding agreed with the plan. Hospital course: 02/14 Did not explained to business writer why he came to the hospital, that people said they wanted to kill him because he was supposed to paint their cars... Patient said he came to the hospital instead of the police because the hospitalist closer and could offer him protection. Impression: -difficult to discern what is actual and what his paranoid ideations. Possibly drug-induced however intoxication/withdrawal has resolved and patient remains paranoid. Looking at HPI, there are some very odd aspects patient's story, such as saying that he took his medications so that the people spying on him would think he poison himself... Patient talks about worrying that they are outside the building now and wanting to make sure that he safe on the unit that they can not come up here. Also affect is incongruent as patient says he is fearful that people are coming to attack him however he presents as calm, smiling. -Will consider antipsychotic medication 02/15 Patient expressing paranoid ideations that there are people outside the building waiting to kill him. Patient said that he saw a car from the window that he recognized and is convinced that it is someone he knows who is waiting to kill him; he said it was driving around in circles in a weird way so he knew that was unusual and therefore it must be people stalking him. Patient showed business writer an extensive sketch of the parking lot and they route the car was driving. Electroneurodiagnostic Technician discussed the possibility of this being paranoia patient does not think so but he agrees that he is very fearful about it and agreed to try risperidone; business writer offered to discuss the risks/side effects however patient said did not want to know at this time. Plan Admit to M5. CV 15 minutes check. Start risperidone 0.5 mg b.i.d. Diagnostics as needed. Collateral contact. Continue remainder of regime. Encouraged full milieu. Discharge planning. Meds: Sertraline 50 mg daily, topiramate 50 mg at bedtime. Patient educated on: diagnosis and medication risk/benefits Informed Consent: understands, does not understand and further education needed Reason for continued inpatient stay Substantial Risk for: rapid decompensation Time Spent With Patient Time: Total time managing care of this patient today ____ minutes.
[2025-02-15 20:00] VITALS: BP 117/71; PULSE 86; RESP 15; TEMP 38.2; O2SAT 95
[2025-02-15 20:51] VITALS: TEMP 37.4
[2025-02-16 08:00] VITALS: BP 122/79; PULSE 80; RESP 16; TEMP 36.4; O2SAT 98
[2025-02-16 08:06] LABS: Creatinine Clr Calc Pharmacy 97.2; Estimated Glomerular Filt Rate > 60
--- NOTE | 2025-02-16 09:38 | HO.PSYCHPN ---
Subjective Subjective Date of Service: 02/16/25 Reason For Visit: Paranoid delusion Subjective Notes: Conditional Voluntary Healthcare Proxy: No Guardianship: No Medical Problems Affecting Mental Status: No Interim History: Met with pt, team, [facility] interpreters. Expressed concern that someone is looking for him to harm him. 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 Anxious. Denies SI,HI,VH,AH. Reports medications are tolerated with some efficacy. Medication Compliance: Yes Side effects from medications: No Attending Groups: Intermittent Review of Systems Acute medical concerns: No Medical Review of Systems: unchanged Review of Systems Review of Systems Denies Mental Status Exam Mental Status Exam Patient Appearance: Appropriate Patient Orientation: Person, Place, Time and Situation Level of Consciousness: Alert Patient Behavior: Talkative and Good Eye Contact Mood Description: Apprehensive Affect Description: Constricted Patient Cognition Impaired: No Ability to Follow Directions: Good Speech Pattern: Spontaneous Speech Memory Description: Intact Hallucinations: None Delusions: Not Present Thought Process: Goal Oriented Thought Content: positive for Goal Oriented Judgement: Fair Diagnostics Vital Signs (24Hr): Vital Signs - 24 hr 02/15/25 20:00 02/15/25 20:51 02/16/25 08:00 Temperature 100.7 F H 99.3 F 97.6 F Pulse Rate 86 80 Respiratory Rate 15 16 Blood Pressure 117/71 122/79 Pulse Oximetry 95 98 BMI result Body Mass Index 23.8 Labs 02/09/25 07:21 02/16/25 07:49 Labs: Laboratory Results - last 48 hr 02/16/25 07:49 Creatinine 0.99 Estim Creat Clear Calc 97.2 Estimated GFR > 60 Medications Medications Current Medications Acetaminophen (Acetaminophen 325 Mg Tablet) 650 mg PO Q6H PRN PRN Reason: Headache/Pain, Scale 1-10 Al Hydroxide/Mg Hydroxide (Magnesium Hydrox/Alum Hydrox 30 Ml Oral.Susp) 30 ml PO Q6H PRN PRN Reason: Heartburn/Nausea Albuterol Sulfate (Albuterol Sulfate 90 Mcg 8 Gm Inhaler) 2 puff INHALE Q4H PRN PRN Reason: Shortness of Breath Cyclobenzaprine HCl (Cyclobenzaprine Hcl 5 Mg Tablet) 5 mg PO BEDTIME PRN PRN Reason: Muscle Spasm Last Admin: 02/09/25 22:32 Dose: 5 mg Hydroxyzine HCl (Hydroxyzine Hcl 25 Mg Tablet) 25 mg PO Q6H PRN PRN Reason: mild anxiety Magnesium Hydroxide (Milk Of Magnesia 30 Ml Oral.Susp) 30 ml PO DAILY PRN PRN Reason: Constipation Metformin HCl (Metformin Hcl 500 Mg Tablet) 500 mg PO BIDWM [facility] Last Admin: 02/16/25 08:59 Dose: 500 mg Nicotine Polacrilex (Nicotine Polacrilex 2 Mg Gum) 4 mg BUCCAL Q2H PRN PRN Reason: Nicotine Cravings Risperidone (Risperidone 0.5 Mg Tablet) 0.5 mg PO BID [facility] Last Admin: 02/16/25 08:59 Dose: 0.5 mg Sertraline HCl (Sertraline Hcl 50 Mg Tablet) 50 mg PO DAILY [facility] Last Admin: 02/16/25 08:59 Dose: 50 mg Topiramate (Topiramate 25 Mg Tablet) 50 mg PO BEDTIME [facility] Last Admin: 02/15/25 20:52 Dose: 50 mg Trazodone HCl (Trazodone Hcl 50 Mg Tablet) 50 mg PO BEDTIME MRX1 PRN PRN Reason: Insomnia Last Admin: 02/13/25 21:06 Dose: 50 mg Allergies Allergies Allergy/AdvReac Type Severity Reaction Status Date / Time No Known Allergies Allergy Verified 02/09/25 06:40 Assessment & Plan Assessment & Plan (1) Drug-induced psychotic disorder: Status: Acute Code(s): F19.959 - Other psychoactive substance use, unspecified with psychoactive substance-induced psychotic disorder, unspecified (2) Depression: Status: Acute Code(s): F32.A - Depression, unspecified (3) Diabetes mellitus, type 2: Status: Acute Code(s): E11.9 - Type 2 diabetes mellitus without complications Plan 44-year-old Slovenian-speaking male with history of the patient and type 2 diabetes presents to [facility] on 02/09/2025 for paranoid delusions and suicidal ideation. 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 Last Sunday night, showed up outside of the trailer that he lived. They showed up again on Sunday and Sunday night. On Sunday night, they threatened to kill him. They could see him through the windows of his trailer. Therefore, he took his medications as prescribed, in an attempt to trick them that he had poisoned himself. They immediately left. On 02/09/2025, he rode his bicycle to [facility] ED for safety. He did not go to the police because the hospital is closer from his trailer. He notes that the police is aware about his situation and that they already have a few individuals in custody. He feels sad about what is going on because the leader of those involved is like a brother to him. He states that for the past 6 months, he was under significant stress the progressively worsened. His ex- ensuring that their children are not connected with him. He mentioned that he was a great provider for his family. Three months ago, he had to return to [place] after relocating to the [facility] 15 years ago, to bury his older brother. Before those stressors, he was doing well mentally, although he was homeless for a year. He notes that he has not been consistent with taking his prescription medications. He takes his medications every other day, instead of daily as prescribed. He smokes 1 blunt of cannabis daily and has been smoking for the past 2 months. His last cannabis use was on Sunday. He uses 4 g of cocaine intranasally on Fridays, Saturdays, and Sundays, and has been using cocaine for the past 4 years. He drinks 3 beers once weekly; his last drink was on Sunday. UTox is positive for cocaine and THC, BAL is less than 10. He notes mild depression at this time. He denies anxiety. He denies SI/HI/AH/VH. He signed a CV with this provider this morning. Per collateral from CARE team, patient's son states that patient has no history psychosis or mental illness. Formulation/clinical reasoning: Depression, drug-induced psychosis: Worsening depressive and likely due to psychosocial stressors, cannabis and cocaine use, and medication noncompliance. Continue current treatment regimen. Regarding his diabetes medications, nursing verified Amelia seen a those increased to 1.5 mg on 01/28/2025 but never picked up and 4 days supply of Januvia 100 mg daily on 01/23/2025. His A1c is 10.4% today, above goal of less than 7.0%. Will start metformin 500 mg twice daily and Trulicity 1.5 mg weekly. ADA diet and routine exercise encouraged. Continue current treatment regimen. Instructed on the risks, benefits, and potential adverse reactions of his medications. Verbalized understanding agreed with the plan. Hospital course: 02/14 Did not explained to automobile service writer why he came to the hospital, that people said they wanted to kill him because he was supposed to paint their cars... Patient said he came to the hospital instead of the police because the hospitalist closer and could offer him protection. Impression: -difficult to discern what is actual and what his paranoid ideations. Possibly drug-induced however intoxication/withdrawal has resolved and patient remains paranoid. Looking at HPI, there are some very odd aspects patient's story, such as saying that he took his medications so that the people spying on him would think he poison himself... Patient talks about worrying that they are outside the building now and wanting to make sure that he safe on the unit that they can not come up here. Also affect is incongruent as patient says he is fearful that people are coming to attack him however he presents as calm, smiling. -Will consider antipsychotic medication 02/15 Patient expressing paranoid ideations that there are people outside the building waiting to kill him. Patient said that he saw a car from the window that he recognized and is convinced that it is someone he knows who is waiting to kill him; he said it was driving around in circles in a weird way so he knew that was unusual and therefore it must be people stalking him. Patient showed automobile service writer an extensive sketch of the parking lot and they route the car was driving. Traffic Circuit Engineer discussed the possibility of this being paranoia patient does not think so but he agrees that he is very fearful about it and agreed to try risperidone; automobile service writer offered to discuss the risks/side effects however patient said did not want to know at this time. 02/16: Discussed the group that he fears in the community he has work to do on their car and the wait has been prolonged. Reports they have been threatening to him. Tolerating medications, denies SI,HI,AH,VH, feeling safe on the unit. Plan Admit to M5. CV 15 minutes check. Start risperidone 0.5 mg b.i.d. Diagnostics as needed. Collateral contact. Continue remainder of regime. Encouraged full milieu. Discharge planning. Meds: Sertraline 50 mg daily, topiramate 50 mg at bedtime. Reason for continued inpatient stay Substantial Risk for: rapid decompensation Time Spent With Patient Time: Total time managing care of this patient today ____ minutes.
[2025-02-16 20:00] VITALS: BP 121/74; PULSE 99; RESP 18; TEMP 36.6; O2SAT 98
[2025-02-17 07:58] VITALS: BP 118/66; PULSE 77; TEMP 37.2; O2SAT 98
--- NOTE | 2025-02-17 09:59 | HO.PSYCHPN ---
Subjective Subjective Date of Service: 02/17/25 Reason For Visit: Paranoid delusion Subjective Notes: Conditional Voluntary Healthcare Proxy: No Guardianship: No Medical Problems Affecting Mental Status: No Interim History: Denies SI,HI,AH,VH. Visable and social on the unit with team and peers. Denies issues of concern today. Team reports son visited last evening. Pt tearful when this was discussed. Planning discharge for 02/19/25. Denies medication SE. Medication Compliance: Yes Side effects from medications: No Attending Groups: Intermittent Review of Systems Acute medical concerns: No Medical Review of Systems: unchanged Review of Systems Review of Systems denies Mental Status Exam Mental Status Exam Patient Appearance: Appropriate Patient Orientation: Person, Place, Time and Situation Level of Consciousness: Alert Patient Behavior: Talkative, Good Eye Contact and Crying (when he spoke of sons visit) Mood Description: Apprehensive Affect Description: Constricted Patient Cognition Impaired: No Ability to Follow Directions: Good Speech Pattern: Spontaneous Speech Memory Description: Intact Hallucinations: None Delusions: Not Present Thought Process: Goal Oriented Thought Content: positive for Goal Oriented Judgement: Fair Diagnostics Vital Signs (24Hr): Vital Signs - 24 hr 02/16/25 20:00 02/17/25 07:58 Temperature 97.9 F 98.9 F Pulse Rate 99 77 Respiratory Rate 18 Blood Pressure 121/74 118/66 Pulse Oximetry 98 98 Oxygen Delivery Method Room Air Room Air BMI result Body Mass Index 23.8 Labs 02/09/25 07:21 02/16/25 07:49 Labs: Laboratory Results - last 48 hr 02/16/25 07:49 Creatinine 0.99 Estim Creat Clear Calc 97.2 Estimated GFR > 60 Medications Medications Current Medications Acetaminophen (Acetaminophen 325 Mg Tablet) 650 mg PO Q6H PRN PRN Reason: Headache/Pain, Scale 1-10 Al Hydroxide/Mg Hydroxide (Magnesium Hydrox/Alum Hydrox 30 Ml Oral.Susp) 30 ml PO Q6H PRN PRN Reason: Heartburn/Nausea Albuterol Sulfate (Albuterol Sulfate 90 Mcg 8 Gm Inhaler) 2 puff INHALE Q4H PRN PRN Reason: Shortness of Breath Cyclobenzaprine HCl (Cyclobenzaprine Hcl 5 Mg Tablet) 5 mg PO BEDTIME PRN PRN Reason: Muscle Spasm Last Admin: 02/16/25 23:01 Dose: 5 mg Hydroxyzine HCl (Hydroxyzine Hcl 25 Mg Tablet) 25 mg PO Q6H PRN PRN Reason: mild anxiety Magnesium Hydroxide (Milk Of Magnesia 30 Ml Oral.Susp) 30 ml PO DAILY PRN PRN Reason: Constipation Metformin HCl (Metformin Hcl 500 Mg Tablet) 500 mg PO BIDWM [facility] Last Admin: 02/17/25 08:38 Dose: 500 mg Nicotine Polacrilex (Nicotine Polacrilex 2 Mg Gum) 4 mg BUCCAL Q2H PRN PRN Reason: Nicotine Cravings Risperidone (Risperidone 0.5 Mg Tablet) 0.5 mg PO BID [facility] Last Admin: 02/17/25 08:38 Dose: 0.5 mg Sertraline HCl (Sertraline Hcl 50 Mg Tablet) 50 mg PO DAILY [facility] Last Admin: 02/17/25 08:38 Dose: 50 mg Topiramate (Topiramate 25 Mg Tablet) 50 mg PO BEDTIME [facility] Last Admin: 02/16/25 21:11 Dose: 50 mg Trazodone HCl (Trazodone Hcl 50 Mg Tablet) 50 mg PO BEDTIME MRX1 PRN PRN Reason: Insomnia Last Admin: 02/13/25 21:06 Dose: 50 mg Allergies Allergies Allergy/AdvReac Type Severity Reaction Status Date / Time No Known Allergies Allergy Verified 02/09/25 06:40 Assessment & Plan Assessment & Plan (1) Drug-induced psychotic disorder: Status: Acute Code(s): F19.959 - Other psychoactive substance use, unspecified with psychoactive substance-induced psychotic disorder, unspecified (2) Depression: Status: Acute Code(s): F32.A - Depression, unspecified (3) Diabetes mellitus, type 2: Status: Acute Code(s): E11.9 - Type 2 diabetes mellitus without complications Plan 44-year-old Albanian-speaking male with history of the patient and type 2 diabetes presents to [facility] on 02/09/2025 for paranoid delusions and suicidal ideation. 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 Last Sunday night, showed up outside of the trailer that he lived. They showed up again on Sunday and Sunday night. On Sunday night, they threatened to kill him. They could see him through the windows of his trailer. Therefore, he took his medications as prescribed, in an attempt to trick them that he had poisoned himself. They immediately left. On 02/09/2025, he rode his bicycle to [facility] ED for safety. He did not go to the police because the hospital is closer from his trailer. He notes that the police is aware about his situation and that they already have a few individuals in custody. He feels sad about what is going on because the leader of those involved is like a brother to him. He states that for the past 6 months, he was under significant stress the progressively worsened. His ex- ensuring that their children are not connected with him. He mentioned that he was a great provider for his family. Three months ago, he had to return to [place] after relocating to the [place] states 15 years ago, to bury his older brother. Before those stressors, he was doing well mentally, although he was homeless for a year. He notes that he has not been consistent with taking his prescription medications. He takes his medications every other day, instead of daily as prescribed. He smokes 1 blunt of cannabis daily and has been smoking for the past 2 months. His last cannabis use was on Sunday. He uses 4 g of cocaine intranasally on Fridays, Saturdays, and Sundays, and has been using cocaine for the past 4 years. He drinks 3 beers once weekly; his last drink was on Sunday. UTox is positive for cocaine and THC, BAL is less than 10. He notes mild depression at this time. He denies anxiety. He denies SI/HI/AH/VH. He signed a CV with this provider this morning. Per collateral from CARE team, patient's son states that patient has no history psychosis or mental illness. Formulation/clinical reasoning: Depression, drug-induced psychosis: Worsening depressive and likely due to psychosocial stressors, cannabis and cocaine use, and medication noncompliance. Continue current treatment regimen. Regarding his diabetes medications, nursing verified Amelia seen a those increased to 1.5 mg on 01/28/2025 but never picked up and 4 days supply of Januvia 100 mg daily on 01/23/2025. His A1c is 10.4% today, above goal of less than 7.0%. Will start metformin 500 mg twice daily and Trulicity 1.5 mg weekly. ADA diet and routine exercise encouraged. Continue current treatment regimen. Instructed on the risks, benefits, and potential adverse reactions of his medications. Verbalized understanding agreed with the plan. Hospital course: 02/14 Did not explained to service writer advisor why he came to the hospital, that people said they wanted to kill him because he was supposed to paint their cars... Patient said he came to the hospital instead of the police because the hospitalist closer and could offer him protection. Impression: -difficult to discern what is actual and what his paranoid ideations. Possibly drug-induced however intoxication/withdrawal has resolved and patient remains paranoid. Looking at HPI, there are some very odd aspects patient's story, such as saying that he took his medications so that the people spying on him would think he poison himself... Patient talks about worrying that they are outside the building now and wanting to make sure that he safe on the unit that they can not come up here. Also affect is incongruent as patient says he is fearful that people are coming to attack him however he presents as calm, smiling. -Will consider antipsychotic medication 02/15 Patient expressing paranoid ideations that there are people outside the building waiting to kill him. Patient said that he saw a car from the window that he recognized and is convinced that it is someone he knows who is waiting to kill him; he said it was driving around in circles in a weird way so he knew that was unusual and therefore it must be people stalking him. Patient showed service writer advisor an extensive sketch of the parking lot and they route the car was driving. Geophysical Laboratory Supervisor discussed the possibility of this being paranoia patient does not think so but he agrees that he is very fearful about it and agreed to try risperidone; service writer advisor offered to discuss the risks/side effects however patient said did not want to know at this time. 02/17: Continue tx. DC 02/19 Plan Admit to M5. CV 15 minutes check. Start risperidone 0.5 mg b.i.d. Diagnostics as needed. Collateral contact. Continue remainder of regime. Encouraged full milieu. Discharge planning. Meds: Sertraline 50 mg daily, topiramate 50 mg at bedtime. Reason for continued inpatient stay Substantial Risk for: rapid decompensation Time Spent With Patient Time: Total time managing care of this patient today ____ minutes.
--- NOTE | 2025-02-17 18:33 | PC.NURSE ---
PER FEMALE PEER REPORT, PT AND PEER HAD A PHYSICAL ENCOUNTER OF KISSING YESTERDAY 02/16/25 WHICH PEER REPORTS THAT PT INITIATED. PT GOT INTO A VERBAL ALTERCATION WITH MALE PEER IN THE HALLWAY. PT AND PEER WERE AGGRESSIVELY HOLDING EACH OTHER WHEN STAFF INTERVENED TO SEPARATE THE TWO MEN. PT WAS ABLE TO BE REDIRECTED AWAY FROM THE SITUATION. NO FURTHER OUTBURST.
[2025-02-17 20:00] VITALS: BP 133/79; PULSE 100; RESP 16; TEMP 37.7; O2SAT 97
[2025-02-18 07:55] VITALS: BP 118/56; PULSE 82; RESP 14; TEMP 36.4; O2SAT 97
--- NOTE | 2025-02-18 11:29 | PM.PSYDC ---
DS: Providers Provider Date of Service: 02/18/25 Date of admission: 02/11/25 14:50 Date of discharge: 02/18/25 Primary care physician: Martha Lock MD Admitting clinician: Leeann Lin Attending physician on admission: Armond Bosch Attending physician on discharge: Armond Bosch Discharging clinician: Kavita Mauricio DS: Diagnosis Discharge Diagnosis (1) Drug-induced psychotic disorder: Status: Acute (2) Depression: Status: Acute (3) Diabetes mellitus, type 2: Status: Acute DS: Medications Discharge Medications Home Medications: Home Medications ?Medication ?Instructions ?Recorded ?Confirmed albuterol sulfate 90 mcg/actuation 2 puff inhalation Q4H PRN 04/07/20 02/09/25 aerosol inhaler (ProAir HFA) Shortness Of Breath acetaminophen 500 mg tablet 500 mg PO Q8H PRN mild pain 02/09/25 02/09/25 albuterol sulfate 90 mcg/actuation 2 puff inhalation Q4-6H PRN 02/09/25 02/09/25 aerosol inhaler (Ventolin HFA) Shortness Of Breath Or Wheezing Previous Rx's ?Medication ?Instructions ?Recorded acetaminophen 325 mg tablet 325 mg PO QID PRN pain #90 tabs 10/21/24 (Tylenol) cyclobenzaprine 5 mg tablet 5 mg PO BEDTIME PRN muscle spasm 10/21/24 #20 tabs ibuprofen 400 mg tablet 400 mg PO Q6H PRN Pain #60 tabs 10/21/24 dulaglutide 1.5 mg/0.5 mL 1.5 mg (0.5 mL) subcut QWEEK #2 mL 02/12/25 subcutaneous pen injector (Trulicity) metformin 500 mg tablet 500 mg PO BIDWM #60 tabs 02/18/25 risperidone 0.5 mg tablet 0.5 mg PO BID #60 tabs 02/18/25 sertraline 50 mg tablet 50 mg PO DAILY #30 tabs 02/18/25 topiramate 50 mg tablet 50 mg PO BEDTIME #30 tabs 02/18/25 trazodone 50 mg tablet 50 mg PO BEDTIME MRX1 PRN Insomnia 02/18/25 #60 tabs Mental Status Exam Mental Status Exam Patient Appearance: Appropriate Patient Orientation: Person, Place, Time and Situation Level of Consciousness: Alert Patient Behavior: Talkative and Good Eye Contact Mood Description: Constricted Affect Description: Constricted Patient Cognition Impaired: No Ability to Follow Directions: Good Speech Pattern: Spontaneous Speech Memory Description: Intact Hallucinations: None Delusions: Not Present Thought Process: Goal Oriented Thought Content: positive for Goal Oriented Judgement: Good Data Data Completed and Pending Completed studies during hospitalization [Text1]: 02/12/25 02/16/25 07:58 07:49 Creatinine 0.99 Estim Creat Clear Calc 97.2 Estimated GFR > 60 Estimat Average Glucose 252 Hemoglobin A1c % 10.4 H Triglycerides 151 H Cholesterol 166 LDL Cholesterol, Calc 90 HDL Cholesterol 46 TSH 1.15 DS: Summary Hospital Course Hospital Course: Admission to adult psychiatry for exacerbation of recurrent major depression with psychosis and polysubstance use disorder. 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 Pt reports he was threatened to be killed. Medications were evaluated and adjusted. Pt was offered full milieu therapy to strengthen coping skills. Pt was able to stabilize, will continue with [facility] for out pt care and will continue to catch up on his required work upon discharge. Status at Discharge Functional status at discharge: independent ambulation Overall status at discharge: patient is progressing back to baseline Time Spent with Patient Time attestation: Total time managing care of this patient today ____ minutes. Time spent: Less than 30 minutes Discharge Plan Discharge Anticipated Discharge Date/Time: 02/18/25 10:28 Patient Disposition: Home, Self-Care Discharge Diagnosis: Major Depression with psychotic features Substance abuse Referrals: [facility]: Kirill Deluna (therapy) [Other] - 02/22/25 8:30 am Referral Note: Hospital discharge appointment Appointment for initial diagnostic evaluation for therapy. Appointment will be in person at [facility] and then you will be assigned to a clinic closer to your are where you live [facility]: Carlos Oscar (psychiatry) [Other] - 04/17/25 9:00 am Referral Note: Hospital discharge appointment Appointment for initial diagnostic evaluation for psychiatric medication management. Appointment will be in person at [facility] and then you will be assigned to a clinic closer to your are where you live. Martha Lock MD [Primary Care Provider, Internal Medicine] - 1 Week Discharge Medications: New Trulicity 1.5 mg/0.5 mL pen injector 1.5 mg subcut QWEEK Qty: 2 1RF risperidone 0.5 mg Tablet 0.5 mg PO BID Qty: 60 0RF metformin 500 mg Tablet 500 mg PO BIDWM Qty: 60 0RF trazodone 50 mg Tablet 50 mg PO BEDTIME MRX1 PRN (Reason: Insomnia) Qty: 60 0RF Continued acetaminophen [Tylenol] 325 mg tablet 325 mg PO QID PRN (Reason: pain) Qty: 90 0RF cyclobenzaprine 5 mg tablet 5 mg PO BEDTIME PRN (Reason: muscle spasm) Qty: 20 0RF ibuprofen 400 mg tablet 400 mg PO Q6H PRN (Reason: Pain) Qty: 60 0RF albuterol sulfate [Ventolin HFA] 90 mcg/actuation HFA aerosol inhaler 2 puff inhalation Q4-6H PRN (Reason: Shortness Of Breath Or Wheezing) sertraline 50 mg tablet 50 mg PO DAILY Qty: 30 0RF topiramate 50 mg tablet 50 mg PO BEDTIME Qty: 30 0RF Discharge Orders: Discharge Order (Routine); Ordered 02/18/25 Ordered By: Kavita Mauricio Diet: Advance to usual diet Activity on Discharge: As tolerated Stand Alone Forms: Patient Portal Discharge page, Community Support Print Language: German Care Plan Goals: Mood and Behavioral Stabilization Health Concerns: Mood and Behavioral Stabilization Plan of Treatment: Take medications as directed Attend scheduled appointments Assessment: No SI,HI,AH,VH Discharge Date/Time: 02/18/25 11:07
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
== END 2025-02-18 11:07 | disposition home or self-care (01) | DRG 751 ==
LOC: HO.ED 02-10 14:16 → HO.PM5 02-11 15:02
PROVIDERS: Admitting Provider Nurse Practitioner Family; Emergency Provider Emergency Medicine; PCP Internal Medicine; Visit Provider Nurse Practitioner Family
DX: F32.3 Major depressive disorder, single episode, severe with psychotic features (principal); E11.9 Type 2 diabetes mellitus without complications; F19.10 Other psychoactive substance abuse, uncomplicated; Z79.85 Long-term (current) use of injectable non-insulin antidiabetic drugs; Z79.899 Other long term (current) drug therapy
CPT/HCPCS: 36415; 80053; 80061; 80143; 80179; 80307; 81001; 81003; 82565; 82947; 83036; 84443; 85025; 93005; 99285; S9485

== ENCOUNTER → 2025-02-09 06:55 | Outpatient (BNV) | payer MEDICAID, SELFPAY | PROVIDERS: Emergency Provider Emergency Medicine; PCP Internal Medicine; Visit Provider Internal Medicine Cardiovascular Disease | DX: R94.31 Abnormal electrocardiogram [ECG] [EKG] (principal) | CPT/HCPCS: 93010 ==

== ENCOUNTER 2025-02-11 14:50 | Outpatient (BNV) | payer MEDICAID, SELFPAY | END 2025-02-15 11:11 | PROVIDERS: Admitting Provider Nurse Practitioner Family; Emergency Provider Emergency Medicine; PCP Internal Medicine; Visit Provider Internal Medicine Cardiovascular Disease | DX: R07.9 Chest pain, unspecified (principal) | CPT/HCPCS: 93010 ==

== ENCOUNTER → 2025-02-11 14:50 | Outpatient (BNV) | payer OTHER, SELFPAY | PROVIDERS: Admitting Provider Nurse Practitioner Family; Emergency Provider Emergency Medicine; PCP Internal Medicine; Visit Provider Nurse Practitioner Family | DX: F32.2 Major depressive disorder, single episode, severe without psychotic features (principal); F19.959 Other psychoactive substance use, unspecified with psychoactive substance-induced psychotic disorder, unspecified; E11.9 Type 2 diabetes mellitus without complications | CPT/HCPCS: 99232 ==

== ENCOUNTER 2025-02-19 09:27 | Outpatient (REF) | payer MEDICAID, SELFPAY ==
--- NOTE | ~2025-02-19 | XR_ITS ---
EXAMINATION: XR LUMBOSACRAL SPINE WITH OBLIQUES CLINICAL INFORMATION: worsening LBP COMPARISON: July 06, 2022 TECHNIQUE: AP oblique and lateral views FINDINGS: Marginal osteophyte formation and endplate sclerosis and decreased intervertebral disc height at L4-5. Grade 1 anterolisthesis L4-5 secondary to spondylolysis pars interarticularis. Castellvi II-IIIsacralization labeled S1. 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 Sacralized vertebra labeled S1. Electronically signed by: Eduardo Brizuela MD 02/19/2025 10:54 AM EDT
--- OUTSIDE RECORDS SUMMARY | 2025-02-19 11:00 | XMS_ITS | Clinical Summary ---
Author Organization [employer] Address [address] [facility] [address] [place] [address] Care Team Providers Care Family Law Paralegal Name Role Phone Hanny Lopez MD Primary Care Provider + Allergies No known active allergies Medications * This document contains information received from the source organization and may not represent a complete record from that organization. Diclofenac Sodium 1 % gel apply (2G) by topical route 3 times every day to the affected area(s) 022 Active atorvastatin (Lipitor) 40 MG tabletIndications :Hyperlipidemia, unspecified hyperlipidemia type TAKE 1 TABLET BY MOUTH EVERY DAY 90 tablet 1 023 Active empagliflozin (Jardiance) 25 MG Take 1 tablet (25 mg) by mouth Once per day. 90 tablet 3 025 Active Dulaglutide (Trulicity) 1.5 MG/0.5ML solution auto-injector Inject 1.5 mg under the skin 1 (one) time per week. 2 mL 3 025 Active cyclobenzaprine (Flexeril) 10 MG tablet Take 1 tablet (10 mg) by mouth at bedtime for 10 days. 10 tablet 025 Active acetaminophen (Tylenol Extra Strength) 500 MG tablet Take 1 tablet (500 mg) by mouth every 8 (eight) hours if needed for mild pain. 90 tablet 025 2024 Active albuterol 108 (90 Base) MCG/ACT inhaler Inhale 2 puffs every 4 (four) hours. inhale 2 puff by inhalation route every 4 - 6 hours as needed 18 g 025 Active sertraline (Zoloft) 50 MG tabletIndications :Depressive disorder TAKE 1 TABLET BY MOUTH EVERY DAY 90 tablet 1 025 Active topiramate (Topamax) 50 MG tabletIndications :Recurrent mild major depressive disorder with anxiety (CMS/HCC) TAKE 1 TABLET BY MOUTH AT BEDTIME 180 tablet 025 Active albuterol 108 (90 Base) MCG/ACT inhaler Inhale 2 puffs every 4 (four) hours. inhale 2 puff by inhalation route every 4 - 6 hours as needed 022 2024 Discontinued(R eorder (will not trigger notification to Pharmacy)) sertraline (Zoloft) 50 MG tabletIndications :Depressive disorder Take 1 tablet by mouth every day 90 tablet 1 024 2024 Discontinued(R eorder (will not trigger notification to Pharmacy)) topiramate (Topamax) 50 MG tabletIndications :Recurrent mild major depressive disorder with anxiety (CMS/HCC) Take 50 mg by mouth at bedtime. 180 tablet 024 2024 Discontinued(R eorder (will not trigger notification to Pharmacy)) naproxen (Naprosyn) 500 MG tabletIndications :Numbness of hand TAKE 1 TABLET BY MOUTH TWICE A DAY WITH FOOD 60 tablet 024 2024 Discontinued(I neffective) Jardiance 10 MG TAKE 1 TABLET (10 MG) BY MOUTH ONCE PER DAY. 90 tablet 025 2024 Discontinued(R eorder (will not trigger notification to Pharmacy)) Trulicity 0.75 MG/0.5ML solution auto-injectorIndi cations:Type 2 diabetes mellitus without complication, without long-term current use of insulin ([facility]) INJECT 0.75 MG UNDER THE SKIN 1 (ONE) TIME PER WEEK. 2 mL 3 025 2024 Discontinued(D ose adjustment) sertraline (Zoloft) 50 MG tabletIndications :Depressive disorder Take 1 tablet by mouth every day 90 tablet 1 025 2024 Discontinued(R eorder (will not trigger notification to Pharmacy)) topiramate (Topamax) 50 MG tabletIndications :Recurrent mild major depressive disorder with anxiety (CMS/HCC) Take 1 tablet (50 mg) by mouth at bedtime. 180 tablet 025 2024 Discontinued(R eorder (will not trigger notification to Pharmacy)) sertraline (Zoloft) 50 MG tabletIndications :Depressive disorder Take 1 tablet by mouth every day 90 tablet 1 025 2024 Discontinued topiramate (Topamax) 50 MG tabletIndications :Recurrent mild major depressive disorder with anxiety (CMS/HCC) Take 1 tablet (50 mg) by mouth at bedtime. 180 tablet 025 2024 Discontinued sertraline (Zoloft) 50 MG tabletIndications :Depressive disorder Take 1 tablet by mouth every day 90 tablet 1 025 2024 Discontinued(R eorder (will not trigger notification to Pharmacy)) topiramate (Topamax) 50 MG tabletIndications :Recurrent mild major depressive disorder with anxiety (CMS/HCC) Take 1 tablet (50 mg) by mouth at bedtime. 180 tablet 025 2024 Discontinued(R eorder (will not trigger notification to Pharmacy)) sertraline (Zoloft) 50 MG tabletIndications :Depressive disorder Take 1 tablet by mouth every day 90 tablet 1 025 2024 Discontinued(D uplicate order (will not trigger notification to Pharmacy)) Active Problems Problem Noted Date Diagnosed Date Anxiety 01/29/2025 Cocaine use 01/29/2025 Cannabis use disorder 01/29/2025 Encounter for preventive health examination 03/12 Assessment [...] clinic. Weight loss 04/07/2024 Assessment & Plan (01/28/2025 5:30 PM EDT): He has somewhat stabilized this year, it could be related to alcohol and drug use, uncontrolled diabetes, depression or malignancy. Order labs, he agreed to referral to a swimming coach or instructor, he does not think he needs AUD evaluation. Will restart Rx for depression (sertraline and Topamax) and will continue to stress the importance of ETOH/drug sobriety. Referred to GI for colonoscopy Assessment & Plan (06/13/2024 3:51 PM EST): [...] DM. Alcohol abuse 04/10/2023 Assessment & Plan (01/28/2025 5:38 PM EDT): Advised to quit ETOH, declined AUD referral but agreed to evaluation and to speak with the swimming coach or instructor, will do referral. Assessment & Plan (06/13/2024 3:52 PM EST): Advised to quit ETOH, declined AUD referral (never went last year) but agreed to evaluation. 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 Influenza due to influenza A virus 05/18/2022 Numbness of hand 05/18/2022 Assessment & Plan (06/13/2024 3:47 PM EST): Has known DDD spine + uncontrolled DM Advised re stretching exercises fro c-spine, better control of DM, declined OT referral Primary insomnia 05/18/2022 Severe episode of recurrent major depressive disorder, with psychotic features 05/18/2022 Family disruption 05/18/2022 Infrapatellar bursitis of left knee 05/18/2022 Mixed hyperlipidemia 02/27/2018 Erectile dysfunction due to diseases classified elsewhere 01/01/2018 Gastroesophageal reflux disease 07/03/2017 Knee pain 03/22/2017 Chronic low back pain 09/26/2016 Assessment & Plan (01/28/2025 5:39 PM EDT): Most likely related to advanced DJD of the lumbar spine seen on previous x-rays. I am concerned about malignancy, will order new x-rays this time. Use Tylenol and Flexeril nightly, advised against using Tylenol more than 3 times per day due to chronic alcohol use and potential for liver disease. Follow-up with me in 6 weeks, may need physical therapy or epidural injections. Assessment & Plan (06/22/2022 10:56 AM EST): Order for Xrays from last year given again today , he needs to get it done at hospital, no appt needed. Continue Naproxen, avoid heavy lifting,bending Refr to pT Mild intermittent asthma 09/26/2016 Assessment & Plan (01/28/2025 5:39 PM EDT): Apparently controlled, unclear about significantly decreased exercise tolerance, I will order PFTs. Continue albuterol as needed for now Assessment & Plan (04/07/2024 6:14 PM EDT): Controlled Continue albuterol prn only Influenza IZ today. Assessment & Plan (04/10/2023 3:11 PM EDT): No recent exacerbation Cont Flovent BID + albuterol PRN Received Flu IZ today Type 2 diabetes mellitus without complication Assessment & Plan (01/28/2025 5:33 PM EDT): DM is uncontrolled due ot non compliance with Rx, meds restarted 3 to 4 weeks ago. Increase Trulicity to 1.5 and Jardiance to 25 mg/day, follow-up with me in 6 weeks. Patient has not eaten since this morning, unable to inject Humalog today. I advised him to come to walk-in center tomorrow if FBS is above 200 or if he happens to have sxs of dizziness, severe headache, CP Assessment & Plan (04/07/2024 6:13 PM EDT): [...] FU 6 wks with me Order labs Resolved Problems Problem Noted Date Diagnosed Date Resolved Date Pneumonia due to 2019 novel coronavirus 05/18/2022 01/28/2025 Recurrent mild major depress morelia disorder with anxiety 09/26/2016 01/29/2025 Assessment & Plan (01/28/2025 5:36 PM EDT): PHQ9 is 12, I will refer to team, I will follow-up with him at next visit. We discussed importance of avoiding recreational substances or alcohol, he agreed to be referred to the swimming coach or instructor, not ready for AUD program. He will restart Topamax as he tolerated it in the past, and sertraline 50mg, follow-up with me in 6 weeks. Patient has crisis number. He's able to reach out ofr safety. Assessment & Plan (04/07/2024 6:11 PM EDT): >>ASSESSMENT AND PLAN FOR RECURRENT MILD MAJOR DEPRESSIVE DISORDER WITH ANXIETY (CMS/HCC) WRITTEN ON 04/07/2024 6:11 PM BY HANNY LOPEZ MD RO bipolar disorder? Will refer to for addtl evaluation/psychopharmacology referral. Continue sertraline for now Restart Topamax as he had tolerated and helps with sleep issues. Advised to quit drugs, agreed to be referred to recovery coaches. >>ASSESSMENT AND PLAN FOR DEPRESSIVE DISORDER WRITTEN ON 04/07/2024 6:09 PM BY HANNY LOPEZ MD PHQ9 is 17, refer to for psychotherapy and counseling. He will restart Topamax as he tolerated it in the past, fu in 4-6w Continue Sertraline 50mg. He will be referred to [facility] for support with housing due to safety [...] doing better. Not seeing therapist, fu prn Encounters * This document contains information received from the source organization and may not represent a complete record from that organization. Date Type Department Care Team Description 01/29/2025 Patient Outreach [facility] [address] [place] [phone] Hua Allen Recovery Supports 01/29/2025 Telephone [facility] [address] [place] [address] Hanny Lopez MD Prior Authorization ( PA: Trulicity) 01/29/2025 Refill [facility] [address] [place] [address] Hanny Lopez MD Depressive disorder; Recurrent mild major depressive disorder with anxiety (CMS/HCC) 01/28/2025 4:00 PM EDT Office Visit [facility] [address] [place] [phone] Hanny Lopez MD Type 2 diabetes mellitus without complication, without long-term current use of insulin (CMS/HCC) (Primary Dx); Recurrent mild major depressive disorder with anxiety (CMS/HCC); Mild intermittent asthma, unspecified whether complicated; Chronic bilateral low back pain without sciatica; Alcohol abuse; Weight loss; Depressive disorder; Encounter for colorectal cancer screening 01/28/2025 Travel 01/27/2025 Telephone [facility] [address] [place] [address] Hanny Lopez MD Chart Prep 01/21/2025 Patient Outreach [facility] [address] [place] [address] Hanny Lopez MD 01/21/2025 Patient Outreach [facility] [address] [place] [address] Hanny Lopez MD Pre-visit Planning ([facility] unable to reach, disconnected) 01/14/2025 Telephone [facility] [address] [place] [phone] Hanny Lopez MD No Show 01/13/2025 Telephone [facility] [address] [place] [phone] Hanny Lopez MD chart prep 01/06/2025 Patient Outreach [facility] [address] [place] [phone] Hanny Lopez MD Pre-visit Planning ((Unable to reach for PVP screening and or LVM) to be completed in office) 12/11/2024 Refill [facility] [address] [place] [address] Hanny Lopez MD Type 2 diabetes mellitus without complication, without long-term current use of insulin (CMS/[facility]) from Last 3 Months Immunizations Immunization Administration Dates Next Due Influenza injectable quadriv alent IIV4 with preservative 02/27/2018,03/22/2017 Influenza injectable quadrivalent preservative f ree 04/10/2023,06/22/2022 Influenza, IIV3, injectable 03/14/2011 Influenza, intradermal, quad rivalent, preservative free 03/14/2011 Influenza, seasonal, injectable, preservative fr ee 04/07/2024 Pfizer Covid-19 Vaccine 12+ 06/22/2022 Pneumococcal Conjugate PCV 20 04/07/2024 Pneumococcal Polysaccharide PPSV23 06/05/2017 Tdap 06/05/2017,03/14/2011 Social History Tobacco Use Types Packs/Day Years Used Date Smoking Tobacco: Every Day Cigarettes 0.3 1.2 Started: 12/2023 Passive Smoke Exposure: Current Smokeless Tobacco: Never Tobacco Cessation:Ready to Q uit: Not Asked; Counseling Given: Not Answered Alcohol Use Standard Drinks/Week Comments Not Currently 0 (1 standard drink = 0.6 oz pur e alcohol) weekends Alcohol Answer Date Recorded How often do you have a drink containing alcohol ? 1 01/28/2025 How many drinks containing a lcohol do you have on a typical day when you are drinking? 2 01/28/2025 How often do you have six or more drinks on one occasion? 2 01/28/2025 Depression Answer Date Recorded Patient Health Questionnaire-9 Score 01/29/2025 Patient Health Questionnaire-9 Score 20 01/29/2025 Last PHQ-9: Questionnaire Data Not on file 0 01/29/2025 Housing Stability Answer Date Recorded What is [...] Answer Date Recorded Patient Health Questionnaire-2 Score 4 01/29/2025 Sex and Gender Information Value Date Recorded Sex Assigned at Male 04/10/2022 10:31 AM EDT Legal Sex Male 10:31 AM EDT Gender Identity Male 04/10/2022 10:31 AM EDT Sexual Orientation Don't know 04/10/2022 10 :31 AM EDT Last Filed Vital Signs Vital Sign Reading Time Taken Comments Blood Pressure 112/68 01/28/2025 4:28 PM EDT Pulse 71 01/28/2025 4:28 PM EDT Temperature 36.5 C (97.7 F) 01/28/2025 4:28 PM EDT Respiratory Rate 16 01/28/2025 4:28 PM EDT Oxygen Saturation 98% 01/28/2025 4:28 PM EDT Inhaled Oxygen Concentration - - Weight 75.8 kg (167 lb 2 oz) 01/28/2025 4:28 PM EDT Height 178.5 cm (5' 10.28 ) 01/28/2025 4:28 PM E DT Body Mass Index 23.79 01/28/2025 4:28 PM EDT Plan of Treatment Upcoming Encounters Date Type Department Care Team (Late st Contact Info) Description 03/19/2025 11:30 AM EDT Office Visit [facility] [address] [place] [address] Hanny Lopez MD [address] [place] [address] 05/04/2025 9:30 AM EST Office Visit [facility] [address] [place] [address] Christianne Purdy, OD [address] [place] [address] Health Maintenance Due Date Last Done Comments CT Colonography 1979 Colonoscopy 1979 Colorectal Cancer Screening 1979 FIT DNA/Cologuard 1979 FIT 1979 FOBT 1979 HIV Screening 1979 Sigmoidoscopy 1979 Disability Screening 1979 Diabetes: Foot Exam 09/17/1989 Eye Exam 09/17/1989 Family Planning (PISQ) 09/17/1994 HPV Vaccines (1 - Male 3-dose series) 09/17/1994 Hepatitis C Screening 09/17/1997 Hepatitis B Vaccines (1 of 3 - 19+ 3-dose series) 09/17/1998 Lipid Panel 03/18/2022 03/18/2021 Diabetes: Urine Protein Screening 11/03/2022 11/03/2021 SDOH Screening 06/22/2023 06/22/2022 COVID-19 Vaccine (2 - season) 2025 06/22/2022 Influenza Vaccine (#1) 2025 , 04/10/2023, 06/22/2022, Additional history exists Alcohol/Substance Use Screening 04/07/2025 04/07/2024 Diabetes: Hemoglobin A1C 04/30/2025 025, 04/07/2024, 04/10/2023, Additional history exists Depression Monitoring 08/01/2025 01/29/2025, 025 Tobacco Screening 01/28/2026 01/28/2025 DTaP/Tdap/Td Vaccines (3 - Td or Tdap) [...] Procedure Name Priority Date/Time Associated Diagnosis Comments XR LUMBAR SPINE COMPLETE 4+ VIEWS Routine 02/19/2025 10:42 AM EDT Chronic bilateral low back pain without sciatica GLUCOSE, WHOLE BLOOD Routine 02/09/2025 9:01 AM EDT DRUG MONITOR, PANEL 1, SCREEN, URINE Routine 02/09/2025 8:40 AM EDT URINALYSIS, COMPLETE Routine 02/09/2025 8:40 AM EDT POCT GLYCATED HEMOGLOBIN, TOTAL Routine 01/28/2025 4:30 PM EDT Type 2 diabetes mellitus without complication, without long-term current use of insulin ([facility]) POCT GLUCOSE Routine 01/28/2025 4:29 PM EDT Type 2 diabetes mellitus without complication, without long-term current use of insulin ([facility]) GLUCOSE, WHOLE BLOOD Routine 12/09/2024 6:36 PM EDT GLUCOSE, WHOLE BLOOD Routine 12/09/2024 5:08 PM EDT VENOUS BLOOD GAS Routine 12/09/2024 5:04 PM EDT HOLD GREEN GEL Routine 12/09/2024 4:57 PM EDT COMPREHENSIVE METABOLIC PANEL Routine 12/09/2024 4:53 PM EDT BETA-HYDROXYBUTYRATE Routine 12/09/2024 4:53 PM EDT CBC WITH AUTO DIFFERENTIAL Routine 12/09/2024 4:53 PM EDT GLUCOSE, WHOLE BLOOD Routine 12/09/2024 3:47 PM EDT GLUCOSE, WHOLE BLOOD Routine 12/09/2024 3:44 PM EDT ALBUMIN, RANDOM URINE W/CREATININE Routine 11/03/2021 10:50 AM EDT LIPID PANEL, STANDARD Routine 03/18/2021 2:00 PM EDT from Last 3 Months or Most Recently Relevant to Health Maintenance Results * XR Lumbar Spine Complete 4+ Views (02/19/2025 10:42 AM EDT) Anatomical Region Laterality Modality Spine, L-spine Radiographic Kacy ging 02/19/2025 10:4 2 AM EDT Narrative 02/19/2025 10:57 AM EDT [place] [address] XRay Report Signed Patient: Vinayak Hernandez MR#: [id number] 7 : 1980 Acct:[id number] Age/Sex: 44 / M ADM Date: 02/19/25 Loc: .[facility] Attending Dr: Hanny Lopez MD Ordering Physician: Hanny Lopez MD Date of Service: 02/19/25 Procedure(s): XR lumbar spine 4V min Accession Number(s): [id number] cc: Hanny Lopez MD Reason for Exam: worsening LBP EXAMINATION: XR LUMBOSACRAL SPINE WITH OBLIQUES CLINICAL INFORMATION: worsening LBP COMPARISON: July 06, 2022 TECHNIQUE: AP oblique and lateral views FINDINGS: Marginal osteophyte formation and endplate sclerosis and decreased intervertebral disc height at L4-5. Grade 1 anterolisthesis L4-5 secondary to spondylolysis pars interarticularis. Castellvi II-IIIsacralization labeled S1. 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 Sacralized vertebra labeled S1. Electronically signed by: Eduardo Brizuela MD 02/19/2025 10:54 AM EDT RP Dictated By: Eduardo Conway MD Signed By: <Electronically signed by Eduardo Isidro MD in [place]> 02/19/25 1054 DD/ 1042 TD/TT: 02/19/25 1043 Director Of State: Procedure Note Donotuseinterpreter, Image - 02/19/2025 [place] [address] XRay Report Signed Patient: Vinayak Hernandez#: [id number] 7 : 1980Acct:[id number] Age/Sex: 44 / MADM Date: 02/19/25 Loc: [facility] Attending Dr: Hanny Lopez MD Ordering Physician: Hanny Lopez MD Date of Service: 02/19/25 Procedure(s): XR lumbar spine 4V min Accession Number(s): [id number] cc: Hanny Lopez MD Reason for Exam: worsening LBP EXAMINATION: XR LUMBOSACRAL SPINE WITH OBLIQUES CLINICAL INFORMATION: worsening LBP COMPARISON: July 06, 2022 TECHNIQUE: AP oblique and lateral views FINDINGS: Marginal osteophyte formation and endplate sclerosis and decreased intervertebral disc height at L4-5. Grade 1 anterolisthesis L4-5 secondary to spondylolysis pars interarticularis. Castellvi II-IIIsacralization labeled S1. 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 Sacralized vertebra labeled S1. Electronically signed by: Eduardo Brizuela MD 02/19/2025 10:54 AM EDT RP Dictated By: Eduardo Conway MD Signed By: <Electronically signed by Eduardo Isidro MDin OV> 02/19/25 1054 DD/ 1042 TD/TT: 02/19/25 1043 Director Of State: us Hanny Lopez MD IMG XR PROCEDURES Final Result * (ABNORMAL) Glucose, Whole Blood (02/09/2025 9:01 AM EDT) Only the most recent of5 resultswithin the time period is included. Pathologist [facility] Glucose, Whole Blood 126(H) 60 - 115 mg/dL [facility] Comment:METER #: [id number] 02/09/2025 9:01 AM EDT 02/09/2025 9:06 AM EDT us Generic External Data Provider LAB BLOOD ORDERAB LES Final Result [facility] [address] [place] [phone] * (ABNORMAL) Drug Monitoring, Panel 1, Screen, Urine (02/09/2025 8:40 AM EDT) [facility] Opiate Screen Urine Not Detected Not Detect [facility] Comment:Opiate cut-off is 30 0 ng/mL.Positive results are unconfirmed and should not be used fornon-medical purposes. Barbiturates, Urine Not Detected Not Detect [facility] Comment:Barbiturate cut-off is 200 ng/mL.Positive results are unconfirmed and should not be used fornon-medical purposes. Phencyclidine Screen Urine Not Detected Not Detect [facility] Comment:Phencyclidine cut-of f is 25 ng/mL.Positive results are unconfirmed and should not be used fornon-medical purposes. Amphetamine Screen Urine Not Detected Not Detect [facility] Comment:Amphetamine cut-off is 1000 ng/mL.Positive results are unconfirmed and should not be used fornon-medical purposes. Benzodiazepines Screen Urine Not Detected Not Detect [facility] Comment:Benzodiazepine cut-o ff is 200 ng/mL.Positive results are unconfirmed and should not be used fornon-medical purposes. Cocaine Screen Urine POSITIVE(A) Not Detect [facility] Comment:Cocaine cut-off is 3 00 ng/mL.Positive results are unconfirmed and should not be used fornon-medical purposes. Cannabinoid Screen Urine POSITIVE(A) Not Detect [facility] Comment:Cannabinoid cut-off is 50 ng/mL.Positive results are unconfirmed and should not be used fornon-medical purposes. Methadone Screen, Urine Not Detected Not Detect ng/mL [facility] Comment:Methadone cut-off is 300 ng/mL.Positive results are unconfirmed and should not be used fornon-medical purposes. FENTANYL URINE Not Detected Not Detect [facility] Comment:Fentanyl cut-off is 1 ng/mL.Positive results are unconfirmed and should not be used fornon-medical purposes. Oxycodone Urine Screen Not Detected Not Detect ng/mL [facility] Comment:Oxycodone cut-off is 100 ng/mL.Positive results are unconfirmed and should not be used fornon-medical purposes. Buprenorphine Screen Not Detected Not Detect ng/mL [facility] Comment:Buprenorphine cut-of f is 5 ng/mL.Positive results are unconfirmed and should not be used fornon-medical purposes. 02/09/2025 8:40 AM EDT 02/09/2025 8:55 AM EDT us Generic External Data Provider LAB URINE ORDERAB LES Final Result Performing Organization Address City/State/[facility] Co de Phone Number [facility] [address] [place] [phone] * (ABNORMAL) Urinalysis Complete (02/09/2025 8:40 AM EDT) Color Urine Yellow [facility] Appearance Urine Clear [facility] PH 6.0 5.0 - 9.0 [facility] Glucose Urine UA >=1000(A) Negative mg/dL [facility] Urine Blood Negative Negative [facility] Specific [place] - Urine >=1.030(H) 1.005 - 1.025 [facility] Urine Protein Negative Neg-Trace mg/dL [facility] Urine Ketones 15 Negative mg/dL [facility] Nitrite Urine Negative Negative [facility] Leukocyte Esterase Urine Negative Negative [facility] RBC Urine 0-2 0 - 2 /HPF [facility] Urine WBC 0-5 0 - 5 /HPF [facility] Urine Squamous Epithelial Cell 0-2 0 - 2 /HPF [facility] Urine Bacteria None Seen None Seen [facility] Hyaline Casts, Urine 0-2 0 - 2 /LPF [facility] 02/09/2025 8:40 AM EDT 02/09/2025 8:55 AM EDT Generic External Data Provider LAB URINE ORDERAB LES Final Result [facility] [address] [place] [address] [phone] * (ABNORMAL) POCT HGB A1C (01/28/2025 4:30 PM EDT) Hemoglobin A1C 10.9(A) 4.0 - 5.7 % QC Media Lot # [id number] Lot# Expiration Date Blood 01/28/2025 4:30 PM EDT Hanny Lopez MD POINT OF CARE TEST ENTER /EDIT ORDERABLES Final Result * (ABNORMAL) POCT Glucose (01/28/2025 4:29 PM EDT) Glucose Blood, POC 426(A) 60 - 200 mg/dL QC Media Lot # [id number] Lot# Expiration Date [id number] Blood Capillary blood specimen / Unknown 01/28/2025 4:29 PM EDT Hanny Lopez MD POINT OF CARE TEST ENTER /EDIT ORDERABLES Final Result * (ABNORMAL) VENOUS BLOOD GAS (12/09/2024 5:04 PM EDT) VBG pH 7.37 7.32 - 7.43 [facility] Comment:METER #: [id number] additional_comment: Cb joanna VBG PCO2 48 mmHg [facility] Comment:METER #: [id number] additional_comment: Arpan marshall VBG PO2 45 mmHg [facility] [facility] Comment:METER #: [id number] additional_comment: Arpan marshall VBG Base Excess 2.1 mmol/L [facility] Comment:METER #: [id number] additional_comment: Arpan marshall VBG HCO3 28(H) 22 - 26 mmol/L [facility] Comment:METER #: [id number] additional_comment: Arpan marshall O2 Sat, Gautam 74.0 % [facility] Comment:METER #: [id number] additional_comment: Arpan marshall 12/09/2024 5:04 PM EDT 12/09/2024 5:07 PM EDT us Generic External Data Provider LAB BLOOD ORDERAB LES Final Result Performing Organization Address City/[facility]/ZIP Co de Phone Number [facility] [address] [place] [address] [phone] * Hold Green Gel (12/09/2024 4:57 PM EDT) Hold Green Gel See Note [facility] Comment:Specimen held untest ed for 24 hours; Call to requestChemistry testing. 12/09/2024 4:57 PM EDT 12/09/2024 5:02 PM EDT us Generic External Data Provider HISTORICAL/NON OR DERABLE LABS Final Result Performing Organization Address City/[facility]/ZIP Co de Phone Number [facility] [address] [place] [address] [phone] * Beta-Hydroxybutyrate (12/09/2024 4:53 PM EDT) Beta-Hydroxybut yrate 0.07 0.02 - 0.27 mmol/L [facility] 12/09/2024 4:53 PM EDT 12/09/2024 5:01 PM EDT us Generic External Data Provider LAB BLOOD ORDERAB LES Final Result [facility] [address] [place] [address] [phone] * (ABNORMAL) CBC auto differential (12/09/2024 4:53 PM EDT) White Blood Count 7.1 4.8 - 10.8 X10*3/uL [facility] Red Blood Count 5.30 4.60 - 5.80 X10*6/uL [facility] Hemoglobin 15.1 14.0 - 18.0 g/dl [facility] Hematocrit 44.0 42.0 - 52.0 % [facility] Mean Corpuscular Volume 83.0 80.0 - 98.0 fL [facility] Mean Corpuscular Hemoglobin 28.5 27.0 - 33.0 pg [facility] Mean Corpuscular HGB Conc 34.3 31.0 - 36.0 g/dl [facility] Red Cell Distribution Width 12.1 11.0 - 16.0 % [facility] Platelet Count 161 160 - 400 X10*3/uL [facility] Mean Platelet Volume 13.2(H) 9.4 - 12.4 fL [facility] Neutrophils Percent Auto 59.7 45 - 73 % [facility] Imm Gran Pct Auto 0.3 0.0 - 0.4 % [facility] Lymphocytes Percent Auto 26.6 20 - 40 % [facility] Monocytes Percent Auto 6.9 2 - 11 % [facility] Eosinophils Percent Auto 6.2(H) 0 - 4 % [facility] Basophils Percent Auto 0.3 0 - 2 % [facility] NRBC Pct Auto 0.0 0.0 - 0.2 /100WBC [facility] Neutrophils Absolute Auto 4.2 2.0 - 8.3 x10*3/uL [facility] Imm Gran Abs Auto 0.02 0.00 - 0.03 X10*3/uL [facility] Lymphocytes Absolute Auto 1.9 1.2 - 4.9 X10*3/uL [facility] Monocytes Absolute Auto 0.5 0.1 - 1.2 X10*3/uL [facility] Eosinophils Absolute Auto 0.4 0.0 - 0.4 X10*3/uL [facility] Basophils Absolute Auto 0.0 0.0 - 0.2 X10*3/uL [facility] NRBC Abs Auto 0.000 0.0 - 0.012 X10*3/uL [facility] 12/09/2024 4:53 PM EDT 12/09/2024 5:01 PM EDT us Generic External Data Provider LAB BLOOD ORDERAB LES Final Result [facility] [address] [place] [address] [phone] * (ABNORMAL) Comprehensive Metabolic Panel (12/09/2024 4:53 PM EDT) Sodium 131(L) 135 - 145 mmol/L [facility] Potassium 4.4 3.3 - 5.1 mmol/L [facility] Chloride 97 96 - 108 mmol/L [facility] Carbon Dioxide 27 22 - 29 mmol/L [facility] Anion Gap 11(L) 12 - 20 [facility] Urea Nitrogen (BUN) 11 9 - 16 mg/dL [facility] Creatinine, Serum 0.94 0.5 - 1.4 mg/dL [facility] Creatinine Clr Calc Pharmacy 102.4 [facility] Comment:eGFR (calculated fro m the MDRD study equation) and eCrCl(calculated from the Cockcroft-Gault equation) are based ondifferent parameters and may not yield comparable results.If eCrCl result is absurd, please check patient'sheight/weight. Estimated Glomerular Filt Rate >60 [facility] Comment:Chronic Kidney Disea se: Estimated GFR < 60 mL/min/1.69q0Safhzc Kidney Disease: Estimated GFR < 15 mL/min/1.73m2 Glucose 589(HH) 60 - 115 mg/dL [facility] Comment:Critical value for t est(s): GLUR Results called to and readback by: RENO Person calling: FRANCISCA Date: 12/09/24 Time:1741 Calcium 8.8 8.4 - 10.2 mg/dL [facility] Bilirubin, Total 0.6 0.0 - 1.0 mg/dL [facility] Aspartate Amino Transferase 17 5 - 37 U/L [facility] Alanine Aminotransferase 20 0 - 40 U/L [facility] Total Protein 6.9 6.5 - 8.0 g/dL [facility] Albumin Level 4.2 3.5 - 5.0 g/dL [facility] Alkaline Phosphatase 95 39 - 117 U/L [facility] 12/09/2024 4:53 PM EDT 12/09/2024 5:01 PM EDT us Generic External Data Provider LAB BLOOD ORDERAB LES Final Result [facility] [address] [place] [phone] * ALBUMIN, RANDOM URINE W/CREATININE (11/03/2021 10:50 [...] SYSTEM 11/03/2021 10:5 0 AM EDT us Hanny Lopez MD LAB URINE ORDERABLES Fin al Result Performing Organization Address [facility] Co de Phone Number [facility] [address] * (ABNORMAL) LIPID PANEL, STANDARD (03/18/2021 [...] LDL-C. Tk SS et al. BRIAN. 2013;310(19): 5170-7601 (http://education.[employer].com.[employer]/faq/JBN159) Non-HDL Cholesterol 151(H) <130 mg/dL (calc) [facility] [...] Clin. Lipidol. 2015;9:129-169. 03/18/2021 2:00 PM EDT us Hanny Lopez MD LAB BLOOD ORDERABLES Fin al Result Performing Organization Address [facility] Co de Phone Number [facility] [address] from Last 3 Months or Most Recently Relevant to Health Maintenance Insurance * Guarantor: Vinayak Hernandez Account Type Relation to Patient Date of Phone Billing Address Personal/Family Self [address] [place] Care Teams Family Law Paralegal Relationship Specialty Start Date End Date Hanny Lopez MD [address] [place] [address] PCP - General Family Medicine 09/26/16
[2025-02-19 12:22] LABS: HBS Num1 0.00 mIU/mL (0-7.99); HBc Num1 0.05 S/CO (0.00-0.79); HBsAGNum1 0.43 S/CO (0.00-0.99); HIV Num 1 0.04 S/CO (0.00-0.99); Hepatitis A Antibody IgM 0.18 Index (0-0.79); Hepatitis B Surface Antigen Negative (Negative); Syphilis Screen Nonreactive (Nonreactive); ~HepC Num1 0.07 S/CO (0.00-0.79); ~Hepatitis A Antibody IgM Nonreactive (Nonreactive); ~Hepatitis B Surface Antibody NONREACTIVE (Nonreactive); ~Hepatitis C Antibody Nonreactive (Nonreactive)
[2025-02-19 12:24] LABS: Microalbum/Creatinine Ratio Ur 4.7 ug/mg cr (<30)
[2025-02-19 12:28] LABS: Alanine Aminotransferase 96 U/L (0-40); Albumin Level 4.9 g/dL (3.5-5.0); Alkaline Phosphatase 130 U/L (39-117); Anion Gap 13 (12-20); Aspartate Amino Transferase 84 U/L (5-37); Blood Urea Nitrogen 20 mg/dL (9-16); Calcium 9.5 mg/dL (8.4-10.2); Carbon Dioxide 28 mmol/L (22-29); Chloride 102 mmol/L (96-108); Cholesterol 209 mg/dL (<200); Estimated Glomerular Filt Rate > 60; HDL Cholesterol 51 mg/dL (>40); Potassium 4.6 mmol/L (3.3-5.1); Sodium 138 mmol/L (135-145); Total Protein 8.1 g/dL (6.5-8.0); Triglycerides 248 mg/dL (<150)
[2025-02-19 12:30] LABS: Reflex LDLD? No
[2025-02-22 20:03] LABS: TS Negative Control Passed; TS Panel A 0; TS Panel B 1; TS Positive Control Passed; TSpotTB Negative (Negative)
== END 2025-02-19 09:28 | disposition home or self-care (01) ==
LOC: HO.HHCL 09:27
PROVIDERS: PCP Internal Medicine; Visit Provider Internal Medicine
DX: Z00.00 Encounter for general adult medical examination without abnormal findings (principal); Z11.1 Encounter for screening for respiratory tuberculosis; Z11.4 Encounter for screening for human immunodeficiency virus [HIV]; Z11.59 Encounter for screening for other viral diseases; Z11.3 Encounter for screening for infections with a predominantly sexual mode of transmission; M54.50 Low back pain, unspecified; G89.29 Other chronic pain; E11.9 Type 2 diabetes mellitus without complications; R63.4 Abnormal weight loss
CPT/HCPCS: 36415; 72110; 80053; 80061; 82043; 82306; 82570; 84443; 86481; 86704; 86706; 86709; 86780; 86803; 87340; 87389

== ENCOUNTER → 2025-02-19 09:45 | Outpatient (BNV) | payer MEDICAID, SELFPAY | PROVIDERS: PCP Internal Medicine; Visit Provider Radiology Diagnostic Radiology | DX: M43.16 Spondylolisthesis, lumbar region (principal) | CPT/HCPCS: 72110 ==

== ENCOUNTER 2025-02-20 05:00 | Emergency (ER) | payer MEDICAID, SELFPAY ==
--- OUTSIDE RECORDS SUMMARY | 2025-02-19 15:40 | XMS_ITS | Encounter Summary ---
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 ([facility]) Social History Tobacco Use Types Packs/Day Years Used Date Smoking Tobacco: Every Day Cigarettes 0.3 1.2 Started: 12/2023 Passive Smoke Exposure: Current Smokeless Tobacco: Never Alcohol Use Standard Drinks/Week [...] Answer Date Recorded Patient Health Questionnaire-9 Score 20 01/29/2025 Patient Health Questionnaire-9 Score 01/29/2025 Last PHQ-9: Questionnaire Data Not on [...] AM EDT documented as of this encounter Last Filed Vital Signs Vital Sign Reading Time Taken Comments Blood Pressure 136/97 02/19/2025 2:37 PM EDT Pulse 93 02/19/2025 2:37 PM EDT Temperature 37.1 C (98.7 F) 02/19/2025 2:37 PM EDT Respiratory Rate 20 02/19/2025 2:37 PM EDT Oxygen Saturation 98% 02/19/2025 2:37 PM EDT Inhaled Oxygen Concentration - - Weight 75.8 kg (167 lb) 02/19/2025 2:37 PM EDT Height 177.8 cm (5' 10 ) 02/19/2025 2:37 PM EDT Body Mass Index 23.96 02/19/2025 2:37 PM EDT documented in this encounter Progress Notes * Derrick Coreas - 02/19/2025 2:40 PM EDT SUBJECTIVE Vinayak Hernandez is a 44 y.o. male who presents to walk in clinic because of abnormal lab. Lab called with critical glucose and pt told to come in. He presents to [place] today c/o critical glucose of 376 with normal anion gap. Pt reports he has not started his meds but go them today (has meds with him) last GLP use about 2 weeks ago and last jardiance use a few days ago. Pt is asymptomatic. Denies nausea, vomiting, abdominal pain, weakness, chest pain or blurry vision . + nocturia. Lab Results Component Value Date GLUCOSE 376 (HH) 02/19/2025 GLUCOSE 126 (H) 02/09/2025 ANIONGAP 13 02/19/2025 History provided by: Patient director of strategic communications used: Yes Review of Systems Constitutional: Negative for activity change, appetite change, fever and unexpected weight change. Respiratory: Negative for cough and chest tightness. Cardiovascular: Negative for chest pain and palpitations. Gastrointestinal: Negative for abdominal pain, diarrhea, nausea and vomiting. Neurological: Negative for dizziness, weakness and headaches. 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 COVID-19 Dyspnea on exertion Erectile dysfunction due to diseases classified elsewhere Gastroesophageal reflux disease Hemoptysis Influenza due to influenza A virus Knee pain Mild intermittent asthma Mixed hyperlipidemia Numbness of hand Primary insomnia Severe episode of recurrent major depressive disorder, with psychotic features (CMS/HCC) Type 2 diabetes mellitus without complication (CMS/HCC) Family disruption Infrapatellar bursitis of left knee Alcohol abuse Encounter for preventive health examination Weight loss Anxiety Cocaine use Cannabis use disorder No Known Allergies OBJECTIVE Visit Vitals BP (!) 136/97 (BP Location: Left arm, Patient Position: Sitting, BP Cuff Size: Adult) Pulse 93 Temp 98.7 ??F (37.1 ??C) (Oral) Resp 20 Ht 5' 10 (1.778 m) Wt 167 lb (75.8 kg) SpO2 98% BMI 23.96 kg/m?? Smoking Status Every Day BSA 1.93 m?? Physical Exam Constitutional: General: He is not in acute distress. Appearance: Normal appearance. Cardiovascular: Rate and Rhythm: Normal rate and regular rhythm. Heart sounds: Normal heart sounds. No murmur heard. Pulmonary: Effort: Pulmonary effort is normal. Breath sounds: Normal breath sounds. No wheezing or rhonchi. Neurological: General: No focal deficit present. Mental Status: He is alert. Psychiatric: Mood and Affect: Mood normal. Assessment & Plan Type 2 diabetes mellitus without complication, unspecified whether penitentiary insulin use (CMS/HCC) Elevated glucose, asymptomatic with normal antion gap and electrolytes. Pt to start medications today. Has them on person. Increase water intake and limit carbohydrates. ER precautions discussed. He agrees with the plan Follow up with PCP as scheduled. Orders: POCT Glucose POCT Hgb A1c POCT Urinalysis --Follow-up with PCP as scheduled or sooner prn-- Current Outpatient Medications: acetaminophen (Tylenol Extra Strength) 500 MG tablet, Take 1 tablet (500 mg) by mouth every 8 (eight) hours if needed for mild pain., Disp: 90 tablet, Rfl: 0 albuterol 108 (90 Base) MCG/ACT inhaler, Inhale 2 puffs every 4 (four) hours. inhale 2 puff by inhalation route every 4 - 6 hours as needed, Disp: 18 g, Rfl: 0 atorvastatin (Lipitor) 40 MG tablet, TAKE 1 TABLET BY MOUTH EVERY DAY, Disp: 90 tablet, Rfl: 1 cyclobenzaprine (Flexeril) 10 MG tablet, Take 1 tablet (10 mg) by mouth at bedtime for 10 days., Disp: 10 tablet, Rfl: 0 Diclofenac Sodium 1 % gel, apply (2G) by topical route 3 times every day to the affected area(s), Disp: , Rfl: Dulaglutide (Trulicity) 1.5 MG/0.5ML solution auto-injector, Inject 1.5 mg under the skin 1 (one) time per week., Disp: 2 mL, Rfl: 3 empagliflozin (Jardiance) 25 MG, Take 1 tablet (25 mg) by mouth Once per day., Disp: 90 tablet, Rfl: 3 sertraline (Zoloft) 50 MG tablet, TAKE 1 TABLET BY MOUTH EVERY DAY, Disp: 90 tablet, Rfl: 1 topiramate (Topamax) 50 MG tablet, TAKE 1 TABLET BY MOUTH AT BEDTIME, Disp: 180 tablet, Rfl: 0 Scribe Attestation: Derrick Gardner, am serving as a scribe to document services personally performed by Maricel Ernst, based on the patient's response to questions by provider and provider's statements to me. 02/19/25 2:55 PM Physicians Attestation: Maricel Gardner DO, have reviewed the information by the scribe, Derrick Coreas, for accuracy and agree with its content. documented in this encounter Miscellaneous Notes * Assessment & Plan Note - Claudia Jimenes MD - 02/19/2025 3:40 PM EDT Associated Problem(s): Type 2 diabetes mellitus without complication (CMS/HCC) Elevated glucose, asymptomatic with normal antion gap and electrolytes. Pt to start medications today. Has them on person. Increase water intake and limit carbohydrates. ER precautions discussed. He agrees with the plan Follow up with PCP as scheduled. Orders: POCT Glucose POCT Hgb A1c POCT Urinalysis documented in this encounter Plan of Treatment Upcoming Encounters Date Type Department Care Team (Late st Contact Info) Description 03/19/2025 11:30 AM EDT Office Visit [facility] [address] [place] [address] Martha Lock MD [address] [place] [address] 05/04/2025 9:30 AM EST Office Visit [facility] [address] [place] [address] Christianne Purdy, OD [address] [place] [address] documented as of this encounter Procedures Procedure Name Priority Date/Time Associated Diagnosis Comments POCT GLYCATED HEMOGLOBIN, TOTAL Routine 02/19/2025 2:38 PM EDT Type 2 diabetes mellitus without complication, 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 (CMS/HCC) POCT GLUCOSE Routine 02/19/2025 2:38 PM EDT Type 2 diabetes mellitus without complication, 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 (CMS/HCC) POCT URINALYSIS DIPSTICK Routine 02/19/2025 2:38 PM EDT Type 2 diabetes mellitus without complication, unspecified whether penitentiary insulin use (CMS/HCC) documented in this encounter Results * (ABNORMAL) POCT Urinalysis (02/19/2025 2:38 PM EDT) Color, UA Yellow Clarity, UA Clear Glucose, UA 3+ 500+++ Comment:400 Bilirubin, UA Negative Ketones, UA Negative Spec Grav, UA 1.020 Blood, UA Negative Negative, None Detected pH, UA 6.0 Protein, UA Negative Urobilinogen, UA 0.2 Leukocytes, UA Negative Negative, Rare, Trace Nitrite, UA Negative Negative, None Detected Urine 02/19/2025 2:38 PM EDT Maricel [employer] DO POINT OF CARE TEST ENTER/KARMEN T ORDERABLES Final Result * (ABNORMAL) POCT Hgb A1c (02/19/2025 2:38 PM EDT) Hemoglobin A1C 10.4(A) 4.0 - 5.7 % Blood 02/19/2025 2:38 PM EDT [employer] DO POINT OF CARE TEST ENTER/KARMEN T ORDERABLES Final Result * (ABNORMAL) POCT Glucose (02/19/2025 2:38 PM EDT) Glucose Blood, POC 314(A) 60 - 200 mg/dL Blood Capillary blood specimen / Unknown 02/19/2025 2:38 PM EDT [employer] DO POINT OF CARE TEST ENTER/KARMEN T ORDERABLES Final Result documented in this encounter Visit Diagnoses Diagnosis Type 2 diabetes mellitus without complication, 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
[2025-02-20 05:04] VITALS: BP 140/88; PULSE 98; RESP 18; TEMP 36.8; O2SAT 98; BMI 24.0
--- OUTSIDE RECORDS SUMMARY | 2025-02-20 05:29 | XMS_ITS | Encounter Summary ---
Author Organization [employer] Address [address] [facility] 7t [place] [address] Care Team Providers Care Tube Cleaner Name Role Phone Martha Lock MD Primary Care Provider + Encounter Details Date Type Department Care Team (Latest Contact Info) Description 02/19/2025 Travel Social History Tobacco Use Types Packs/Day Years [...] Score 20 01/29/2025 Patient Health Questionnaire-9 Score 20 01/29/2025 [...] Description 03/19/2025 11:30 AM EDT Office Visit [facility] MED[facility] [address] [place] [address] Martha Lock MD [address] [place] [address] 05/04/2025 9:30 AM EST Office Visit [facility] OPTOMETRY [address] [place] [address] Christianne Purdy, OD [address] [place] [address] documented as of this encounter Visit Diagnoses Not on filedocumented in this encounter Additional Health Concerns Assessment Noted Time PHQ-9 Depression Total Score: 20 025 11:06 AM EDT documented as of this encounter Care Teams Tube Cleaner Relationship Specialty Start Date End Date Martha Lock MD [address] [place] [address] PCP - General Family Medicine 09/26/16 documented as of this encounter
--- OUTSIDE RECORDS SUMMARY | 2025-02-20 05:29 | XMS_ITS | Clinical Summary ---
Author Organization [facility] Address [address] [facility] [address] [place] [address] Phone Care Team Providers Care Liaison Inspection Laboratory Assistant Name Role Phone Jose Siu MD Primary [...] HEPATITIS C SCREENING 09/17/1997 HIV ONE-TIME SCREENING (18-65 YEARS) 09/17/1997 COLOGUARD 09/17/2024 COLONOSCOPY 09/17/2024 COLORECTAL CANCER SCREENING 09/17/2024 FIT TEST 09/17/2024 FOBT 09/17/2024 SIGMOIDOSCOPY 09/17/2024 VIRTUAL COLONOSCOPY 09/17/2024 INFLUENZA VACCINE (#1) 2025 3, 06/22/2022, 02/27/2018, Additional history exists COVID-19 VACCINE (2024- season) 2025 06/22/2022 Adult Td,Tdap Booster 06/05/2027 06/05/2017, 011 PNEUMOCOCCAL VACCINES (0-49 years) Aged Out 06/05/2017 No longer eligible based on patient's age [...] Medical Devices Not on file Insurance [employer] Care Teams Liaison Inspection Laboratory Assistant Relationship Specialty Start Date End Date Jose Siu MD [address] [place] [phone] PCP - General General Surgery 12/30/19 Additional Source Comments The information contained in this document represents components of the legal health record. It is not the complete legal health record.[facility]
--- OUTSIDE RECORDS SUMMARY | 2025-02-20 05:29 | XMS_ITS | Encounter Summary ---
Author Organization [employer] Address [address] [facility] [facility] [address] [place] [address] Care Team Providers Care Clinic Licensed Practical Nurse Name Role Phone Martha Lock MD Primary Care Provider + Reason for Visit * Reason Onset Date Comments Critical Glucose 02/19/2025 Encounter Details Date Type Department Care Team ([facility] st Contact Info) Description 02/19/2025 Telephone [facility] [address] [place], [place] [phone] Antonia Maciel RN [address] [place] [address] Critical Glucose Social History Tobacco Use Types Packs/Day Years [...] the past 12 months, has t he [employer], gas, oil or water company threatened to [...] encounter Miscellaneous Notes * Telephone Encounter - Maral Sellers RN - 02/19/2025 1:20 PM EDT Noted. Patient was seen by PCP on 01/28/25 which notes patient is noncompliant with DM medication d/t his depression and lack of motivation. During this OV, patients BS was 426 and POC was: Type 2 diabetes mellitus without complication (CMS/HCC) - Primary DM is uncontrolled due ot non compliance with Rx, meds restarted 3 to 4 weeks ago. Increase Trulicity to 1.5 and Jardiance to 25 mg/day, follow-up with me in 6 weeks. Patient has noteaten since this morning, unable to inject Humalog today. I advised him to come to walk-in center tomorrow if FBS is above 200 or if he happens to have sxs of dizziness, severe headache, CP . Patient did not come to [facility] the following day. Patient completed BW today and glucose returned at 376. TC placed to patient [phone] who reports he has NOT had anything to eat or drink as of yet today. Patient reports he did not take his Jardiance today because he was told to complete the BW fasting. Patient also reports he has not taken his Trulicity in >2 weeks due to being admitted to [facility]. RN reviewed meditech and patient was admitted to [facility] psych 02/11-02/18. Patient was discharged with RX for metformin 500mg BID which he reports heis to take in addition to the Jardiance. Patient reports he has not started the metformin because he just went to the pharmacy to p/u the medication. Patient reports he does NOT have his glucometer to check his BS at the moment (reports it is at home). Patient admits to blurry vision, increased thirst, dry mouth and weakness today. Patient advised to come to [facility] for BS check, evaluation and and insulin administration if needed. Patient advised depending on providers evaluation he may need to seek ED care. Patient verbalized understanding and reports he will come to [facility] now to be evaluated. Warm hand off provided to [facility] RN (Marlin) along with recent [facility] discharge summary. * Telephone Encounter - Antonia Maciel RN - 02/19/2025 12:28 PM EDT Incoming call from the [facility] lab . Amelia reported that the pt's Glucose is 376 today . States the lab was drawn at 1145 am today . A warm handoff was given to Maral TORRES . Will route this message to the pt's PCP, and to the Red team nurses for review ,and assistance . TY. documented in this encounter Plan of Treatment Upcoming Encounters Date Type Department Care Team (Late st Contact Info) Description 03/19/2025 11:30 AM EDT Office Visit [facility] [address] [place] [address] Martha Lock MD [address] [place] [address] 05/04/2025 9:30 AM EST Office Visit [facility] [address] [place] [address] Christianne Purdy, OD [address] [place] [address] documented as of this encounter Visit Diagnoses Not on filedocumented in this encounter Additional Health Concerns Assessment Noted Time PHQ-9 Depression Total Score: 20 025 11:06 AM EDT documented as of this encounter Care Teams Clinic Licensed Practical Nurse Relationship Specialty Start Date End Date Martha Lock MD [address] [place] [id number] PCP - General Family Medicine 09/26/16 documented as of this encounter
--- OUTSIDE RECORDS SUMMARY | 2025-02-20 05:29 | XMS_ITS | Clinical Summary ---
Author Organization [employer] Address [address] [facility] [address] [place] [address] Care Team Providers Care Drafter Chief Design Name Role Phone Hanny Lopez MD Primary [...] complication, without long-term current use of insulin ([facility]) INJECT 0.75 MG UNDER THE SKIN [...] labs, he agreed to referral to a power and recovery superintendent, he does not think he needs AUD [...] to evaluation and to speak with the power and recovery superintendent, will do referral. Assessment & Plan (06/13/2024 3:52 PM EST): Advised to quit ETOH, declined AUD referral (never went last year) but agreed to evaluation. 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 Pt to start medications today. Has them on person. Increase water intake and limit carbohydrates. ER precautions discussed. He agrees with the plan Follow up with PCP as scheduled. Orders: POCT Glucose POCT Hgb A1c POCT Urinalysis Assessment & Plan (01/28/2025 5:33 PM EDT): [...] he agreed to be referred to the power and recovery superintendent, not ready for AUD program. He will [...] Sertraline 50mg. He will be referred to [facility] for support with housing due to [...] organization. Date Type Department Care Team Description 02/19/2025 3:40 PM EDT Office Visit [facility] [address] [place] [phone] Claudia Jimenes MD Type 2 diabetes mellitus without complication, unspecified whether group home insulin use (CMS/HCC) 02/19/2025 Travel 02/19/2025 Telephone [facility] [address] [place] [phone] Faiza Maciel RN Critical Glucose 01/29/2025 Patient Outreach [facility] [address] [place] [phone] Hua Allen Recovery Supports 01/29/[address] [phone] Hanny Lopez MD Prior Authorization ( PA: Amelia) 01/29/2025 Refill [facility] [address] [place], [place] [phone] Hanny Lopez MD Depressive disorder; Recurrent mild major depressive disorder with anxiety (CMS/HCC) 01/28/2025 4:00 PM EDT Office Visit [address] [phone] Hanny Lopez MD Type 2 diabetes mellitus without complication, without long-term current use of insulin (CMS/HCC) (Primary Dx); Recurrent mild major depressive disorder with anxiety (CMS/HCC); Mild intermittent asthma, unspecified whether complicated; Chronic bilateral low back pain without sciatica; Alcohol abuse; Weight loss; Depressive disorder; Encounter for colorectal cancer screening 01/28/2025 Travel 01/27/2025 Telephone [facility] [address] [place] [address] Hanny Lopez MD Chart Prep 01/21/2025 Patient Outreach [facility] [address] [place], [place] [phone] Hanny Lopez MD 01/21/2025 Patient Outreach [facility] [address] [place], [place] [phone] Hanny Lopez MD Pre-visit Planning (SDOH unable to reach, disconnected) 01/14/2025 Telephone [facility] [address] [place] [phone] Hanny Lopez MD No Show 01/13/2025 Telephone [facility] [address] [place] [address] Hanny Lopez MD chart prep 01/06/2025 Patient Outreach [facility] [address] [place], [place] [phone] Hanny Lopez MD Pre-visit Planning ((Unable to reach for PVP screening and or LVM) to be completed in office) 12/11/2024 Refill [facility] [address] [place], [place] [phone] Hanny Lopez MD Type 2 diabetes mellitus without complication, without long-term current use of insulin ([facility]) from Last 3 Months Immunizations Immunization [...] Mass Index 23.96 02/19/2025 2:37 PM EDT Plan of Treatment Upcoming Encounters Date Type Department Care Team (Late st Contact Info) Description 03/19/2025 11:30 AM EDT Office Visit [facility] [address] [place] [phone] Hanny Lopez MD [address] [place] [phone] 05/04/2025 9:30 AM EST Office Visit [facility] [address] [place] [address] Shonyoan Christianne, OD [address] [place] [address] Health Maintenance Due Date Last Done Comments CT Colonography 1979 Colonoscopy 1979 Colorectal Cancer Screening 1979 FIT DNA/Cologuard 1979 FIT 1979 FOBT 1979 Sigmoidoscopy 1979 Disability Screening 1979 Diabetes: Foot Exam 09/17/1989 Eye Exam 09/17/1989 Family Planning (PISQ) 09/17/1994 HPV Vaccines (1 - Male 3-dose series) 09/17/1994 Hepatitis B Vaccines (1 of 3 - 19+ 3-dose series) 09/17/1998 SDOH Screening 06/22/2023 06/22/2022 COVID-19 Vaccine (2 - season) 2025 06/22/2022 Influenza Vaccine (#1) 2025 , 04/10/2023, 06/22/2022, Additional history exists Alcohol/Substance Use Screening 04/07/2025 04/07/2024 Diabetes: Hemoglobin A1C 05/21/2025 025, 01/28/2025, 04/07/2024, Additional history exists Depression Monitoring 08/01/2025 01/29/2025, 025 Diabetes: Urine Protein Screening 02/19/2026 02/19/2025, 11/03/2021 Lipid Panel 02/19/2026 02/19/2025, 03/18/2021 Tobacco Screening 02/19/2026 02/19/2025 DTaP/Tdap/Td Vaccines (3 - Td or Tdap) 06/05/2027 06/05/2017, 03/14/2011 Zoster Vaccines (1 of 2) 09/17/2029 RSV Patients and Patients Aged 60 years or older (1 - 1-dose 75+ series) 09/17/2054 Pneumococcal Vaccine: Pediatrics (0 to 5 Years) and At-Risk Patients (6 to 49) Years Completed 04/07/2024, 06/05/2017 HIV Screening Completed 02/19/2025 Hepatitis C Screening Completed 02/19/2025 HIB Vaccines Aged Out No longer eligi [...] Name Priority Date/Time Associated Diagnosis Comments POCT URINALYSIS DIPSTICK Routine 02/19/2025 2:38 PM EDT Type 2 diabetes mellitus without complication, unspecified whether group home insulin use ([facility]) POCT GLYCATED HEMOGLOBIN, TOTAL Routine 02/19/2025 2:38 PM EDT Type 2 diabetes mellitus without complication, unspecified whether group home insulin use ([facility]) POCT GLUCOSE Routine 02/19/2025 2:38 PM EDT Type 2 diabetes mellitus without complication, unspecified whether emt intermediate insulin use ([facility]) XR LUMBAR SPINE COMPLETE 4+ VIEWS Routine 02/19/2025 10:42 AM EDT Chronic bilateral low back pain without sciatica SYPHILIS SCREEN Routine 02/19/2025 9:38 AM EDT Weight loss HEPATITIS PANEL, GENERAL Routine 02/19/2025 9:38 AM EDT Weight loss VITAMIN D,25-OH,TOTAL,IA Routine 02/19/2025 9:38 AM EDT Chronic bilateral low back pain without sciatica TSH W/REFLEX TO FT4 Routine 02/19/2025 9 :38 AM EDT Type 2 diabetes mellitus without complication, without long-term current use of insulin (CMS/HCC) HIV 1/2 ANTIGEN/ANTIBODY, FOURTH GENERATION W/RFL Routine 02/19/2025 9:38 AM EDT Weight loss LIPID PANEL WITH REFLEX TO DIRECT LDL Routine 02/19/2025 9:38 AM EDT Type 2 diabetes mellitus without complication, without long-term current use of insulin (CMS/HCC) COMPREHENSIVE METABOLIC PANEL Routine 02/19/2025 9:38 AM EDT Type 2 diabetes mellitus without complication, without long-term current use of insulin (CMS/HCC) ALBUMIN, RANDOM URINE W/CREATININE Routine 02/19/2025 9:38 AM EDT Type 2 diabetes mellitus without complication, without long-term current use of insulin (CMS/HCC) GLUCOSE, WHOLE BLOOD Routine 02/09/2025 9:01 AM EDT DRUG MONITOR, PANEL 1, SCREEN, URINE Routine 02/09/2025 8:40 AM EDT URINALYSIS, COMPLETE Routine 02/09/2025 8:40 AM EDT POCT GLYCATED HEMOGLOBIN, TOTAL Routine 01/28/2025 4:30 PM EDT Type 2 diabetes mellitus without complication, without long-term current use of insulin (CMS/HCC) POCT GLUCOSE Routine 01/28/2025 4:29 PM EDT Type 2 diabetes mellitus without complication, without long-term current use of insulin (CMS/HCC) GLUCOSE, WHOLE BLOOD Routine 12/09/2024 6:36 PM [...] WHOLE BLOOD Routine 12/09/2024 3:44 PM EDT from Last 3 Months Results * (ABNORMAL) POCT Hgb A1c (02/19/2025 2:38 PM EDT) Only the most recent of2 resultswithin the time period is included. Hemoglobin A1C 10.4(A) 4.0 - 5.7 % Blood 02/19/2025 2:38 PM EDT Maricel York DO POINT OF CARE TEST ENTER/KARMEN T ORDERABLES Final Result * (ABNORMAL) POCT Glucose (02/19/2025 2:38 PM EDT) Only the most recent of2 resultswithin the time period is included. Glucose Blood, POC 314(A) 60 - 200 mg/dL Blood Capillary blood specimen / Unknown 02/19/2025 2:38 PM EDT Maricel York DO POINT OF CARE TEST ENTER/KARMEN T ORDERABLES Final Result * (ABNORMAL) POCT Urinalysis (02/19/2025 2:38 PM EDT) Color, UA Yellow Clarity, UA Clear Glucose, UA 3+ 500+++ Comment:400 Bilirubin, UA Negative Ketones, UA Negative Spec Grav, UA 1.020 Blood, UA Negative Negative, None Detected pH, UA 6.0 Protein, UA Negative Urobilinogen, UA 0.2 Leukocytes, UA Negative Negative, Rare, Trace Nitrite, UA Negative Negative, None Detected Urine 02/19/2025 2:38 PM EDT Maricel York DO POINT OF CARE TEST ENTER/KARMEN T ORDERABLES Final Result * XR Lumbar Spine Complete 4+ Views (02/19/2025 10:42 AM EDT) Anatomical Region Laterality Modality Spine, L-spine Radiographic Kacy ging 02/19/2025 10:4 2 AM EDT Narrative 02/19/2025 10:57 AM EDT [place] [id number] XRay Report Signed Patient: Vinayak Hernandez MR#: [id number] 7 : 1980 Acct:[id number] Age/Sex: 44 / M ADM Date: 02/19/25 Loc: [facility] Attending Dr: Hanny Lopez MD Ordering Physician: Hanny Lopez MD Date of Service: 02/19/25 Procedure(s): XR lumbar spine 4V min Accession Number(s): [id number] cc: Hanny Lopez MD Reason for Exam: [...] 02/19/25 1054 DD/ 1042 TD/TT: 02/19/25 1043 Planning Associate: Procedure Note Donotuseinterpreter, Image - 02/19/2025 [place] [address] XRay Report Signed Patient: Vinayak Hernandez#: [id number] 7 : 1980Acct:[id number] Age/Sex: 44 / MADM Date: 02/19/25 Loc: [facility] Attending Dr: Hanny Lopez MD Ordering Physician: Hanny Lopez MD Date of Service: 02/19/25 Procedure(s): XR lumbar spine 4V min Accession Number(s): [id number] cc: Hanny Lopez MD Reason for Exam: [...] 02/19/25 1054 DD/ 1042 TD/TT: 02/19/25 1043 Planning Associate: us Hanny Lopez MD IMG XR PROCEDURES Final Result * Syphilis Screen (02/19/2025 9:38 AM EDT) Syphilis Screen Nonreactive Nonreactive [facility] Blood 02/19/2025 9:38 AM EDT 02/19/2025 11:41 AM EDT Hanny Lopez MD LAB BLOOD ORDERABLES Fin al Result [facility] [address] [place] [phone] * Vitamin D, 25-Hydroxy, Total, Immunoassay (02/19/2025 9:38 AM EDT) Vitamin D 25-OH Total 49.4 >30 ng/mL [facility] Comment: Health Based Reference Values*< 20 ng/mL Oywsmieyo08-22 ng/mL Insufficient> 30 ng/mL Sufficient*Micki GARCIA. N Engl J Med. 2007;357:266-280There is no well-established upper level of normal vitamin Dlevels. Some laboratories use 50 ng/mL as an upper limit ofnormal. However, toxicity is patient-dependent and may occurat any level. Careful correlation with the patient'spresentation is necessary and, if there is concern forvitamin D toxicity, treatment should be consideredirrespective of the serum level.Care must be taken in interpreting Vitamin D results fromdifferent laboratories and methodologies. Published datademonstrated that results from patients undergoinghemodialysis may show a negative bias when tested withvarious automated 25-OH vitamin D assays when compared toLC-MS/MS.When testing samples from patients whose predominant form ofVitamin D is Vitamin D2, such as patients receiving VitaminD2 supplementation, results that are subtherapeutic shouldbe confirmed with another method such as LC-MS/MS. Blood 02/19/2025 9:38 AM EDT 02/19/2025 11:41 AM EDT us Hanny Lopez MD LAB BLOOD ORDERABLES Fin al Result Performing Organization Address City/[facility]/ZIP Co de Phone Number [facility] [address] [place] [phone] * TSH with Reflex to Free T4 (02/19/2025 9:38 AM EDT) TSH reflex Free T4 1.64 0.32 - 4.0 uIU/mL [facility] Blood 02/19/2025 9:38 AM EDT 02/19/2025 11:41 AM EDT us Hanny Lopez MD LAB BLOOD ORDERABLES Fin al Result Performing Organization Address [facility] Co de Phone Number [facility] [address] [place] [phone] * (ABNORMAL) Lipid Panel with Reflex to Direct LDL (02/19/2025 9:38 AM EDT) Triglycerides 248(H) <150 mg/dL [facility] Comment:Slight Lipemia.Dodie able Triglyceride: less than 150 mg/dLBorderline High Triglyceride 150-199 mg/dLHigh Triglyceride: 200-499 mg/dLVery High Triglyceride: greater than or equal to 5OO mg/dL Cholesterol 209(H) <200 mg/dL [facility] Comment:Desirable Cholestero l: less than 200 mg/dLBorderline High Cholesterol: 200-239 mg/dLHigh Cholesterol: greater than 239 mg/dL LDL Cholesterol Calculated 109(H) <100 mg/dL [facility] Comment:Desirable LDL: less than 100 mg/dLNear Optimal/Above Optimal LDL: 110- 129 mg/dLBorderline High LDL: 130-159 mg/dLHigh LDL: 160-189 mg/dLVery High LDL: greater than or equal to 190 mg/dL HDL Cholesterol 51 >40 mg/dL [facility] Comment:Desirable HDL: great er than 40 mg/dL Note: This HDL assay may give artificially low results in patients with liver disease. Blood 02/19/2025 9:38 AM EDT 02/19/2025 11:41 AM EDT Hanny Lopez MD LAB BLOOD ORDERABLES Fin al Result Performing Organization Address [facility] de Phone Number [facility] [address] [place] [phone] * Hepatitis Panel, General (02/19/2025 9:38 AM EDT) Hepatitis A IgM Nonreactive Nonreactive [facility] Comment:IgM antibodies to BEYER V not detected; does not exclude earlyacute or recovered HAV infection. ~Hepatitis B Surface Antibody NONREACTIVE Nonreactive [facility] Comment:Nonreactive: < 8.00 mIU/mL Hepatitis B Core Antibody Nonreactive Nonreactive [facility] Hepatitis C Antibody Nonreactive Nonreactive [facility] Comment:Antibodies to HCV no t detected; does not exclude early acuteHCV infection. Hepatitis B Surface Ag Negative Negative [facility] Blood 02/19/2025 9:38 AM EDT 02/19/2025 11:41 AM EDT Hanny Lopez MD LAB BLOOD ORDERABLES Fin al Result Performing Organization Address [facility] de Phone Number [facility] [address] [place] [phone] * Albumin, Random Urine W/Creatinine (02/19/2025 9:38 AM EDT) Creatinine, Urine 104.22 mg/dL [facility] Microalbumin Urine 5.0 mg/L [facility] Microalbum Creatinine Ratio Ur 4.7 <30 ug/mg cr [facility] Comment:Albumin/Creatinine R atio Reference Ranges: Normal: < 30 ug/mg creatinine Microalbuminuria: 30 - 300 ug/mg creatinineClinical Albuminuria: > 300 ug/mg creatinine Urine (Urine, Random) 02/19/2025 9:38 AM EDT 02/19/2025 11:16 AM EDT Hanny Lopez MD LAB URINE ORDERABLES Fin al Result Performing Organization Address [facility] Co de Phone Number [facility] [address] [place] [phone] * HIV-1/2 Antigen and Antibodies, Fourth Generation, with Reflexes (02/19/2025 9:38 AM EDT) HIV AB/AG Nonreactive Nonreactive [facility] Comment:HIV-1 p24 Ag and/or HIV-1/HIV-2 Ab not detected.A test result that is nonreactive does not exclude thepossibility of exposure to or infection with HIV-1 and/orHIV-2. Nonreactive results in this assay for individualswith prior exposure to HIV-1 and/or HIV-2 may be due toantigen and antibody levels that are below the limit ofdetection of this assay.The [employer] HIV Ag/Ab Combo assay result andsupplemental assay results should be interpreted inconjunction with the patient's clinical presentation,history and other laboratory results. If the results areinconsistent with clinical evidence, additional testing issuggested to confirm the result. Blood Venous blood specimen / Unknown 02/19/2025 9:38 AM EDT 02/19/2025 11:41 AM EDT us Hanny Lopez MD LAB BLOOD ORDERABLES Fin al Result Performing Organization Address [facility]/ZIP Co de Phone Number [facility] [address] [place] [phone] * (ABNORMAL) Comprehensive Metabolic Panel (02/19/2025 9:38 AM EDT) Only the most recent of2 resultswithin the time period is included. Sodium 138 135 - 145 mmol/L [facility] Potassium 4.6 3.3 - 5.1 mmol/L [facility] Chloride 102 96 - 108 mmol/L [facility] Carbon Dioxide 28 22 - 29 mmol/L [facility] Anion Gap 13 12 - 20 [facility] Urea Nitrogen (BUN) 20(H) 9 - 16 mg/dL [facility] Creatinine, Serum 0.99 0.5 - 1.4 mg/dL [facility] Estimated Glomerular Filt Rate >60 [facility] Comment:Chronic Kidney Disea se: Estimated GFR < 60 mL/min/1.64j1Szyzmg Kidney Disease: Estimated GFR < 15 mL/min/1.73m2 Glucose 376(HH) 60 - 115 mg/dL [facility] Comment:Critical value for G ADRIANNE: Results called to and read backby: FAIZA Parsons Person calling: ELIZABETH Date: 02-19-25 Time:1227 Calcium 9.5 8.4 - 10.2 mg/dL [facility] Bilirubin, Total 0.2 0.0 - 1.0 mg/dL [facility] Aspartate Amino Transferase 84(H) 5 - 37 U/L [facility] Alanine Aminotransferase 96(H) 0 - 40 U/L [facility] Total Protein 8.1(H) 6.5 - 8.0 g/dL [facility] Albumin Level 4.9 3.5 - 5.0 g/dL [facility] Alkaline Phosphatase 130(H) 39 - 117 U/L [facility] Blood Venous blood specimen / Unknown 02/19/2025 9:38 AM EDT 02/19/2025 11:41 AM EDT us Hanny Lopez MD LAB BLOOD ORDERABLES Fin al Result [facility] [address] [place] [phone] * (ABNORMAL) Glucose, Whole Blood (02/09/2025 9:01 AM EDT) Only the most recent of5 resultswithin the time period is included. Glucose, Whole Blood 126(H) 60 - 115 mg/dL [facility] Comment:METER #: [id number] 02/09/2025 9:01 AM EDT 02/09/2025 9:06 AM EDT us Generic External Data Provider LAB BLOOD ORDERAB LES Final Result [facility] [address] [place] [phone] * (ABNORMAL) Drug Monitoring, Panel 1, Screen, Urine (02/09/2025 8:40 AM EDT) [facility] Opiate Screen Urine Not Detected Not Detect [facility] Comment:Opiate cut-off is 30 0 ng/mL.Positive results are unconfirmed and should not be used fornon-medical purposes. Barbiturates, Urine Not Detected Not Detect [facility] Comment:Barbiturate cut-off is 200 ng/mL.Positive results are unconfirmed and should not be used fornon-medical purposes. Phencyclidine Screen Urine Not Detected Not Detect [facility] Comment:Phencyclidine cut-of f is 25 ng/mL.Positive results are unconfirmed and should not be used fornon-medical purposes. Amphetamine Screen Urine Not Detected Not Detect [facility] Comment:Amphetamine cut-off is 1000 ng/mL.Positive results are unconfirmed and should not be used fornon-medical purposes. Benzodiazepines Screen Urine Not Detected Not Detect [facility] Comment:Benzodiazepine cut-o ff is 200 ng/mL.Positive results are unconfirmed and should not be used fornon-medical purposes. Cocaine Screen Urine POSITIVE(A) Not Detect [facility] Comment:Cocaine cut-off is 3 00 ng/mL.Positive results are unconfirmed and should not be used fornon-medical purposes. Cannabinoid Screen Urine POSITIVE(A) Not Detect [facility] Comment:Cannabinoid cut-off is 50 ng/mL.Positive results are unconfirmed and should not be used fornon-medical purposes. Methadone Screen, Urine Not Detected Not Detect ng/mL [facility] Comment:Methadone cut-off is 300 ng/mL.Positive results are unconfirmed and should not be used fornon-medical purposes. FENTANYL URINE Not Detected Not Detect [facility] Comment:Fentanyl cut-off is 1 ng/mL.Positive results are unconfirmed and should not be used fornon-medical purposes. Oxycodone Urine Screen Not Detected Not Detect ng/mL [facility] Comment:Oxycodone cut-off is 100 ng/mL.Positive results are unconfirmed and should not be used fornon-medical purposes. Buprenorphine Screen Not Detected Not Detect ng/mL [facility] Comment:Buprenorphine cut-of f is 5 ng/mL.Positive results are unconfirmed and should not be used fornon-medical purposes. 02/09/2025 8:40 AM EDT 02/09/2025 8:55 AM EDT us Generic External Data Provider LAB URINE ORDERAB LES Final Result [facility] [address] [place] [phone] * (ABNORMAL) Urinalysis Complete (02/09/2025 8:40 AM EDT) Color Urine Yellow [facility] Appearance Urine Clear [facility] PH 6.0 5.0 - 9.0 [facility] Glucose Urine UA >=1000(A) Negative mg/dL [facility] Urine Blood Negative Negative [facility] Specific [place] - Urine >=1.030(H) 1.005 - 1.025 [facility] Urine Protein Negative Neg-Trace mg/dL [facility] Urine Ketones 15 Negative mg/dL [facility] Nitrite Urine Negative Negative [facility] Leukocyte Esterase Urine Negative Negative [facility] RBC Urine 0-2 0 - 2 /HPF [facility] Urine WBC 0-5 0 - 5 /HPF [facility] Urine Squamous Epithelial Cell 0-2 0 - 2 /HPF [facility] Urine Bacteria None Seen None Seen [facility] Hyaline Casts, Urine 0-2 0 - 2 /LPF [facility] 02/09/2025 8:40 AM EDT 02/09/2025 8:55 AM EDT us Generic External Data Provider LAB URINE ORDERAB LES Final Result Performing Organization Address City/[facility]/ZIP Co de Phone Number [facility] [address] [place] [phone] * (ABNORMAL) VENOUS BLOOD GAS (12/09/2024 5:04 PM EDT) VBG pH 7.37 7.32 - 7.43 [facility] Comment:METER #: [id number] additional_comment: Arpan marshall VBG PCO2 48 mmHg [facility] Comment:METER #: [id number] additional_comment: Arpan marshall VBG PO2 45 mmHg [facility] Comment:METER #: [id number] additional_comment: Arpan marshall VBG Base Excess 2.1 mmol/L [facility] Comment:METER #: [id number] additional_comment: Arpan marshall VBG HCO3 28(H) 22 - 26 mmol/L [facility] Comment:METER #: [id number] additional_comment: Arpan marshall O2 Sat, Gautam 74.0 % [facility] Comment:METER #: [id number] additional_comment: Arpan marshall 12/09/2024 5:04 PM EDT 12/09/2024 5:07 PM EDT us Generic External Data Provider LAB BLOOD ORDERAB LES Final Result Performing Organization Address [facility]/ZIP Co de Phone Number [facility] [address] [place] [address] [phone] * Hold Green Gel (12/09/2024 4:57 PM EDT) Hold Green Gel See Note [facility] Comment:Specimen held untest ed for 24 hours; Call to requestChemistry testing. 12/09/2024 4:57 PM EDT 12/09/2024 5:02 PM EDT Generic External Data Provider HISTORICAL/NON OR DERABLE LABS Final Result Performing Organization Address [facility]/ZIP Co de Phone Number [facility] [address] [place] [address] [phone] * Beta-Hydroxybutyrate (12/09/2024 4:53 PM EDT) Pathologist [facility] Beta-Hydroxybut yrate 0.07 0.02 - 0.27 mmol/L [facility] 12/09/2024 4:53 PM EDT 12/09/2024 5:01 PM EDT Generic External Data Provider LAB BLOOD ORDERAB LES Final Result Performing Organization Address [facility]/ZIP Co de Phone Number [facility] [address] [place] [address] [phone] * (ABNORMAL) CBC auto differential (12/09/2024 4:53 PM EDT) Pathologist [facility] White Blood Count 7.1 4.8 - 10.8 X10*3/uL [facility] Red Blood Count 5.30 4.60 - 5.80 X10*6/uL [facility] Hemoglobin 15.1 14.0 - 18.0 g/dl [facility] Hematocrit 44.0 42.0 - 52.0 % [facility] Mean Corpuscular Volume 83.0 80.0 - 98.0 fL [facility] Mean Corpuscular Hemoglobin 28.5 27.0 - 33.0 pg [facility] Mean Corpuscular HGB Conc 34.3 31.0 - 36.0 g/dl [facility] Red Cell Distribution Width 12.1 11.0 - 16.0 % [facility] Platelet Count 161 160 - 400 X10*3/uL [facility] Mean Platelet Volume 13.2(H) 9.4 - 12.4 fL [facility] Neutrophils Percent Auto 59.7 45 - 73 % [facility] Imm Gran Pct Auto 0.3 0.0 - 0.4 % [facility] Lymphocytes Percent Auto 26.6 20 - 40 % [facility] Monocytes Percent Auto 6.9 2 - 11 % [facility] Eosinophils Percent Auto 6.2(H) 0 - 4 % [facility] Basophils Percent Auto 0.3 0 - 2 % [facility] NRBC Pct Auto 0.0 0.0 - 0.2 /100WBC [facility] Neutrophils Absolute Auto 4.2 2.0 - 8.3 x10*3/uL [facility] Imm Gran Abs Auto 0.02 0.00 - 0.03 X10*3/uL [facility] Lymphocytes Absolute Auto 1.9 1.2 - 4.9 X10*3/uL [facility] Monocytes Absolute Auto 0.5 0.1 - 1.2 X10*3/uL [facility] Eosinophils Absolute Auto 0.4 0.0 - 0.4 X10*3/uL [facility] Basophils Absolute Auto 0.0 0.0 - 0.2 X10*3/uL [facility] NRBC Abs Auto 0.000 0.0 - 0.012 X10*3/uL [facility] 12/09/2024 4:53 PM EDT 12/09/2024 5:01 PM EDT us Generic External Data Provider LAB BLOOD ORDERAB LES Final Result [facility] [address] [place] [address] [phone] from Last 3 Months Insurance [facility] C3 Care Teams Drafter Chief Design Relationship Specialty Start Date End Date Hanny Lopez MD [address] [place] [address] [place] [address] PCP - General Family Medicine 09/26/16
--- OUTSIDE RECORDS SUMMARY | 2025-02-20 05:29 | XMS_ITS | Encounter Summary ---
Author Organization [facility] Address [address] [place] [address] Phone Care Team Providers Care Artist'S Model Name Role Phone Unknown, Unknown Primary Care Provider Jose Stern MD Primary Care Provide r Encounter Details Date Type Department Care Team (Late st Contact Info) Description 09/19/2018 Ancillary Orders Main [facility] at [address] [address] Romina Tyson PA-C [address] [facility], [address] [place] [address] [email or web address] Pain Social History Tobacco Use Types Packs/Day [...] of the 3rd distal phalanx. POS - [id number] Narrative 09/19/2018 7:53 PM EDT EXAM: XR [...] of the 3rd distal phalanx. POS - [id number] Romina Tyson PA-C IMG XR UPPER EXTREMITY Final Result documented in this encounter Visit Diagnoses Diagnosis Pain Generalized pain Pain Generalized pain documented in this encounter Care Teams Artist'S Model Relationship Specialty Start Date End Date Unknown, Unknown, MD PCP - General 09/19/18 12/29/19 Jose Siu MD [address] [facility] First [place] [phone] PCP - [facility] General Surgery 12/30/19 documented as of this encounter Additional Source Comments The information contained in this document represents components of the legal health record. It is not the complete legal health record.[facility]
--- NOTE | 2025-02-20 06:01 | ED_ITS ---
HPI - Back Pain/Injury General Chief Complaint: Back Pain/Injury Stated Complaint: back pain Time Seen by Provider: 02/20/25 05:46 Source: patient Mode of arrival: ambulatory Limitations: no limitations History of Present Illness HPI Narrative: This is a 44 years old male presented to the emergency department complaining of lower back pain he drove himself to the emergency department. He states he yesterday was cleaning a ramp in his house and experienced lower back pain. He has a history of diabetes asthma, substance abuse including cocaine MD elicited complaint: back pain Pertinent past history: other Onset (ago): day(s) (1) Timing: constant Severity: moderate Quality: dull Location: lumbar spine Radiation: none Exacerbating factors: movement Relieving factors: none Associated symptoms: denies other symptoms Related Data Home Medications ?Medication ?Instructions ?Recorded ?Confirmed albuterol sulfate 90 mcg/actuation 2 puff inhalation Q 4H PRN 04/07/20 02/09/25 aerosol inhaler (ProAir HFA) Shortness Of Breath acetaminophen 500 mg tablet 500 mg PO Q8H PRN mild nupur n 02/09/25 02/09/25 albuterol sulfate 90 mcg/actuation 2 puff inhalation Q 4-6H PRN 02/09/25 02/09/25 aerosol inhaler (Ventolin HFA) Shortness Of Breath Or Wheezing Previous Rx's ?Medication ?Instructions ?Recorded acetaminophen 325 mg tablet 325 mg PO QID PRN pain #90 tabs 10/21/24 (Tylenol) cyclobenzaprine 5 mg tablet 5 mg PO BEDTIME PRN muscle spasm 10/21/24 #20 tabs ibuprofen 400 mg tablet 400 mg PO Q6H PRN Pain #60 t abs 10/21/24 dulaglutide 1.5 mg/0.5 mL 1.5 mg (0.5 mL) subcut QWEEK #2 mL 02/12/25 subcutaneous pen injector (Trulicity) metformin 500 mg tablet 500 mg PO BIDWM #60 tabs 04/04 risperidone 0.5 mg tablet 0.5 mg PO BID #60 tabs 02/18 sertraline 50 mg tablet 50 mg PO DAILY #30 tabs 02/09 0 topiramate 50 mg tablet 50 mg PO BEDTIME #30 tabs trazodone 50 mg tablet 50 mg PO BEDTIME MRX1 PRN In somnia 02/18/25 #60 tabs cyclobenzaprine 10 mg tablet 10 mg PO TID PRN muscle s pasm #10 02/20/25 tabs naproxen 500 mg tablet (Naprosyn) 500 mg PO BID PRN PA IN #20 tabs 02/20/25 Allergies Allergy/AdvReac Type Severity Reaction Status Date / Time No Known Allergies Allergy Verified 02/20/25 05:05 Review of Systems Constitutional: Constitutional: Reports no additional constitutional complaints Neurologic: Reports system reviewed and no additional complaints, except as documented PMFSH Past Medical History Attestation statement: The following information was validated with the patient. Medical History Asthma Diabetes mellitus, type 2 Social History Social History Household Members: Spouse Housing: Apartment Do you presently have visiting nurse or other home services: No Unable to assess alcohol history related to: Unknown Alcohol intake: former Patient Tobacco Use Status: Never used Tobacco e-Cigarette/Vaping Use: Never Used Second Hand Smoke Exposure: No Substance Use Type: Crack/Cocaine Advance Directives: No Advance Directives Information Provided: Yes Do you have a plan to hurt others: No Plan service: No Current occupational status: employed Sexual orientation: Straight/Heterosexual Physical Exam Exam: Exam: No acute distress looks well ambulating in the room Vital Signs: Vital Signs: Last Vital Signs Temp 98.2 F 02/20/25 05:04 Pulse 98 02/20/25 05:04 Resp 18 02/20/25 05:04 BP 140/88 H 02/20/25 05:04 Pulse Ox 98 02/20/25 05:04 O2 Del Method Room Air 02/20/25 05:04 BMI result Body Mass Index 24.0 Const: General: cooperative Nutritional Appearance: well nourished Haja entation/consciousness: patient oriented x3 Limitations: no limitations HEENT: Head: Yes normal to inspection General nose exam: Normal external nose present Face and sinus: Yes normal facial exam Mouth: Normal oral and palatal mucosa present Throat: Yes posterior oropharynx normal Neck: Neck: Yes normal visual inspection Chest: Chest palpation & inspection: normal inspection of the chest Resp: Effort & Inspection: normal respiratory effort Cardio: Jugular venous distension: no JVD Rate: regular rate Rhythm: regular rhythm GI: Inspection: Yes normal to inspection Palpation (GI): Soft to palpation, not firm and nontender : General: Yes no CVA tenderness Back/Spine/Pelvis: Back: no CVA tenderness Neuro: General: patient oriented x3 Cranial nerves: Yes CN's II-XII intact bilaterally Motor exam (neuro): 5/5 motor strength present throughout Extrem: General: Yes full ROM Right upper extremity: normal to inspection Medical Decision Making Medical Decision Making [facility] Narrative: Patient presented complaining of lower back pain he ambulated to the ED, there is no fever no weakness no numbness in the lower extremity I do not think we need to do any imaging. He has a an appointment with his primary care physician next week I think he can be discharged home with anti-inflammatory medication Differential Diagnosis Differential Diagnoses: The differential diagnosis associated with the pr esentation includes Muscular spasm/disc herniation Admission/Observation Consideration of admission/observation: Escalation of care including admission/observation considered Chronic Conditions Patient?s care impacted by: Diabetes Discharge Plan Discharge Clinical Impression: Strain of lumbar region Patient Disposition: Home, Self-Care Instructions: Back Pain (ED) Additional Instructions: Please keep your appointment with your primary care physician next week return to the emergency room if you have weakness in the legs numbness in the legs incontinent of urine Prescriptions: New naproxen [Naprosyn] 500 mg tablet 500 mg PO BID PRN (Reason: PAIN) Qty: 20 0RF cyclobenzaprine 10 mg tablet 10 mg PO TID PRN (Reason: muscle spasm) Qty: 10 0RF No Action albuterol sulfate [ProAir HFA] 90 mcg/actuation Hfa Aerosol Inhaler 2 puff INHALATION Q4H PRN (Reason: Shortness Of Breath) acetaminophen [Tylenol] 325 mg tablet 325 mg PO QID PRN (Reason: pain) Qty: 90 0RF cyclobenzaprine 5 mg tablet 5 mg PO BEDTIME PRN (Reason: muscle spasm) Qty: 20 0RF ibuprofen 400 mg tablet 400 mg PO Q6H PRN (Reason: Pain) Qty: 60 0RF acetaminophen 500 mg tablet 500 mg PO Q8H PRN (Reason: mild pain) albuterol sulfate [Ventolin HFA] 90 mcg/actuation HFA aerosol inhaler 2 puff inhalation Q4-6H PRN (Reason: Shortness Of Breath Or Wheezing) Trulicity 1.5 mg/0.5 mL pen injector 1.5 mg subcut QWEEK Qty: 2 1RF risperidone 0.5 mg Tablet 0.5 mg PO BID Qty: 60 0RF metformin 500 mg Tablet 500 mg PO BIDWM Qty: 60 0RF trazodone 50 mg Tablet 50 mg PO BEDTIME MRX1 PRN (Reason: Insomnia) Qty: 60 0RF sertraline 50 mg tablet 50 mg PO DAILY Qty: 30 0RF topiramate 50 mg tablet 50 mg PO BEDTIME Qty: 30 0RF Print Language: Maldivian
[2025-02-20 06:51] VITALS: BP 140/88; PULSE 98; RESP 18; TEMP 36.8; O2SAT 98
== END 2025-02-20 06:52 | disposition home or self-care (01) ==
PROVIDERS: Emergency Provider Emergency Medicine
DX: S39.012A Strain of muscle, fascia and tendon of lower back, initial encounter (principal); E11.9 Type 2 diabetes mellitus without complications; X50.9XXA Other and unspecified overexertion or strenuous movements or postures, initial encounter; Y93.E9 Activity, other interior property and clothing maintenance; Y92.098 Other place in other non-institutional residence as the place of occurrence of the external cause; Y99.8 Other external cause status; Z79.899 Other long term (current) drug therapy
CPT/HCPCS: 99283

== ENCOUNTER 2025-02-20 21:33 | Inpatient (IN) | payer MEDICAID, OTHER, SELFPAY ==
--- OUTSIDE RECORDS SUMMARY | 2025-02-19 15:40 | XMS_ITS | Encounter Summary ---
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 Respiratory: Negative for cough and chest tightness. Cardiovascular: Negative for chest pain and palpitations. Gastrointestinal: Negative for abdominal pain, diarrhea, nausea and vomiting. Neurological: Negative for dizziness, weakness and headaches. Patient Active Problem List Diagnosis Atelectasis Chronic low back pain Chronic [id number] syndrome COVID-19 Dyspnea on exertion Erectile dysfunction [...] 2 diabetes mellitus without complication, unspecified whether group home insulin use (CMS/HCC) Elevated glucose, asymptomatic with [...] Description 03/19/2025 11:30 AM EDT Office Visit [facility] MEDICINE [address] [place] [address] Martha Lock MD [address] [place] [address] 05/04/2025 9:30 AM EST Office Visit [facility] OPTOMETRY [address] [place] [address] Christianne Purdy, OD [address] [place] [address] documented as of this encounter Procedures Procedure Name Priority Date/Time Associated Diagnosis Comments POCT GLYCATED HEMOGLOBIN, TOTAL Routine 02/19/2025 2:38 PM EDT Type 2 diabetes mellitus without complication, 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 (CMS/HCC) POCT GLUCOSE Routine 02/19/2025 2:38 PM EDT Type 2 diabetes mellitus without complication, 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 (CMS/HCC) POCT URINALYSIS DIPSTICK Routine 02/19/2025 2:38 PM EDT Type 2 diabetes mellitus without complication, unspecified whether group home insulin use (CMS/HCC) documented in this encounter [...] Detected Urine 02/19/2025 2:38 PM EDT Maricel [employer] DO POINT OF CARE TEST ENTER/KARMEN T ORDERABLES Final Result * (ABNORMAL) POCT Hgb A1c (02/19/2025 2:38 PM EDT) Hemoglobin A1C 10.4(A) 4.0 - 5.7 % Blood 02/19/2025 2:38 PM EDT [employer] DO POINT OF CARE TEST ENTER/KARMEN T ORDERABLES Final Result * (ABNORMAL) POCT Glucose (02/19/2025 2:38 PM EDT) Glucose Blood, POC 314(A) 60 - 200 mg/dL Blood Capillary blood specimen / Unknown 02/19/2025 2:38 PM EDT [employer] DO POINT OF CARE TEST ENTER/KARMEN T ORDERABLES Final Result documented in this encounter Visit Diagnoses Diagnosis Type 2 diabetes mellitus without complication, 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
--- NOTE | ~2025-02-20 | CT_ITS ---
CLINICAL HISTORY: abd pain, intractable hiccups w hemoptysis CT abdomen and pelvis without IV or oral contrast Comparison: None Findings: Lung bases show no active disease. No dependent layering pleural effusions. The heart is not enlarged. No stones are identified in the kidneys, ureters or bladder. There is no hydronephrosis or perinephric stranding/fluid. Evaluation of the liver, spleen, adrenal glands and pancreas demonstrates no lesions. It should be noted that isodense masses may be obscured in the absence of intravenous contrast. No radiopaque gallstones. Heavy stool burden. Normal appendix. No pathologically enlarged lymph nodes . No ascites demonstrated. Normal distention of the urinary bladder. No vertebral body compression fractures or spondylolisthesis. No bony destructive lesions. Impression: 1. No nephrolithiasis or urinary tract obstruction demonstrated. 2. Heavy stool burden may be bordering on impaction. 3. Significant motion artifact may obscure subtle pathology including free air. This document has been electronically signed by: Chris Avendano MD on 03/01/2025 18:43:41
--- NOTE | ~2025-02-20 | CT_ITS ---
CLINICAL HISTORY: R O esophageal rupture CT chest without contrast Comparison: CR/AZ/SR - XR CHEST 2 VIEWS - 07/02/24 08:08 EST Findings: Normal heart size. No pericardial effusion. Calcific coronary artery disease: None. No bulky mediastinal lymphadenopathy. No evidence of mediastinal hematoma. No pneumomediastinum demonstrated. Lungs are clear. No pneumothorax or pleural effusions, plaques or calcifications. Central airways are patent. No bronchiectasis. No thyroid nodules. No chest wall masses. No axillary adenopathy. Limited view of the upper abdomen is normal. No acute fractures or pathologic bone lesions. Impression: 1. No evidence of pneumomediastinum. Respiratory motion artifact limits the exam subtle pathology may be obscured. Clinical correlation advised. Probable distal esophageal wall thickening. 2. Lungs are clear. No pneumothorax or pleural effusions. This document has been electronically signed by: Chris Avendano MD on 03/01/2025 18:40:42
[2025-02-20 21:38] VITALS: BP 150/90; PULSE 117; O2SAT 95
[2025-02-20 21:44] VITALS: BMI 25.7
--- OUTSIDE RECORDS SUMMARY | 2025-02-20 22:09 | XMS_ITS | Clinical Summary ---
Author Organization [facility] Address [address] [place] [address] Phone Care Team Providers Care Plant Wire Chief Name Role Phone Jose Siu MD Primary [...] Medical Devices Not on file Insurance [employer] Care Teams Plant Wire Chief Relationship Specialty Start Date End Date Jose Siu MD [address] [place] [phone] PCP - General General Surgery 12/30/19 Additional Source Comments The information contained in this document represents components of the legal health record. It is not the complete legal health record.[facility]
--- OUTSIDE RECORDS SUMMARY | 2025-02-20 22:09 | XMS_ITS | Encounter Summary ---
Author Organization [employer] Address [address] [facility] [address] [place] [address] Care Team Providers Care Supervisor Assembly Room Name Role Phone Martha Lokc MD Primary Care Provider + Reason for Visit * Reason Onset Date Comments Critical Glucose 02/19/2025 Encounter Details Date Type Department Care Team ([facility] st Contact Info) Description 02/19/2025 Telephone [facility] [address] [place], [place] [phone] Antonia Maciel RN [address] [place] [address] Critical Glucose Social History Tobacco Use Types [...] the past 12 months, has t he [employer] gas, oil or water company threatened to [...] CP . Patient did not come to [facility] the following day. Patient completed BW today and glucose returned at 376. TC placed to patient [phone] who reports he has NOT had anything to eat or drink as of yet today. Patient reports he did not take his Jardiance today because he was told to complete the BW fasting. Patient also reports he has not taken his Trulicity in >2 weeks due to being admitted to [facility]. RN reviewed meditech and patient was admitted to [facility] psych 02/11-02/18. Patient was discharged with RX [...] weakness today. Patient advised to come to [facility] for BS check, evaluation and and insulin administration if needed. Patient advised depending on providers evaluation he may need to seek ED care. Patient verbalized understanding and reports he will come to [facility] now to be evaluated. Warm hand off provided to [facility] RN (Marlin) along with recent [facility] discharge summary. * Telephone Encounter - Antonia Maciel RN - 02/19/2025 12:28 PM EDT Incoming call from the [facility] lab . Amelia reported that the pt's [...] Description 03/19/2025 11:30 AM EDT Office Visit [facility] [address] [place] [address] Martha Lock MD [address] [place] [address] 05/04/2025 9:30 AM EST Office Visit [facility] [address] [place] [address] Christianne Purdy, OD [address] [place] [address] documented as of this encounter Visit Diagnoses Not on filedocumented in this encounter Additional Health Concerns Assessment Noted Time PHQ-9 Depression Total Score: 20 025 11:06 AM EDT documented as of this encounter Care Teams Supervisor Assembly Room Relationship Specialty Start Date End Date Martha Lock MD [address] [place] [phone] PCP - General Family Medicine 09/26/16 documented as of this encounter
--- OUTSIDE RECORDS SUMMARY | 2025-02-20 22:09 | XMS_ITS | Encounter Summary ---
Author Organization [facility] Address [address] [place] [address] Phone Care Team Providers Care Yoghurt Maker Name Role Phone Unknown, Unknown Primary Care Provider Jose Stern MD Primary Care Provide r Encounter Details Date Type Department Care Team (Late st Contact Info) Description 09/19/2018 Ancillary Orders Main [facility] at [address] [address] Romina Tyson PA-C [address] [facility] [address] [facility], [address] [place] [address] [email or web address] Pain Social History Tobacco Use Types Packs/Day [...] of the 3rd distal phalanx. POS - [id number] Narrative 09/19/2018 7:53 PM EDT EXAM: XR [...] of the 3rd distal phalanx. POS - [id number] Romina Tyson PA-C IMG XR UPPER EXTREMITY Final Result documented in this encounter Visit Diagnoses Diagnosis Pain Generalized pain Pain Generalized pain documented in this encounter Care Teams Yoghurt Maker Relationship Specialty Start Date End Date Unknown, Unknown, MD PCP - General 09/19/18 12/29/19 Jose Siu MD [address] [facility] First Floor_[place] [phone] PCP - [facility] General Surgery 12/30/19 documented as of this encounter Additional Source Comments The information contained in this document represents components of the legal health record. It is not the complete legal health record.[facility]
--- OUTSIDE RECORDS SUMMARY | 2025-02-20 22:09 | XMS_ITS | Clinical Summary ---
Author Organization [employer] Address [address] [facility] [address] [place] [address] Care Team Providers Care Speech And Hearing Clinic Director Name Role Phone Hanny Lopez MD Primary [...] complication, without long-term current use of insulin ([facility]) INJECT 0.75 MG UNDER THE SKIN 1 [...] labs, he agreed to referral to a math coach, he does not think he needs AUD [...] to evaluation and to speak with the math coach, will do referral. Assessment & Plan (06/13/2024 3:52 PM EST): Advised to quit ETOH, declined AUD referral (never went last year) but agreed to evaluation. 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 He will [...] Sertraline 50mg. He will be referred to [facility] for support with housing due to safety [...] Description 02/19/2025 3:40 PM EDT Office Visit [facility] [address] [place] [phone] Claudia Jimenes MD Type 2 diabetes mellitus without complication, unspecified whether [place] [facility] insulin use (CMS/HCC) 02/19/2025 Travel 02/19/2025 Telephone [facility] [address] [place] [phone] Faiza Maciel RN Critical Glucose 01/29/2025 Patient Outreach [facility] [address] [place] [address] [phone] Hua Allen Recovery Supports 01/29/[address] [phone] Hanny Lopez MD Prior Authorization ( PA: Amelia) 01/29/2025 Refill [facility] [address] [place], [place] [phone] Hanny Lopez MD Depressive disorder; Recurrent mild major depressive disorder with anxiety (CMS/HCC) 01/28/2025 4:00 PM EDT Office Visit [address] [phone] Hanny Lopez MD Type 2 diabetes mellitus without complication, without long-term current use of insulin (CMS/HCC) (Primary Dx); Recurrent mild major depressive disorder with anxiety (CMS/HCC); Mild intermittent asthma, unspecified whether complicated; Chronic bilateral low back pain without sciatica; Alcohol abuse; Weight loss; Depressive disorder; Encounter for colorectal cancer screening 01/28/2025 Travel 01/27/2025 Telephone [facility] [address] [place] [address] Hanny Lopez MD Chart Prep 01/21/2025 Patient Outreach [facility] [address] [place], [place] [phone] Hanny Lopez MD 01/21/2025 Patient Outreach [facility] [address] [place], [place] [phone] Hanny Lopez MD Pre-visit Planning (SDOH unable to reach, disconnected) 01/14/2025 Telephone [facility] [address] [place] [phone] Hanny Lopez MD No Show 01/13/2025 Telephone [facility] [address] [place] [address] Hanny Lopez MD chart prep 01/06/2025 Patient Outreach [facility] [address] [place], [place] [phone] Hanny Lopez MD Pre-visit Planning ((Unable to reach for PVP screening and or LVM) to be completed in office) 12/11/2024 Refill [facility] [address] [place], [place] [phone] Hanny Lopez MD Type 2 diabetes mellitus without complication, without long-term current use of insulin ([facility]) from Last 3 Months Immunizations Immunization Administration [...] Description 03/19/2025 11:30 AM EDT Office Visit [facility] [address] [place] [address] Hanny Lopez MD [address] [place] [address] 05/04/2025 9:30 AM EST Office Visit [facility] [address] [place] [address] Shonyoan Christianne, OD [address] [place] [address] Health Maintenance Due Date Last Done Comments [...] 2 diabetes mellitus without complication, unspecified whether [place] [facility] insulin use ([facility]) POCT GLYCATED HEMOGLOBIN, TOTAL Routine 02/19/2025 2:38 PM EDT Type 2 diabetes mellitus without complication, unspecified whether [place] [facility] insulin use ([facility]) POCT GLUCOSE Routine 02/19/2025 2:38 PM EDT Type 2 diabetes mellitus without complication, 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 ([facility]) XR LUMBAR SPINE COMPLETE 4+ VIEWS Routine [...] AM EDT Narrative 02/19/2025 10:57 AM EDT [place] [address] XRay Report Signed Patient: Vinayak Hernandez MR#: [id number] 7 : 1980 Acct:[id number] Age/Sex: 44 / M ADM Date: 02/19/25 Loc: [facility] Attending Dr: Hanny Lopez MD Ordering Physician: Hanny Lopez MD Date of Service: 02/19/25 Procedure(s): XR lumbar spine 4V min Accession Number(s): [id number] cc: Hanny Lopez MD Reason for Exam: [...] 02/19/25 1054 DD/ 1042 TD/TT: 02/19/25 1043 Spinning Operator: Procedure Note Donotuseinterpreter, Image - 02/19/2025 [place] [address] XRay Report Signed Patient: Vinayak Hernandez#: [id number] 7 : 1980Acct:[id number] Age/Sex: 44 / MADM Date: 02/19/25 Loc: [facility] Attending Dr: Hanny Lopez MD Ordering Physician: Hanny Lopez MD Date of Service: 02/19/25 Procedure(s): XR lumbar spine 4V min Accession Number(s): [id number] cc: Hanny Lopez MD Reason for Exam: [...] 02/19/25 1054 DD/ 1042 TD/TT: 02/19/25 1043 Spinning Operator: us Hanny Lopez MD IMG XR PROCEDURES Final Result * Syphilis Screen (02/19/2025 9:38 AM EDT) Syphilis Screen Nonreactive Nonreactive [facility] Blood 02/19/2025 9:38 AM EDT 02/19/2025 11:41 AM EDT Hanny Lopez MD LAB BLOOD ORDERABLES Fin al Result [facility] [address] [place] [phone] * Vitamin D, 25-Hydroxy, Total, Immunoassay (02/19/2025 9:38 AM EDT) Vitamin D 25-OH Total 49.4 >30 ng/mL [facility] Comment: Health Based Reference Values*< 20 ng/mL [id number] ng/mL Insufficient> 30 ng/mL Sufficient*Micki GARCIA. N [...] ORDERABLES Fin al Result Performing Organization Address City/[facility]/ZIP Co de Phone Number [facility] [address] [place] [phone] * TSH with Reflex to Free T4 (02/19/2025 9:38 AM EDT) TSH reflex Free T4 1.64 0.32 - 4.0 uIU/mL [facility] Blood 02/19/2025 9:38 AM EDT 02/19/2025 11:41 AM EDT us Hanny Lopez MD LAB BLOOD ORDERABLES Fin al Result Performing Organization Address [facility] Co de Phone Number [facility] [address] [place] [phone] * (ABNORMAL) Lipid Panel with Reflex to Direct LDL (02/19/2025 9:38 AM EDT) Triglycerides 248(H) <150 mg/dL [facility] Comment:Slight Lipemia.Dodie able Triglyceride: less than 150 mg/dLBorderline High Triglyceride 150-199 mg/dLHigh Triglyceride: 200-499 mg/dLVery High Triglyceride: greater than or equal to 5OO mg/dL Cholesterol 209(H) <200 mg/dL [facility] Comment:Desirable Cholestero l: less than 200 mg/dLBorderline High Cholesterol: 200-239 mg/dLHigh Cholesterol: greater than 239 mg/dL LDL Cholesterol Calculated 109(H) <100 mg/dL [facility] Comment:Desirable LDL: less than 100 mg/dLNear Optimal/Above Optimal LDL: 110- 129 mg/dLBorderline High LDL: 130-159 mg/dLHigh LDL: 160-189 mg/dLVery High LDL: greater than or equal to 190 mg/dL HDL Cholesterol 51 >40 mg/dL [facility] Comment:Desirable HDL: great er than 40 mg/dL Note: This HDL assay may give artificially low results in patients with liver disease. Blood 02/19/2025 9:38 AM EDT 02/19/2025 11:41 AM EDT Hanny Lopez MD LAB BLOOD ORDERABLES Fin al Result Performing Organization Address [facility] de Phone Number [facility] [address] [place] [phone] * Hepatitis Panel, General (02/19/2025 9:38 AM EDT) Hepatitis A IgM Nonreactive Nonreactive [facility] Comment:IgM antibodies to BEYER V not detected; does not exclude earlyacute or recovered HAV infection. ~Hepatitis B Surface Antibody NONREACTIVE Nonreactive [facility] Comment:Nonreactive: < 8.00 mIU/mL Hepatitis B Core Antibody Nonreactive Nonreactive [facility] Hepatitis C Antibody Nonreactive Nonreactive [facility] Comment:Antibodies to HCV no t detected; does not exclude early acuteHCV infection. Hepatitis B Surface Ag Negative Negative [facility] Blood 02/19/2025 9:38 AM EDT 02/19/2025 11:41 AM EDT Hanny Lopez MD LAB BLOOD ORDERABLES Fin al Result Performing Organization Address [facility] de Phone Number [facility] [address] [place] [phone] * Albumin, Random Urine W/Creatinine (02/19/2025 9:38 AM EDT) Creatinine, Urine 104.22 mg/dL [facility] Microalbumin Urine 5.0 mg/L [facility] Microalbum Creatinine Ratio Ur 4.7 <30 ug/mg cr [facility] Comment:Albumin/Creatinine R atio Reference Ranges: Normal: < 30 ug/mg creatinine Microalbuminuria: 30 - 300 ug/mg creatinineClinical Albuminuria: > 300 ug/mg creatinine Urine (Urine, Random) 02/19/2025 9:38 AM EDT 02/19/2025 11:16 AM EDT Hanny Lopez MD LAB URINE ORDERABLES Fin al Result Performing Organization Address [facility] Co de Phone Number [facility] [address] [place] [phone] * HIV-1/2 Antigen and Antibodies, Fourth Generation, with Reflexes (02/19/2025 9:38 AM EDT) HIV AB/AG Nonreactive Nonreactive [facility] Comment:HIV-1 p24 Ag and/or HIV-1/HIV-2 Ab not detected.A test result that is nonreactive does not exclude thepossibility of exposure to or infection with HIV-1 and/orHIV-2. Nonreactive results in this assay for individualswith prior exposure to HIV-1 and/or HIV-2 may be due toantigen and antibody levels that are below the limit ofdetection of this assay.The [employer]etherPal HIV Ag/Ab Combo assay result andsupplemental assay results should be interpreted inconjunction with the patient's clinical presentation,history and other laboratory results. If the results areinconsistent with clinical evidence, additional testing issuggested to confirm the result. Blood Venous blood specimen / Unknown 02/19/2025 9:38 AM EDT 02/19/2025 11:41 AM EDT us Hanny Lopez MD LAB BLOOD ORDERABLES Fin al Result Performing Organization Address [facility]/ZIP Co de Phone Number [facility] [address] [place] [phone] * (ABNORMAL) Comprehensive Metabolic Panel (02/19/2025 9:38 AM EDT) Only the most recent of2 resultswithin the time period is included. Sodium 138 135 - 145 mmol/L [facility] Potassium 4.6 3.3 - 5.1 mmol/L [facility] Chloride 102 96 - 108 mmol/L [facility] Carbon Dioxide 28 22 - 29 mmol/L [facility] Anion Gap 13 12 - 20 [facility] Urea Nitrogen (BUN) 20(H) 9 - 16 mg/dL [facility] Creatinine, Serum 0.99 0.5 - 1.4 mg/dL [facility] Estimated Glomerular Filt Rate >60 [facility] Comment:Chronic Kidney Disea se: Estimated GFR < 60 mL/min/1.13x4Vxffww Kidney Disease: Estimated GFR < 15 mL/min/1.73m2 Glucose 376(HH) 60 - 115 mg/dL [facility] Comment:Critical value for G ADRIANNE: Results called to and read backby: FAIZA Parsons Person calling: ELIZABETH Date: 02-19-25 Time:1227 Calcium 9.5 8.4 - 10.2 mg/dL [facility] Bilirubin, Total 0.2 0.0 - 1.0 mg/dL [facility] Aspartate Amino Transferase 84(H) 5 - 37 U/L [facility] Alanine Aminotransferase 96(H) 0 - 40 U/L [facility] Total Protein 8.1(H) 6.5 - 8.0 g/dL [facility] Albumin Level 4.9 3.5 - 5.0 g/dL [facility] Alkaline Phosphatase 130(H) 39 - 117 U/L [facility] Blood Venous blood specimen / Unknown 02/19/2025 9:38 AM EDT 02/19/2025 11:41 AM EDT us Hanny Lopez MD LAB BLOOD ORDERABLES Fin al Result [facility] [address] [place] [phone] [phone] * (ABNORMAL) Glucose, Whole Blood (02/09/2025 9:01 AM EDT) Only the most recent of5 resultswithin the time period is included. Glucose, Whole Blood 126(H) 60 - 115 mg/dL [facility] Comment:METER #: [id number] 02/09/2025 9:01 AM EDT 02/09/2025 9:06 AM EDT us Generic External Data Provider LAB BLOOD ORDERAB LES Final Result [facility] [address] [place] [phone] * (ABNORMAL) Drug Monitoring, Panel 1, Screen, Urine (02/09/2025 8:40 AM EDT) [facility] Opiate Screen Urine Not Detected Not Detect [facility] Comment:Opiate cut-off is 30 0 ng/mL.Positive results are unconfirmed and should not be used fornon-medical purposes. Barbiturates, Urine Not Detected Not Detect [facility] Comment:Barbiturate cut-off is 200 ng/mL.Positive results are unconfirmed and should not be used fornon-medical purposes. Phencyclidine Screen Urine Not Detected Not Detect [facility] Comment:Phencyclidine cut-of f is 25 ng/mL.Positive results are unconfirmed and should not be used fornon-medical purposes. Amphetamine Screen Urine Not Detected Not Detect [facility] Comment:Amphetamine cut-off is 1000 ng/mL.Positive results are unconfirmed and should not be used fornon-medical purposes. Benzodiazepines Screen Urine Not Detected Not Detect [facility] Comment:Benzodiazepine cut-o ff is 200 ng/mL.Positive results are unconfirmed and should not be used fornon-medical purposes. Cocaine Screen Urine POSITIVE(A) Not Detect [facility] Comment:Cocaine cut-off is 3 00 ng/mL.Positive results are unconfirmed and should not be used fornon-medical purposes. Cannabinoid Screen Urine POSITIVE(A) Not Detect [facility] Comment:Cannabinoid cut-off is 50 ng/mL.Positive results are unconfirmed and should not be used fornon-medical purposes. Methadone Screen, Urine Not Detected Not Detect ng/mL [facility] Comment:Methadone cut-off is 300 ng/mL.Positive results are unconfirmed and should not be used fornon-medical purposes. FENTANYL URINE Not Detected Not Detect [facility] Comment:Fentanyl cut-off is 1 ng/mL.Positive results are unconfirmed and should not be used fornon-medical purposes. Oxycodone Urine Screen Not Detected Not Detect ng/mL [facility] Comment:Oxycodone cut-off is 100 ng/mL.Positive results are unconfirmed and should not be used fornon-medical purposes. Buprenorphine Screen Not Detected Not Detect ng/mL [facility] Comment:Buprenorphine cut-of f is 5 ng/mL.Positive results are unconfirmed and should not be used fornon-medical purposes. 02/09/2025 8:40 AM EDT 02/09/2025 8:55 AM EDT us Generic External Data Provider LAB URINE ORDERAB LES Final Result [facility] [address] [place] [phone] * (ABNORMAL) Urinalysis Complete (02/09/2025 8:40 AM EDT) Color Urine Yellow [facility] Appearance Urine Clear [facility] PH 6.0 5.0 - 9.0 [facility] Glucose Urine UA >=1000(A) Negative mg/dL [facility] Urine Blood Negative Negative [facility] Specific Taylor - Urine >=1.030(H) 1.005 - 1.025 [facility] Urine Protein Negative Neg-Trace mg/dL [facility] Urine Ketones 15 Negative mg/dL [facility] Nitrite Urine Negative Negative [facility] Leukocyte Esterase Urine Negative Negative [facility] RBC Urine 0-2 0 - 2 /HPF [facility] Urine WBC 0-5 0 - 5 /HPF [facility] Urine Squamous Epithelial Cell 0-2 0 - 2 /HPF [facility] Urine Bacteria None Seen None Seen [facility] Hyaline Casts, Urine 0-2 0 - 2 /LPF [facility] 02/09/2025 8:40 AM EDT 02/09/2025 8:55 AM EDT us Generic External Data Provider LAB URINE ORDERAB LES Final Result Performing Organization Address City/[facility]/ZIP Co de Phone Number [facility] [address] [place] [phone] [phone] * (ABNORMAL) VENOUS BLOOD GAS (12/09/2024 5:04 PM EDT) VBG pH 7.37 7.32 - 7.43 [facility] Comment:METER #: [id number] additional_comment: Arpan marshall VBG PCO2 48 mmHg [facility] Comment:METER #: [id number] additional_comment: Arpan marshall VBG PO2 45 mmHg [facility] Comment:METER #: [id number] additional_comment: Arpan marshall VBG Base Excess 2.1 mmol/L [facility] Comment:METER #: [id number] additional_comment: Arpan marshall VBG HCO3 28(H) 22 - 26 mmol/L [facility] Comment:METER #: [id number] additional_comment: Arpan marshall O2 Sat, Gautam 74.0 % [facility] Comment:METER #: [id number] additional_comment: Arpan marshall 12/09/2024 5:04 PM EDT 12/09/2024 5:07 PM EDT us Generic External Data Provider LAB BLOOD ORDERAB LES Final Result Performing Organization Address [facility]/ZIP Co de Phone Number [facility] [address] [place] [phone] * Hold Green Gel (12/09/2024 4:57 PM EDT) Hold Green Gel See Note [facility] Comment:Specimen held untest ed for 24 hours; Call to requestChemistry testing. 12/09/2024 4:57 PM EDT 12/09/2024 5:02 PM EDT Generic External Data Provider HISTORICAL/NON OR DERABLE LABS Final Result Performing Organization Address [facility]/ZIP Co de Phone Number [facility] [address] [place] [phone] * Beta-Hydroxybutyrate (12/09/2024 4:53 PM EDT) Pathologist [facility] Beta-Hydroxybut yrate 0.07 0.02 - 0.27 mmol/L [facility] 12/09/2024 4:53 PM EDT 12/09/2024 5:01 PM EDT Generic External Data Provider LAB BLOOD ORDERAB LES Final Result Performing Organization Address [facility]/ZIP Co de Phone Number [facility] [address] [place] [phone] * (ABNORMAL) CBC auto differential (12/09/2024 4:53 PM EDT) Pathologist [facility] White Blood Count 7.1 4.8 - 10.8 X10*3/uL [facility] Red Blood Count 5.30 4.60 - 5.80 X10*6/uL [facility] Hemoglobin 15.1 14.0 - 18.0 g/dl [facility] Hematocrit 44.0 42.0 - 52.0 % [facility] Mean Corpuscular Volume 83.0 80.0 - 98.0 fL [facility] Mean Corpuscular Hemoglobin 28.5 27.0 - 33.0 pg [facility] Mean Corpuscular HGB Conc 34.3 31.0 - 36.0 g/dl [facility] Red Cell Distribution Width 12.1 11.0 - 16.0 % [facility] Platelet Count 161 160 - 400 X10*3/uL [facility] Mean Platelet Volume 13.2(H) 9.4 - 12.4 fL [facility] Neutrophils Percent Auto 59.7 45 - 73 % [facility] Imm Gran Pct Auto 0.3 0.0 - 0.4 % [facility] Lymphocytes Percent Auto 26.6 20 - 40 % [facility] Monocytes Percent Auto 6.9 2 - 11 % [facility] Eosinophils Percent Auto 6.2(H) 0 - 4 % [facility] Basophils Percent Auto 0.3 0 - 2 % [facility] NRBC Pct Auto 0.0 0.0 - 0.2 /100WBC [facility] Neutrophils Absolute Auto 4.2 2.0 - 8.3 x10*3/uL [facility] Imm Gran Abs Auto 0.02 0.00 - 0.03 X10*3/uL [facility] Lymphocytes Absolute Auto 1.9 1.2 - 4.9 X10*3/uL [facility] Monocytes Absolute Auto 0.5 0.1 - 1.2 X10*3/uL [facility] Eosinophils Absolute Auto 0.4 0.0 - 0.4 X10*3/uL [facility] Basophils Absolute Auto 0.0 0.0 - 0.2 X10*3/uL [facility] NRBC Abs Auto 0.000 0.0 - 0.012 X10*3/uL [facility] 12/09/2024 4:53 PM EDT 12/09/2024 5:01 PM EDT us Generic External Data Provider LAB BLOOD ORDERAB LES Final Result [facility] [address] [place] [phone] from Last 3 Months Insurance [facility] C3 Care Teams Speech And Hearing Clinic Director Relationship Specialty Start Date End Date Hanny Lopez MD [address] [place] [address] [place] [id number] PCP - General Family Medicine 09/26/16
--- OUTSIDE RECORDS SUMMARY | 2025-02-20 22:09 | XMS_ITS | Encounter Summary ---
Author Organization [employer] Address [address] [facility] [address] [place] [address] Care Team Providers Care Carbon Brushes Assembler Name Role Phone Martha Lock MD Primary [...] Description 03/19/2025 11:30 AM EDT Office Visit [facility] [address] [place] [address] Martha Lock MD [address] [place] [address] 05/04/2025 9:30 AM EST Office Visit [facility] OPTOMETRY [address] [place] [address] Christianne Purdy, OD [address] [place] [address] documented as of this encounter Visit Diagnoses Not on filedocumented in this encounter Additional Health Concerns Assessment Noted Time PHQ-9 Depression Total Score: 20 025 11:06 AM EDT documented as of this encounter Care Teams Carbon Brushes Assembler Relationship Specialty Start Date End Date Martha Lock MD [address] [place] [address] PCP - General Family Medicine 09/26/16 documented as of this encounter
[2025-02-20 22:52] LABS: Hematocrit 40.4 % (42.0-52.0); Hemoglobin 14.1 g/dl (14.0-18.0); Imm Gran Abs Auto 0.02 X10*3/uL (0.00-0.03); Imm Gran Pct Auto 0.2 % (0.0-0.4); Lymphocytes Absolute Auto 1.6 X10*3/uL (1.2-4.9); MANUAL DIFF FLAG NO; Mean Corpuscular HGB Conc 34.9 g/dl (31.0-36.0); Mean Corpuscular Hemoglobin 28.7 pg (27.0-33.0); Mean Corpuscular Volume 82.3 fL (80.0-98.0); NRBC Abs Auto 0.000 X10*3/uL (0.0-0.012); NRBC Pct Auto 0.0 /100WBC (0.0-0.2); Platelet Count 161 X10*3/uL (160-400); Red Blood Count 4.91 X10*6/uL (4.60-5.80); White Blood Count 11.1 X10*3/uL (4.8-10.8)
[2025-02-20 23:11] LABS: Alanine Aminotransferase 61 U/L (0-40); Albumin Level 4.7 g/dL (3.5-5.0); Alkaline Phosphatase 87 U/L (39-117); Anion Gap 13 (12-20); Aspartate Amino Transferase 29 U/L (5-37); Blood Urea Nitrogen 18 mg/dL (9-16); Calcium 9.1 mg/dL (8.4-10.2); Carbon Dioxide 28 mmol/L (22-29); Chloride 103 mmol/L (96-108); Creatinine Clr Calc Pharmacy 102.4; Estimated Glomerular Filt Rate > 60; Potassium 4.1 mmol/L (3.3-5.1); Sodium 140 mmol/L (135-145); Total Protein 7.3 g/dL (6.5-8.0)
--- NOTE | 2025-02-20 23:15 | ED.GENADULT ---
HPI - General Adult General Chief complaint: Back Pain/Injury Stated complaint: lower back pain Time Seen by Provider: 02/20/25 23:11 Source: patient and RN notes reviewed Limitations: language barrier History of Present Illness HPI narrative: 44-year-old male initially presented complaining of low back pain. However the patient repeatedly stating that ?they are trying to kill me?. While attempting to have a conversation with the patient, he is repeatedly stating ?why did you let these people and without my authorization?. He is unable to further explain what he needs. He continues to report that people are after him and that he needs to contact the police. Currently the patient denies any physical complaints. He denies any suicidal or homicidal ideation. Related Data Home Medications ?Medication ?Instructions ?Recorded ?Confirmed albuterol sulfate 90 mcg/actuation 2 puff inhalation Q4-6H PRN 02/09/25 02/21/25 aerosol inhaler (Ventolin HFA) Shortness Of Breath Or Wheezing Previous Rx's ?Medication ?Instructions ?Recorded acetaminophen 325 mg tablet 325 mg PO QID PRN pain #90 tabs 10/21/24 (Tylenol) cyclobenzaprine 5 mg tablet 5 mg PO BEDTIME PRN muscle spasm 10/21/24 #20 tabs ibuprofen 400 mg tablet 400 mg PO Q6H PRN Pain #60 tabs 10/21/24 dulaglutide 1.5 mg/0.5 mL 1.5 mg (0.5 mL) subcut QWEEK #2 mL 02/12/25 subcutaneous pen injector (Trulicity) metformin 500 mg tablet 500 mg PO BIDWM #60 tabs 02/18/25 risperidone 0.5 mg tablet 0.5 mg PO BID #60 tabs 02/18/25 sertraline 50 mg tablet 50 mg PO DAILY #30 tabs 02/18/25 topiramate 50 mg tablet 50 mg PO BEDTIME #30 tabs 02/18/25 trazodone 50 mg tablet 50 mg PO BEDTIME MRX1 PRN Insomnia 02/18/25 #60 tabs Allergies Allergy/AdvReac Type Severity Reaction Status Date / Time No Known Allergies Allergy Verified 02/20/25 21:54 Review of Systems Review of Systems: Yes Unobtainable due to mental condition Neurologic: Reports behavioral changes Psychiatric: Psychiatric: Reports behavioral changes and Denies suicidal ideation [facility] Past Medical History Medical History Asthma Diabetes mellitus, type 2 Social History Social History Household Members: None Housing: Apartment Do you presently have visiting nurse or other home services: No Unable to assess alcohol history related to: Unknown Alcohol intake: former Patient Tobacco Use Status: Never used Tobacco e-Cigarette/Vaping Use: Never Used Second Hand Smoke Exposure: No Substance Use Type: Crack/Cocaine Currently Displaying Signs/Symptoms of Drug Intoxication Withdrawal: No Have you been hit, kicked, punched, or otherwise hurt by someone within the past year? If so, by whom?: No Do you feel safe in your current relationship?: No Current Relationship Is there a partner from a previous relationship who is making you feel unsafe now?: No Are you made to feel afraid or neglected: No Advance Directives: No Advance Directives Information Provided: No Do you have thoughts of harming others: None Do you have a plan to hurt others: No Plan Recently lost weight without trying: No How much weight loss: Not applicable Eating poorly because of decreased appetite: No Nutrition screen score: 0 Nutrition Risks: No Nutritional Risk Poor oral hygiene: No service: No Current occupational status: employed Sexual orientation: Straight/Heterosexual Physical Exam ED Vital Signs: Vital Signs - 24 hr 02/22/25 14:50 02/22/25 16:48 02/23/25 06:33 Temperature 97.0 F 97.8 F 97.5 F Pulse Rate 98 78 Respiratory Rate 14 16 Blood Pressure 113/76 110/75 Pulse Oximetry 99 98 Oxygen Delivery Method Room Air Room Air BMI result Body Mass Index 25.7 Const Other: Uncooperative and agitated. Refusing exam General: No cooperative Psych Thought content: Paranoid delusions present Course Course Course Narrative: February 20, 2025, 11:40 p.m. patient continues to escalate despite attempts to redirect. Patient will be medicated with Haldol and Valium for the patient's safety and the safety of others. Orders and [id number] completed Time: 02:00 Date: 02/21/25 Provider: JARROD Ma Patient in physician observation for psychiatric evaluation.? No acute events reported overnight. No current complaints. VS stable.? Patient is in bed search status/pending CARE team evaluation. Will continue to monitor. Reevaluation(s) Reevaluation #1: Time: 10:49 Date: 02/22/25 Provider: Milad Orlando MD Patient in physician observation for psychiatric evaluation.? No acute events reported overnight. No current complaints. VS stable.? Patient is in bed search status/pending CARE team evaluation. Will continue to monitor. Reevaluation #2: 9:43 AM 02/23/2025 (Dr. Elier Núñez): Patient in physician observation for psychiatric evaluation.? No acute events reported overnight. Medications Administered Generic Name Dose Route Start Last Admin Trade Name Freq PRN Reason Stop Dose Admin Acetaminophen 650 mg 02/23/25 11:46 02/23/25 23:07 Acetaminophen 325 Mg Tablet PO 650 mg Q6H PRN Administration Headache/Pain, Scale 1-10 Hydroxyzine HCl 25 mg 02/23/25 11:46 02/23/25 22:40 Hydroxyzine Hcl 25 Mg Tablet PO 25 mg Q6H PRN Administration mild anxiety Insulin Glargine 5 unit 02/24/25 21:00 02/24/25 21:32 Insulin Glargine,Hum.Rec.Anlog 100 Unit/Ml 10 Ml Vial SUBCUT 5 unit BEDTIME DAMIAN Administration Insulin Human Lispro 0 unit 02/23/25 16:30 02/25/25 08:17 Insulin Lispro 100 Unit/Ml 3 Ml Vial SUBCUT 2 unit QIDACHS DAMIAN Administration Protocol Lidocaine 1 patch 02/25/25 09:00 02/25/25 08:19 Lidocaine 4 % Patch Adh..Patch TRANSDERMA 1 patch DAILY DAMIAN Administration Protocol Metformin HCl 500 mg 02/21/25 01:00 02/25/25 08:16 Metformin Hcl 500 Mg Tablet PO 500 mg BIDWM DAMIAN Administration Risperidone 1 mg 02/25/25 09:00 02/25/25 08:17 Risperidone 1 Mg Tablet PO 1 mg DAILY DAMIAN Administration Risperidone 2 mg 02/24/25 21:00 02/24/25 21:35 Risperidone 2 Mg Tablet PO 2 mg BEDTIME DAMIAN Administration Sertraline HCl 50 mg 02/21/25 09:00 02/25/25 08:16 Sertraline Hcl 50 Mg Tablet PO 50 mg DAILY DAMIAN Administration Topiramate 50 mg 02/21/25 21:00 02/24/25 21:35 Topiramate 25 Mg Tablet PO 50 mg BEDTIME DAMIAN Administration Trazodone HCl 50 mg 02/21/25 00:48 02/24/25 21:35 Trazodone Hcl 50 Mg Tablet PO 50 mg BEDTIME MRX1 PRN Administration Insomnia Discontinued Medications Generic Name Dose Route Start Last Admin Trade Name Zaheer PRN Reason Stop Dose Admin Acetaminophen 650 mg 02/21/25 01:12 02/22/25 20:31 Acetaminophen 325 Mg Tablet PO 650 mg Q8H PRN Administration Pain, Mild (Pain Scale 1-3) Cyclobenzaprine HCl 5 mg 02/21/25 00:48 02/23/25 21:45 Cyclobenzaprine Hcl 5 Mg Tablet PO 5 mg BEDTIME PRN Administration Muscle Spasm Diazepam 5 mg 02/20/25 23:23 02/20/25 23:30 Diazepam 10 Mg/2 Ml Cartridge IM 02/20/25 23:24 5 mg STAT STA Administration Haloperidol Lactate 5 mg 02/20/25 23:22 02/20/25 23:30 Haloperidol Lactate 5 Mg/Ml Vial IM 02/20/25 23:23 5 mg STAT STA Administration Non-Formulary Medication 1.5 mg 02/21/25 09:00 02/22/25 14:34 Dulaglutide [Trulicity] SUBCUT Not Given Q7D DAMIAN Risperidone 0.5 mg 02/21/25 09:00 02/23/25 08:09 Risperidone 0.5 Mg Tablet PO 0.5 mg BID DAMIAN Administration Risperidone 1 mg 02/23/25 21:00 02/24/25 08:47 Risperidone 1 Mg Tablet PO 1 mg BID DAMIAN Administration Medical Decision Making Medical Decision Making MDM Narrative: 44-year-old male with agitation, paranoid thoughts. Unable to redirect. He continues to escalate despite staff attempting to deescalate the situation. Patient will be medicated for his safety and safety of others. Glucose is elevated at 335 Differential Diagnosis Differential Diagnoses: The differential diagnosis associated with the presentation includes Psychosis Paranoia Acute stress reaction PTSD Admission/Observation Consideration of admission/observation: Escalation of care including admission/observation considered Lab Data 02/20/25 22:47 02/20/25 22:47 Labs: Lab Results 02/20/25 02/21/25 Range/Units 22:47 10:24 WBC 11.1 H (4.8-10.8) X10*3/uL RBC 4.91 (4.60-5.80) X10*6/uL Hgb 14.1 (14.0-18.0) g/dl Hct 40.4 L (42.0-52.0) % MCV 82.3 (80.0-98.0) fL MCH 28.7 (27.0-33.0) pg MCHC 34.9 (31.0-36.0) g/dl RDW 12.4 (11.0-16.0) % Plt Count 161 (160-400) X10*3/uL MPV 11.9 (9.4-12.4) fL Immature Gran % (Auto) 0.2 (0.0-0.4) % Neut % (Auto) 78.9 H (45-73) % Lymph % (Auto) 14.8 L (20-40) % Chaves % (Auto) 5.7 (2-11) % Eos % (Auto) 0.0 (0-4) % Baso % (Auto) 0.4 (0-2) % Lymph # (Auto) 1.6 (1.2-4.9) X10*3/uL Chaves # (Auto) 0.6 (0.1-1.2) X10*3/uL Eos # (Auto) 0.0 (0.0-0.4) X10*3/uL Baso # (Auto) 0.0 (0.0-0.2) X10*3/uL Abs Immat Gran (auto) 0.02 (0.00-0.03) X10*3/uL Absolute Neuts (auto) 8.8 H (2.0-8.3) x10*3/uL Absolute Nucleated RBC 0.000 (0.0-0.012) X10*3/uL Nucleated RBC % (auto) 0.0 (0.0-0.2) /100WBC Sodium 140 (135-145) mmol/L Potassium 4.1 (3.3-5.1) mmol/L Chloride 103 (96-108) mmol/L Carbon Dioxide 28 (22-29) mmol/L Anion Gap 13 (12-20) BUN 18 H (9-16) mg/dL Creatinine 0.94 (0.5-1.4) mg/dL Estim Creat Clear Calc 102.4 Estimated GFR > 60 Random Glucose 335 H (60-115) mg/dL Calcium 9.1 (8.4-10.2) mg/dL Total Bilirubin 0.4 (0.0-1.0) mg/dL AST 29 (5-37) U/L ALT 61 H (0-40) U/L Alkaline Phosphatase 87 (39-117) U/L Total Protein 7.3 (6.5-8.0) g/dL Albumin 4.7 (3.5-5.0) g/dL Urine Color Yellow Urine Appearance Cloudy Urine pH 7.0 (5.0-9.0) Ur Specific Gibson >= 1.030 H (1.005-1.025) Urine Protein Negative (Neg-Trace) mg/dL Urine Glucose (UA) >=1000 H (Negative) mg/dL Urine Ketones Negative (Negative) mg/dL Urine Blood Negative (Negative) Urine Nitrite Negative (Negative) Ur Leukocyte Esterase Negative (Negative) Urine RBC 0-2 (0-2) /HPF Urine WBC 0-5 (0-5) /HPF Ur Squamous Epith Cells 0-2 (0-2) /HPF Urine Bacteria None Seen (None Seen) Hyaline Casts 0-2 (0-2) /LPF Urine Opiates Screen Not Detected (Not Detect) Ur Buprenorphine Scrn Not Detected (Not Detect) ng/mL Ur Oxycodone Screen Not Detected (Not Detect) ng/mL Urine Methadone Screen Not Detected (Not Detect) ng/mL Urine Fentanyl Screen Not Detected (Not Detect) Ur Barbiturates Screen Not Detected (Not Detect) Ur Phencyclidine Scrn Not Detected (Not Detect) Ur Amphetamines Screen Not Detected (Not Detect) U Benzodiazepines Scrn Not Detected (Not Detect) Urine Cocaine Screen Not Detected (Not Detect) U Marijuana (THC) Screen POSITIVE H (Not Detect) Ethyl Alcohol < 10 mg/dL Discharge Plan Discharge Clinical Impression: Paranoid Patient Disposition: Admitted As Inpatient Discharge Date/Time: 02/23/25 13:41
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
[2025-02-20] MEDS: diazePAM 10 MG/2 ML CARTRIDGE 5 MG IM (23:30)
[2025-02-20 23:48] VITALS: BP 90/64; PULSE 90; RESP 14; TEMP 36.7; O2SAT 97
--- NOTE | 2025-02-20 23:50 | PC.NURSE ---
Assumed care of patient at approximately 2348, pt calm and cooperative, escorted by security. Pt now resting in bed, respirations even and unlabored, no apparent distress is noted at this time
[2025-02-21 00:02] VITALS: BP 96/68; PULSE 92; RESP 16; O2SAT 98
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
--- NOTE | 2025-02-21 07:02 | PC.NURSE ---
Assumed care, report received. Pt is currently sleeping and is brought breakfast. safety is maintained.
[2025-02-21 08:45] VITALS: RESP 14
[2025-02-21 09:02] VITALS: BP 107/75; PULSE 88; RESP 16; TEMP 36.6; O2SAT 98
--- NOTE | 2025-02-21 09:06 | MHC.EDTECH ---
Patient awake, vitals obtained, urine cup at bedside, patient aware urine sample is needed. Patient quickly fell back to sleep after VS were obtained.
[2025-02-21 10:36] LABS: Appearance Urine Cloudy; Glucose Urine UA >=1000 mg/dL (Negative); PH 7.0 (5.0-9.0); Specific Gravity - Urine >= 1.030 (1.005-1.025); UMIC TRIGGER UACC YES
--- NOTE | 2025-02-21 10:38 | MHC.EDTECH ---
This tech awoke patient for urine sample. Patient showed signs of discomfort when walking. Stating b/l upper leg pain. Rn made aware.
[2025-02-21 10:45] LABS: Cannabinoid Screen Urine POSITIVE (Not Detect)
--- NOTE | 2025-02-21 11:49 | MHC.CARE ---
Pt will be an inpatient bedsearch.
[2025-02-21 17:12] VITALS: RESP 14
[2025-02-21 18:20] VITALS: BP 111/72; PULSE 78; RESP 14; TEMP 36.6; O2SAT 98
--- NOTE | 2025-02-21 21:03 | PC.NURSE ---
Pt a&ox4, no signs of distress. Pt resting quietly Pt medicated per mar Plan of care ongoing.
--- NOTE | 2025-02-21 21:34 | PC.NURSE ---
Pt ambulates with a steady gait Plan of care ongoing.
--- NOTE | 2025-02-21 22:56 | PC.NURSE ---
Assumed care of patient at 2245, patient calm and cooperative, offering no complaints to this RN, respirations even and unlabored, continue plan of care for IPLOC
[2025-02-22 07:36] VITALS: BP 105/72; PULSE 76; RESP 14; TEMP 36.1; O2SAT 100
--- NOTE | 2025-02-22 07:52 | PC.NURSE ---
Assumed care, report received. Pt is awake, eating breakfast, calm and cooperative. He denies SI/HI/AVH, no paranoia noted.
[2025-02-22 14:50] VITALS: TEMP 36.1
--- NOTE | 2025-02-22 14:58 | PHA.MEDREC ---
Addendum entered by Luis Raza, Gerson 02/22/25 15:44: MED REC CHECKED BY [facility] Original Note: Pharmacy Consult ? Medication Reconciliation Pharmacy has completed the medication reconciliation. Confirmed med rec done by nurse with patient claim history.
[2025-02-22 16:48] VITALS: BP 113/76; PULSE 98; RESP 14; TEMP 36.6; O2SAT 99
[2025-02-23 06:33] VITALS: BP 110/75; PULSE 78; RESP 16; TEMP 36.4; O2SAT 98
--- NOTE | 2025-02-23 07:56 | ECG_ITS ---
Test Reason : med clearance Blood Pressure : */* mmHG Vent. Rate : 83 BPM Atrial Rate : 83 BPM P-R Int : 154 ms QRS Dur : 96 ms QT Int : 378 ms P-R-T Axes : 64 77 54 degrees QTcB Int : 444 ms Normal sinus rhythm cannot exclude old Lateral infarct , age undetermined Abnormal ECG When compared with ECG of 15-Feb-2025 11:11, No significant change was found Referred By: Sharron Julio Electronically Signed By: ZAC ROPER
--- NOTE | 2025-02-23 11:05 | PC.NURSE ---
Assumed care of this patient at this time, patient currently getting EKG done. POC IPLOC bedsearch.
[2025-02-23 13:31] VITALS: BMI 24.3
[2025-02-23 13:47] VITALS: BP 121/64; PULSE 90; TEMP 36.8; O2SAT 99
[2025-02-23 16:58] LABS: Glucose, Whole Blood 307 mg/dL (60-115)
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
[2025-02-23 20:00] VITALS: BP 108/66; PULSE 99; RESP 16; TEMP 36.6; O2SAT 99
[2025-02-23 22:03] LABS: Glucose, Whole Blood 211 mg/dL (60-115)
[2025-02-24 08:00] VITALS: BP 109/69; PULSE 81; RESP 18; TEMP 36.4; O2SAT 98
[2025-02-24 08:16] LABS: Glucose, Whole Blood 162 mg/dL (60-115)
--- NOTE | 2025-02-24 08:33 | P.CONHOSP_ITS ---
History of Present Illness Data of Consult Service Date: 02/24/25 Primary Care Provider: Martha Lock MD [facility] Reason for consult: Medical management 44-year-old male with a past medical history of depression, paranoia, drug induced psychotic disorder, history of asthma, type 2 diabetes presented to the ED initially complaining of back pain, then reported that he had not slept in 3 days in reported people were trying to kill him. He is admitted to inpatient psych for further care. On exam his CBC is unremarkable, his urinalysis was within no aside from where than a 1000 of glucose. U tox was positive for marijuana. No evidence of kidney or liver dysfunction. EKG with normal sinus rhythm, no ischemic changes. On exam he is alert and cooperative. Denies any shortness of breath, dizziness lightheadedness or any other concerning symptoms. He has no health concerns. Review of Systems 2 Review of Systems: Denies any shortness of breath, chest pain, dizziness, lightheadedness, abdominal pain or discomfort, nausea vomiting or diarrhea PMFSH Medical History Asthma Diabetes mellitus, type 2 Social History Household Members: None Housing: Apartment Do you presently have visiting nurse or other home services: No Unable to assess alcohol history related to: Unknown Alcohol intake: former Patient Tobacco Use Status: Never used Tobacco e-Cigarette/Vaping Use: Never Used Second Hand Smoke Exposure: No Substance Use Type: Crack/Cocaine Currently Displaying Signs/Symptoms of Drug Intoxication Withdrawal: No Have you been hit, kicked, punched, or otherwise hurt by someone within the past year? If so, by whom?: No Do you feel safe in your current relationship?: No Current Relationship Is there a partner from a previous relationship who is making you feel unsafe now?: No Are you made to feel afraid or neglected: No Advance Directives: No Advance Directives Information Provided: No Do you have thoughts of harming others: None Do you have a plan to hurt others: No Plan Recently lost weight without trying: No How much weight loss: Not applicable Eating poorly because of decreased appetite: No Nutrition screen score: 0 Nutrition Risks: No Nutritional Risk Poor oral hygiene: No service: No Current occupational status: employed Sexual orientation: Straight/Heterosexual Meds Allergies Allergy/AdvReac Type Severity Reaction Status Date / Time No Known Allergies Allergy Verified 02/20/25 21:54 Active Medications: Current Medications Acetaminophen (Acetaminophen 325 Mg Tablet) 650 mg PO Q6H PRN PRN Reason: Headache/Pain, Scale 1-10 Last Admin: 02/23/25 23:07 Dose: 650 mg Al Hydroxide/Mg Hydroxide (Magnesium Hydrox/Alum Hydrox 30 Ml Oral.Susp) 30 ml PO Q6H PRN PRN Reason: Heartburn/Nausea Albuterol Sulfate (Albuterol Sulfate 90 Mcg 8 Gm Inhaler) 2 puff INHALE Q4H PRN PRN Reason: Shortness of Breath/Wheezing Cyclobenzaprine HCl (Cyclobenzaprine Hcl 5 Mg Tablet) 5 mg PO BEDTIME PRN PRN Reason: Muscle Spasm Last Admin: 02/23/25 21:45 Dose: 5 mg Dextrose (Dextrose 50 % 25 Gm/50 Ml Syringe) 25 gm IVPUSH Q15M PRN; Protocol PRN Reason: per Hypoglycemia Standing Ord. Glucose (Glucose Gel 15 Gm Gel..Gram.) 15 gm PO Q15M PRN; Protocol PRN Reason: per Hypoglycemia Standing Ord. Hydroxyzine HCl (Hydroxyzine Hcl 25 Mg Tablet) 25 mg PO Q6H PRN PRN Reason: mild anxiety Last Admin: 02/23/25 22:40 Dose: 25 mg Insulin Human Lispro (Insulin Lispro 100 Unit/Ml 3 Ml Vial) 0 unit SUBCUT QIDACHS [facility]; Protocol Last Admin: 02/23/25 22:06 Dose: 4 unit Magnesium Hydroxide (Milk Of Magnesia 30 Ml Oral.Susp) 30 ml PO DAILY PRN PRN Reason: Constipation Metformin HCl (Metformin Hcl 500 Mg Tablet) 500 mg PO BIDWM [facility] Last Admin: 02/23/25 17:06 Dose: 500 mg Nicotine (Nicotine 21 Mg Patch.Td24) 21 mg TRANSDERMA DAILY PRN PRN Reason: nicotine craving Nicotine Polacrilex (Nicotine Polacrilex 2 Mg Gum) 2 mg BUCCAL Q2H PRN PRN Reason: Nicotine Cravings Risperidone (Risperidone 1 Mg Tablet) 1 mg PO BID [facility] Last Admin: 02/23/25 21:48 Dose: 1 mg Risperidone (Risperidone 1 Mg Tablet) 1 mg PO BID PRN PRN Reason: psychosis/agitation Sertraline HCl (Sertraline Hcl 50 Mg Tablet) 50 mg PO DAILY [facility] Last Admin: 02/23/25 08:09 Dose: 50 mg Topiramate (Topiramate 25 Mg Tablet) 50 mg PO BEDTIME DAMIAN Last Admin: 02/23/25 21:45 Dose: 50 mg Trazodone HCl (Trazodone Hcl 50 Mg Tablet) 50 mg PO BEDTIME MRX1 PRN PRN Reason: Insomnia Last Admin: 02/23/25 21:45 Dose: 50 mg Home Medications ?Medication ?Instructions ?Recorded ?Confirmed ?Last Taken ?Type albuterol sulfate 90 mcg/actuation 2 puff inhalation Q 4-6H PRN 02/09/25 02/21/25 02/19/25 History aerosol inhaler (Ventolin HFA) Shortness Of Breath Or Wheezing Physical Exam 2 Vital Signs and Narrative: Vital Signs: Last Vital Signs Temp 97.8 F 02/23/25 20:00 Pulse 99 02/23/25 20:00 Resp 16 02/23/25 20:00 BP 108/66 02/23/25 20:00 Pulse Ox 99 02/23/25 20:00 O2 Del Method Room Air 02/23/25 20:00 BMI result Body Mass Index 24.3 CONST: Alert and oriented, in NAD. Well nourished HEENT: Normocephalic, atraumatic, MMM, Eyes clear, Neck supple RESP: Lungs clear, RRR even and regular HEART:,RRR, S1, S2. No edema GI:Abdomen Soft NT, ND. + BS times four :Deferred SKIN: Warm dry and intact, no visible lesions or rashes NEURO:CN II-XII Intact bilaterally, Sensation intact. Speech clear PSYCH: Normal affect, pleasant and cooperative Results Labs 02/20/25 22:47 02/20/25 22:47 Labs: Laboratory Results - last 24 hr 02/23/25 02/23/25 02/24/25 16:48 21:59 08:12 POC Glucose 307 H 211 H 162 H Assessment and Plan (1) Diabetes mellitus, type 2: Status: Acute Plan 44-year-old male with a past medical history of depression, drug-induced psychosis, asthma, type 2 diabetes, lumbar back pain presented to the ED delusional thoughts of people trying to kill him. He is admitted for inpatient psych for further care and treatment. Depression/delusions Treatment per psychiatric team Asthma Continue albuterol as needed Stable with no exacerbation Type 2 diabetes Continue metformin and sliding scale insulin Previously on Trulicity at home, not on formulary Recent A1c 10.4 on February 12. He has a history of noncompliance with diet and medications. Start Lantus 5 units at HS, continue SS and metformin Titrate up based on response Low back pain Cyclobenzaprine 5 mg 3 times daily as needed and Lidoderm patch Tylenol as needed Thank you for allowing me to participate in the care of this patient. Will follow as needed, please notify medical provider with any changes in condition or concerns.
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
[2025-02-24 12:02] LABS: Glucose, Whole Blood 253 mg/dL (60-115)
[2025-02-24 16:57] LABS: Glucose, Whole Blood 188 mg/dL (60-115)
[2025-02-24 20:00] VITALS: BP 122/73; PULSE 90; RESP 16; TEMP 37.2; O2SAT 99
[2025-02-24 20:57] LABS: Glucose, Whole Blood 271 mg/dL (60-115)
[2025-02-24] MEDS: Insulin Glargine,Hum.rec.anlog 100 UNIT/ML 10 ML VIAL SUBCUT (21:32)
[2025-02-25 07:42] LABS: Glucose, Whole Blood 197 mg/dL (60-115)
[2025-02-25 08:00] VITALS: BP 113/63; PULSE 74; RESP 18; TEMP 36.4; O2SAT 98
[2025-02-25] MEDS: Lidocaine 4 % Patch ADH..PATCH 1 PATCH TRANSDERMA (08:19)
[2025-02-25 09:05] LABS: Hemoglobin A1C 361.5892 umol/L; Total Hemoglobin (HGBA1C) 3936.6783 umol/L
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
[2025-02-25 09:35] LABS: Alanine Aminotransferase 37 U/L (0-40); Albumin Level 4.3 g/dL (3.5-5.0); Alkaline Phosphatase 93 U/L (39-117); Anion Gap 8 (12-20); Aspartate Amino Transferase 19 U/L (5-37); Blood Urea Nitrogen 17 mg/dL (9-16); Calcium 9.7 mg/dL (8.4-10.2); Carbon Dioxide 30 mmol/L (22-29); Chloride 105 mmol/L (96-108); Cholesterol 185 mg/dL (<200); Creatinine Clr Calc Pharmacy 91.7; Estimated Glomerular Filt Rate > 60; HDL Cholesterol 42 mg/dL (>40); Potassium 4.3 mmol/L (3.3-5.1); Sodium 139 mmol/L (135-145); Total Protein 7.2 g/dL (6.5-8.0); Triglycerides 262 mg/dL (<150)
[2025-02-25 09:46] LABS: Free T4 (Free Thyroxine) 0.95 ng/dL (0.71-1.85); Thyroid Stimulating Hormone 1.28 uIU/mL (0.32-4.0)
[2025-02-25 12:11] LABS: Glucose, Whole Blood 328 mg/dL (60-115)
--- NOTE | 2025-02-25 12:35 | PM.EVENT ---
Event Note Date of Service: 02/25/25 Event Note: Patient started Lantus 5 Units at hs due to elevated blood glucose. Previously on Trulicity at home. A1c 10.6. Will resume Trulicity from outside pharmacy and DC lantus to increase adherence. Time Spent With Patient Time: Total time managing care of this patient today ____ minutes.
[2025-02-25 17:10] LABS: Glucose, Whole Blood 189 mg/dL (60-115)
[2025-02-25 20:00] VITALS: BP 106/62; PULSE 96; RESP 16; TEMP 37; O2SAT 100
[2025-02-25 20:49] LABS: Glucose, Whole Blood 188 mg/dL (60-115)
[2025-02-26 07:00] VITALS: BMI 25.3
[2025-02-26 08:00] VITALS: BP 112/64; PULSE 93; RESP 16; TEMP 36.4; O2SAT 97
[2025-02-26 08:22] LABS: Glucose, Whole Blood 186 mg/dL (60-115)
[2025-02-26 12:21] LABS: Glucose, Whole Blood 160 mg/dL (60-115)
[2025-02-26 17:31] LABS: Glucose, Whole Blood 224 mg/dL (60-115)
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
[2025-02-26 20:00] VITALS: BP 114/76; PULSE 95; TEMP 36.9; O2SAT 98
[2025-02-26 20:13] LABS: Glucose, Whole Blood 182 mg/dL (60-115)
[2025-02-27 07:58] LABS: Glucose, Whole Blood 176 mg/dL (60-115)
[2025-02-27 08:00] VITALS: BP 103/62; PULSE 79; RESP 16; TEMP 37.3; O2SAT 96
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
[2025-02-27 11:59] LABS: Glucose, Whole Blood 269 mg/dL (60-115)
[2025-02-27 16:37] LABS: Glucose, Whole Blood 206 mg/dL (60-115)
[2025-02-27 20:00] VITALS: BP 118/66; PULSE 81; RESP 16; TEMP 36.6; O2SAT 100
[2025-02-27 22:55] LABS: Glucose, Whole Blood 187 mg/dL (60-115)
[2025-02-28 08:00] VITALS: BP 115/69; PULSE 82; RESP 18; TEMP 36.9; O2SAT 96
[2025-02-28 08:08] LABS: Glucose, Whole Blood 174 mg/dL (60-115)
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
[2025-02-28 11:58] LABS: Glucose, Whole Blood 241 mg/dL (60-115)
[2025-02-28 17:06] LABS: Glucose, Whole Blood 129 mg/dL (60-115)
[2025-02-28] MEDS: Magnesium Hydrox/Alum Hydrox 30 ML ORAL.SUSP PO (17:43)
[2025-02-28 19:41] VITALS: BP 108/64; PULSE 82; RESP 16; TEMP 36.2; O2SAT 97
[2025-02-28 21:36] LABS: Glucose, Whole Blood 245 mg/dL (60-115)
--- NOTE | 2025-03-01 | ECG_ITS ---
Test Reason : CP Blood Pressure : */* mmHG Vent. Rate : 80 BPM Atrial Rate : 80 BPM P-R Int : 164 ms QRS Dur : 106 ms QT Int : 392 ms P-R-T Axes : 61 71 50 degrees QTcB Int : 452 ms Normal sinus rhythm Possible Lateral infarct , age undetermined Abnormal ECG Referred By: Andi Farrell Electronically Signed By: Silvio Dueñas
[2025-03-01 08:00] VITALS: BP 116/68; PULSE 82; RESP 18; TEMP 36.5; O2SAT 96
[2025-03-01 08:01] LABS: Glucose, Whole Blood 194 mg/dL (60-115)
[2025-03-01] MEDS: Magnesium Hydrox/Alum Hydrox 30 ML ORAL.SUSP PO (10:40)
[2025-03-01 12:07] LABS: Glucose, Whole Blood 219 mg/dL (60-115)
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
[2025-03-01 15:52] VITALS: BP 136/76; PULSE 95; TEMP 36.8; O2SAT 96
--- NOTE | 2025-03-01 16:32 | PM.EVENT ---
Event Note Date of Service: 03/01/25 Event Note: Patient having intractable hiccups for 6 days; short story writer not aware until a few days ago and at that time short story writer had started him on baclofen 10 mg t.i.d. however this has had no effect for the past 2-1/2 days. Today patient spit up some blood and there is risk for esophageal tear/Shante-Duffy. Started patient on omeprazole 20 mg b.i.d. Gave patient famotidine 20 mg 1 time dose and another scheduled for later on (since ppi takes time to work) Gave patient chlorpromazine 50 mg p.o. since baclofen has not been effective; seemed to maybe help a little bit so gave another chlorpromazine 25 mg IM Placed hospitalist consult and talked with Dr. Glover will see patient Also place surgical consult and lazara texted on-call surgeon Time Spent With Patient Time: Total time managing care of this patient today ____ minutes.
--- NOTE | 2025-03-01 16:55 | PM.EVENT ---
Event Note Date of Service: 03/01/25 Event Note: Pt is a 44-year-old male admitted to [facility] with hospitalist consult for intractable hiccups for the past few days with worsening symptoms this morning of severe abdominal pain and hemoptysis. Pt is Japanese-speaking and interviewed and examined with help of historical interpreter. The pt has been experiencing hiccups for the past few days without other significant symptoms. This afternoon, however, pt experienced severe epigastric abdominal pain radiating substernally as well as to the back. pt also had blood tinged sputum. Denies nausea or vomiting or diarrhea. Reports has had normal appetite. Pt denies any chest pressure. No previous hx of similar symptoms. Initial concern by nursing was that pt was diaphoretic and ill-appearing. However, upon examination, pt is nontoxic looking. Physical exam significant for diffuse abdominal tenderness. Patient's vitals stable: Pt afebrile and normotensive, satting at 96% on RA. EKG ordered and showed normal sinus rhythm without evidence of significant ischemic changes. Plan: Check CBC, CMP, lipase We will get CT of chest and abd/pelvis General surgery consulted Differential includes Shante-Duffy tear; Little concern for esophageal rupture or perforration Consider barium swallow tomorrow if necessary Will plan on keeping on the unit for now pending lab and imaging results Symptoms improved with IM Thorazine; continue p.r.n. for now Time Spent With Patient Time: Total time managing care of this patient today ____ minutes.
[2025-03-01 16:59] LABS: Hematocrit 45.1 % (42.0-52.0); Hemoglobin 15.5 g/dl (14.0-18.0); Mean Corpuscular HGB Conc 34.4 g/dl (31.0-36.0); Mean Corpuscular Hemoglobin 28.8 pg (27.0-33.0); Mean Corpuscular Volume 83.8 fL (80.0-98.0); NRBC Abs Auto 0.000 X10*3/uL (0.0-0.012); NRBC Pct Auto 0.0 /100WBC (0.0-0.2); Platelet Count 157 X10*3/uL (160-400); Red Blood Count 5.38 X10*6/uL (4.60-5.80); WBC ABN SCTR FOR CBC 1; White Blood Count 10.8 X10*3/uL (4.8-10.8)
[2025-03-01 17:12] LABS: Lipase 42 U/L (8-78)
[2025-03-01 17:13] LABS: Alanine Aminotransferase 32 U/L (0-40); Albumin Level 4.9 g/dL (3.5-5.0); Alkaline Phosphatase 78 U/L (39-117); Anion Gap 12 (12-20); Aspartate Amino Transferase 21 U/L (5-37); Blood Urea Nitrogen 13 mg/dL (9-16); Calcium 9.6 mg/dL (8.4-10.2); Carbon Dioxide 30 mmol/L (22-29); Chloride 101 mmol/L (96-108); Creatinine Clr Calc Pharmacy 110.7; Estimated Glomerular Filt Rate > 60; Potassium 4.3 mmol/L (3.3-5.1); Sodium 139 mmol/L (135-145); Total Protein 8.0 g/dL (6.5-8.0)
[2025-03-01 17:22] LABS: Troponin-I High Sensitivity < 2.7 ng/L (<3.5-35.0)
--- NOTE | 2025-03-01 18:26 | PC.NURSE ---
At approximately 3:15pm Vinayak approached to say that the burning central chest pain that he had previously been treating with Maalox had returned and was worse than ever before. Reached out to Dr. Omalley to discuss further treatment. During that conversation Vinayak returned saying that he had vomited blood. He showed streaks of blood in the toilet. Through multiple other recurrences it was determined that the material did not appear to be vomit from the stomach but instead was blood tinged sputum. Vitals were WNL with the exception of a low grade fever of 100. Vinayak was doubled over in pain, hiccuping consistently with the exception of about half an hour that occured 45 minutes after the adminitration of 50mg thorazine PO. 25 additional mg IM did not stop the hiccups but Vinayak fell asleep. Blood samples, EKG, CT obtained. He was seen by both Dr. Glover and JARROD Farrell
--- NOTE | 2025-03-01 18:47 | P.CONGS_ITS ---
History of Present Illness Consult details Consult date: 03/01/25 Requesting physician: Andi Farrell Narrative: the pt is a 44 year old male with psych issues coming in as he has concerns to hurt himslef. He also has been having irretractable hiccups -? etiology. This after noon having issues with increased sudden pain in epigastric area. seemingly coughed up phlegnm with blood tinge. unsure if real vomit but has been having hiccups for days. no fever or chills. ? medication associated PMFSH Past Medical History Medical History (Updated 02/26/25 @ 00:01 by Jonna Pendleton) Psychosis Asthma Diabetes mellitus, type 2 Social History Social History Household Members: None Housing: Apartment Do you presently have visiting nurse or other home services: No Unable to assess alcohol history related to: Unknown Alcohol intake: former Patient Tobacco Use Status: Never used Tobacco e-Cigarette/Vaping Use: Never Used Second Hand Smoke Exposure: No Substance Use Type: Crack/Cocaine Currently Displaying Signs/Symptoms of Drug Intoxication Withdrawal: No Have you been hit, kicked, punched, or otherwise hurt by someone within the past year? If so, by whom?: No Do you feel safe in your current relationship?: No Current Relationship Is there a partner from a previous relationship who is making you feel unsafe now?: No Are you made to feel afraid or neglected: No Advance Directives: No Advance Directives Information Provided: No Do you have thoughts of harming others: None Do you have a plan to hurt others: No Plan Recently lost weight without trying: No How much weight loss: Not applicable Eating poorly because of decreased appetite: No Nutrition screen score: 0 Nutrition Risks: No Nutritional Risk Poor oral hygiene: No service: No Current occupational status: employed Sexual orientation: Straight/Heterosexual Meds Allergies Allergy/AdvReac Type Severity Reaction Status Date / Time No Known Allergies Allergy Verified 02/20/25 21:54 Active Medications: Current Medications Acetaminophen (Acetaminophen 325 Mg Tablet) 650 mg PO Q6H PRN PRN Reason: Headache/Pain, Scale 1-10 Last Admin: 02/23/25 23:07 Dose: 650 mg Al Hydroxide/Mg Hydroxide (Magnesium Hydrox/Alum Hydrox 30 Ml Oral.Susp) 30 ml PO Q6H PRN PRN Reason: Heartburn/Nausea Last Admin: 03/01/25 10:40 Dose: 30 ml Albuterol Sulfate (Albuterol Sulfate 90 Mcg 8 Gm Inhaler) 2 puff INHALE Q4H PRN PRN Reason: Shortness of Breath/Wheezing Aripiprazole (Aripiprazole 10 Mg Tablet) 10 mg PO DAILY [facility] Baclofen (Baclofen 10 Mg Tablet) 10 mg PO TID [facility] Last Admin: 03/01/25 14:44 Dose: 10 mg Dextrose (Dextrose 50 % 25 Gm/50 Ml Syringe) 25 gm IVPUSH Q15M PRN; Protocol PRN Reason: per Hypoglycemia Standing Ord. Famotidine (Famotidine 20 Mg Tablet) 20 mg PO BID [facility] Stop: 03/02/25 08:00 Last Admin: 03/01/25 16:01 Dose: 20 mg Glucose (Glucose Gel 15 Gm Gel..Gram.) 15 gm PO Q15M PRN; Protocol PRN Reason: per Hypoglycemia Standing Ord. Hydroxyzine HCl (Hydroxyzine Hcl 25 Mg Tablet) 25 mg PO Q6H PRN PRN Reason: mild anxiety Last Admin: 02/28/25 02:02 Dose: 25 mg Insulin Human Lispro (Insulin Lispro 100 Unit/Ml 3 Ml Vial) 0 unit SUBCUT QIDACHS [facility]; Protocol Last Admin: 03/01/25 17:23 Dose: 4 unit Lidocaine (Lidocaine 4 % Patch Adh..Patch) 1 patch TRANSDERMA DAILY PRN; Protocol PRN Reason: lower back pain Magnesium Hydroxide (Milk Of Magnesia 30 Ml Oral.Susp) 30 ml PO DAILY PRN PRN Reason: Constipation Metformin HCl (Metformin Hcl 500 Mg Tablet) 500 mg PO BIDWM [facility] Last Admin: 03/01/25 18:23 Dose: Not Given Nicotine (Nicotine 21 Mg Patch.Td24) 21 mg TRANSDERMA DAILY PRN PRN Reason: nicotine craving Nicotine Polacrilex (Nicotine Polacrilex 2 Mg Gum) 2 mg BUCCAL Q2H PRN PRN Reason: Nicotine Cravings Non-Formulary Medication (Trulicity) 1.5 mg SUBCUTCONT 7XD [facility] Omeprazole (Omeprazole 20 Mg Capsule.Dr) 20 mg PO BID@0630,1630 [facility] Last Admin: 03/01/25 17:23 Dose: 20 mg Sertraline HCl (Sertraline Hcl 25 Mg Tablet) 75 mg PO DAILY [facility] Last Admin: 03/01/25 08:20 Dose: 75 mg Sucralfate (Sucralfate 1 Gm Tablet) 1 gm PO QIDACHS [facility] Last Admin: 03/01/25 17:31 Dose: 1 gm Trazodone HCl (Trazodone Hcl 50 Mg Tablet) 50 mg PO BEDTIME MRX1 PRN PRN Reason: Insomnia Last Admin: 02/28/25 02:02 Dose: 50 mg Trazodone HCl (Trazodone Hcl 50 Mg Tablet) 50 mg PO BEDTIME [facility] Last Admin: 02/28/25 21:49 Dose: 50 mg Home Medications ?Medication ?Instructions ?Recorded ?Confirmed ?Last Taken ?Type albuterol sulfate 90 mcg/actuation 2 puff inhalation Q 4-6H PRN 02/09/25 02/21/25 02/19/25 History aerosol inhaler (Ventolin HFA) Shortness Of Breath Or Wheezing Physical Exam 2 Vital Signs: Vital Signs: Last Vital Signs Temp 98.2 F 03/01/25 15:52 Pulse 95 03/01/25 15:52 Resp 18 03/01/25 08:00 BP 136/76 03/01/25 15:52 Pulse Ox 96 03/01/25 15:52 O2 Del Method Room Air 03/01/25 15:52 BMI result Body Mass Index 25.3 Const: Other: pt follows commands General: cooperative, healthy appearing and comfortable GI: Other: abdomen - soft nond istended and non tender Results Labs 03/01/25 16:54 03/01/25 16:54 Labs: Abnormal lab results 02/28/25 03/01/25 03/01/25 Range/Units 21:32 07:57 12:03 Plt Count (160-400) X10*3/uL Carbon Dioxide (22-29) mmol/L POC Glucose 245 H 194 H 219 H (60-115) mg/dL Random Glucose (60-115) mg/dL 03/01/25 Range/Units 16:54 Plt Count 157 L (160-400) X10*3/uL Carbon Dioxide 30 H (22-29) mmol/L POC Glucose (60-115) mg/dL Random Glucose 248 H (60-115) mg/dL Short CBC 03/01/25 Range/Units 16:54 WBC 10.8 (4.8-10.8) X10*3/uL Hgb 15.5 (14.0-18.0) g/dl Hct 45.1 (42.0-52.0) % Plt Count 157 L (160-400) X10*3/uL BMP 03/01/25 16:54 Sodium 139 Potassium 4.3 Chloride 101 Carbon Dioxide 30 H BUN 13 Creatinine 0.87 Calcium 9.6 Liver Function 03/01/25 Range/Units 16:54 Total Bilirubin 0.3 (0.0-1.0) mg/dL AST 21 (5-37) U/L ALT 32 (0-40) U/L Alkaline Phosphatase 78 (39-117) U/L Albumin 4.9 (3.5-5.0) g/dL Urine 02/21/25 Range/Units 10:24 Urine Color Yellow Urine Appearance Cloudy Urine pH 7.0 (5.0-9.0) Ur Specific [place] >= 1.030 H (1.005-1.025) Urine Protein Negative (Neg-Trace) mg/dL Urine Glucose (UA) >=1000 H (Negative) mg/dL All other labs normal. Imaging Additional studies: Patient: Vinayak Hernandez MR#: [id number] : 1980 Acct:[id number] Age/Sex: 44 / M ADM Date: 02/23/25 [id number]: Socorro Rhodes [place]APER[facility] Ordering Physician: Andi Farrell Date of Service: 03/01/25 Procedure(s): CT abdomen pelvis wo IV con Accession Number(s): [id number] cc: Andi Farrell; Martha Lock MD~ Report Number: [id number]: Total DLP = 0.00 mGy-cm Reason for Exam: abd pain, intractable hiccups w/hemoptysis CLINICAL HISTORY: abd pain, intractable hiccups w hemoptysis CT abdomen and pelvis without IV or oral contrast Comparison: None Findings: Lung bases show no active disease. No dependent layering pleural effusions. The heart is not enlarged. No stones are identified in the kidneys, ureters or bladder. There is no hydronephrosis or perinephric stranding/fluid. Evaluation of the liver, spleen, adrenal glands and pancreas demonstrates no lesions. It should be noted that isodense masses may be obscured in the absence of intravenous contrast. No radiopaque gallstones. Heavy stool burden. Normal appendix. No pathologically enlarged lymph nodes . No ascites demonstrated. Normal distention of the urinary bladder. No vertebral body compression fractures or spondylolisthesis. No bony destructive lesions. Impression: 1. No nephrolithiasis or urinary tract obstruction demonstrated. 2. Heavy stool burden may be bordering on impaction. 3. Significant motion artifact may obscure subtle pathology including free air. This document has been electronically signed by: Chris Avendano MD on 03/01/2025 18:43:41 Dictated By: Chris Avendano MD Signed By: <Electronically signed by Chris Avendano MD in [place]> 03/01/251843 DD/ 42 TD/TT: 03/01/251842 Medical Investigator: Assessment and Plan (1) Drug-induced psychotic disorder: Status: Acute Plan 44 yo male with episode of cough/vomining up some blood material. admitted with threat for harm and with intractable hiccups - med trials so far unsuccesful. Pt has coughed up some phlegm with blood but also counging and feeling epigastric pain. ct scan done not showing much - pt hungry and pain somewhat improved - describes burning in his esophagus doubt anything significant trial of magic mouthwash Procedures Date of Service Date of Service: 03/02/25
[2025-03-01 20:00] VITALS: BP 121/77; PULSE 96; RESP 15; TEMP 36.6; O2SAT 98
[2025-03-01 20:54] LABS: Glucose, Whole Blood 144 mg/dL (60-115)
[2025-03-02 08:09] LABS: Glucose, Whole Blood 177 mg/dL (60-115)
[2025-03-02 08:10] VITALS: BP 109/58; PULSE 86; RESP 12; TEMP 37.1; O2SAT 99
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
--- NOTE | 2025-03-02 10:49 | HO.PM.IMPN ---
Subjective Subjective Date of Service: 03/02/25 Interval History: Patient is seen in follow up for hiccups, continues with persistent hiccups, reports pain in his epigastric region. Started a PPI. Patient has an extensive workup, including a TSH that was normal, chest x-ray that was normal, no nephrolithiasis, no lymph node enlargement identified, KS ruled without, his CT scan demonstrated constipation, and some distal esophageal wall thickening. On exam his hiccups reportedly stopped around 11:00. He received Thorazine at 09:10. Patient reports that the hiccups if persists about 7 days. He has reflux symptoms with no apparent correlation with any food intake. He reports a history of smoking 2 cigarettes a day for the past 8 months, as well as daily vaping and marijuana use. Reports that he used to be a heavy drinker consuming up to 2 cups of vodka and 3 beers daily about 7 months ago he decrease his alcohol intake to 2 beers on weekends. He is intermittently receiving medication for nausea, reports that he vomited yesterday. Denies any history of cancers in his family. Reports a history of chronic back pain, this is unchanged. He denies any recent weight loss or loss of appetite. Review of Systems Denies any shortness of breath, chest pain, dizziness, lightheadedness, abdominal pain or discomfort, + nausea vomiting, no diarrhea. Denies constipation Physical Exam Exam: Exam: CONST: Alert and oriented, in NAD. Well nourished HEENT: Normocephalic, atraumatic, MMM, Eyes clear, Neck supple RESP: Lungs clear, RRR even and regular HEART:,RRR, S1, S2. No murmur, no edema GI:Abdomen Soft NT, ND. + BS times four :Deferred SKIN: Warm dry and intact, no visible lesions or rashes NEURO:CN II-XII Intact bilaterally, Sensation intact. Speech clear PSYCH: Normal affect Vital Signs: Vital Signs: Last Vital Signs Temp 98.7 F 03/02/25 08:10 Pulse 86 03/02/25 08:10 Resp 12 03/02/25 08:10 BP 109/58 L 03/02/25 08:10 Pulse Ox 99 03/02/25 08:10 O2 Del Method Room Air 03/02/25 08:10 BMI result Body Mass Index 25.3 Objective Data Active Medications Acetaminophen (Acetaminophen 325 Mg Tablet) 650 mg PO Q6H PRN PRN Reason: Headache/Pain, Scale 1-10 Last Admin: 03/02/25 09:14 Dose: 650 mg Documented By: JAIRO Al Hydroxide/Mg Hydroxide (Magnesium Hydrox/Alum Hydrox 30 Ml Oral.Susp) 30 ml PO Q6H PRN PRN Reason: Heartburn/Nausea Last Admin: 03/01/25 10:40 Dose: 30 ml Documented By: DAYAN Albuterol Sulfate (Albuterol Sulfate 90 Mcg 8 Gm Inhaler) 2 puff INHALE Q4H PRN PRN Reason: Shortness of Breath/Wheezing Aripiprazole (Aripiprazole 10 Mg Tablet) 10 mg PO DAILY [facility] Last Admin: 03/02/25 09:10 Dose: 10 mg Documented By: JAIRO Baclofen (Baclofen 10 Mg Tablet) 10 mg PO TID [facility] Last Admin: 03/02/25 09:10 Dose: 10 mg Documented By: JAIRO Chlorpromazine HCl (Chlorpromazine Hcl 25 Mg Tablet) 50 mg PO QID [facility] Last Admin: 03/02/25 09:10 Dose: 50 mg Documented By: JAIRO Dextrose (Dextrose 50 % 25 Gm/50 Ml Syringe) 25 gm IVPUSH Q15M PRN; Protocol PRN Reason: per Hypoglycemia Standing Ord. Gabapentin (Gabapentin 100 Mg Capsule) 100 mg PO TID [facility] Last Admin: 03/02/25 09:10 Dose: 100 mg Documented By: JAIRO Glucose (Glucose Gel 15 Gm Gel..Gram.) 15 gm PO Q15M PRN; Protocol PRN Reason: per Hypoglycemia Standing Ord. Hydroxyzine HCl (Hydroxyzine Hcl 25 Mg Tablet) 25 mg PO Q6H PRN PRN Reason: mild anxiety Last Admin: 02/28/25 02:02 Dose: 25 mg Documented By: COLIN Insulin Human Lispro (Insulin Lispro 100 Unit/Ml 3 Ml Vial) 0 unit SUBCUT QIDACHS [facility]; Protocol Last Admin: 03/02/25 08:21 Dose: Not Given Documented By: JAIRO Non-Admin Reason: No Insulin Coverage Lidocaine (Lidocaine 4 % Patch Adh..Patch) 1 patch TRANSDERMA DAILY PRN; Protocol PRN Reason: lower back pain Lidocaine/Diphenhydr/Alum/Mg/Simeth (Mag&Al/Sim/Diphenhyd/Lidocaine 10 Ml Oral.Susp) 10 ml PO Q4H PRN; Protocol PRN Reason: Hiccups Magnesium Hydroxide (Milk Of Magnesia 30 Ml Oral.Susp) 30 ml PO DAILY PRN PRN Reason: Constipation Metformin HCl (Metformin Hcl 500 Mg Tablet) 500 mg PO BIDWM [facility] Last Admin: 03/02/25 09:09 Dose: 500 mg Documented By: JAIRO Nicotine (Nicotine 21 Mg Patch.Td24) 21 mg TRANSDERMA DAILY PRN PRN Reason: nicotine craving Nicotine Polacrilex (Nicotine Polacrilex 2 Mg Gum) 2 mg BUCCAL Q2H PRN PRN Reason: Nicotine Cravings Non-Formulary Medication (Trulicity) 1.5 mg SUBCUTCONT 7XD [facility] Omeprazole (Omeprazole 20 Mg Capsule.Dr) 20 mg PO BID@0630,1630 [facility] Last Admin: 03/02/25 06:54 Dose: 20 mg Documented By: BA Ondansetron HCl (Ondansetron Odt 4 Mg Tab.Rapdis) 4 mg TRANSLINGU Q6H PRN PRN Reason: Nausea and Vomiting Sertraline HCl (Sertraline Hcl 25 Mg Tablet) 75 mg PO DAILY [facility] Last Admin: 03/01/25 08:20 Dose: 75 mg Documented By: DAYAN Sucralfate (Sucralfate 1 Gm Tablet) 1 gm PO QIDACHS [facility] Last Admin: 03/02/25 09:09 Dose: 1 gm Documented By: JAIRO Trazodone HCl (Trazodone Hcl 50 Mg Tablet) 50 mg PO BEDTIME MRX1 PRN PRN Reason: Insomnia Last Admin: 02/28/25 02:02 Dose: 50 mg Documented By: COLIN Trazodone HCl (Trazodone Hcl 50 Mg Tablet) 50 mg PO BEDTIME [facility] Last Admin: 03/01/25 20:40 Dose: 50 mg Documented By: BA Labs 03/01/25 16:54 03/01/25 16:54 Labs: Laboratory Results - last 24 hr 03/01/25 03/01/25 03/01/25 12:03 16:54 20:51 MCV 83.8 MCH 28.8 MCHC 34.4 RDW 12.0 Plt Count 157 L MPV 12.3 Absolute Nucleated RBC 0.000 Nucleated RBC % (auto) 0.0 Anion Gap 12 Estim Creat Clear Calc 110.7 Estimated GFR > 60 POC Glucose 219 H 144 H Random Glucose 248 H Calcium 9.6 Total Bilirubin 0.3 AST 21 ALT 32 Alkaline Phosphatase 78 Troponin I High Sens < 2.7 Total Protein 8.0 Albumin 4.9 Lipase 42 03/02/25 08:02 MCV MCH MCHC RDW Plt Count MPV Absolute Nucleated RBC Nucleated RBC % (auto) Anion Gap Estim Creat Clear Calc Estimated GFR POC Glucose 177 H Random Glucose Calcium Total Bilirubin AST ALT Alkaline Phosphatase Troponin I High Sens Total Protein Albumin Lipase Assessment and Plan (1) Intractable hiccups: Status: Acute Plan 44-year-old male with a past medical history of depression, drug-induced psychosis, asthma, type 2 diabetes, lumbar back pain presented to the ED delusional thoughts of people trying to kill him. He is admitted for inpatient psych for further care and treatment. Intractable hiccups Overall workup reassuring, CBC CMP with no abnormalities. Renal and hepatic function within normal limits, ACS ruled out, lipase within normal limits. CT scan with probable distal esophageal wall thickening, lungs are clear. CT of abdomen and pelvis were negative for acute abdomen. Demonstrated heavy stool burden Continue Thorazine as needed, DC Reglan Magic mouthwash, continue PPI, added Colace and senna for suspected constipation. We will need GI follow up outpatient due to distal esophageal wall thickening. Depression/delusions Treatment per psychiatric team Asthma Continue albuterol as needed Stable with no exacerbation Type 2 diabetes Continue metformin and sliding scale insulin Previously on Trulicity at home, not on formulary Recent A1c 10.4 on February 12. He has a history of noncompliance with diet and medications. Start Lantus 5 units at HS, continue SS and metformin Titrate up based on response Low back pain Cyclobenzaprine 5 mg 3 times daily as needed and Lidoderm patch Tylenol as needed Thank you for allowing me to participate in the care of this patient. Will follow as needed, please notify medical provider with any changes in condition or concerns. Quality Stroke Does the patient have a stroke diagnosis?: No VTE Prior VTE?: No VTE Risk Level:: Medical - low VTE Device Contraindication: Treatment Not Indicated VTE Drug Contraindication: Treatment Not Indicated
[2025-03-02 11:26] LABS: Glucose, Whole Blood 221 mg/dL (60-115)
[2025-03-02 17:19] LABS: Glucose, Whole Blood 276 mg/dL (60-115)
[2025-03-02 20:00] VITALS: BP 121/59; PULSE 106; TEMP 37.1; O2SAT 98
[2025-03-02 21:43] LABS: Glucose, Whole Blood 215 mg/dL (60-115)
[2025-03-03 08:00] VITALS: BP 92/60; PULSE 76; RESP 18; TEMP 36.1; O2SAT 97
[2025-03-03 12:19] LABS: Glucose, Whole Blood 168 mg/dL (60-115)
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
[2025-03-03 17:47] LABS: Glucose, Whole Blood 179 mg/dL (60-115)
[2025-03-03 20:00] VITALS: BP 112/59; PULSE 93; RESP 16; TEMP 36.9; O2SAT 99
[2025-03-03 21:04] LABS: Glucose, Whole Blood 248 mg/dL (60-115)
[2025-03-04 07:48] VITALS: BP 117/76; PULSE 90; RESP 18; TEMP 36.4; O2SAT 98
[2025-03-04 07:52] LABS: Glucose, Whole Blood 183 mg/dL (60-115)
[2025-03-04 08:22] LABS: Creatinine Clr Calc Pharmacy 110.7; Estimated Glomerular Filt Rate > 60
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
[2025-03-04] MEDS: Naloxone HCl Nasal TAKE HOME 4 MG SPRAY 8 MG NOSTRILALT (10:34)
== END 2025-03-04 11:30 | disposition home or self-care (01) | DRG 760 ==
LOC: HO.ED 02-23 12:17 → HO.PM5 02-23 12:37
PROVIDERS: Physician Assistant; Psychiatry & Neurology Psychiatry; Student in an Organized Health Care Education/Training Program; Admitting Provider Nurse Practitioner Psychiatric/Mental Health; Emergency Provider Emergency Medicine; PCP Internal Medicine; Visit Provider Nurse Practitioner Psychiatric/Mental Health
DX: F22 Delusional disorders (principal); F29 Unspecified psychosis not due to a substance or known physiological condition; E11.9 Type 2 diabetes mellitus without complications; R04.2 Hemoptysis; J45.909 Unspecified asthma, uncomplicated; M54.59 Other low back pain; K59.00 Constipation, unspecified; Z79.899 Other long term (current) drug therapy
CPT/HCPCS: 36415; 71250; 74176; 80053; 80061; 80307; 81001; 82565; 82947; 83036; 83690; 84439; 84443; 84484; 85025; 85027; 93005; 99285; J1630; J3230; J3360; S9485

== ENCOUNTER → 2025-02-23 07:56 | Outpatient (BNV) | payer MEDICAID, SELFPAY | PROVIDERS: Admitting Provider Nurse Practitioner Psychiatric/Mental Health; Emergency Provider Emergency Medicine; PCP Internal Medicine; Visit Provider Internal Medicine | DX: R94.31 Abnormal electrocardiogram [ECG] [EKG] (principal); Z13.6 Encounter for screening for cardiovascular disorders | CPT/HCPCS: 93010 ==

== ENCOUNTER 2025-02-23 11:47 | Outpatient (BNV) | payer MEDICAID, SELFPAY | END 2025-03-01 16:35 | PROVIDERS: Admitting Provider Nurse Practitioner Psychiatric/Mental Health; Emergency Provider Emergency Medicine; PCP Internal Medicine; Visit Provider Internal Medicine Cardiovascular Disease | DX: R94.31 Abnormal electrocardiogram [ECG] [EKG] (principal); R07.9 Chest pain, unspecified | CPT/HCPCS: 93010 ==

== ENCOUNTER 2025-02-23 11:47 | Outpatient (BNV) | payer MEDICAID, SELFPAY | END 2025-03-01 16:44 | PROVIDERS: Admitting Provider Nurse Practitioner Psychiatric/Mental Health; Emergency Provider Emergency Medicine; PCP Internal Medicine; Visit Provider Radiology Diagnostic Radiology | DX: R10.9 Unspecified abdominal pain (principal); R06.6 Hiccough; R05.9 Cough, unspecified | CPT/HCPCS: 71250; 74176 ==

== ENCOUNTER → 2025-02-23 11:47 | Outpatient (BNV) | payer MEDICAID, SELFPAY | PROVIDERS: Admitting Provider Nurse Practitioner Psychiatric/Mental Health; Emergency Provider Emergency Medicine; PCP Internal Medicine; Visit Provider Nurse Practitioner Family | DX: E11.9 Type 2 diabetes mellitus without complications (principal); Z79.4 Long term (current) use of insulin | CPT/HCPCS: 99221; 99231; 99499 ==

== ENCOUNTER → 2025-02-23 11:47 | Outpatient (BNV) | payer MEDICAID, SELFPAY | PROVIDERS: Admitting Provider Nurse Practitioner Psychiatric/Mental Health; Emergency Provider Emergency Medicine; PCP Internal Medicine; Visit Provider Surgery | DX: R10.13 Epigastric pain (principal); R06.6 Hiccough; F19.959 Other psychoactive substance use, unspecified with psychoactive substance-induced psychotic disorder, unspecified | CPT/HCPCS: 99222 ==

== ENCOUNTER → 2025-02-23 11:47 | Outpatient (BNV) | payer OTHER, SELFPAY | PROVIDERS: Admitting Provider Nurse Practitioner Psychiatric/Mental Health; Emergency Provider Emergency Medicine; PCP Internal Medicine; Visit Provider Psychiatry & Neurology Psychiatry | DX: F33.3 Major depressive disorder, recurrent, severe with psychotic symptoms (principal); E11.9 Type 2 diabetes mellitus without complications; J45.909 Unspecified asthma, uncomplicated | CPT/HCPCS: 99232; 99499 ==

== ENCOUNTER 2025-04-17 10:53 | Inpatient (IN) | payer MEDICAID, OTHER, SELFPAY ==
--- NOTE | ~2025-04-17 | XR_ITS ---
EXAMINATION: XR CHEST CLINICAL INFORMATION: CP COMPARISON: July 02, 2024. TECHNIQUE: PA and lateral views FINDINGS: No consolidation, pleural effusion or pneumothorax. Cardiomediastinal silhouette size is normal. Mild multilevel spondylosis. Increased AP diameter of the thorax. XR/XR chest 2V IMPRESSION: No acute airspace disease. Electronically signed by: Eduardo Brizuela MD 04/17/2025 12:02 PM [facility]
[2025-04-17 11:34] VITALS: BP 133/82; PULSE 102; RESP 18; TEMP 36.4; O2SAT 97; BMI 23.3
--- NOTE | 2025-04-17 11:35 | ED_ITS ---
HPI - General Adult General Chief complaint: ETOH/Substance Use Stated complaint: not feeling well Time Seen by Provider: 04/17/25 12:15 Source: patient Limitations: language barrier History of Present Illness ED Provider: Dr. Hema Beaulieu HPI narrative: 44-year-old male with a history of delusional disorder, diabetes mellitus type 2, noncompliant with metformin, cocaine use disorder who presents emergency department for evaluation of left-sided chest pain, cough, shortness of breath, dyspnea on exertion, nausea and chills. Patient states he has been using intranasal cocaine, 10 g at night for the last 6 nights. He states he is having 5-7 episodes of left-sided intermittent, sharp chest pain lasting minutes for the last 2 days. Pain is not related to exertion and can come on at rest. Chest pain associated with nausea, shortness of breath, dyspnea on exertion. No radiation of the pain to his neck, jaw, back or arms. He denied fever but did have chills. He has requesting evaluation for detox from cocaine. He states he smokes marijuana twice a day, he denies injection drug use. The patient was admitted [place] [facility] [place] from 02/20/2025 until 03/04/2025 for delusional disorder with paranoid ideation, acute psychosis and intractable hiccups. You does not appear to be delusional or paranoid at this time. Related Data Home Medications ?Medication ?Instructions ?Recorded ?Confirmed dulaglutide 3 mg/0.5 mL 3 mg subcut FR 04/17/2502/02 subcutaneous pen injector (Trulicity) trazodone 50 mg tablet 50 mg PO BEDTIME PRN insomni a 04/17/25 04/17/25 Allergies Allergy/AdvReac Type Severity Reaction Status Date / Time No Known Allergies Allergy Verified 04/17/25 11:37 Review of Systems 2 Review of Systems: Yes all other systems are reviewed and are negative [facility] Past Medical History [facility] Narrative: Social history: He smokes half a pack of cigarettes per day. He denies alcohol use. Please see HPI for cocaine and marijuana use, he denies injection drug use Medical History (Updated 04/17/25 @ 17:08 by Hema Beaulieu MD) Delusional disorder Asthma Diabetes mellitus, type 2 Social History Social History Household Members: None Housing: Apartment Do you presently have visiting nurse or other home services: No Alcohol intake: former Patient Tobacco Use Status: Never used Tobacco Smoked in Last 30 Days: Yes e-Cigarette/Vaping Use: Never Used Second Hand Smoke Exposure: No Use of substances other than those prescribed or required for medical reasons: Yes Substance Use Type: Crack/Cocaine Substance Use Frequency: Daily Last Used Substance: Just Prior to Admission Advance Directives: No Advance Directives Information Provided: Yes Nutrition Risks: No Nutritional Risk service: No Current occupational status: employed Sexual orientation: Straight/Heterosexual Physical Exam ED Vital Signs: Vital Signs - 24 hr 04/18/25 06:04 Temperature 98.5 F Pulse Rate 72 Respiratory Rate 17 Blood Pressure 126/77 Pulse Oximetry 98 Oxygen Delivery Method Room Air BMI result Body Mass Index 23.3 Vital signs revealed an elevated heart rate of 102 and an elevated blood pressure of 133/82 Exam: General: Awake, alert, does not appear to be in distress, was very tearful during the interview Head: Normocephalic, atraumatic EENT: PERRL, sclera and conjunctiva are normal, mouth with no erythema or exudates Neck: Supple, no adenopathy Lung: breath sounds symmetric, no wheezing, no rales and no rhonchi Chest: symmetric movement, tenderness palpation of the left anterior chest wall Heart: regular rate and rhythm, normal S1, S2 no murmurs or rubs Abdomen: soft, non-tender, nondistended, normal bowel sounds Back: no vertebral tenderness, no CVAT Extremities: no deformities, moves all extremities symmetrically, no edema Neuro: Awake, alert, oriented, normal speech, cranial nerves 2-12 intact, moves all extremities symmetrically Psych: Pleasant, cooperative Course Course Course Narrative: This is an RME: Additional HPI, ROS, PE not included below will be deferred to primary provider. RME assessment and note performed by: Antonia Black PA-C This is a 32-doxl-nob-male who presents to the ER with a complaint of substance abuse wanting help. Pt reports that he used cocaine yesterday and today. Reports that he is in recovery at this time. Reports that he has tried to get help but has had difficulty with this. Reports that he has no thoughts of harming himself or others. Reporting chest pain. Reports he has had chest pain for several days. Reports that the chest pain is intermittent. Plan: labs, ekg, chest xray, further ER eval needed Reevaluation(s) Reevaluation #1: Time: 05:29 Date: 04/18/25 Provider: Hema Beaulieu MD Patient in physician observation for psychiatric evaluation.? No acute events reported overnight. No current complaints. VS stable.? Patient is in bed search status. Will continue to monitor. Time: 14:59 Date: 04/18/25 Provider: Hema Beaulieu MD Physician observation ended at 14:01 hours. Patient to be admitted as inpatient to psychiatry. Medications Administered Discontinued Medications Generic Name Dose Route Start Last Admin Trade Name Freq PRN Reason Stop Dose Admin Ketorolac Tromethamine 60 mg 04/17/25 12:36 04/17/25 12:43 Ketorolac Tromethamine 60 Mg/2 Ml Vial IM 04/17/25 12:37 60 mg ONCE ONE Administration Lorazepam 2 mg 04/17/25 12:36 04/17/25 12:43 Lorazepam 1 Mg Tablet PO 04/17/25 12:37 2 mg ONCE STA Administration Medical Decision Making Medical Decision Making MDM Narrative: 44-year-old male with a history of delusional disorder, diabetes mellitus type 2, noncompliant with metformin, cocaine use disorder who presents emergency department for evaluation of left-sided chest pain, cough, shortness of breath, dyspnea on exertion, nausea and chills. Patient states he has been using intranasal cocaine, 10 g at night for the last 6 nights. He states he is having 5-7 episodes of left-sided intermittent, sharp chest pain lasting minutes for the last 2 days. Pain is not related to exertion and can come on at rest. Chest pain associated with nausea, shortness of breath, dyspnea on exertion. No radiation of the pain to his neck, jaw, back or arms. He denied fever but did have chills. He has requesting evaluation for detox from cocaine. He states he smokes marijuana twice a day, he denies injection drug use. Vital signs revealed an elevated heart rate and elevated blood pressure otherwise unremarkable. The patient was tearful, exam revealed reproducible left-sided chest pain otherwise unremarkable. Differential diagnosis: ?Includes but is not limited to myocardial infarction, myocardial ischemia, musculoskeletal pain, costochondritis, pneumothorax, pneumonia, electrolyte abnormalities, anemia Course: 12:48 My independent interpretation patient's laboratory evaluation is as follows: CBC was normal. Bicarb elevated 30. Glucose elevated 139. LFTs were normal. First troponin was less than 2.7, repeat troponin pending at 13:50.Urine tox screen and urinalysis are pending collection of urine sample. I did order a recovery team evaluation. 17:04 Patient's tox screen was positive for cocaine and marijuana. Urinalysis was negative. Patient was seen by the care team clinician for recovery and psychiatric evaluation. The care team clinician was able to get more information from the patient. The patient is paranoid and delusional. He believes that the police are following him. He believes that other people can read his thoughts. He apparently has not been taking his medications as prescribed from his last psychiatric admission. Given these findings, the patient was placed in physician observation for psychiatric reasons. I placed him on a section 12 and he will remain in the emergency department until appropriate psychiatric bed can be obtained. Will continue to monitor. Differential Diagnosis Differential Diagnoses: The differential diagnosis associated with the presentation includes (See above) Admission/Observation Consideration of admission/observation: Escalation of care including admission/observation considered (Yes) Lab Data MDM Lab Attestation statement: I reviewed the patient's lab results. 04/17/25 11:50 04/17/25 11:50 Labs: Lab Results 04/17/25 04/17/25 04/17/25 Range/Units 11:50 13:27 13:31 WBC 7.0 (4.8-10.8) X10*3/uL RBC 5.37 (4.60-5.80) X10*6/uL Hgb 15.2 (14.0-18.0) g/dl Hct 44.7 (42.0-52.0) % MCV 83.2 (80.0-98.0) fL MCH 28.3 (27.0-33.0) pg MCHC 34.0 (31.0-36.0) g/dl RDW 12.1 (11.0-16.0) % Plt Count 158 L (160-400) X10*3/uL MPV 12.4 (9.4-12.4) fL Immature Gran % (Auto) 0.1 (0.0-0.4) % Neut % (Auto) 56.8 (45-73) % Lymph % (Auto) 34.9 (20-40) % Marin % (Auto) 7.4 (2-11) % Eos % (Auto) 0.4 (0-4) % Baso % (Auto) 0.4 (0-2) % Lymph # (Auto) 2.5 (1.2-4.9) X10*3/uL Marin # (Auto) 0.5 (0.1-1.2) X10*3/uL Eos # (Auto) 0.0 (0.0-0.4) X10*3/uL Baso # (Auto) 0.0 (0.0-0.2) X10*3/uL Abs Immat Gran (auto) 0.01 (0.00-0.03) X10*3/uL Absolute Neuts (auto) 4.0 (2.0-8.3) x10*3/uL Absolute Nucleated RBC 0.000 (0.0-0.012) X10*3/uL Nucleated RBC % (auto) 0.0 (0.0-0.2) /100WBC Sodium 141 (135-145) mmol/L Potassium 3.8 (3.3-5.1) mmol/L Chloride 104 (96-108) mmol/L Carbon Dioxide 30 H (22-29) mmol/L Anion Gap 11 L (12-20) BUN 8 L (9-16) mg/dL Creatinine 0.78 (0.5-1.4) mg/dL Estim Creat Clear Calc 123.4 Estimated GFR > 60 POC Glucose 141 H (60-115) mg/dL Random Glucose 139 H (60-115) mg/dL Calcium 9.4 (8.4-10.2) mg/dL Magnesium 2.1 (1.6-2.6) mg/dL Total Bilirubin 0.5 (0.0-1.0) mg/dL Direct Bilirubin 0.2 (0.0-0.5) mg/dL AST 16 (5-37) U/L ALT 14 (0-40) U/L Alkaline Phosphatase 56 (39-117) U/L Total Creatine Kinase 50 (38-174) U/L Troponin I High Sens < 2.7 (<3.5-35.0) ng/L Total Protein 7.8 (6.5-8.0) g/dL Albumin 4.9 (3.5-5.0) g/dL Urine Color Yellow Urine Appearance Clear Urine pH 6.5 (5.0-9.0) Ur Specific [place] 1.015 (1.005-1.025) Urine Protein Negative (Neg-Trace) mg/dL Urine Glucose (UA) Negative (Negative) mg/dL Urine Ketones Negative (Negative) mg/dL Urine Blood Negative (Negative) Urine Nitrite Negative (Negative) Ur Leukocyte Esterase Negative (Negative) Urine Opiates Screen Not Detected (Not Detect) Ur Buprenorphine Scrn Not Detected (Not Detect) ng/mL Ur Oxycodone Screen Not Detected (Not Detect) ng/mL Urine Methadone Screen Not Detected (Not Detect) ng/mL Urine Fentanyl Screen Not Detected (Not Detect) Ur Barbiturates Screen Not Detected (Not Detect) Ur Phencyclidine Scrn Not Detected (Not Detect) Ur Amphetamines Screen Not Detected (Not Detect) U Benzodiazepines Scrn Not Detected (Not Detect) Urine Cocaine Screen POSITIVE H (Not Detect) U Marijuana (THC) Screen POSITIVE H (Not Detect) 04/17/25 Range/Units 13:58 WBC (4.8-10.8) X10*3/uL RBC (4.60-5.80) X10*6/uL Hgb (14.0-18.0) g/dl Hct (42.0-52.0) % MCV (80.0-98.0) fL MCH (27.0-33.0) pg MCHC (31.0-36.0) g/dl RDW (11.0-16.0) % Plt Count (160-400) X10*3/uL MPV (9.4-12.4) fL Immature Gran % (Auto) (0.0-0.4) % Neut % (Auto) (45-73) % Lymph % (Auto) (20-40) % Marin % (Auto) (2-11) % Eos % (Auto) (0-4) % Baso % (Auto) (0-2) % Lymph # (Auto) (1.2-4.9) X10*3/uL Marin # (Auto) (0.1-1.2) X10*3/uL Eos # (Auto) (0.0-0.4) X10*3/uL Baso # (Auto) (0.0-0.2) X10*3/uL Abs Immat Gran (auto) (0.00-0.03) X10*3/uL Absolute Neuts (auto) (2.0-8.3) x10*3/uL Absolute Nucleated RBC (0.0-0.012) X10*3/uL Nucleated RBC % (auto) (0.0-0.2) /100WBC Sodium (135-145) mmol/L Potassium (3.3-5.1) mmol/L Chloride (96-108) mmol/L Carbon Dioxide (22-29) mmol/L Anion Gap (12-20) BUN (9-16) mg/dL Creatinine (0.5-1.4) mg/dL Estim Creat Clear Calc Estimated GFR POC Glucose (60-115) mg/dL Random Glucose (60-115) mg/dL Calcium (8.4-10.2) mg/dL Magnesium (1.6-2.6) mg/dL Total Bilirubin (0.0-1.0) mg/dL Direct Bilirubin (0.0-0.5) mg/dL AST (5-37) U/L ALT (0-40) U/L Alkaline Phosphatase (39-117) U/L Total Creatine Kinase (38-174) U/L Troponin I High Sens < 2.7 (<3.5-35.0) ng/L Total Protein (6.5-8.0) g/dL Albumin (3.5-5.0) g/dL Urine Color Urine Appearance Urine pH (5.0-9.0) Ur Specific [place] (1.005-1.025) Urine Protein (Neg-Trace) mg/dL Urine Glucose (UA) (Negative) mg/dL Urine Ketones (Negative) mg/dL Urine Blood (Negative) Urine Nitrite (Negative) Ur Leukocyte Esterase (Negative) Urine Opiates Screen (Not Detect) Ur Buprenorphine Scrn (Not Detect) ng/mL Ur Oxycodone Screen (Not Detect) ng/mL Urine Methadone Screen (Not Detect) ng/mL Urine Fentanyl Screen (Not Detect) Ur Barbiturates Screen (Not Detect) Ur Phencyclidine Scrn (Not Detect) Ur Amphetamines Screen (Not Detect) U Benzodiazepines Scrn (Not Detect) Urine Cocaine Screen (Not Detect) U Marijuana (THC) Screen (Not Detect) Independent Interpretation I performed an independent interpretation of an: EKG Interpretation: My independent EKG done on 04/17/2025 at 11:42 hours is as follows: Normal sinus rhythm rate 85, normal AK interval, prolonged QRS duration of 110 milliseconds, normal QTC interval of 452 milliseconds, no ST segment elevation, no ST segment depression, no significant T-wave abnormalities, no PVCs, no PACs. Compared to EKG dated 03/01/2025 at 16:35 hours, no significant changes. My independent interpretation of the patient's two view chest x-ray is as follows: No acute disease, no obvious pneumothorax noted by me Radiology Impression Discussion of test interpretation with radiology: I have reviewed the radiologist's reading. Radiologist Impression: XR chest 2V IMPRESSION: No acute airspace disease. Electronically signed by: Eduardo Brizuela MD 04/17/2025 12:02 PM External Record Review External record reviewed: Inpatient record Chronic Conditions Patient?s care impacted by: Diabetes Discharge Plan Discharge Clinical Impression: Cocaine use disorder, Chest pain, Paranoid delusion, Noncompliance with medication regimen Patient Disposition: Admitted As Inpatient Interventions: Admission Worksheet (ED) Last Done: 04/18/25 14:57
--- NOTE | 2025-04-17 11:37 | ECG_ITS ---
Test Reason : CP Blood Pressure : */* mmHG Vent. Rate : 85 BPM Atrial Rate : 85 BPM P-R Int : 156 ms QRS Dur : 110 ms QT Int : 380 ms P-R-T Axes : 74 72 50 degrees QTcB Int : 452 ms Normal sinus rhythm Normal ECG When compared with ECG of 01-Mar-2025 16:35, No significant change was found Referred By: Antonia Black Electronically Signed By: Silvio Dueñas
[2025-04-17 11:54] LABS: MANUAL DIFF FLAG NO
[2025-04-17 12:14] LABS: Alanine Aminotransferase 14 U/L (0-40); Albumin Level 4.9 g/dL (3.5-5.0); Alkaline Phosphatase 56 U/L (39-117); Anion Gap 11 (12-20); Aspartate Amino Transferase 16 U/L (5-37); Blood Urea Nitrogen 8 mg/dL (9-16); Calcium 9.4 mg/dL (8.4-10.2); Carbon Dioxide 30 mmol/L (22-29); Chloride 104 mmol/L (96-108); Creatinine Clr Calc Pharmacy 123.4; Estimated Glomerular Filt Rate > 60; Magnesium 2.1 mg/dL (1.6-2.6); Potassium 3.8 mmol/L (3.3-5.1); Sodium 141 mmol/L (135-145); Total Protein 7.8 g/dL (6.5-8.0)
[2025-04-17 12:18] LABS: Troponin-I High Sensitivity < 2.7 ng/L (<3.5-35.0)
[2025-04-17 12:32] LABS: Hematocrit 44.7 % (42.0-52.0); Hemoglobin 15.2 g/dl (14.0-18.0); Imm Gran Abs Auto 0.01 X10*3/uL (0.00-0.03); Imm Gran Pct Auto 0.1 % (0.0-0.4); Lymphocytes Absolute Auto 2.5 X10*3/uL (1.2-4.9); Mean Corpuscular HGB Conc 34.0 g/dl (31.0-36.0); Mean Corpuscular Hemoglobin 28.3 pg (27.0-33.0); Mean Corpuscular Volume 83.2 fL (80.0-98.0); NRBC Abs Auto 0.000 X10*3/uL (0.0-0.012); NRBC Pct Auto 0.0 /100WBC (0.0-0.2); Platelet Count 158 X10*3/uL (160-400); Red Blood Count 5.37 X10*6/uL (4.60-5.80); White Blood Count 7.0 X10*3/uL (4.8-10.8)
[2025-04-17 12:52] VITALS: BP 130/86; PULSE 90; RESP 18; TEMP 36.8; O2SAT 100
--- NOTE | 2025-04-17 13:07 | PC.NURSE ---
pt evaluated by provider. pt tearful during examination. denies SI/HI but states that he is depressed d/t strugging w/ addiction and recovery. 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 belongings placed in jelena port shelf #2. pt otherwise pending recovery consult at this time. plan of care ongoing.
[2025-04-17 13:23] VITALS: PULSE 90
[2025-04-17 13:34] LABS: Glucose, Whole Blood 141 mg/dL (60-115)
[2025-04-17 13:46] LABS: Appearance Urine Clear; Glucose Urine UA Negative (Negative); PH 6.5 (5.0-9.0); Specific Gravity - Urine 1.015 (1.005-1.025)
[2025-04-17 13:55] LABS: Cannabinoid Screen Urine POSITIVE (Not Detect)
--- OUTSIDE RECORDS SUMMARY | 2025-04-17 14:20 | XMS_ITS | Encounter Summary ---
Author Organization [facility] Address [address] [place] [address] Phone Care Team Providers Care Shackler Name Role Phone Unknown, Unknown Primary Care Provider Jose Stern MD Primary Care Provide r Encounter Details Date Type Department Care Team (Late st Contact Info) Description 09/19/2018 Ancillary Orders Main [facility] at [address] [address] Romina Tyson PA-C [address], [address] [place] [address] [email or web address] Pain Social History Tobacco Use Types Packs/Day [...] of the 3rd distal phalanx. POS - [id number] Narrative 09/19/2018 7:53 PM EDT EXAM: XR [...] of the 3rd distal phalanx. POS - [id number] Romina Tyson PA-C IMG XR UPPER EXTREMITY Final Result documented in this encounter Visit Diagnoses Diagnosis Pain Generalized pain Pain Generalized pain documented in this encounter Care Teams Shackler Relationship Specialty Start Date End Date Unknown, Unknown, MD PCP - General 09/19/18 12/29/19 Jose Siu MD [address] [place] [phone] PCP - [facility] General Surgery 12/30/19 documented as of this encounter Additional Source Comments The information contained in this document represents components of the legal health record. It is not the complete legal health record.[facility]
--- OUTSIDE RECORDS SUMMARY | 2025-04-17 14:20 | XMS_ITS | Clinical Summary ---
Author Organization [facility] Address [address] [place] [address] Phone Care Team Providers Care Trust Operations Assistant Name Role Phone Jose Siu MD [...] Medical Devices Not on file Insurance [employer] Care Teams Trust Operations Assistant Relationship Specialty Start Date End Date Jose Siu MD [address] [place] [phone] PCP - General General Surgery 12/30/19 Additional Source Comments The information contained in this document represents components of the legal health record. It is not the complete legal health record.[facility]
--- OUTSIDE RECORDS SUMMARY | 2025-04-17 14:21 | XMS_ITS | Encounter Summary ---
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 I have saul barrera 03/19/[address] you li ve. Do you have problems with any of the following? None of the above 03/19/2025 Food Insecurity Answer Date Recorded Within the past 12 months, y ou worried that your food would run out before you got money to buy more: Often true 03/19/2025 Within the past 12 months,th e food you bought just didn't last and you didn't have enough money to get more: Often true 02/2025 Transportation Answer Date Recorded In the past 12 months, has l ack of transportation kept you from medical appts, meetings, work or from getting things needed for daily living? Yes, it has kept me from medical appointments or getting medications.;Yes, it has kept me from non-medical meetings, work, or getting things that I need 03/19/2025 Utilities Answer Date Recorded In the past 12 months, has t he electric, gas, oil or water company threatened to shut off services in your home? No 03/19/2025 Depression Answer Date Recorded Patient Health Questionnaire-2 Score 4 01/29/2025 Internet Access Answer Date Recorded Internet Access Q1 No 03/19/2025 Internet Access Q2 Not on file 03/19/2025 Sex and Gender Information Value Date Recorded Sex Assigned at Male 04/10/2022 10:31 AM EDT Legal Sex Male 10:31 AM EDT Gender Identity Male 04/10/2022 10:31 AM EDT Sexual Orientation Don't know 04/10/2022 10 :31 AM EDT documented as of this encounter Plan of Treatment Upcoming Encounters Date Type Department Care Team (Late st Contact Info) Description 05/04/2025 9:30 AM EST Office Visit [facility] OPTOMETRY [address] [place] [address] TarkaChristianne, OD [address] [place] [address] 05/25/2025 1:15 PM EST Office Visit [facility] MEDICINE [address] [place] [address] Martha Lock MD [address] [place] [address] documented as of this encounter Procedures Procedure Name Priority Date/Time Associated Diagnosis Comments GLUCOSE, WHOLE BLOOD Routine 04/17/2025 1:31 PM EST DRUG MONITOR, PANEL 1, SCREEN, URINE Routine 04/17/2025 1:27 PM EST URINALYSIS WITH REFLEX MICROSCOPIC Routine 04/17/2025 1:27 PM EST XR CHEST 2 VIEWS Routine 04/17/2025 11:5 5 AM EST HIGH SENSITIVITY TROPONIN I Routine 04/17/2025 11:50 AM EST CBC WITH AUTO DIFFERENTIAL Routine 04/17/2025 11:50 AM EST MAGNESIUM Routine 04/17/2025 11:50 AM EST CREATINE KINASE, TOTAL Routine 04/17/2025 11:50 AM EST HEPATIC FUNCTION PANEL Routine 04/17/2025 11:50 AM EST BASIC METABOLIC PANEL Routine 04/17/2025 11:50 AM EST documented in this encounter Results * (ABNORMAL) Glucose, Whole Blood (04/17/2025 1:31 PM EST) Glucose, Whole Blood 141(H) 60 - 115 mg/dL [facility] Comment:METER #: [id number] 04/17/2025 1:31 PM EST 04/17/2025 1:34 PM EST us Generic External Data Provider LAB BLOOD ORDERAB LES Final Result [facility] [address] [place] [phone] * (ABNORMAL) Drug Monitoring, Panel 1, Screen, Urine (04/17/2025 1:27 PM EST) Opiate Screen Urine Not Detected Not Detect [facility] Comment:Opiate cut-off is 30 0 ng/mL.Positive results are unconfirmed and should not be used fornon-medical purposes. Barbiturates, Urine Not Detected Not Detect [facility] Comment:Barbiturate cut-off is 200 ng/mL.Positive results are unconfirmed and should not be used fornon-medical purposes. Phencyclidine Screen Urine Not Detected Not Detect [facility] Comment:Phencyclidine cut-of f is 25 ng/mL.Positive results are unconfirmed and should not be used fornon-medical purposes. Amphetamine Screen Urine Not Detected Not Detect [facility] Comment:Amphetamine cut-off is 1000 ng/mL.Positive results are unconfirmed and should not be used fornon-medical purposes. Benzodiazepines Screen Urine Not Detected Not Detect [facility] Comment:Benzodiazepine cut-o ff is 200 ng/mL.Positive results are unconfirmed and should not be used fornon-medical purposes. Cocaine Screen Urine POSITIVE(A) Not Detect [facility] Comment:Cocaine cut-off is 3 00 ng/mL.Positive results are unconfirmed and should not be used fornon-medical purposes. Cannabinoid Screen Urine POSITIVE(A) Not Detect [facility] Comment:Cannabinoid cut-off is 50 ng/mL.Positive results are unconfirmed and should not be used fornon-medical purposes. Methadone Screen, Urine Not Detected Not Detect ng/mL [facility] Comment:Methadone cut-off is 300 ng/mL.Positive results are unconfirmed and should not be used fornon-medical purposes. FENTANYL URINE Not Detected Not Detect [facility] Comment:Fentanyl cut-off is 1 ng/mL.Positive results are unconfirmed and should not be used fornon-medical purposes. Oxycodone Urine Screen Not Detected Not Detect ng/mL [facility] Comment:Oxycodone cut-off is 100 ng/mL.Positive results are unconfirmed and should not be used fornon-medical purposes. Buprenorphine Screen Not Detected Not Detect ng/mL [facility] Comment:Buprenorphine cut-of f is 5 ng/mL.Positive results are unconfirmed and should not be used fornon-medical purposes. 04/17/2025 1:27 PM EST 04/17/2025 1:41 PM EST us Generic External Data Provider LAB URINE ORDERAB LES Final Result [facility] [address] [place] [phone] * Urinalysis w/reflex microscopic (04/17/2025 1:27 PM EST) Color Urine Yellow [facility] Appearance Urine Clear [facility] PH 6.5 5.0 - 9.0 [facility] Glucose Urine UA Negative Negative mg/dL [facility] Urine Blood Negative Negative [facility] Specific [place] - Urine 1.015 1.005 - 1.025 [facility] Urine Protein Negative Neg-Trace mg/dL [facility] Urine Ketones Negative Negative mg/dL [facility] Nitrite Urine Negative Negative [facility] Leukocyte Esterase Urine Negative Negative [facility] 04/17/2025 1:27 PM EST 04/17/2025 1:41 PM EST Narrative [facility] - 04/17/2025 1:46 PM EST [id number], Clean Catch us Generic External Data Provider LAB URINE ORDERAB LES Final Result Performing Organization Address City/State/[facility] Co de Phone Number [facility] [address] [place] [phone] * XR Chest 2 Views (04/17/2025 11:55 AM EST) Anatomical Region Laterality Modality Chest Radiographic Kacy ging 04/17/2025 11:5 5 AM EST Narrative 04/17/2025 12:05 PM EST [address] [address] XRay Report Signed Patient: Vinayak Hernandez MR#: [id number] 7 : 1980 Acct:[id number] Age/Sex: 44 / M ADM Date: 04/17/25 Loc: HO.ED Attending Dr: Ordering Physician: Antonia Black Date of Service: 04/17/25 Procedure(s): XR chest 2V Accession Number(s): [id number] cc: Martha Lock MD; Antonia Black Reason for Exam: CP EXAMINATION: XR CHEST CLINICAL INFORMATION: CP COMPARISON: July 02, 2024. TECHNIQUE: PA and lateral views FINDINGS: No consolidation, pleural effusion or pneumothorax. Cardiomediastinal silhouette size is normal. Mild multilevel spondylosis. Increased AP diameter of the thorax. XR/XR chest 2V IMPRESSION: No acute airspace disease. Electronically signed by: Eduardo Brizuela MD 04/17/2025 12:02 PM EST RP Dictated By: Eduardo Conway MD Signed By: <Electronically signed by Eduardo Isidro MD in OV> 04/17/25 1202 DD/ 1155 TD/TT: 04/17/25 1159 Teletype Adjuster: Procedure Note Donotuseinterpreter, Image - 04/17/2025 [place] [address] XRay Report Signed Patient: Sheyla Hernandez#: [id number] 7 : 1980Acct:[id number] Age/Sex: 44 / MADM Date: 04/17/25 Loc: .ED Attending Dr: Ordering Physician: Antonia Black Date of Service: 04/17/25 Procedure(s): XR chest 2V Accession Number(s): [id number] cc: Martha Lock MD; Antonia Black Reason for Exam: CP EXAMINATION: XR CHEST CLINICAL INFORMATION: CP COMPARISON: July 02, 2024. TECHNIQUE: PA and lateral views FINDINGS: No consolidation, pleural effusion or pneumothorax. Cardiomediastinal silhouette size is normal. Mild multilevel spondylosis. Increased AP diameter of the thorax. XR/XR chest 2V IMPRESSION: No acute airspace disease. Electronically signed by: Eduardo Brizuela MD 04/17/2025 12:02 PM EST RP Dictated By: Eduardo Conway MD Signed By: <Electronically signed by Eduardo Isidro MDin OV> 04/17/25 1202 DD/ 1155 TD/TT: 04/17/25 1159 Teletype Adjuster: [facility] External Provider IMG XR PROCEDURES Final Result * (ABNORMAL) CBC auto differential (04/17/2025 11:50 AM EST) White Blood Count 7.0 4.8 - 10.8 X10*3/uL [facility] Red Blood Count 5.37 4.60 - 5.80 X10*6/uL [facility] Hemoglobin 15.2 14.0 - 18.0 g/dl [facility] Hematocrit 44.7 42.0 - 52.0 % [facility] Mean Corpuscular Volume 83.2 80.0 - 98.0 fL [facility] Mean Corpuscular Hemoglobin 28.3 27.0 - 33.0 pg [facility] Mean Corpuscular HGB Conc 34.0 31.0 - 36.0 g/dl [facility] Red Cell Distribution Width 12.1 11.0 - 16.0 % [facility] Platelet Count 158(L) 160 - 400 X10*3/uL [facility] Mean Platelet Volume 12.4 9.4 - 12.4 fL [facility] Neutrophils Percent Auto 56.8 45 - 73 % [facility] Imm Gran Pct Auto 0.1 0.0 - 0.4 % [facility] Lymphocytes Percent Auto 34.9 20 - 40 % [facility] Monocytes Percent Auto 7.4 2 - 11 % [facility] Eosinophils Percent Auto 0.4 0 - 4 % [facility] Basophils Percent Auto 0.4 0 - 2 % [facility] NRBC Pct Auto 0.0 0.0 - 0.2 /100WBC [facility] Neutrophils Absolute Auto 4.0 2.0 - 8.3 x10*3/uL [facility] Imm Gran Abs Auto 0.01 0.00 - 0.03 X10*3/uL [facility] Lymphocytes Absolute Auto 2.5 1.2 - 4.9 X10*3/uL [facility] Monocytes Absolute Auto 0.5 0.1 - 1.2 X10*3/uL [facility] Eosinophils Absolute Auto 0.0 0.0 - 0.4 X10*3/uL [facility] Basophils Absolute Auto 0.0 0.0 - 0.2 X10*3/uL [facility] NRBC Abs Auto 0.000 0.0 - 0.012 X10*3/uL [facility] 04/17/2025 11:5 0 AM EST 04/17/2025 11:53 AM EST us Generic External Data Provider LAB BLOOD ORDERAB LES Final Result Performing Organization Address [facility] de Phone Number [facility] [address] [place] [phone] * High Sensitivity Troponin I (04/17/2025 11:50 AM EST) Pathologist [facility] TROPONIN I HIGH SENSITIVITY <2.7 <3.5 - 35.0 ng/L [facility] Comment:The Allison high sens itivity Troponin-I results should beused in conjunction with other diagnostic information suchas ECG, clinical observations and information, and patientsymptoms to aid in the diagnosis of [place]. 04/17/2025 11:5 0 AM EST 04/17/2025 11:53 AM EST us Generic External Data Provider LAB BLOOD ORDERAB LES Final Result Performing Organization Address [facility] Phone Number [facility] [address] [place] [phone] * Creatine Kinase, Total (04/17/2025 11:50 AM EST) Creatine Kinase Total 50 38 - 174 U/L [facility] 04/17/2025 11:5 0 AM EST 04/17/2025 11:53 AM EST Generic External Data Provider LAB BLOOD ORDERAB LES Final Result Performing Organization Address [facility] Phone Number [facility] [address] [place] [phone] * Magnesium (04/17/2025 11:50 AM EST) Magnesium 2.1 1.6 - 2.6 mg/dL [facility] 04/17/2025 11:5 0 AM EST 04/17/2025 11:53 AM EST us Generic External Data Provider LAB BLOOD ORDERAB LES Final Result [facility] [address] [place] [phone] * (ABNORMAL) Basic Metabolic Panel (04/17/2025 11:50 AM EST) Sodium 141 135 - 145 mmol/L [facility] Potassium 3.8 3.3 - 5.1 mmol/L [facility] Chloride 104 96 - 108 mmol/L [facility] Carbon Dioxide 30(H) 22 - 29 mmol/L [facility] Anion Gap 11(L) 12 - 20 [facility] Urea Nitrogen (BUN) 8(L) 9 - 16 mg/dL [facility] Creatinine, Serum 0.78 0.5 - 1.4 mg/dL [facility] Creatinine Clr Calc Pharmacy 123.4 [facility] Comment:eGFR (calculated fro m the MDRD study equation) and eCrCl(calculated from the Cockcroft-Gault equation) are based ondifferent parameters and may not yield comparable results.If eCrCl result is absurd, please check patient'sheight/weight. Estimated Glomerular Filt Rate >60 [facility] Comment:Chronic Kidney Disea se: Estimated GFR < 60 mL/min/1.35d8Ezsgvm Kidney Disease: Estimated GFR < 15 mL/min/1.73m2 Glucose 139(H) 60 - 115 mg/dL [facility] Calcium 9.4 8.4 - 10.2 mg/dL [facility] 04/17/2025 11:5 0 AM EST 04/17/2025 11:53 AM EST us Generic External Data Provider LAB BLOOD ORDERAB LES Final Result Performing Organization Address [facility] Co de Phone Number [facility] [address] [place] [phone] * Hepatic Function Panel (04/17/2025 11:50 AM EST) Bilirubin, Total 0.5 0.0 - 1.0 mg/dL [facility] Bilirubin, Direct 0.2 0.0 - 0.5 mg/dL [facility] Aspartate Amino Transferase 16 5 - 37 U/L [facility] Alanine Aminotransferase 14 0 - 40 U/L [facility] Total Protein 7.8 6.5 - 8.0 g/dL [facility] Albumin Level 4.9 3.5 - 5.0 g/dL [facility] Alkaline Phosphatase 56 39 - 117 U/L [facility] 04/17/2025 11:5 0 AM EST 04/17/2025 11:53 AM EST Generic External Data Provider LAB BLOOD ORDERAB LES Final Result Performing Organization Address [facility] de Phone Number [facility] [address] [place] [phone] documented in this encounter Visit Diagnoses Not on filedocumented in this encounter Additional Health Concerns Assessment Noted Time PHQ-9 Depression Total Score: 20 08/2 025 11:06 AM EDT documented as of this encounter Care Teams Laborer [employer] Relationship Specialty Start Date End Date Martha Lock MD [address] [place] [address] PCP - General Family Medicine 09/26/16 documented as of this encounter
--- OUTSIDE RECORDS SUMMARY | 2025-04-17 14:21 | XMS_ITS | Encounter Summary ---
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 Name Role Phone Martha Lock MD Primary Care Provider + Encounter Details Date Type Department Care Team (Latest Contact Info) Description 02/28/2025 Results Follow-Up [facility] [address] [place] [address] Martha Lock MD [address] [place] [address] Albumin, Random Urine W/Creatinine, Comprehensive Metabolic Panel, Lipid Panel with Reflex to Direct LDL, Additional followed-up results: 2 Social History Tobacco Use Types Packs/Day Years [...] Description 05/04/2025 9:30 AM EST Office Visit [facility] OPTOMETRY [address] [place] [address] Christianne Purdy, OD [address] [place] [address] 05/25/2025 1:15 PM EST Office Visit [facility] MEDIC[facility] [address] [place] [address] Martha Lock MD [address] [place] [address] documented as of this encounter Visit Diagnoses Not on filedocumented in this encounter Additional Health Concerns Assessment Noted Time PHQ-9 Depression Total Score: 20 025 11:06 AM EDT documented as of this encounter Care Teams Toll Bridge Operator Relationship Specialty Start Date End Date Martha Lock MD [address] [place] [phone] PCP - General Family Medicine 09/26/16 documented as of this encounter
--- OUTSIDE RECORDS SUMMARY | 2025-04-17 14:21 | XMS_ITS | Clinical Summary ---
Author Organization [employer] Address [address] [place] [address] Care Team Providers Care Typing Secretary Name Role Phone Hanny Lopez MD Primary [...] per day. 90 tablet 3 025 Active cyclobenzaprine (Flexeril) 10 MG tablet Take 1 tablet (10 mg) by mouth at bedtime for 10 days. 10 tablet 025 Active albuterol 108 (90 Base) MCG/ACT inhaler Inhale 2 puffs every 4 (four) hours. inhale 2 puff by inhalation route every 4 - 6 hours as needed 18 g 025 Active topiramate 50 MG tabletIndications :Recurrent mild major depressive disorder with anxiety (CMS/HCC) TAKE 1 TABLET BY MOUTH AT BEDTIME 30 tablet 3 025 Active Dulaglutide (Trulicity) 3 MG/0.5ML solution auto-injector Inject 3 mg under the skin 1 (one) time per week. 2 mL 3 025 Active ARIPiprazole (Abilify) 10 MG tablet Take 10 mg by mouth Once per day. [facility] 03/05/25 disch. Active chlorproMAZINE (Thorazine) 10 MG tablet Take 10 mg by mouth if needed in the morning, at noon, and at bedtime for nausea. Active traZODone (Desyrel) 50 MG tablet Take 1 tablet (50 mg) by mouth at bedtime. 30 tablet 3 025 2025 Active sertraline (Zoloft) 50 MG tabletIndications :Depressive disorder TAKE 1.5 TABLETS (75 MG) BY MOUTH ONCE PER DAY 135 tablet 2 Active Acetaminophen Extra Strength 500 MG tablet TAKE 1 TABLET BY MOUTH EVERY 8 HOURS NEEDED FOR MILD PAIN. 90 tablet Active Dulaglutide (Trulicity) 1.5 MG/0.5ML solution auto-injector Inject 1.5 mg under the skin 1 (one) time per week. 2 mL 3 025 2024 Discontinued(D ose adjustment) sertraline (Zoloft) 50 MG tabletIndications :Depressive disorder TAKE 1 TABLET BY MOUTH EVERY DAY 90 tablet 1 025 2024 Discontinued(R eorder (will not trigger notification to Pharmacy)) acetaminophen (Tylenol Extra Strength) 500 MG tablet TAKE 1 TABLET BY MOUTH EVERY 8 HOURS NEEDED FOR MILD PAIN. 90 tablet 025 2024 Discontinued sertraline (Zoloft) 50 MG tabletIndications :Depressive disorder Take 1.5 tablets (75 mg) by mouth Once per day. TAKE 1 TABLET BY MOUTH EVERY DAY 135 tablet 2 025 2024 Discontinued Hospital, Clinic, or Other Facility Administered Medication Ordered Dose Route Frequency Start Date End Date Status Insulin Lispro solution 4 UnitsIndications:Type 2 diabetes mellitus without complication, without long-term current use of insulin (HCC) 4 Units SC Once 03/19/2025 03/19/2025 Ended Active Problems Problem Noted Date Diagnosed Date Type 2 diabetes mellitus wit hout complication, without long-term current use of insulin 03/19/2025 Assessment & Plan (03/19/2025 3:05 PM EDT): Uncontrolled, even though there is a slight improvement of A1c. Increase Trulicity to 3 mg/W and follow-up in 6 weeks, continue metformin same dose We discussed importance of having a smaller fraction to meals including small breakfast and snacks Humalog 4U today, will have small lunch with a protein portion. Refer to eye clinic He agreed to COVID, influenza and hep B one immunization today Anxiety 01/29/2025 Cocaine use 01/29/2025 Assessment & Plan (03/19/2025 3:14 PM EDT): Current significantly, encouraged to continue to avoid use. Information given to reach out to mental health providers and our [facility] building programs. Encouraged increased exercise as a coping mechanism with anxiety Cannabis use disorder 01/29/2025 Assessment & Plan (03/19/2025 3:15 PM EDT): Advised to cut down to off, encouraged to reach out to [facility] mental health provider We discussed about increasing exercise as a coping mechanism with anxiety. Encounter for preventive health examination 03/12 Assessment [...] labs, he agreed to referral to a recovery manager, he does not think he needs AUD [...] to evaluation and to speak with the recovery manager, will do referral. Assessment & Plan (06/13/2024 3:52 PM EST): Advised to quit ETOH, declined AUD referral (never went last year) but agreed to evaluation. 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 Advised to schedule appointment with [facility] providers in [place] (Jyothi Sánchez [employer], Hunter Deluna , counselor and Carlos Oscar psych prescriber). Patient feels safe at home and is able to reach out for safety, he has crisis numbers. We discussed about cutting down on THC use, he will reach out to recovery manager from [facility] program, he is aware of our programs at the [facility] building. We discussed avoiding alcohol and cocaine use, practice CBT and increase exercise as a coping mechanism with anxiety. Follow-up with me in 6 weeks Family disruption 05/18/2022 Infrapatellar bursitis of left [...] + albuterol PRN Received Flu IZ today Resolved Problems Problem Noted Date Diagnosed Date Resolved Date COVID-19 05/18/2022 03/19/2025 Pneumonia due to 2019 novel coronavirus 05/18/2022 01/28/2025 Recurrent mild major depress morelia disorder with anxiety 09/26/2016 01/29/2025 Assessment & Plan (01/28/2025 5:36 PM EDT): PHQ9 is 12, I will refer to team, I will follow-up with him at next visit. We discussed importance of avoiding recreational substances or alcohol, he agreed to be referred to the recovery manager, not ready for AUD program. He will [...] Sertraline 50mg. He will be referred to [facility] for support with housing due to safety [...] therapist, fu prn Type 2 diabetes mellitus wit h hyperglycemia, with long-term current use of insulin 09/26/2016 Assessment & Plan (02/19/2025 2:56 PM EDT): [...] organization. Date Type Department Care Team Description 04/17/2025 Orders Only [facility] External Provider, [facility] 03/31/2025 Refill [facility] [address] [place] [address] Hanny Lopez MD 03/19/2025 11:30 AM EDT Office Visit [facility] [address] [place] [phone] Hanny Lopez MD Type 2 diabetes mellitus without complication, without long-term current use of insulin (HCC) (Primary Dx); Severe episode of recurrent major depressive disorder, with psychotic features (CMS/HCC) (HCC); Cocaine use; Cannabis use disorder; Depressive disorder 03/19/2025 Refill [facility] [address] [place] [address] Hanny Lopez MD Depressive disorder 03/19/2025 Patient Outreach [facility] [address] [place] [phone] Hanny Lopez MD Care Coordination ([facility] outreach for SDOH PT-1 and food needs-referral completed /) 03/19/2025 Travel 03/19/2025 Telephone [facility] [address] [place] [phone] Hanny Lopez MD Chart prep 02/28/2025 Results Follow-Up [facility] [address] [place] [phone] Hanny Lopez MD Albumin, Random Urine W/Creatinine, Comprehensive Metabolic Panel, Lipid Panel with Reflex to Direct LDL, Additional followed-up results: 2 02/26/2025 Refill [facility] [address] [place] [address] Hanny Lopez MD Recurrent mild major depressive disorder with anxiety (CMS/HCC) 02/26/2025 Refill [facility] [address] [place] [address] Hanny Lopez MD 02/23/2025 Orders Only [facility] External Provider, [facility] 02/19/2025 3:40 PM EDT Office Visit [facility] [address] [place] [address] Claudia Jimenes MD Type 2 diabetes mellitus without complication, unspecified whether assisted insulin use (CMS/HCC) 02/19/2025 Travel 02/19/2025 Telephone [facility] [address] [place] [address] Antonia Maciel RN Critical Glucose 01/29/2025 Patient Outreach [facility] [address] [place] [phone] [facility] 01/29/2025 Telephone [facility] [address] [place] [phone] Hanny Lopez MD Prior Authorization ( PA: Amelia) 01/29/2025 Refill [facility] [address], [place] [phone] Hanny Lopez MD Depressive disorder; Recurrent mild major depressive disorder with anxiety (CMS/HCC) 01/28/2025 4:00 PM EDT Office Visit [facility] [address] [place] [phone] Hanny Lopez MD Type 2 diabetes mellitus without complication, without long-term current use of insulin (CMS/HCC) (Primary Dx); Recurrent mild major depressive disorder with anxiety (CMS/HCC); Mild intermittent asthma, unspecified whether complicated; Chronic bilateral low back pain without sciatica; Alcohol abuse; Weight loss; Depressive disorder; Encounter for colorectal cancer screening 01/28/2025 Travel 01/27/2025 Telephone [facility] [address], [place] [phone] Hanny Lopez MD Chart Prep 01/21/2025 Patient Outreach [facility] [address], [place] [phone] Hanny Lopez MD 01/21/2025 Patient Outreach [facility] [address] [place] [address] Hanny Lopez MD Pre-visit Planning ([facility] unable to reach, disconnected) from Last 3 Months Immunizations Immunization Administration [...] the past 12 months, has t he [employer], gas, oil or water company threatened to [...] Sign Reading Time Taken Comments Blood Pressure 142/72 03/19/2025 11:40 AM EDT Pulse 78 03/19/2025 11:40 AM EDT Temperature 36.2 C (97.2 F) 03/19/2025 11:40 AM EDT Respiratory Rate 18 03/19/2025 11:40 AM EDT Oxygen Saturation 98% 02/19/2025 2:37 PM EDT Inhaled Oxygen Concentration - - Weight 76.7 kg (169 lb 3.2 oz) 03/19/2025 11:40 AM EDT Height 177.8 cm (5' 10 ) 03/19/2025 11:40 AM EDT Body Mass Index 24.28 03/19/2025 11:40 AM EDT Plan of Treatment Upcoming Encounters Date Type Department Care Team (Late st Contact Info) Description 05/04/2025 9:30 AM EST Office Visit [facility] [address] [place] [address] Christianne Purdy, OD [address], [place] [phone] 05/25/2025 1:15 PM EST Office Visit [facility] [address], [place] [phone] Hanny Lopez MD [address] [place] [address] Health Maintenance Due Date Last Done Comments CT Colonography 1980 Colonoscopy 1979 Colorectal Cancer Screening 1980 FIT DNA/Cologuard 1979 FIT 1979 FOBT 1980 Sigmoidoscopy 1980 Eye Exam 09/17/1989 Family Planning (PISQ) 09/17/1994 HPV Vaccines (1 - Male 3-dose series) 09/17/1994 Hepatitis B Vaccines (1 of 3 - 19+ 3-dose series) 09/17/1998 COVID-19 Vaccine (2 - season) 2025 06/22/2022 Influenza Vaccine (#1) 2025 , 04/10/2023, 06/22/2022, Additional history exists Diabetes: Hemoglobin A1C 06/19/2025 025, 02/19/2025, 01/28/2025, Additional history exists Depression Monitoring 08/01/2025 01/29/2025, 025 Diabetes: Urine Protein Screening 02/19/2026 02/19/2025, 11/03/2021 Lipid Panel 02/19/2026 02/19/2025, 03/18/2021 Alcohol/Substance Use Screening 03/19/2026 03/19/2025 Diabetes: Foot Exam 03/19/2026 03/19/2025, 03/19/2025, 03/19/2025, Additional history exists Disability Screening 03/19/2026 03/19/2025 SDOH Screening 03/19/2026 03/19/2025 Tobacco Screening 03/19/2026 03/19/2025 DTaP/Tdap/Td Vaccines (3 - Td or Tdap) [...] VIEWS Routine 04/17/2025 11:5 5 AM EST CBC WITH AUTO DIFFERENTIAL Routine 04/17/2025 11:50 AM EST HIGH SENSITIVITY TROPONIN I Routine 04/17/2025 11:50 AM EST CREATINE KINASE, TOTAL Routine 11:50 AM EST MAGNESIUM Routine 04/17/2025 11:50 AM EST BASIC METABOLIC PANEL Routine 04/17/2025 11:50 AM EST HEPATIC FUNCTION PANEL Routine 11:50 AM EST POCT GLYCATED HEMOGLOBIN, TOTAL Routine 03/19/2025 11:45 AM EDT Type 2 diabetes mellitus without complication, without long-term current use of insulin (HCC) POCT GLUCOSE Routine 03/19/2025 11:44 AM EDT Type 2 diabetes mellitus without complication, without long-term current use of insulin (HCC) CT ABDOMEN PELVIS WO CONTRAST Routine 03/01/2025 6:[address] CHEST WO CONTRAST Routine 03/01/2025 6:40 PM EDT DRUG MONITOR, PANEL 1, SCREEN, URINE Routine 02/21/2025 10:24 AM EDT URINALYSIS, COMPLETE, WITH REFLEX TO CULTURE Routine 02/21/2025 10:24 AM EDT ETHANOL Routine 02/20/2025 10:47 PM EDT COMPREHENSIVE METABOLIC PANEL Routine 02/20/2025 10:47 PM EDT CBC WITH AUTO DIFFERENTIAL Routine 02/20/2025 10:47 PM EDT POCT URINALYSIS DIPSTICK Routine 02/19/2025 2:38 PM EDT Type 2 diabetes mellitus without complication, unspecified whether assisted insulin use (CMS/HCC) POCT GLYCATED HEMOGLOBIN, TOTAL Routine 02/19/2025 2:38 PM EDT Type 2 diabetes mellitus without complication, unspecified whether assisted insulin use (CMS/HCC) POCT GLUCOSE Routine 02/19/2025 2:38 PM EDT Type 2 diabetes mellitus without complication, unspecified whether excelsior picker insulin use (CMS/HCC) XR LUMBAR SPINE COMPLETE 4+ VIEWS Routine [...] Routine 02/19/2025 9:38 AM EDT Weight loss T-SPOT(R).TB Routine 02/19/2025 9:38 AM EDT Weight loss [...] complication, without long-term current use of insulin ([facility]) POCT GLUCOSE Routine 01/28/2025 4:29 PM EDT Type 2 diabetes mellitus without complication, without long-term current use of insulin ([facility]) from Last 3 Months Results * (ABNORMAL) Glucose, Whole Blood (04/17/2025 1:31 PM EST) Only the most recent of2 resultswithin the time period is included. Glucose, Whole Blood 141(H) 60 - 115 mg/dL [facility] Comment:METER #: [id number] 04/17/2025 1:31 PM EST 04/17/2025 1:34 PM EST us Generic External Data Provider LAB BLOOD ORDERAB LES Final Result Performing Organization Address [facility]/State/[facility] de Phone Number [facility] [address] [place] [phone] * (ABNORMAL) Drug Monitoring, Panel 1, Screen, Urine (04/17/2025 1:27 PM EST) Only the most recent of3 resultswithin the time period is included. Opiate Screen Urine Not Detected Not Detect [facility] Comment:Opiate cut-off is 30 0 ng/mL.Positive results are unconfirmed and should not be used fornon-medical purposes. Barbiturates, Urine Not Detected Not Detect [facility] Comment:Barbiturate cut-off is 200 ng/mL.Positive results are unconfirmed and should not be used fornon-medical purposes. Phencyclidine Screen Urine Not Detected Not Detect [facility] Comment:Phencyclidine cut-of f is 25 ng/mL.Positive results are unconfirmed and should not be used fornon-medical purposes. Amphetamine Screen Urine Not Detected Not Detect [facility] Comment:Amphetamine cut-off is 1000 ng/mL.Positive results are unconfirmed and should not be used fornon-medical purposes. Benzodiazepines Screen Urine Not Detected Not Detect [facility] Comment:Benzodiazepine cut-o ff is 200 ng/mL.Positive results are unconfirmed and should not be used fornon-medical purposes. Cocaine Screen Urine POSITIVE(A) Not Detect [facility] Comment:Cocaine cut-off is 3 00 ng/mL.Positive results are unconfirmed and should not be used fornon-medical purposes. Cannabinoid Screen Urine POSITIVE(A) Not Detect [facility] Comment:Cannabinoid cut-off is 50 ng/mL.Positive results are unconfirmed and should not be used fornon-medical purposes. Methadone Screen, Urine Not Detected Not Detect ng/mL [facility] Comment:Methadone cut-off is 300 ng/mL.Positive results are unconfirmed and should not be used fornon-medical purposes. FENTANYL URINE Not Detected Not Detect [facility] Comment:Fentanyl cut-off is 1 ng/mL.Positive results are unconfirmed and should not be used fornon-medical purposes. Oxycodone Urine Screen Not Detected Not Detect ng/mL [facility] Comment:Oxycodone cut-off is 100 ng/mL.Positive results are unconfirmed and should not be used fornon-medical purposes. Buprenorphine Screen Not Detected Not Detect ng/mL [facility] Comment:Buprenorphine cut-of f is 5 ng/mL.Positive results are unconfirmed and should not be used fornon-medical purposes. 04/17/2025 1:27 PM EST 04/17/2025 1:41 PM EST Generic External Data Provider LAB URINE ORDERAB LES Final Result [facility] [address] [place] [phone] [phone] * Urinalysis w/reflex microscopic (04/17/2025 1:27 PM EST) Color Urine Yellow [facility] Appearance Urine Clear [facility] PH 6.5 5.0 - 9.0 [facility] Glucose Urine UA Negative Negative mg/dL [facility] Urine Blood Negative Negative [facility] Specific [place] - Urine 1.015 1.005 - 1.025 [facility] Urine Protein Negative Neg-Trace mg/dL [facility] Urine Ketones Negative Negative mg/dL [facility] Nitrite Urine Negative Negative [facility] Leukocyte Esterase Urine Negative Negative [facility] 04/17/2025 1:27 PM EST 04/17/2025 1:41 PM EST Narrative [facility] - 04/17/2025 1:46 PM EST [id number], [employer] us Generic External Data Provider LAB URINE ORDERAB LES Final Result Performing Organization Address City/State/[facility] Co de Phone Number [facility] [address] [place] [phone] * XR Chest 2 Views (04/17/2025 11:55 AM EST) Anatomical Region Laterality Modality Chest Radiographic Kacy ging 04/17/2025 11:5 5 AM EST Narrative 04/17/2025 12:05 PM EST [address] [address] XRay Report Signed Patient: Vinayak Hernandez MR#: [id number] 7 : 1980 Acct:[id number] Age/Sex: 44 / M ADM Date: 04/17/25 Loc: .ED Attending Dr: Ordering Physician: Antonia Black Date of Service: 04/17/25 Procedure(s): XR chest 2V Accession Number(s): [id number] cc: Hanny Lopez MD; Antonia Black Reason for Exam: CP [...] Isidro MD in OV> 04/17/25 1202 DD/ 54 TD/TT: 04/17/251158 Photograph Retoucher: Procedure Note Donotuseinterpreter, Image - 04/17/[address] [address] XRay Report Signed Patient: Sheyla Hernandez#: [id number] 7 : 1980Acct:[id number] Age/Sex: 44 / MADM Date: 04/17/25 Loc: .ED Attending Dr: Ordering Physician: Antonia Black Date of Service: 04/17/25 Procedure(s): XR chest 2V Accession Number(s): [id number] cc: Hanny Lopez MD; Antonia Black Reason for Exam: CP [...] MDin OV> 04/17/25 1202 DD/ 1155 TD/TT: 04/17/259 Photograph Retoucher: [facility] External Provider IMG XR PROCEDURES Final Result * High Sensitivity Troponin I (04/17/2025 11:50 AM EST) TROPONIN I HIGH SENSITIVITY <2.7 <3.5 - 35.0 ng/L [facility] Comment:The Allison high sens itivity Troponin-I results should beused in conjunction with other diagnostic information suchas ECG, clinical observations and information, and patientsymptoms to aid in the diagnosis of [place]. 04/17/2025 11:5 0 AM EST 04/17/2025 11:53 AM EST us Generic External Data Provider LAB BLOOD ORDERAB LES Final Result [facility] [address] [place] [phone] * (ABNORMAL) CBC auto differential (04/17/2025 11:50 AM EST) Only the most recent of2 resultswithin the time period is included. White Blood Count 7.0 4.8 - 10.8 X10*3/uL [facility] Red Blood Count 5.37 4.60 - 5.80 X10*6/uL [facility] Hemoglobin 15.2 14.0 - 18.0 g/dl [facility] Hematocrit 44.7 42.0 - 52.0 % [facility] Mean Corpuscular Volume 83.2 80.0 - 98.0 fL [facility] Mean Corpuscular Hemoglobin 28.3 27.0 - 33.0 pg [facility] Mean Corpuscular HGB Conc 34.0 31.0 - 36.0 g/dl [facility] Red Cell Distribution Width 12.1 11.0 - 16.0 % [facility] Platelet Count 158(L) 160 - 400 X10*3/uL [facility] Mean Platelet Volume 12.4 9.4 - 12.4 fL [facility] Neutrophils Percent Auto 56.8 45 - 73 % [facility] Imm Gran Pct Auto 0.1 0.0 - 0.4 % [facility] Lymphocytes Percent Auto 34.9 20 - 40 % [facility] Monocytes Percent Auto 7.4 2 - 11 % [facility] Eosinophils Percent Auto 0.4 0 - 4 % [facility] Basophils Percent Auto 0.4 0 - 2 % [facility] NRBC Pct Auto 0.0 0.0 - 0.2 /100WBC [facility] Neutrophils Absolute Auto 4.0 2.0 - 8.3 x10*3/uL [facility] Imm Gran Abs Auto 0.01 0.00 - 0.03 X10*3/uL [facility] Lymphocytes Absolute Auto 2.5 1.2 - 4.9 X10*3/uL [facility] Monocytes Absolute Auto 0.5 0.1 - 1.2 X10*3/uL [facility] Eosinophils Absolute Auto 0.0 0.0 - 0.4 X10*3/uL [facility] Basophils Absolute Auto 0.0 0.0 - 0.2 X10*3/uL [facility] NRBC Abs Auto 0.000 0.0 - 0.012 X10*3/uL [facility] 04/17/2025 11:5 0 AM EST 04/17/2025 11:53 AM EST us Generic External Data Provider LAB BLOOD ORDERAB LES Final Result Performing Organization Address City/[facility]/ZIP Co de Phone Number [facility] [address] [place] [phone] * Magnesium (04/17/2025 11:50 AM EST) Magnesium 2.1 1.6 - 2.6 mg/dL [facility] 04/17/2025 11:5 0 AM EST 04/17/2025 11:53 AM EST [employer] External Data Provider LAB BLOOD ORDERAB LES Final Result Performing Organization Address [facility] Co de Phone Number [facility] [address] [place] [phone] * Creatine Kinase, Total (04/17/2025 11:50 AM EST) Creatine Kinase Total 50 38 - 174 U/L [facility] 04/17/2025 11:5 0 AM EST 04/17/2025 11:53 AM EST Generic External Data Provider LAB BLOOD ORDERAB LES Final Result Performing Organization Address [facility] de Phone Number [facility] [address] [place] [phone] * Hepatic Function Panel (04/17/2025 11:50 AM EST) Bilirubin, Total 0.5 0.0 - 1.0 mg/dL [facility] Bilirubin, Direct 0.2 0.0 - 0.5 mg/dL [facility] Aspartate Amino Transferase 16 5 - 37 U/L [facility] Alanine Aminotransferase 14 0 - 40 U/L [facility] Total Protein 7.8 6.5 - 8.0 g/dL [facility] Albumin Level 4.9 3.5 - 5.0 g/dL [facility] Alkaline Phosphatase 56 39 - 117 U/L [facility] 04/17/2025 11:5 0 AM EST 04/17/2025 11:53 AM EST Generic External Data Provider LAB BLOOD ORDERAB LES Final Result Performing Organization Address [facility] Phone Number [facility] [facility] [address] [place] [phone] * (ABNORMAL) Basic Metabolic Panel (04/17/2025 11:50 AM EST) Pathologist [facility] Sodium 141 135 - 145 mmol/L [facility] Potassium 3.8 3.3 - 5.1 mmol/L [facility] Chloride 104 96 - 108 mmol/L [facility] Carbon Dioxide 30(H) 22 - 29 mmol/L [facility] Anion Gap 11(L) 12 - 20 [facility] Urea Nitrogen (BUN) 8(L) 9 - 16 mg/dL [facility] Creatinine, Serum 0.78 0.5 - 1.4 mg/dL [facility] Creatinine Clr Calc Pharmacy 123.4 [facility] Comment:eGFR (calculated fro m the MDRD study equation) and eCrCl(calculated from the Cockcroft-Gault equation) are based ondifferent parameters and may not yield comparable results.If eCrCl result is absurd, please check patient'sheight/weight. Estimated Glomerular Filt Rate >60 [facility] Comment:Chronic Kidney Disea se: Estimated GFR < 60 mL/min/1.50v9Jolqts Kidney Disease: Estimated GFR < 15 mL/min/1.73m2 Glucose 139(H) 60 - 115 mg/dL [facility] Calcium 9.4 8.4 - 10.2 mg/dL [facility] 04/17/2025 11:5 0 AM EST 04/17/2025 11:53 AM EST us Generic External Data Provider LAB BLOOD ORDERAB LES Final Result [facility] [address] [place] [phone] * (ABNORMAL) POCT Hgb A1c (03/19/2025 11:45 AM EDT) Only the most recent of3 resultswithin the time period is included. Hemoglobin A1C 9.4(A) 4.0 - 5.7 % QC Media Lot # [id number] Lot# Expiration Date 5,027 Blood 03/19/2025 11:4 5 AM EDT us Hanny Lopez MD POINT OF CARE TEST ENTER /EDIT ORDERABLES Final Result * (ABNORMAL) POCT Glucose (03/19/2025 11:44 AM EDT) Only the most recent of3 resultswithin the time period is included. Glucose Blood, POC 378(A) 60 - 200 mg/dL QC Media Lot # [id number] Lot# Expiration Date 3,026 Blood Capillary blood specimen / Unknown 03/19/2025 11:44 AM EDT Hanny Lopez MD POINT OF CARE TE ENTER/EDIT ORDERABLES Edited Result - Final * CT Abdomen Pelvis w/o Contrast (03/01/2025 6:43 PM EDT) Anatomical Region Laterality Modality Body, Pelvis, Abdomen Computed T omography 03/01/2025 6:43 PM EDT Narrative 03/01/2025 6:44 PM EDT [address] [address] [address] Scan Report Signed Patient: Vinayak Hernandez MR#: [id number] 7 : 1980 Acct:[id number] Age/Sex: 44 / M ADM Date: 02/23/25 Loc: [facility] 507-[address]: Socorro Rhodes [employer] Ordering Physician: Andi Farrell Date of Service: 03/01/25 Procedure(s): CT abdomen pelvis wo IV con Accession Number(s): [id number] cc: Andi Farrell; Hanny Lopez MD Report Number: [id number]: Total DLP = 0.00 mGy-cm Reason for Exam: abd pain, intractable hiccups w/hemoptysis CLINICAL HISTORY: abd pain, intractable hiccups w hemoptysis CT abdomen and pelvis without IV or oral contrast Comparison: None Findings: Lung bases show no active disease. No dependent layering pleural effusions. The heart is not enlarged. No stones are identified in the kidneys, ureters or bladder. There is no hydronephrosis or perinephric stranding/fluid. Evaluation of the liver, spleen, adrenal glands and pancreas demonstrates no lesions. It should be noted that isodense masses may be obscured in the absence of intravenous contrast. No radiopaque gallstones. Heavy stool burden. Normal appendix. No pathologically enlarged lymph nodes . No ascites demonstrated. Normal distention of the urinary bladder. No vertebral body compression fractures or spondylolisthesis. No bony destructive lesions. Impression: 1. No nephrolithiasis or urinary tract obstruction demonstrated. 2. Heavy stool burden may be bordering on impaction. 3. Significant motion artifact may obscure subtle pathology including free air. This document has been electronically signed by: Chris Avendano MD on 03/01/2025 18:43:41 Dictated By: Chris Avendano MD Signed By: <Electronically signed by Chris Avendano MD in OV> 03/01/251843 DD/ 42 TD/TT: 03/01/251842 Photograph Retoucher: Procedure Note Donotuseinterpreter, Image - 03/01/[address] [address] [address] Scan Report Signed Patient: Vinayak Hernandez#: [id number] 7 : 1980Acct:[id number] Age/Sex: 44 / MADM Date: 02/23/25 Loc: .5 507-[address]: Socorro Rhodes [employer] Ordering Physician: Andi Farrell Date of Service: 03/01/25 Procedure(s): CT abdomen pelvis wo IV con Accession Number(s): [id number] cc: Andi Farrell; Hanny Lopez MD Report Number: [id number]: Total DLP = 0.00 mGy-cm Reason for Exam: abd pain, intractable hiccups w/hemoptysis CLINICAL HISTORY: abd pain, intractable hiccups w hemoptysis CT abdomen and pelvis without IV or oral contrast Comparison: None Findings: Lung bases show no active disease. No dependent layering pleural effusions. The heart is not enlarged. No stones are identified in the kidneys, ureters or bladder. There is no hydronephrosis or perinephric stranding/fluid. Evaluation of the liver, spleen, adrenal glands and pancreas demonstrates no lesions. It should be noted that isodense masses may be obscured in the absence of intravenous contrast. No radiopaque gallstones. Heavy stool burden. Normal appendix. No pathologically enlarged lymph nodes . No ascites demonstrated. Normal distention of the urinary bladder. No vertebral body compression fractures or spondylolisthesis. No bony destructive lesions. Impression: 1. No nephrolithiasis or urinary tract obstruction demonstrated. 2. Heavy stool burden may be bordering on impaction. 3. Significant motion artifact may obscure subtle pathology including free air. This document has been electronically signed by: Chris Avendano MD on 03/01/2025 18:43:41 Dictated By: Chris Avendano MD Signed By: <Electronically signed by Chris Avendano MD in OV> 03/01/251843 DD/ 42 TD/TT: 03/01/251842 Photograph Retoucher: [facility] External Provider IMG CT PROCEDURES Edited Result - Final * CT Chest w/o Contrast (03/01/2025 6:40 PM EDT) Anatomical Region Laterality Modality Body, Chest Computed Tomogra phy 03/01/2025 6:40 PM EDT Narrative 03/01/2025 6:42 PM EDT [place] [address] CT Scan Report Signed Patient: Vinayak Hernandez MR#: [id number] 7 : 1980 Acct:[id number] Age/Sex: 44 / M ADM Date: 02/23/25 Loc: [facility] 507-[address]: Socorro Rhodes [employer] Ordering Physician: Andi Farrell Date of Service: 03/01/25 Procedure(s): CT chest wo IV con Accession Number(s): [id number] cc: Andi Farrell; Hanny Lopez MD Report Number: [id number]: Total DLP = 0.00 mGy-cm Reason for Exam: R/O esophageal rupture CLINICAL HISTORY: R O esophageal rupture CT chest without contrast Comparison: CR/KS/SR - XR CHEST 2 VIEWS - 07/02/24 08:08 EST Findings: Normal heart size. No pericardial effusion. Calcific coronary artery disease: None. No bulky mediastinal lymphadenopathy. No evidence of mediastinal hematoma. No pneumomediastinum demonstrated. Lungs are clear. No pneumothorax or pleural effusions, plaques or calcifications. Central airways are patent. No bronchiectasis. No thyroid nodules. No chest wall masses. No axillary adenopathy. Limited view of the upper abdomen is normal. No acute fractures or pathologic bone lesions. Impression: 1. No evidence of pneumomediastinum. Respiratory motion artifact limits the exam subtle pathology may be obscured. Clinical correlation advised. Probable distal esophageal wall thickening. 2. Lungs are clear. No pneumothorax or pleural effusions. This document has been electronically signed by: Chris Avendano MD on 03/01/2025 18:40:42 Dictated By: Chris Avendano MD Signed By: <Electronically signed by Chris Avendano MD in OV> 03/01/251840 DD/ 39 TD/TT: 03/01/251839 Photograph Retoucher: Procedure Note Donotuseinterpreter, Image - 03/01/[address] [place] [address] [address] Scan Report Signed Patient: Vinayak Hernandez#: [id number] 7 : 1980Acct:[id number] Age/Sex: 44 / MADM Date: 02/23/25 Loc: [facility] 507-[address]: Socorro Rhodes [employer] Ordering Physician: Andi Farrell Date of Service: 03/01/25 Procedure(s): CT chest wo IV con Accession Number(s): [id number] cc: Andi Farrell; Hanny Lopez MD Report Number: [id number]: Total DLP = 0.00 mGy-cm Reason for Exam: R/O esophageal rupture CLINICAL HISTORY: R O esophageal rupture CT chest without contrast Comparison: CR/KS/SR - XR CHEST 2 VIEWS - 07/02/24 08:08 EST Findings: Normal heart size. No pericardial effusion. Calcific coronary artery disease: None. No bulky mediastinal lymphadenopathy. No evidence of mediastinal hematoma. No pneumomediastinum demonstrated. Lungs are clear. No pneumothorax or pleural effusions, plaques or calcifications. Central airways are patent. No bronchiectasis. No thyroid nodules. No chest wall masses. No axillary adenopathy. Limited view of the upper abdomen is normal. No acute fractures or pathologic bone lesions. Impression: 1. No evidence of pneumomediastinum. Respiratory motion artifact limits the exam subtle pathology may be obscured. Clinical correlation advised. Probable distal esophageal wall thickening. 2. Lungs are clear. No pneumothorax or pleural effusions. This document has been electronically signed by: Chris Avendano MD on 03/01/2025 18:40:42 Dictated By: Chris Avendano MD Signed By: <Electronically signed by Chris Avendano MD in OV> 03/01/251840 DD/ 39 TD/TT: 03/01/251839 Photograph Retoucher: [facility] External Provider IMG CT PROCEDURES Edited Result - Final * (ABNORMAL) Urinalysis, Complete, with Reflex to Culture (02/21/2025 10:24 AM EDT) Color Urine Yellow [facility] Appearance Urine Cloudy [facility] PH 7.0 5.0 - 9.0 [facility] Glucose Urine UA >=1000(A) Negative mg/dL [facility] Urine Blood Negative Negative [facility] Specific [place] - Urine >=1.030(H) 1.005 - 1.025 [facility] Urine Protein Negative Neg-Trace mg/dL [facility] Urine Ketones Negative Negative mg/dL [facility] Nitrite Urine Negative Negative [facility] Leukocyte Esterase Urine Negative Negative [facility] RBC Urine 0-2 0 - 2 /HPF [facility] Urine WBC 0-5 0 - 5 /HPF [facility] Urine Squamous Epithelial Cell 0-2 0 - 2 /HPF [facility] Urine Bacteria None Seen None Seen [facility] Hyaline Casts, Urine 0-2 0 - 2 /LPF [facility] 02/21/2025 10:2 4 AM EDT 02/21/2025 10:33 AM EDT Narrative [facility] - 02/21/2025 10:42 AM EDT [id number], Clean Catch Generic External Data Provider LAB URINE ORDERAB LES Final Result Performing Organization Address [facility]/ZIP Co de Phone Number [facility] [address] [place] [phone] * Ethanol (02/20/2025 10:47 PM EDT) ETHANOL (MG/DL) IN SER/PLAS <10 mg/dL [facility] Comment:Serum/plasma ethanol results are to be used formedical/treatment purposes only. 02/20/2025 10:4 7 PM EDT 02/20/2025 10:50 PM EDT Generic External Data Provider LAB BLOOD ORDERAB LES Final Result Performing Organization Address [facility] Co de Phone Number [facility] [address] [place] [phone] * (ABNORMAL) Comprehensive Metabolic Panel (02/20/2025 10:47 PM EDT) Only the most recent of2 resultswithin the time period is included. Sodium 140 135 - 145 mmol/L [facility] Potassium 4.1 3.3 - 5.1 mmol/L [facility] Chloride 103 96 - 108 mmol/L [facility] Carbon Dioxide 28 22 - 29 mmol/L [facility] Anion Gap 13 12 - 20 [facility] Urea Nitrogen (BUN) 18(H) 9 - 16 mg/dL [facility] Creatinine, Serum 0.94 0.5 - 1.4 mg/dL [facility] Creatinine Clr Calc Pharmacy 102.4 [facility] Comment:eGFR (calculated fro m the MDRD study equation) and eCrCl(calculated from the Cockcroft-Gault equation) are based ondifferent parameters and may not yield comparable results.If eCrCl result is absurd, please check patient'sheight/weight. Estimated Glomerular Filt Rate >60 [facility] Comment:Chronic Kidney Disea se: Estimated GFR < 60 mL/min/1.18a9Xboarp Kidney Disease: Estimated GFR < 15 mL/min/1.73m2 Glucose 335(H) 60 - 115 mg/dL [facility] Calcium 9.1 8.4 - 10.2 mg/dL [facility] Bilirubin, Total 0.4 0.0 - 1.0 mg/dL [facility] Aspartate Amino Transferase 29 5 - 37 U/L [facility] Alanine Aminotransferase 61(H) 0 - 40 U/L [facility] Total Protein 7.3 6.5 - 8.0 g/dL [facility] Albumin Level 4.7 3.5 - 5.0 g/dL [facility] Alkaline Phosphatase 87 39 - 117 U/L [facility] 02/20/2025 10:4 7 PM EDT 02/20/2025 10:50 PM EDT us Generic External Data Provider LAB BLOOD ORDERAB LES Final Result Performing Organization Address City/State/[facility] Co de Phone Number [facility] [address] [place] [phone] * (ABNORMAL) POCT Urinalysis (02/19/2025 2:38 PM [...] AM EDT Narrative 02/19/2025 10:57 AM EDT [address] [address] XRay Report Signed Patient: Vinayak Hernandez MR#: [id number] 7 : 1980 Acct:[id number] Age/Sex: 44 / M ADM Date: 02/19/25 [facility] Attending Dr: Hanny Lopez MD Ordering Physician: Hanny Lopez MD Date of Service: 02/19/25 Procedure(s): XR lumbar spine 4V min Accession Number(s): [id number] cc: Hanny Lopez MD Reason for Exam: [...] Eduardo Brizuela MD 02/19/2025 10:54 AM EDT Dictated By: Eduardo Conway MD Signed By: <Electronically signed by Eduardo Isidro MD in OV> 02/19/25 1054 DD/ 1042 TD/TT: 02/19/25 1043 Photograph Retoucher: Procedure Note Donotuseinterpreter, Image - 02/19/[address] [address] XRay Report Signed Patient: Vinayak HernandezMR#: [id number] 7 : 1980Acct:[id number] Age/Sex: 44 / MADM Date: 02/19/25 [facility] Attending Dr: Hanny Lopez MD Ordering Physician: Hanny Lopez MD Date of Service: 02/19/25 Procedure(s): XR lumbar spine 4V min Accession Number(s): [id number] cc: Hanny Lopez MD Reason for Exam: [...] 02/19/25 1054 DD/ 1042 TD/TT: 02/19/25 1043 Photograph Retoucher: us Hanny Lopez MD IMG XR PROCEDURES Final Result * Syphilis Screen (02/19/2025 9:38 AM EDT) Syphilis Screen Nonreactive Nonreactive [facility] Blood 02/19/2025 9:38 AM EDT 02/19/2025 11:41 AM EDT us Hanny Lopez MD LAB BLOOD ORDERABLES Fin al Result [facility] [address] [place] [phone] * Vitamin D, 25-Hydroxy, Total, Immunoassay (02/19/2025 9:38 AM EDT) Vitamin D 25-OH Total 49.4 >30 ng/mL [facility] Comment: Health Based Reference Values*< 20 ng/mL Kihrbowoo06-34 ng/mL Insufficient> 30 ng/mL Sufficient*Micki GARCIA. N [...] MD LAB BLOOD ORDERABLES Fin al Result [facility] [address] [place] [phone] * T-SPOT??.TB (02/19/2025 9:38 AM EDT) [facility] T Spot TB Negative Negative [facility] Comment:A negative test resu lt does not exclude the possibilityof exposure to or infection with Mycobacteriumtuberculosis (M. tuberculosis). Patients with recentexposure to TB infected individuals exhibiting anegative T-SPOT.TB result should be considered forretesting within 6 weeks or if other relevant clinicalsymptoms indicate. Results from T-SPOT.TB testing mustbe used in conjunction with each individual'sepidemiological history, current medical status,and results of other diagnostic evaluations.The T-SPOT.TB test is qualitative and results arereported as positive, borderline, or negative, giventhat the test controls perform as expected. In linewith the Centers for Disease Control and Prevention's2010 recommendation to report quantitative measurementsalongside the qualitative result, the laboratoryprovides spot counts for informational purposes only.The T-SPOT.TB test should not be interpreted as aquantitative test. TS PANEL A 0 [facility] TS PANEL B 1 [facility] Negative Control Passed [facility] Positive Control Passed [facility] Comment:For additional infor riya, please refer [email or web address]/faq/[email or web address](This link is being provided for informational/educational purposes only.)THIS TEST WAS PERFORMED AT:[id number] [place] [address]EHAPGIRSHEYLA MOMIN MD,PHD 02/19/2025 9:38 AM EDT 02/19/2025 11:41 AM EDT us Hanny Lopez MD LAB BLOOD ORDERABLES Fin al Result Performing Organization Address [facility]/ZIP Co de Phone Number [facility] [address] [place] [phone] * TSH with Reflex to Free T4 (02/19/2025 9:38 AM EDT) TSH reflex Free T4 1.64 0.32 - 4.0 uIU/mL [facility] Blood 02/19/2025 9:38 AM EDT 02/19/2025 11:41 AM EDT Hanny Lopez MD LAB BLOOD ORDERABLES Fin al Result Performing Organization Address [facility] Co de Phone Number [facility] [address] [place] [phone] * (ABNORMAL) Lipid Panel with Reflex to Direct LDL (02/19/2025 9:38 AM EDT) Triglycerides 248(H) <150 mg/dL [facility] Comment:Slight Lipemia.Dodie able Triglyceride: less than 150 mg/dLBorderline High Triglyceride 150-199 mg/dLHigh Triglyceride: 200-499 mg/dLVery High Triglyceride: greater than or equal to 5OO mg/dL Cholesterol 209(H) <200 mg/dL [facility] Comment:Desirable Cholestero l: less than 200 mg/dLBorderline High Cholesterol: 200-239 mg/dLHigh Cholesterol: greater than 239 mg/dL LDL Cholesterol Calculated 109(H) <100 mg/dL [facility] Comment:Desirable LDL: less than 100 mg/dLNear Optimal/Above Optimal LDL: 110- 129 mg/dLBorderline High LDL: 130-159 mg/dLHigh LDL: 160-189 mg/dLVery High LDL: greater than or equal to 190 mg/dL HDL Cholesterol 51 >40 mg/dL [facility] Comment:Desirable HDL: great er than 40 mg/dL Note: This HDL assay may give artificially low results in patients with liver disease. Blood 02/19/2025 9:38 AM EDT 02/19/2025 11:41 AM EDT us Hanny Lopez MD LAB BLOOD ORDERABLES Fin al Result [facility] [address] [place] [phone] * Hepatitis Panel, General (02/19/2025 9:38 AM EDT) Hepatitis A IgM Nonreactive Nonreactive [facility] Comment:IgM antibodies to BEYER V not detected; does not exclude earlyacute or recovered HAV infection. ~Hepatitis B Surface Antibody NONREACTIVE Nonreactive [facility] Comment:Nonreactive: < 8.00 mIU/mL Hepatitis B Core Antibody Nonreactive Nonreactive [facility] Hepatitis C Antibody Nonreactive Nonreactive [facility] Comment:Antibodies to HCV no t detected; does not exclude early acuteHCV infection. Hepatitis B Surface Ag Negative Negative [facility] Blood 02/19/2025 9:38 AM EDT 02/19/2025 11:41 AM EDT Hanny Lopez MD LAB BLOOD ORDERABLES Fin al Result Performing Organization Address [facility] de Phone Number [facility] [address] [place] [phone] * Albumin, Random Urine W/Creatinine (02/19/2025 9:38 AM EDT) Creatinine, Urine 104.22 mg/dL [facility] Microalbumin Urine 5.0 mg/L [facility] Microalbum Creatinine Ratio Ur 4.7 <30 ug/mg cr [facility] Comment:Albumin/Creatinine R atio Reference Ranges: Normal: < 30 ug/mg creatinine Microalbuminuria: 30 - 300 ug/mg creatinineClinical Albuminuria: > 300 ug/mg creatinine Urine (Urine, Random) 02/19/2025 9:38 AM EDT 02/19/2025 11:16 AM EDT Hanny Lopez MD LAB URINE ORDERABLES Fin al Result Performing Organization Address [facility] de Phone Number [facility] [address] [place] [phone] * HIV-1/2 Antigen and Antibodies, Fourth Generation, with Reflexes (02/19/2025 9:38 AM EDT) HIV AB/AG Nonreactive Nonreactive [facility] Comment:HIV-1 p24 Ag and/or HIV-1/HIV-2 Ab not detected.A test result that is nonreactive does not exclude thepossibility of exposure to or infection with HIV-1 and/orHIV-2. Nonreactive results in this assay for individualswith prior exposure to HIV-1 and/or HIV-2 may be due toantigen and antibody levels that are below the limit ofdetection of this assay.The [employer] HIV Ag/Ab Combo assay result andsupplemental assay results should be interpreted inconjunction with the patient's clinical presentation,history and other laboratory results. If the results areinconsistent with clinical evidence, additional testing issuggested to confirm the result. Blood Venous blood specimen / Unknown 02/19/2025 9:38 AM EDT 02/19/2025 11:41 AM EDT us Hanny Lopez MD LAB BLOOD ORDERABLES Fin al Result Performing Organization Address [facility] de Phone Number [facility] [address] [place] [phone] * (ABNORMAL) Urinalysis Complete (02/09/2025 8:40 AM EDT) Color Urine Yellow [facility] Appearance Urine Clear [facility] PH 6.0 5.0 - 9.0 [facility] Glucose Urine UA >=1000(A) Negative mg/dL [facility] Urine Blood Negative Negative [facility] Specific [place] - Urine >=1.030(H) 1.005 - 1.025 [facility] Urine Protein Negative Neg-Trace mg/dL [facility] Urine Ketones 15 Negative mg/dL [facility] Nitrite Urine Negative Negative [facility] Leukocyte Esterase Urine Negative Negative [facility] RBC Urine 0-2 0 - 2 /HPF [facility] Urine WBC 0-5 0 - 5 /HPF [facility] Urine Squamous Epithelial Cell 0-2 0 - 2 /HPF [facility] Urine Bacteria None Seen None Seen [facility] Hyaline Casts, Urine 0-2 0 - 2 /LPF [facility] 02/09/2025 8:40 AM EDT 02/09/2025 8:55 AM EDT us Generic External Data Provider LAB URINE ORDERAB LES Final Result Performing Organization Address [facility] [place] Co de Phone Number [facility] [address] [place] [phone] from Last 3 Months Insurance * Guarantor: Vinayak Hernandez Account Type Relation to Patient Date of Phone Billing Address Personal/Family Self [address] [place] Care Teams Typing Secretary Relationship Specialty Start Date End Date Hanny Lopez MD [address] [place] [address] [place] [address] PCP - General Family Medicine 09/26/16
[2025-04-17 14:23] LABS: Troponin-I High Sensitivity < 2.7 ng/L (<3.5-35.0)
--- NOTE | 2025-04-17 14:42 | PC.NURSE ---
report given to BRIAN Anderson in the pod at this time. pt being transported w/ security to [facility] at this time.
--- NOTE | 2025-04-17 15:20 | PC.NURSE ---
Assumed care of patient from ER, pt is calm and cooperative, eating lunch. Currently pending recovery team assessment
--- NOTE | 2025-04-17 19:12 | PC.NURSE ---
this RN assumed care of this pt @1900, pt noted to be laying on his left side, eyes closed, respirations even and unlabored, no apparent / respiratory distress noted, video monitor in place for safety
[2025-04-18 06:04] VITALS: BP 126/77; PULSE 72; RESP 17; TEMP 36.9; O2SAT 98
--- NOTE | 2025-04-18 07:50 | PC.NURSE ---
Assumed care of patient at 0645, patient calm and cooperative, resting in bed in BH 6, respirations even and unlabored. Continue plan of care for IPLOC
--- NOTE | 2025-04-18 09:41 | PHA.MEDREC ---
Pharmacy Consult ? Medication Reconciliation Pharmacy has completed the medication reconciliation. Reviewed med rec done by nursing, confirmed Trulicity is taken on Fridays
[2025-04-18 14:21] VITALS: BP 113/77; PULSE 80; RESP 16; O2SAT 98
[2025-04-18 15:55] VITALS: BP 126/91; PULSE 83; RESP 16; TEMP 2.6; TEMP 36.6; O2SAT 99
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
[2025-04-18 17:29] LABS: Glucose, Whole Blood 180 mg/dL (60-115)
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
[2025-04-18 20:00] VITALS: BP 95/61; PULSE 92; TEMP 36.8; O2SAT 98
--- NOTE | 2025-04-19 07:59 | HO.PSYCHPN ---
Subjective Subjective Date of Service: 04/19/25 Reason For Visit: Psychosis Subjective Notes: Section 12B Interim History: met with patient in hospital custodial manager services. Overall has been isolative. When asked around feeling safe, states he can not explain exactly how he is feeling and also does not want to talk about things as nobody believes him. Is pleasant with staff however. Is adherent with medications. Adamantly denies thoughts of suicide or hurting anybody. Reports wanting discharge to return home. Reports he does not want substance rehab services. Sleep okay. No medication concerns Medication Compliance: Yes Side effects from medications: No Attending Groups: No Review of Systems Acute medical concerns: No Review of Systems Review of Systems unremarkable Mental Status Exam Mental Status Exam Patient Appearance: Disheveled Patient Orientation: Person, Place, Time and Situation Level of Consciousness: Awake Patient Behavior: Appropriate and Suspicious Mood Description: Suspicious and Withdrawn Affect Description: Suspicious and Withdrawn Patient Cognition Impaired: No Ability to Follow Directions: Fair Speech Pattern: Clear Memory Description: Intact Diagnostics Vital Signs (24Hr): Vital Signs - 24 hr 04/18/25 14:21 04/18/25 15:55 04/18/25 20:00 Temperature 36.6 F L 98.2 F Pulse Rate 80 83 92 Respiratory Rate 16 16 Blood Pressure 113/77 126/91 H 95/61 Pulse Oximetry 98 99 98 Oxygen Delivery Method Room Air Room Air Room Air BMI result Body Mass Index 23.3 Labs 04/17/25 11:50 04/17/25 11:50 Labs: Laboratory Results - last 48 hr 04/17/25 04/17/25 04/17/25 11:50 13:27 13:31 WBC 7.0 RBC 5.37 Hgb 15.2 Hct 44.7 MCV 83.2 MCH 28.3 MCHC 34.0 RDW 12.1 Plt Count 158 L MPV 12.4 Immature Gran % (Auto) 0.1 Neut % (Auto) 56.8 Lymph % (Auto) 34.9 [place] % (Auto) 7.4 Eos % (Auto) 0.4 Baso % (Auto) 0.4 Lymph # (Auto) 2.5 [place] # (Auto) 0.5 Eos # (Auto) 0.0 Baso # (Auto) 0.0 Abs Immat Gran (auto) 0.01 Absolute Neuts (auto) 4.0 Absolute Nucleated RBC 0.000 Nucleated RBC % (auto) 0.0 Sodium 141 Potassium 3.8 Chloride 104 Carbon Dioxide 30 H Anion Gap 11 L BUN 8 L Creatinine 0.78 Estim Creat Clear Calc 123.4 Estimated GFR > 60 POC Glucose 141 H Random Glucose 139 H Calcium 9.4 Magnesium 2.1 Total Bilirubin 0.5 Direct Bilirubin 0.2 AST 16 ALT 14 Alkaline Phosphatase 56 Total Creatine Kinase 50 Troponin I High Sens < 2.7 Total Protein 7.8 Albumin 4.9 Urine Color Yellow Urine Appearance Clear Urine pH 6.5 Ur Specific [place] 1.015 Urine Protein Negative Urine Glucose (UA) Negative Urine Ketones Negative Urine Blood Negative Urine Nitrite Negative Ur Leukocyte Esterase Negative Urine Opiates Screen Not Detected Ur Buprenorphine Scrn Not Detected Ur Oxycodone Screen Not Detected Urine Methadone Screen Not Detected Urine Fentanyl Screen Not Detected Ur Barbiturates Screen Not Detected Ur Phencyclidine Scrn Not Detected Ur Amphetamines Screen Not Detected U Benzodiazepines Scrn Not Detected Urine Cocaine Screen POSITIVE H U Marijuana (THC) Screen POSITIVE H 04/17/25 04/18/25 04/18/25 13:58 17:24 22:24 WBC RBC Hgb Hct MCV MCH MCHC RDW Plt Count MPV Immature Gran % (Auto) Neut % (Auto) Lymph % (Auto) [place] % (Auto) Eos % (Auto) Baso % (Auto) Lymph # (Auto) [place] # (Auto) Eos # (Auto) Baso # (Auto) Abs Immat Gran (auto) Absolute Neuts (auto) Absolute Nucleated RBC Nucleated RBC % (auto) Sodium Potassium Chloride Carbon Dioxide Anion Gap BUN Creatinine Estim Creat Clear Calc Estimated GFR POC Glucose 180 H 159 H Random Glucose Calcium Magnesium Total Bilirubin Direct Bilirubin AST ALT Alkaline Phosphatase Total Creatine Kinase Troponin I High Sens < 2.7 Total Protein Albumin Urine Color Urine Appearance Urine pH Ur Specific [place] Urine Protein Urine Glucose (UA) Urine Ketones Urine Blood Urine Nitrite Ur Leukocyte Esterase Urine Opiates Screen Ur Buprenorphine Scrn Ur Oxycodone Screen Urine Methadone Screen Urine Fentanyl Screen Ur Barbiturates Screen Ur Phencyclidine Scrn Ur Amphetamines Screen U Benzodiazepines Scrn Urine Cocaine Screen U Marijuana (THC) Screen Imaging Radiology Impressions: ITS Impressions Chest X-Ray 04/17/25 11:55 IMPRESSION: No acute airspace disease. Electronically signed by: Eduardo Brizuela MD 04/17/2025 12:02 PM [facility] Medications Medications Current Medications Acetaminophen (Acetaminophen 325 Mg Tablet) 650 mg PO Q6H PRN PRN Reason: Headache/Pain, Scale 1-10 Last Admin: 04/18/25 22:50 Dose: 650 mg Al Hydroxide/Mg Hydroxide (Magnesium Hydrox/Alum Hydrox 30 Ml Oral.Susp) 30 ml PO Q6H PRN PRN Reason: Heartburn/Nausea Aripiprazole (Aripiprazole 10 Mg Tablet) 10 mg PO DAILY [facility] Chlorpromazine HCl (Chlorpromazine Hcl 25 Mg Tablet) 50 mg PO Q6H PRN PRN Reason: agitation Dextrose (Dextrose 50 % 25 Gm/50 Ml Syringe) 25 gm IVPUSH Q15M PRN; Protocol PRN Reason: per Hypoglycemia Standing Ord. Glucose (Glucose Gel 15 Gm Gel..Gram.) 15 gm PO Q15M PRN; Protocol PRN Reason: per Hypoglycemia Standing Ord. Hydroxyzine HCl (Hydroxyzine Hcl 25 Mg Tablet) 25 mg PO Q6H PRN PRN Reason: mild anxiety Insulin Human Lispro (Insulin Lispro 100 Unit/Ml 3 Ml Vial) 0 unit SUBCUT QIDACHS [facility]; Protocol Last Admin: 04/18/25 22:49 Dose: 2 unit Magnesium Hydroxide (Milk Of Magnesia 30 Ml Oral.Susp) 30 ml PO DAILY PRN PRN Reason: Constipation Metformin HCl (Metformin Hcl 500 Mg Tablet) 500 mg PO BID [facility] Last Admin: 04/18/25 22:35 Dose: 500 mg Sertraline HCl (Sertraline Hcl 25 Mg Tablet) 75 mg PO DAILY [facility] Trazodone HCl (Trazodone Hcl 50 Mg Tablet) 50 mg PO BEDTIME [facility] Last Admin: 04/18/25 22:35 Dose: 50 mg Trazodone HCl (Trazodone Hcl 50 Mg Tablet) 50 mg PO BEDTIME PRN PRN Reason: Insomnia Allergies Allergies Allergy/AdvReac Type Severity Reaction Status Date / Time No Known Allergies Allergy Verified 04/17/25 11:37 Assessment & Plan Assessment & Plan (1) Delusional disorder: Status: Acute Code(s): F22 - Delusional disorders (2) Cocaine use disorder: Status: Acute Code(s): F14.10 - Cocaine abuse, uncomplicated Plan Plan 44yo male presents with psychosis (paranoia, disorganized thinking and ?AH) in context of med non adherence and cocaine use. Recent discharge, poor insight. Unable to care for self. Admit on S12 and restart medications from very recent discharge. 04/19/2025: No changes to current treatment plan. Tried to establish rapport and encourage substance rehab services. Reason for continued inpatient stay Substantial Risk for: inability to function Time Spent With Patient Time: Total time managing care of this patient today ____ minutes.
[2025-04-19 08:00] VITALS: BP 104/59; PULSE 66; RESP 20; TEMP 37.2; O2SAT 97
[2025-04-19 08:53] LABS: Glucose, Whole Blood 126 mg/dL (60-115)
[2025-04-19 17:07] LABS: Glucose, Whole Blood 145 mg/dL (60-115)
[2025-04-19 20:00] VITALS: BP 123/79; PULSE 95; RESP 18; TEMP 36.2; O2SAT 95
[2025-04-19 21:08] LABS: Glucose, Whole Blood 128 mg/dL (60-115)
[2025-04-19] MEDS: Magnesium Hydrox/Alum Hydrox 30 ML ORAL.SUSP PO (23:44)
[2025-04-20 08:00] VITALS: BP 123/77; PULSE 86; RESP 18; TEMP 36.5; O2SAT 96
[2025-04-20 08:18] LABS: Glucose, Whole Blood 122 mg/dL (60-115)
--- NOTE | 2025-04-20 08:38 | P.CONHOSP_ITS ---
History of Present Illness Data of Consult Service Date: 04/20/25 Primary Care Provider: Martha Lock MD [facility] Reason for consult: Medical H & P 44-year-old male with a past medical history of depression, delusional disorder paranoia, drug induced psychotic disorder, history of asthma, type 2 diabetes, cocaine use disorder presented to the ED with left-sided chest pain. Patient reported using cocaine for the as 6 nights prior to admission. CBC was normal. Bicarb elevated 30. Glucose elevated 139. LFTs were normal. Troponins were negative. U tox positive for cocaine and marijuana negative for any infection. His EKG was with normal sinus rhythm no evidence of ischemia. Chest x-ray negative. Patient was paranoid and delusional in the ED, evaluated by care team and now admitted to inpatient psych for further care. On exam he is alert and cooperative. Denies any shortness of breath, dizziness lightheadedness or any other concerning symptoms. He has no health concerns. Review of Systems 2 Review of Systems: Denies any shortness of breath, chest pain, dizziness, lightheadedness, abdominal pain or discomfort, nausea vomiting or diarrhea [facility] Medical History (Updated 04/17/25 @ 17:08 by Hema Beaulieu MD) Delusional disorder Asthma Diabetes mellitus, type 2 Social History Household Members: Other Household Members Other:: Girlfriend sometimes Housing: House Do you presently have visiting nurse or other home services: No Alcohol intake: former Patient Tobacco Use Status: Never used Tobacco Tobacco use type: Cigarette Smoked in Last 30 Days: Yes e-Cigarette/Vaping Use: Never Used Patient Interested in Nicotine Replacement: Yes Patient Given Instructions on How to Stop Smoking: Yes Date Education Initiated: 04/18/25 Second Hand Smoke Exposure: No Use of substances other than those prescribed or required for medical reasons: Yes Substance Use Type: Crack/Cocaine Substance Use Frequency: Daily Last Used Substance: Just Prior to Admission Currently Displaying Signs/Symptoms of Drug Intoxication Withdrawal: No Have you been hit, kicked, punched, or otherwise hurt by someone within the past year? If so, by whom?: No Do you feel safe in your current relationship?: No Is there a partner from a previous relationship who is making you feel unsafe now?: No Are you made to feel afraid or neglected: No Advance Directives: No Advance Directives Information Provided: Yes Do you have thoughts of harming others: None Do you have a plan to hurt others: No Plan Recently lost weight without trying: No Eating poorly because of decreased appetite: No Nutrition Risks: No Nutritional Risk Poor oral hygiene: No service: No Current occupational status: employed Sexual orientation: Straight/Heterosexual Meds Allergies Allergy/AdvReac Type Severity Reaction Status Date / Time No Known Allergies Allergy Verified 04/17/25 11:37 Active Medications: Current Medications Acetaminophen (Acetaminophen 325 Mg Tablet) 650 mg PO Q6H PRN PRN Reason: Headache/Pain, Scale 1-10 Last Admin: 04/19/25 23:46 Dose: 650 mg Al Hydroxide/Mg Hydroxide (Magnesium Hydrox/Alum Hydrox 30 Ml Oral.Susp) 30 ml PO Q6H PRN PRN Reason: Heartburn/Nausea Last Admin: 04/19/25 23:44 Dose: 30 ml Aripiprazole (Aripiprazole 10 Mg Tablet) 10 mg PO DAILY [facility] Last Admin: 04/19/25 09:08 Dose: 10 mg Chlorpromazine HCl (Chlorpromazine Hcl 25 Mg Tablet) 50 mg PO Q6H PRN PRN Reason: agitation Dextrose (Dextrose 50 % 25 Gm/50 Ml Syringe) 25 gm IVPUSH Q15M PRN; Protocol PRN Reason: per Hypoglycemia Standing Ord. Glucose (Glucose Gel 15 Gm Gel..Gram.) 15 gm PO Q15M PRN; Protocol PRN Reason: per Hypoglycemia Standing Ord. Hydroxyzine HCl (Hydroxyzine Hcl 25 Mg Tablet) 25 mg PO Q6H PRN PRN Reason: mild anxiety Insulin Human Lispro (Insulin Lispro 100 Unit/Ml 3 Ml Vial) 0 unit SUBCUT QIDACHS [facility]; Protocol Last Admin: 04/19/25 21:17 Dose: Not Given Magnesium Hydroxide (Milk Of Magnesia 30 Ml Oral.Susp) 30 ml PO DAILY PRN PRN Reason: Constipation Metformin HCl (Metformin Hcl 500 Mg Tablet) 500 mg PO BID [facility] Last Admin: 04/19/25 21:18 Dose: 500 mg Sertraline HCl (Sertraline Hcl 25 Mg Tablet) 75 mg PO DAILY [facility] Last Admin: 04/19/25 09:08 Dose: 75 mg Trazodone HCl (Trazodone Hcl 50 Mg Tablet) 50 mg PO BEDTIME [facility] Last Admin: 04/19/25 21:19 Dose: 50 mg Trazodone HCl (Trazodone Hcl 50 Mg Tablet) 50 mg PO BEDTIME PRN PRN Reason: Insomnia Home Medications ?Medication ?Instructions ?Recorded ?Confirmed ?Last Taken ?Type dulaglutide 3 mg/0.5 mL 3 mg subcut FR 04/17/25 11/0 02/02 Unknown History subcutaneous pen injector (Trulicity) trazodone 50 mg tablet 50 mg PO BEDTIME PRN insomni a 04/17/25 04/17/25 Unknown History Physical Exam 2 Vital Signs and Narrative: Vital Signs: Last Vital Signs Temp 97.7 F 04/20/25 08:00 Pulse 86 04/20/25 08:00 Resp 18 04/20/25 08:00 BP 123/77 04/20/25 08:00 Pulse Ox 96 04/20/25 08:00 O2 Del Method Room Air 04/20/25 08:00 BMI result Body Mass Index 23.3 CONST: Alert and oriented, in NAD. Well nourished HEENT: Normocephalic, atraumatic, MMM, Eyes clear, Neck supple RESP: Lungs clear, RRR even and regular HEART:,RRR, S1, S2. No edema GI:Abdomen Soft NT, ND. + BS times four :Deferred SKIN: Warm dry and intact, no visible lesions or rashes NEURO:CN II-XII Intact bilaterally, Sensation intact. Speech clear PSYCH: Normal affect, pleasant and cooperative Results Labs 04/17/25 11:50 04/20/25 08:29 Labs: Laboratory Results - last 24 hr 04/19/25 04/19/25 04/19/25 08:50 17:03 21:03 POC Glucose 126 H 145 H 128 H 04/20/25 08:14 POC Glucose 122 H Assessment and Plan (1) Diabetes mellitus, type 2: Status: Acute Plan 44-year-old male with past medical history as listed below. Presented to the emergency room after using cocaine for several days, subsequently eval for chest pain. Patient was paranoid and delusional, he is admitted in patient psych for further care and treatment. Depression/delusions/cocaine use disorder Treatment per psychiatric team Asthma Stable with no exacerbation Type 2 diabetes Continue metformin and sliding scale insulin Previously on Trulicity at home, not on formulary Recent A1c 8.1 on February 12. Improved from 10.6 last admission. He has a history of noncompliance with diet and medications. Continue metformin b.i.d., insulin sliding scale Low back pain Tylenol as needed Thank you for allowing me to participate in the care of this patient. Will follow as needed, please notify medical provider with any changes in condition or concerns.
[2025-04-20 08:53] LABS: Alanine Aminotransferase 11 U/L (0-40); Albumin Level 4.9 g/dL (3.5-5.0); Alkaline Phosphatase 58 U/L (39-117); Anion Gap 14 (12-20); Aspartate Amino Transferase 21 U/L (5-37); Blood Urea Nitrogen 11 mg/dL (9-16); Calcium 10.0 mg/dL (8.4-10.2); Carbon Dioxide 33 mmol/L (22-29); Chloride 98 mmol/L (96-108); Cholesterol 169 mg/dL (<200); Creatinine Clr Calc Pharmacy 93.5; Estimated Glomerular Filt Rate > 60; HDL Cholesterol 40 mg/dL (>40); Potassium 4.6 mmol/L (3.3-5.1); Sodium 140 mmol/L (135-145); Total Protein 8.1 g/dL (6.5-8.0); Triglycerides 155 mg/dL (<150)
--- NOTE | 2025-04-20 09:45 | P.PNPSI_ITS ---
Subjective Subjective Date of Service: 04/20/25 Reason For Visit: Psychosis Interim History: met with pt; discussed with team; reviewed chart seen with grinder outside diameter Kevin Since he left from last admission, has been thinking the people/person who wanted to kill him has been following him BUT reports he sensed they were far away... However, about 2 weeks ago, he started using cocaine...since then and especially last week, pt started thinking police were following him. Patient says he was using cocaine only to keep himself up so he would not sleep and so good keep a watchful eye. Patient continues to agree that Abilify is helpful and in discussion agrees to increase dose. Patient put in a 3 day notice and says he is feeling ready to go home soon. Agrees to remain for help with dispo planning used cocaine which re-triggered Mental Status Exam Mental Status Exam Narrative: Pt is alert and oriented; behavior is cooperative, friendly and calm; patient is not in distress; dressed in casual attire with unkempt hair but adequate hygiene; mood is described as good and affect congruent; eye contact appropriate; Speech is normal rate, volume and prosody and not pressured; no psychomotor agitation/retardation present; thought process is organized and goal directed; Thought content is on paranoid ideations and discharge; denies any SI/HI. Denies AVH and there is no evidence of perceptual disturbance. Patients insight and judgment impaired but at baseline Diagnostics Vital Signs (24Hr): Vital Signs - 24 hr 04/19/25 20:00 04/20/25 08:00 Temperature 97.2 F 97.7 F Pulse Rate 95 86 Respiratory Rate 18 18 Blood Pressure 123/79 123/77 Pulse Oximetry 95 96 Oxygen Delivery Method Room Air Room Air BMI result Body Mass Index 23.3 Labs 04/17/25 11:50 04/20/25 08:29 Labs: Laboratory Results - last 48 hr 04/18/25 04/18/25 04/19/25 17:24 22:24 08:50 Sodium Potassium Chloride Carbon Dioxide Anion Gap BUN Creatinine Estim Creat Clear Calc Estimated GFR POC Glucose 180 H 159 H 126 H Random Glucose Estimat Average Glucose Hemoglobin A1c % Calcium Total Bilirubin AST ALT Alkaline Phosphatase Total Protein Albumin Triglycerides Cholesterol LDL Cholesterol, Calc HDL Cholesterol 04/19/25 04/19/25 04/20/25 17:03 21:03 08:14 Sodium Potassium Chloride Carbon Dioxide Anion Gap BUN Creatinine Estim Creat Clear Calc Estimated GFR POC Glucose 145 H 128 H 122 H Random Glucose Estimat Average Glucose Hemoglobin A1c % Calcium Total Bilirubin AST ALT Alkaline Phosphatase Total Protein Albumin Triglycerides Cholesterol LDL Cholesterol, Calc HDL Cholesterol 04/20/25 08:29 Sodium 140 Potassium 4.6 D Chloride 98 Carbon Dioxide 33 H Anion Gap 14 BUN 11 Creatinine 1.03 Estim Creat Clear Calc 93.5 Estimated GFR > 60 POC Glucose Random Glucose 131 H Estimat Average Glucose 186 Hemoglobin A1c % 8.1 H Calcium 10.0 D Total Bilirubin 0.7 AST 21 ALT 11 Alkaline Phosphatase 58 Total Protein 8.1 H Albumin 4.9 Triglycerides 155 H Cholesterol 169 LDL Cholesterol, Calc 98 HDL Cholesterol 40 L Imaging Radiology Impressions: ITS Impressions Chest X-Ray 04/17/25 11:55 IMPRESSION: No acute airspace disease. Electronically signed by: Eduardo Brizuela MD 04/17/2025 12:02 PM [facility] Medications Medications Current Medications Acetaminophen (Acetaminophen 325 Mg Tablet) 650 mg PO Q6H PRN PRN Reason: Headache/Pain, Scale 1-10 Last Admin: 04/19/25 23:46 Dose: 650 mg Al Hydroxide/Mg Hydroxide (Magnesium Hydrox/Alum Hydrox 30 Ml Oral.Susp) 30 ml PO Q6H PRN PRN Reason: Heartburn/Nausea Last Admin: 04/19/25 23:44 Dose: 30 ml Aripiprazole (Aripiprazole 10 Mg Tablet) 10 mg PO DAILY [facility] Last Admin: 04/20/25 09:21 Dose: 10 mg Chlorpromazine HCl (Chlorpromazine Hcl 25 Mg Tablet) 50 mg PO Q6H PRN PRN Reason: agitation Dextrose (Dextrose 50 % 25 Gm/50 Ml Syringe) 25 gm IVPUSH Q15M PRN; Protocol PRN Reason: per Hypoglycemia Standing Ord. Glucose (Glucose Gel 15 Gm Gel..Gram.) 15 gm PO Q15M PRN; Protocol PRN Reason: per Hypoglycemia Standing Ord. Hydroxyzine HCl (Hydroxyzine Hcl 25 Mg Tablet) 25 mg PO Q6H PRN PRN Reason: mild anxiety Insulin Human Lispro (Insulin Lispro 100 Unit/Ml 3 Ml Vial) 0 unit SUBCUT QIDACHS [facility]; Protocol Last Admin: 04/20/25 09:05 Dose: Not Given Magnesium Hydroxide (Milk Of Magnesia 30 Ml Oral.Susp) 30 ml PO DAILY PRN PRN Reason: Constipation Metformin HCl (Metformin Hcl 500 Mg Tablet) 500 mg PO BID [facility] Last Admin: 04/20/25 09:22 Dose: 500 mg Sertraline HCl (Sertraline Hcl 25 Mg Tablet) 75 mg PO DAILY [facility] Last Admin: 04/20/25 09:21 Dose: 75 mg Trazodone HCl (Trazodone Hcl 50 Mg Tablet) 50 mg PO BEDTIME [facility] Last Admin: 04/19/25 21:19 Dose: 50 mg Trazodone HCl (Trazodone Hcl 50 Mg Tablet) 50 mg PO BEDTIME PRN PRN Reason: Insomnia Allergies Allergies Allergy/AdvReac Type Severity Reaction Status Date / Time No Known Allergies Allergy Verified 04/17/25 11:37 Assessment & Plan Assessment & Plan (1) Delusional disorder: Status: Acute Code(s): F22 - Delusional disorders (2) Cocaine use disorder: Status: Acute Code(s): F14.10 - Cocaine abuse, uncomplicated Plan Hospital course 04/20 Since he left from last admission, has been thinking the people/person who wanted to kill him has been following him BUT reports he sensed they were far away... However, about 2 weeks ago, he started using cocaine...since then and especially last week, pt started thinking police were following him. Patient says he was using cocaine only to keep himself up so he would not sleep and so good keep a watchful eye. Patient continues to agree that Abilify is helpful and in discussion agrees to increase dose. Patient put in a 3 day notice and says he is feeling ready to go home soon. Agrees to remain for help with dispo planning Impression: Patient appears to be back to baseline. Abilify helps and keeps delusional thinking to a manageable level, and only seemed to worsen with cocaine use. Increasing dose may help mitigate future decompensations. Plan: Three day notice Q 15 minute checks Increase Abilify to 15 mg Continue home meds Addiction consult placed Depression/delusions Treatment per psychiatric team Asthma Continue albuterol as needed Stable with no exacerbation Type 2 diabetes Continue metformin and sliding scale insulin Previously on Trulicity at home, not on formulary Recent A1c 8.1 on February 12. He has a history of noncompliance with diet and medications. Continue metformin b.i.d., insulin sliding scale Low back pain Tylenol as needed Thank you for allowing me to participate in the care of this patient. Will follow as needed, please notify medical provider with any changes in condition or concerns. Patient educated on: diagnosis, medication risk/benefits, substance abuse and therapeutic strategies Informed Consent: understands, does not understand and further education needed Reason for continued inpatient stay Substantial Risk for: stable for discharge Time Spent With Patient Time: Total time managing care of this patient today ____ minutes.
[2025-04-20 12:27] LABS: Glucose, Whole Blood 133 mg/dL (60-115)
--- NOTE | 2025-04-20 12:31 | MHC.RECOVRN ---
Met with Vinayak on m5 after receiving an addiction consult for cocaine use. Upon approach pt is calm, oriented, and receptive to conversation. Pt reported opiate, cocaine, and marijuana use. Pt stated he had been on methadone for OUD a long time ago which he obtained from [facility] in [facility]. He then discontinued it and occasionally ?bought it off the streets?. Pt reported that he now occasionally buys fentanyl ?not much about ~1 bundle? but that he mainly uses cocaine. Pt also reported cocaine use $20 worth daily via the intranasal route with heavier use on the weekends 1-4 grams. 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 He reports ?sometimes? mixing heroin & cocaine for ?speedball? use. He has tried topamax for cocaine use disorder which he did find helpful. He reported ?I stopped taking it when I wanted to use? . Pt has a hx of ATS admissions including at [facility] 2 years ago. He has had numerous inpatient psych hospitalizations, mainly presenting with paranoia and feeling unsafe.? Pt denies hx of opioid overdose and denies family hx of SUDs. Pt verbalized understanding of safe snorting and safe injection practices, such as using clean syringes, never sharing needles, and injecting as distally as possible. He stated he is familiar with [facility] and [facility].? Pt reports that previously he had a [facility] counselor but no longer does after the counselor moved out of state. Pt expressed interest in recovery coaching, specifically with a [place]-speaking basketball coach. Regarding his mental health, pt stated he is currently feeling ?much better? and reported that he may discharge tomorrow.? Pt is interested in discussing meds for cocaine use with the provider & provider made aware.? Pt provided with written materials on harm reduction, local supports, and tx options. Pt given mental health/recovery work sheets in [place] language to work on.
[2025-04-20 17:30] LABS: Glucose, Whole Blood 140 mg/dL (60-115)
[2025-04-20 20:00] VITALS: BP 121/74; PULSE 91; RESP 18; TEMP 36.3; O2SAT 98
[2025-04-20] MEDS: Magnesium Hydrox/Alum Hydrox 30 ML ORAL.SUSP PO (21:42)
[2025-04-20 22:16] LABS: Glucose, Whole Blood 133 mg/dL (60-115)
[2025-04-21 07:57] LABS: Glucose, Whole Blood 128 mg/dL (60-115)
[2025-04-21 08:00] VITALS: BP 134/77; PULSE 77; RESP 18; TEMP 36.5; O2SAT 96
--- NOTE | 2025-04-21 10:01 | HO.ADDICTPRO ---
Subjective Subjective Date of Service: 04/21/25 Reason For Visit: Psychosis Interim History: Patient is a 44 year old Wallisian speaking male admitted to unit with paranoid delusions. Consult requested as patient reported ongoing cocaine use, and when seen by container packer operator expressed interest in medications for StUD. Patient seen on unit. He is awake, alert, pleasant and engaged in interview. He reports he started using cocaine approx 5 years ago after his marriage ended. He has been using with regularity since then, and reports limited periods of abstinence --one month at most. He reports IN use and occasionally smoking it. Denies any history of IVDU--he reports using at minimum a gram daily Denies any other illicit substance use, denies alcohol use He reports previously being prescribed Topiramate by his PCP and felt this this may have helped cut down how much he was using. He is unsure when he last took it--pharmacy records show last filled February 2025 50mg QHS Discussed how cocaine impacts him overall--he reported that it increases his anxiety, decreases his appetite, impacts his sleep and overall mood When asked about supports, he became hard to follow as he mentioned various things such as the yazdanism, a female friend--who introduced him to cocaine, and his own inner strength. Ultimately he reported that he wanted to start Topiramate again, and open to referral for ongoing care He denies any withdrawal sx at this time and states that sleep is very good since admission Labs reviewed-HIV and hepatitis screen completed 02/2025 Review of Systems Acute medical concerns: No Review of Systems Constitutional: Reports as per HPI Mental Status Exam Mental Status Exam Patient Appearance: Appropriate Level of Consciousness: Awake, Appropriate and Alert Patient Behavior: Talkative and Cooperative Affect Description: Calm Speech Pattern: Clear Thought Content: positive for Fair Play, positive for Circumstantial and positive for Tangential Judgement: Fair Diagnostics Vital Signs (24Hr): Vital Signs - 24 hr 04/20/25 20:00 04/21/25 08:00 Temperature 97.3 F 97.7 F Pulse Rate 91 77 Respiratory Rate 18 18 Blood Pressure 121/74 134/77 Pulse Oximetry 98 96 Oxygen Delivery Method Room Air Room Air BMI result Body Mass Index 23.3 Labs 04/17/25 11:50 04/20/25 08:29 Labs: Laboratory Results - last 48 hr 04/19/25 04/19/25 04/20/25 17:03 21:03 08:14 Sodium Potassium Chloride Carbon Dioxide Anion Gap BUN Creatinine Estim Creat Clear Calc Estimated GFR POC Glucose 145 H 128 H 122 H Random Glucose Estimat Average Glucose Hemoglobin A1c % Calcium Total Bilirubin AST ALT Alkaline Phosphatase Total Protein Albumin Triglycerides Cholesterol LDL Cholesterol, Calc HDL Cholesterol 04/20/25 04/20/25 04/20/25 08:29 12:23 17:26 Sodium 140 Potassium 4.6 D Chloride 98 Carbon Dioxide 33 H Anion Gap 14 BUN 11 Creatinine 1.03 Estim Creat Clear Calc 93.5 Estimated GFR > 60 POC Glucose 133 H 140 H Random Glucose 131 H Estimat Average Glucose 186 Hemoglobin A1c % 8.1 H Calcium 10.0 D Total Bilirubin 0.7 AST 21 ALT 11 Alkaline Phosphatase 58 Total Protein 8.1 H Albumin 4.9 Triglycerides 155 H Cholesterol 169 LDL Cholesterol, Calc 98 HDL Cholesterol 40 L 04/20/25 04/21/25 21:28 07:47 Sodium Potassium Chloride Carbon Dioxide Anion Gap BUN Creatinine Estim Creat Clear Calc Estimated GFR POC Glucose 133 H 128 H Random Glucose Estimat Average Glucose Hemoglobin A1c % Calcium Total Bilirubin AST ALT Alkaline Phosphatase Total Protein Albumin Triglycerides Cholesterol LDL Cholesterol, Calc HDL Cholesterol Imaging Radiology Impressions: ITS Impressions Chest X-Ray 04/17/25 11:55 IMPRESSION: No acute airspace disease. Electronically signed by: Eduardo Brizuela MD 04/17/2025 12:02 PM [facility] Medications Medications Current Medications Acetaminophen (Acetaminophen 325 Mg Tablet) 650 mg PO Q6H PRN PRN Reason: Headache/Pain, Scale 1-10 Last Admin: 04/19/25 23:46 Dose: 650 mg Al Hydroxide/Mg Hydroxide (Magnesium Hydrox/Alum Hydrox 30 Ml Oral.Susp) 30 ml PO Q6H PRN PRN Reason: Heartburn/Nausea Last Admin: 04/20/25 21:42 Dose: 30 ml Aripiprazole (Aripiprazole 15 Mg Tablet) 15 mg PO DAILY [facility] Last Admin: 04/21/25 09:22 Dose: 15 mg Chlorpromazine HCl (Chlorpromazine Hcl 25 Mg Tablet) 50 mg PO Q6H PRN PRN Reason: agitation Dextrose (Dextrose 50 % 25 Gm/50 Ml Syringe) 25 gm IVPUSH Q15M PRN; Protocol PRN Reason: per Hypoglycemia Standing Ord. Glucose (Glucose Gel 15 Gm Gel..Gram.) 15 gm PO Q15M PRN; Protocol PRN Reason: per Hypoglycemia Standing Ord. Hydroxyzine HCl (Hydroxyzine Hcl 25 Mg Tablet) 25 mg PO Q6H PRN PRN Reason: mild anxiety Last Admin: 04/20/25 21:34 Dose: 25 mg Insulin Human Lispro (Insulin Lispro 100 Unit/Ml 3 Ml Vial) 0 unit SUBCUT QIDACHS [facility]; Protocol Last Admin: 04/21/25 08:37 Dose: Not Given Magnesium Hydroxide (Milk Of Magnesia 30 Ml Oral.Susp) 30 ml PO DAILY PRN PRN Reason: Constipation Metformin HCl (Metformin Hcl 500 Mg Tablet) 500 mg PO BID [facility] Last Admin: 04/21/25 09:22 Dose: 500 mg Sertraline HCl (Sertraline Hcl 25 Mg Tablet) 75 mg PO DAILY [facility] Last Admin: 04/21/25 09:22 Dose: 75 mg Trazodone HCl (Trazodone Hcl 50 Mg Tablet) 50 mg PO BEDTIME [facility] Last Admin: 04/20/25 21:30 Dose: 50 mg Trazodone HCl (Trazodone Hcl 50 Mg Tablet) 50 mg PO BEDTIME PRN PRN Reason: Insomnia Allergies Allergies Allergy/AdvReac Type Severity Reaction Status Date / Time No Known Allergies Allergy Verified 04/17/25 11:37 Assessment & Plan Assessment & Plan (1) Cocaine use disorder: Status: Acute Code(s): F14.10 - Cocaine abuse, uncomplicated Assessment and Plan: restart tompiramate 50mg QHS requesting referral to [facility] for StUD treatment follow up Total time managing care of this patient today __35__ minutes.
[2025-04-21 16:39] LABS: Glucose, Whole Blood 135 mg/dL (60-115)
[2025-04-21] MEDS: Magnesium Hydrox/Alum Hydrox 30 ML ORAL.SUSP PO (19:05)
[2025-04-21 20:00] VITALS: BP 128/86; PULSE 91; TEMP 36.6; O2SAT 98
[2025-04-21 21:15] LABS: Glucose, Whole Blood 137 mg/dL (60-115)
--- NOTE | 2025-04-21 22:24 | HO.PSYCHPN ---
Subjective Subjective Date of Service: 04/21/25 Reason For Visit: Psychosis Interim History: Met with patient; discussed with team; seen with certified court/medical interpreter x Patient remains feeling in a good mood and feels ready for discharge. Patient did not run out of medications because of refills; he explains he did not make it to appointment because of transportation but says he will do so this next time around. Patient met with addiction provider and wants to get back on Topamax for help with cocaine cravings. Mental Status Exam Mental Status Exam Narrative: Pt is alert and oriented; behavior is cooperative, friendly and calm; patient is not in distress; dressed in casual attire with unkempt hair but adequate hygiene; mood is described as good and affect congruent; eye contact appropriate; Speech is normal rate, volume and prosody and not pressured; no psychomotor agitation/retardation present; thought process is organized and goal directed; Thought content is on paranoid ideations and discharge; denies any SI/HI. Denies AVH and there is no evidence of perceptual disturbance. Patients insight and judgment impaired but at baseline Diagnostics Vital Signs (24Hr): Vital Signs - 24 hr 04/21/25 08:00 04/21/25 20:00 Temperature 97.7 F 97.8 F Pulse Rate 77 91 Respiratory Rate 18 Blood Pressure 134/77 128/86 Pulse Oximetry 96 98 Oxygen Delivery Method Room Air Room Air BMI result Body Mass Index 23.3 Labs 04/17/25 11:50 04/20/25 08:29 Labs: Laboratory Results - last 48 hr 04/20/25 04/20/25 04/20/25 08:14 08:29 12:23 Sodium 140 Potassium 4.6 D Chloride 98 Carbon Dioxide 33 H Anion Gap 14 BUN 11 Creatinine 1.03 Estim Creat Clear Calc 93.5 Estimated GFR > 60 POC Glucose 122 H 133 H Random Glucose 131 H Estimat Average Glucose 186 Hemoglobin A1c % 8.1 H Calcium 10.0 D Total Bilirubin 0.7 AST 21 ALT 11 Alkaline Phosphatase 58 Total Protein 8.1 H Albumin 4.9 Triglycerides 155 H Cholesterol 169 LDL Cholesterol, Calc 98 HDL Cholesterol 40 L 04/20/25 04/20/25 04/21/25 17:26 21:28 07:47 Sodium Potassium Chloride Carbon Dioxide Anion Gap BUN Creatinine Estim Creat Clear Calc Estimated GFR POC Glucose 140 H 133 H 128 H Random Glucose Estimat Average Glucose Hemoglobin A1c % Calcium Total Bilirubin AST ALT Alkaline Phosphatase Total Protein Albumin Triglycerides Cholesterol LDL Cholesterol, Calc HDL Cholesterol 04/21/25 04/21/25 16:36 20:57 Sodium Potassium Chloride Carbon Dioxide Anion Gap BUN Creatinine Estim Creat Clear Calc Estimated GFR POC Glucose 135 H 137 H Random Glucose Estimat Average Glucose Hemoglobin A1c % Calcium Total Bilirubin AST ALT Alkaline Phosphatase Total Protein Albumin Triglycerides Cholesterol LDL Cholesterol, Calc HDL Cholesterol Imaging Radiology Impressions: ITS Impressions Chest X-Ray 04/17/25 11:55 IMPRESSION: No acute airspace disease. Electronically signed by: Eduardo Brizuela MD 04/17/2025 12:02 PM [facility] Medications Medications Current Medications Acetaminophen (Acetaminophen 325 Mg Tablet) 650 mg PO Q6H PRN PRN Reason: Headache/Pain, Scale 1-10 Last Admin: 04/19/25 23:46 Dose: 650 mg Al Hydroxide/Mg Hydroxide (Magnesium Hydrox/Alum Hydrox 30 Ml Oral.Susp) 30 ml PO Q6H PRN PRN Reason: Heartburn/Nausea Last Admin: 04/21/25 19:05 Dose: 30 ml Aripiprazole (Aripiprazole 15 Mg Tablet) 15 mg PO DAILY [facility] Last Admin: 04/21/25 09:22 Dose: 15 mg Chlorpromazine HCl (Chlorpromazine Hcl 25 Mg Tablet) 50 mg PO Q6H PRN PRN Reason: agitation Dextrose (Dextrose 50 % 25 Gm/50 Ml Syringe) 25 gm IVPUSH Q15M PRN; Protocol PRN Reason: per Hypoglycemia Standing Ord. Glucose (Glucose Gel 15 Gm Gel..Gram.) 15 gm PO Q15M PRN; Protocol PRN Reason: per Hypoglycemia Standing Ord. Hydroxyzine HCl (Hydroxyzine Hcl 25 Mg Tablet) 25 mg PO Q6H PRN PRN Reason: mild anxiety Last Admin: 04/20/25 21:34 Dose: 25 mg Insulin Human Lispro (Insulin Lispro 100 Unit/Ml 3 Ml Vial) 0 unit SUBCUT QIDACHS [facility]; Protocol Last Admin: 04/21/25 21:54 Dose: Not Given Magnesium Hydroxide (Milk Of Magnesia 30 Ml Oral.Susp) 30 ml PO DAILY PRN PRN Reason: Constipation Metformin HCl (Metformin Hcl 500 Mg Tablet) 500 mg PO BID [facility] Last Admin: 04/21/25 21:50 Dose: 500 mg Sertraline HCl (Sertraline Hcl 25 Mg Tablet) 75 mg PO DAILY [facility] Last Admin: 04/21/25 09:22 Dose: 75 mg Topiramate (Topiramate 25 Mg Tablet) 50 mg PO BEDTIME [facility] Last Admin: 04/21/25 21:50 Dose: 50 mg Trazodone HCl (Trazodone Hcl 50 Mg Tablet) 50 mg PO BEDTIME [facility] Last Admin: 04/21/25 21:51 Dose: 50 mg Trazodone HCl (Trazodone Hcl 50 Mg Tablet) 50 mg PO BEDTIME PRN PRN Reason: Insomnia Allergies Allergies Allergy/AdvReac Type Severity Reaction Status Date / Time No Known Allergies Allergy Verified 04/17/25 11:37 Assessment & Plan Assessment & Plan (1) Delusional disorder: Status: Acute Code(s): F22 - Delusional disorders (2) Cocaine use disorder: Status: Acute Code(s): F14.10 - Cocaine abuse, uncomplicated Plan Hospital course 04/20 Since he left from last admission, has been thinking the people/person who wanted to kill him has been following him BUT reports he sensed they were far away... However, about 2 weeks ago, he started using cocaine...since then and especially last week, pt started thinking police were following him. Patient says he was using cocaine only to keep himself up so he would not sleep and so good keep a watchful eye. Patient continues to agree that Abilify is helpful and in discussion agrees to increase dose. Patient put in a 3 day notice and says he is feeling ready to go home soon. Agrees to remain for help with dispo planning Impression: Patient appears to be back to baseline. Abilify helps and keeps delusional thinking to a manageable level, and only seemed to worsen with cocaine use. Increasing dose may help mitigate future decompensations. 04/21 Met with patient; discussed with team; seen with certified court/medical interpreter x Patient remains feeling in a good mood and feels ready for discharge. Patient did not run out of medications because of refills; he explains he did not make it to appointment because of transportation but says he will do so this next time around. Patient met with addiction provider and wants to get back on Topamax for help with cocaine cravings. Patient does not want other treatment or substance abuse program. -patient is at baseline which includes paranoid ideations. He is in a good mood, future oriented and on a higher dose of Abilify which he says he is tolerating well. Patient is wanting discharge. He is not in imminent risk for harm to self or others and appropriate to return to the community for treatment. Request for discharge honored Plan: Three day notice Q 15 minute checks Increase Abilify to 15 mg Continue home meds Addiction consult placed Depression/delusions Treatment per psychiatric team Asthma Continue albuterol as needed Stable with no exacerbation Type 2 diabetes Continue metformin and sliding scale insulin Previously on Trulicity at home, not on formulary Recent A1c 8.1 on February 12. He has a history of noncompliance with diet and medications. Continue metformin b.i.d., insulin sliding scale Low back pain Tylenol as needed Thank you for allowing me to participate in the care of this patient. Will follow as needed, please notify medical provider with any changes in condition or concerns. Patient educated on: diagnosis, medication risk/benefits, substance abuse and therapeutic strategies Informed Consent: understands, does not understand and further education needed Reason for continued inpatient stay Substantial Risk for: stable for discharge Time Spent With Patient Time: Total time managing care of this patient today ____ minutes.
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
[2025-04-22 08:12] LABS: Glucose, Whole Blood 127 mg/dL (60-115)
[2025-04-22] MEDS: Naloxone HCl Nasal TAKE HOME 4 MG SPRAY 8 MG NOSTRILALT (09:10)
--- NOTE | 2025-04-22 09:32 | MHC.RECOVRN ---
Met with Vinayak on m5 after receiving an addiction consult for cocaine use. Upon approach pt is calm, oriented, and receptive to conversation. Pt reported opiate, cocaine, and marijuana use. Pt stated he had been on methadone for OUD a long time ago which he obtained from [facility] clinic in [facility]. He then discontinued it and occasionally ?bought it off the streets?. Pt reported that he now occasionally buys fentanyl ?not much about ~1 bundle? but that he mainly uses cocaine. Pt also reported cocaine use $20 worth daily via the intranasal route with heavier use on the weekends 1-4 grams. 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 He reports ?sometimes? mixing heroin & cocaine for ?speedball? use. He has tried topamax for cocaine use disorder which he did find helpful. He reported ?I stopped taking it when I wanted to use? . Pt has a hx of ATS admissions including at [facility] 2 years ago. He has had numerous inpatient psych hospitalizations, mainly presenting with paranoia and feeling unsafe.? Pt denies hx of opioid overdose and denies family hx of SUDs. Pt verbalized understanding of safe snorting and safe injection practices, such as using clean syringes, never sharing needles, and injecting as distally as possible. He stated he is familiar with [facility].? Pt reports that previously he had a [facility] counselor but no longer does after the counselor moved out of state. Pt expressed interest in recovery coaching, specifically with a Belarusian-speaking job coach. Regarding his mental health, pt stated he is currently feeling ?much better? and reported that he may discharge tomorrow.? Pt is interested in discussing meds for cocaine use with the provider & provider made aware.? Pt provided with written materials on harm reduction, local supports, and tx options. Pt given mental health/recovery work sheets in [place]ian language to work on. NOTE WRITTEN ON 04/20 BUT WAS ACCIDENTALLY DELETED.
== END 2025-04-22 10:59 | disposition home or self-care (01) | DRG 760 ==
LOC: HO.ED 14:43 → HO.PM5 04-18 13:59
PROVIDERS: Physician Assistant Medical; Admitting Provider Psychiatry & Neurology Psychiatry; Emergency Provider Emergency Medicine Emergency Medical Services; PCP Internal Medicine; Visit Provider Psychiatry & Neurology Psychiatry
DX: F22 Delusional disorders (principal); F14.10 Cocaine abuse, uncomplicated; J45.909 Unspecified asthma, uncomplicated; M54.59 Other low back pain; Z79.84 Long term (current) use of oral hypoglycemic drugs; Z79.85 Long-term (current) use of injectable non-insulin antidiabetic drugs; Z79.899 Other long term (current) drug therapy
CPT/HCPCS: 36415; 71046; 80048; 80053; 80061; 80076; 80307; 81003; 82550; 82947; 83036; 83735; 84484; 85025; 93005; 99285; J1885; S9485

== ENCOUNTER → 2025-04-17 11:37 | Outpatient (BNV) | payer MEDICAID, SELFPAY | PROVIDERS: Admitting Provider Psychiatry & Neurology Psychiatry; Emergency Provider Emergency Medicine Emergency Medical Services; PCP Internal Medicine; Visit Provider Internal Medicine Cardiovascular Disease | DX: R07.9 Chest pain, unspecified (principal) | CPT/HCPCS: 93010 ==

== ENCOUNTER → 2025-04-17 11:47 | Outpatient (BNV) | payer MEDICAID, SELFPAY | PROVIDERS: Emergency Provider Emergency Medicine Emergency Medical Services; PCP Internal Medicine; Visit Provider Radiology Diagnostic Radiology | DX: R07.9 Chest pain, unspecified (principal) | CPT/HCPCS: 71046 ==

== ENCOUNTER → 2025-04-18 13:52 | Outpatient (BNV) | payer OTHER, SELFPAY | PROVIDERS: Admitting Provider Psychiatry & Neurology Psychiatry; Emergency Provider Emergency Medicine Emergency Medical Services; PCP Internal Medicine; Visit Provider Psychiatry & Neurology Psychiatry | DX: F22 Delusional disorders (principal); F14.10 Cocaine abuse, uncomplicated | CPT/HCPCS: 99232; 99499 ==

== ENCOUNTER → 2025-04-18 13:52 | Outpatient (BNV) | payer MEDICAID, SELFPAY | PROVIDERS: Admitting Provider Psychiatry & Neurology Psychiatry; Emergency Provider Emergency Medicine Emergency Medical Services; PCP Internal Medicine; Visit Provider Nurse Practitioner Family | DX: E11.9 Type 2 diabetes mellitus without complications (principal) | CPT/HCPCS: 99221 ==